=== PATIENT | male | born 1985 | race Caucasian/White ===

== ENCOUNTER → 2016-03-26 | Day surgery (SDC) | payer MEDICARE, MEDICAID ==
[~2016-03-26] VITALS: Ht 134.6 cm; Wt 22.7 kg
[~2016-03-26] MED LIST: CIPR500T89 GT; DULC10SU2 PR; GLYCOPYRROLATE INJ 0.2 MG/ML 2 ML VIAL As Ordered ONE; HYDR25T GT; IBUP100S2 GT; IBUPROFEN 600 MG TAB PO PRN; JEVILIQ10 GT; LIDOCAINE 2% INJ 100 MG/5 ML SDV (FOR ANES.) As Ordered ONE; LR 1,000 ML IV SCH; MEPERIDINE INJ 25 MG/ML VIAL (J2175) IV PRN; METO5EL GT; METOCLOPRAMIDE INJ 10MG/2ML VIAL (J2765) IV PRN; METR0.00 TOP; MIDAZOLAM INJ 2 MG/2 ML VIAL (J2250) As Ordered ONE; MILKSUS GT; MIRA3350 GT; NEOSTIGMINE 1MG/ML 5 ML SYRINGE (J2710) As Ordered ONE; NYST100024 TOP; ONDANSETRON 4MG/2ML VIAL (J2405) As Ordered ONE; ONDANSETRON 4MG/2ML VIAL (J2405) IV PRN; PERCOCET 5MG/325MG TAB PO PRN; PRIM250T5 GT; PROPOFOL 200 MG/20 ML VIAL As Ordered ONE; REGL5TAB2 PEG; ROCURONIUM BROMIDE 50 MG/5 ML VIAL As Ordered ONE; SENN8.8S6 GT; ZINC40OI TOP; ZINC60OI TOP; dexameTHASONE 4 MG/ML 1ML VIAL (J1100) As Ordered ONE; fentaNYL 100 MCG/2 ML INJECTION (J3010) IV PRN; fentaNYL 250 MCG/5 ML INJECTION (J3010) As Ordered ONE
[2016-03-26 14:30] VITALS: BP 121/74
--- NOTE | 2016-03-26 18:36 | RO ---
DATE OF PROCEDURE: 03/26/2016 PREOPERATIVE DIAGNOSIS: Dental caries. POSTOPERATIVE DIAGNOSIS: Dental caries. PROCEDURE: radiographs; fillings; prophy SURGEON: Dr. Sridhar Jean VICE PRESIDENT OF SALES: None ANESTHESIA: General DESCRIPTION OF PROCEDURE: The patient, Jimmy Mcfarland, was brought to the operating room with premedication and placed onto the operating table in the supine position. After all monitoring equipment was attached to the patient, vital signs were checked and general anesthetic medicaments were delivered via inhalation. Nasal intubation proceeded and tube extension was secured into position after breathing was monitored. The patient was then prepped and draped for dental surgical procedures. The intraoral cavity was inspected and suctioned free of gross secretions. One large moist throat pack was placed. Mouth prop placed. Decay removal followed by composite condensation was completed on the occlusal, lingual and buccal surface of tooth #2, the occlusal surface of teeth #4, 5, and 15, the buccal surface of teeth #30 and 31. Prophy with Cavitron of all dentition was completed. Fluoride varnish application was completed on entire dentition. Final removal of all gross fluids from intraoral and extraoral structures. Bite block removed. The patient then left by dental team in the care of presiding anesthesiologist. Note, there was continuous removal of all gross fluid throughout the duration of all performed dental procedures. GAGANDEEPD
== END | disposition home or self-care (01) ==
LOC: M SDC 09:18
PROVIDERS: ATTEND Dentist General Practice
DX: K02.9 Dental caries, unspecified (principal); G80.9 Cerebral palsy, unspecified; Z99.3 Dependence on wheelchair; Z88.0 Allergy status to penicillin; Z91.040 Latex allergy status; Z79.899 Other long term (current) drug therapy
CPT/HCPCS: 70300; D2391; D2393; D9223; J1100; J2250; J2405; J2710; J3010

== ENCOUNTER 2016-04-01 09:56 | Emergency (ER) | payer MEDICARE, MEDICAID ==
[~2016-04-01 09:56] MED LIST changes: -GLYCOPYRROLATE INJ 0.2 MG/ML 2 ML VIAL As Ordered ONE; -IBUPROFEN 600 MG TAB PO PRN; -LIDOCAINE 2% INJ 100 MG/5 ML SDV (FOR ANES.) As Ordered ONE; -LR 1,000 ML IV SCH; -MEPERIDINE INJ 25 MG/ML VIAL (J2175) IV PRN; -METOCLOPRAMIDE INJ 10MG/2ML VIAL (J2765) IV PRN; -MIDAZOLAM INJ 2 MG/2 ML VIAL (J2250) As Ordered ONE; -NEOSTIGMINE 1MG/ML 5 ML SYRINGE (J2710) As Ordered ONE; -ONDANSETRON 4MG/2ML VIAL (J2405) As Ordered ONE; -ONDANSETRON 4MG/2ML VIAL (J2405) IV PRN; -PERCOCET 5MG/325MG TAB PO PRN; -PROPOFOL 200 MG/20 ML VIAL As Ordered ONE; -ROCURONIUM BROMIDE 50 MG/5 ML VIAL As Ordered ONE; -dexameTHASONE 4 MG/ML 1ML VIAL (J1100) As Ordered ONE; -fentaNYL 100 MCG/2 ML INJECTION (J3010) IV PRN; -fentaNYL 250 MCG/5 ML INJECTION (J3010) As Ordered ONE
[2016-04-01] MEDS ORDERED: GASTROGRAFIN SOLUTION 30ML (Q9963) As Ordered ONE (10:37)
--- NOTE | 2016-04-01 11:20 | EDDOCDS ---
Physician Documentation [facility] Name: Jimmy Mcfarland Age: 30 yrs Sex: Male : 1985 Arrival Date: 04/01/2016 Time: 09:56 Bed I7 / 29 Private MD: Lakhwinder Liu M.D. Disposition: 04/01/16 10:59 Discharged to Home/Self Care. Impression: Encounter for attention to gastrostomy - replacement of 14 Fr PEG tube with 14 Fr beasley cath. - Condition is Stable. - Discharge Instructions: Gastrostomy Tube Home Guide, Adult, Gastrostomy Tube Replacement. - Medication Reconciliation, Local Pharmacy Hours form. - Follow up: Trenton Gallego MD; When: Call to arrange an appointment; Reason: Recheck today's complaints, Continuance of care. Follow up: Capo Hartmann; When: Call to arrange an appointment; Reason: Recheck today's complaints, Continuance of care. - Problem is new. - Symptoms have improved. Historical: - Allergies: Amoxicillin; hay fever; Latex; - Home Meds: 1. Dulcolax (bisacodyl) 10 mg Rectal supp 1 suppository prn 2. hydroxyzine HCl 25 mg Oral tab 2 tab nightly 3. Ibuprofen 100mg/5ml give 5ml TID PRN 4. Jevity 1.5 meeta 25cc/hr contiuously via pump 5. Miralax 10 ml give with 4 ounces of water at HS Oral 6. MOM 10ml via G-tube PRN daily as needed 7. primidone 250 mg Oral tab 0.5 tab nightly Tube 8. Reglan 5mg/5ml, give 5ml in am and HS 9. Senna 8/8mg/5ml give 10 ml twice daily 10. zinc oxide twice daily as needed - PMHx: Cerebral Palsy; microcephaly; Rosacea; Seizures; - PSHx: g tube; - Social history: Smoking status: Patient/guardian denies using Patient is speech impaired. - Family history: Not pertinent. - : The pt / caregiver states he / she is not on anticoagulants. Home medication list is obtained from [employer] import data. - Exposure Risk Screening:: None identified. Vital Signs: 04/01 09:58 Resp 16 S; Temp 96.4(T); Weight 19.05 kg / 42 lbs (R); dd6 Procedures: 11:04 G-tube placement: a 14 Greenlandic catheter was placed, by the ED physician, pt had a 14 mo1 guyanese button PEG tube dislodged due to ruptured balloon. due to lack of available correct sized PEG tubes pt had a 14 Fr beasley cath inserted by insurance underwriter with good placement as confirmed with KUB with gastroview injection. director medicare sales instructed to take pt to general surgeon for correct button PEG placement . MDM: 10:34 Diatrizoate Meglumine & Sodium Liquid 10 ml PO once; mix in 290cc of water ordered. mo1 10:36 Abdomen,Flat Plate (KUB) Ordered. EDMS 10:38 Financial registration complete. mm15 Administered Medications: 10:50 Drug: Diatrizoate Meglumine & Sodium 10 ml [diatrizoate meglumine and diat.sodium 66 kr3 %-10 % oral solution (10 mL)] {Note: given by MOhagenPA via Gtube.} Route: PO; Signatures: Dispatcher [employer] EDKassidy Krishna, RN RN dls Maire Balderas RN RN kr3 Saurabh Abarca PA PA mo1 Zbigniew Leroy mm15 MTDKarina
--- NOTE | 2016-04-01 11:20 | EDDOCDS ---
Nurse's Notes [facility] Name: Jimmy Mcfarland Age: 30 yrs Sex: Male : 1985 Arrival Date: 04/01/2016 Time: 09:56 Bed I7 / 29 Private MD: Lakhwinder Liu M.D. Diagnosis: Encounter for attention to gastrostomy-replacement of 14 Fr PEG tube with 14 Fr beasley cath Presentation: 04/01 10:01 Presenting complaint: Patient states: Pt presents with g-tube fell out this morning Pt dls is [facility] client. Adult Sepsis Screening: The patient does not have new or worsening altered mentation. Patient's respiratory rate is less than 22. Systolic blood pressure is greater than 100. Patient has a qSOFA score of 0- Negative Sepsis Screen. Suicide/Homicide risk assessment- the patient denies having any suicidal and/or homicidal ideations and does not present with any other emotional, behavioral or mental health complaints. Status: Patient is not a customer service correspondence clerk or dependent. Transition of care: patient was not received from another setting of care. 10:01 Acuity: LAINA Level 4 dls 10:01 Method Of Arrival: Wheelchair dls Triage Assessment: 10:04 General: Appears in no apparent distress, Behavior is cooperative. Pain: Unable to use dls pain scale. FLACC scale score is 0 out of 10. HIV screening NA for this visit Offered previously. Historical: - Allergies: Amoxicillin; hay fever; Latex; - Home Meds: 1. Dulcolax (bisacodyl) 10 mg Rectal supp 1 suppository prn 2. hydroxyzine HCl 25 mg Oral tab 2 tab nightly 3. Ibuprofen 100mg/5ml give 5ml TID PRN 4. Jevity 1.5 meeta 25cc/hr contiuously via pump 5. Miralax 10 ml give with 4 ounces of water at HS Oral 6. MOM 10ml via G-tube PRN daily as needed 7. primidone 250 mg Oral tab 0.5 tab nightly Tube 8. Reglan 5mg/5ml, give 5ml in am and HS 9. Senna 8/8mg/5ml give 10 ml twice daily 10. zinc oxide twice daily as needed - PMHx: Cerebral Palsy; microcephaly; Rosacea; Seizures; - PSHx: g tube; - Social history: Smoking status: Patient/guardian denies using Patient is speech impaired. - Family history: Not pertinent. - : The pt / caregiver states he / she is not on anticoagulants. Home medication list is obtained from [employer] import data. - Exposure Risk Screening:: None identified. Screenin:18 Screening information is obtained from the caregiver. Fall risk: At risk due to kr3 apparent cognitive impairment, immobility. Assistance ADL's: Requires assistance with meal preparation, this assistance is provided by residence staff, bathing, assistance is provided by residence staff, dressing, assistance is provided by residence staff, toileting, assistance is provided by residence staff, housework, assistance is provided by residence staff, medication administration, assistance is provided by residence staff. Abuse/DV Screen: The patient / caregiver reports he/she is: pt cannot be assessed for living situation at this time. Nutritional screening: On. Advance Directives: Currently, there is no health care proxy. home support is adequate. Assessment: 11:19 Reassessment: Patient appears in no apparent distress at this time. kr3 Vital Signs: 09:58 Resp 16 S; Temp 96.4(T); Weight 19.05 kg (R); dd6 Vitals: 09:58 Log In Time: April 01, 2016 at 09:56. dd6 ED Course: 09:58 Patient visited by Arnie Zeng PCA. dd6 09:58 Lakhwinder Liu is Private Physician. dd6 09:58 Patient moved to Waiting dd6 10:01 Patient moved to Pre RCE dd6 10:02 Triage Initiated dls 10:19 Saurabh Abarca PA is PHCP. mo1 10:19 Gurdeep Dennis MD is Attending Physician. mo1 10:19 Patient moved to I mo1 10:21 Pt greeted and oriented to ED. Patient advised of names of staff involved in care, jam1 location of call [place], wait times and NPO status. Patient has correct armband on for positive identification. Bed in low position. Call light in reach. Side rails up X 1. PT SITTING IN WHEELCHAIR. [facility] CLIENT. Door closed. 10:34 Patient visited by Saurabh Abarca PA. mo1 10:59 Trenton Gallego MD is Referral Physician. mo1 10:59 Capo Hartmann is Referral Physician. mo1 11:18 No IV's were initiated during this patient's visit. No procedures done that require kr3 assistance. 11:19 The patient / caregiver is instructed regarding the plan of care and ED course. kr3 Administered Medications: 10:50 Drug: Diatrizoate Meglumine & Sodium 10 ml [diatrizoate meglumine and diat.sodium 66 kr3 %-10 % oral solution (10 mL)] {Note: given by [facility] via Gtube.} Route: PO; Order Results: There are currently no results for this order. Outcome: 10:59 Discharge ordered by Provider. mo1 11:18 Discharge Assessment: patient administered narcotics - no. The following High Risk kr3 Discharge criteria are identified: None. Discharged to home via wheelchair. Condition: stable. Discharge instructions given to raw stock drier tender, Instructed on discharge instructions, follow up and referral plans. Demonstrated understanding of instructions, Pt was receptive of discharge instructions/ teaching. No special radiology studies were completed. Property sent home with patient. 11:19 Patient left the ED. kr3 Signatures: Kassidy Garcia, RN RN Elsa Meyers, EDI DEVELOPER EDI DEVELOPER jam1 Marie Balderas RN RN kr3 Arnie Zeng, EDI DEVELOPER EDI DEVELOPER dd6 Saurabh Abarca PA PA mo1 Corrections: (The following items were deleted from the chart) 10:01 09:58 Resp 16bpm; Spontaneous; Pulse Ox 0% RA; Temp 96.4F Tympanic; 19.05 kg Reported; dd6 dd6 MTDD
--- NOTE | 2016-04-01 13:45 | REP ---
KUB: Single view. HISTORY: B-tube placement. Contrast has been instilled via the G-tube by the referring clinical service. Comparison study December 30, 2014. FINDINGS: A gastrostomy tube is seen in good position in the body of the stomach. Contrast has been injected and is seen within the stomach. No extravasation. IMPRESSION: G-tube appears to be in good position. No extravasation of contrast seen. Signed by Pablo Brown MD 04/01/2016 03:17 P
--- NOTE | 2016-04-03 12:20 | EDDOCDS ---
Nurse's Notes [facility] Name: Jimmy Mcfarland Age: 30 yrs Sex: Male : 1985 Arrival Date: 04/01/2016 Time: 09:56 Bed I7 / 29 Private MD: Lakhwinder Liu M.D. Diagnosis: Encounter for attention to gastrostomy-replacement of 14 Fr PEG tube with 14 Fr beasley cath Presentation: 04/01 10:01 Presenting complaint: Patient states: Pt presents with g-tube fell out this morning Pt dls is [facility] client. Adult Sepsis Screening: The patient does not have new or worsening altered mentation. Patient's respiratory rate is less than 22. Systolic blood pressure is greater than 100. Patient has a qSOFA score of 0- Negative Sepsis Screen. Suicide/Homicide risk assessment- the patient denies having any suicidal and/or homicidal ideations and does not present with any other emotional, behavioral or mental health complaints. Status: Patient is not a pool servicer or dependent. Transition of care: patient was not received from another setting of care. 10:01 Acuity: LAINA Level 4 dls 10:01 Method Of Arrival: Wheelchair dls Triage Assessment: 10:04 General: Appears in no apparent distress, Behavior is cooperative. Pain: Unable to use dls pain scale. FLACC scale score is 0 out of 10. HIV screening NA for this visit Offered previously. Historical: - Allergies: Amoxicillin; hay fever; Latex; - Home Meds: 1. Dulcolax (bisacodyl) 10 mg Rectal supp 1 suppository prn 2. hydroxyzine HCl 25 mg Oral tab 2 tab nightly 3. Ibuprofen 100mg/5ml give 5ml TID PRN 4. Jevity 1.5 meeta 25cc/hr contiuously via pump 5. Miralax 10 ml give with 4 ounces of water at HS Oral 6. MOM 10ml via G-tube PRN daily as needed 7. primidone 250 mg Oral tab 0.5 tab nightly Tube 8. Reglan 5mg/5ml, give 5ml in am and HS 9. Senna 8/8mg/5ml give 10 ml twice daily 10. zinc oxide twice daily as needed - PMHx: Cerebral Palsy; microcephaly; Rosacea; Seizures; - PSHx: g tube; - Social history: Smoking status: Patient/guardian denies using Patient is speech impaired. - Family history: Not pertinent. - : The pt / caregiver states he / she is not on anticoagulants. Home medication list is obtained from [employer] import data. - Exposure Risk Screening:: None identified. Screenin:18 Screening information is obtained from the caregiver. Fall risk: At risk due to kr3 apparent cognitive impairment, immobility. Assistance ADL's: Requires assistance with meal preparation, this assistance is provided by residence staff, bathing, assistance is provided by residence staff, dressing, assistance is provided by residence staff, toileting, assistance is provided by residence staff, housework, assistance is provided by residence staff, medication administration, assistance is provided by residence staff. Abuse/DV Screen: The patient / caregiver reports he/she is: pt cannot be assessed for living situation at this time. Nutritional screening: On. Advance Directives: Currently, there is no health care proxy. home support is adequate. Assessment: 11:19 Reassessment: Patient appears in no apparent distress at this time. kr3 Vital Signs: 09:58 Resp 16 S; Temp 96.4(T); Weight 19.05 kg (R); dd6 Vitals: 09:58 Log In Time: April 01, 2016 at 09:56. dd6 ED Course: 09:58 Patient visited by Arnie Zeng PCA. dd6 09:58 Lakhwinder Liu is Private Physician. dd6 09:58 Patient moved to Waiting dd6 10:01 Patient moved to Pre RCE dd6 10:02 Triage Initiated dls 10:19 Saurabh Abarca PA is PHCP. mo1 10:19 Gurdeep Dennis MD is Attending Physician. mo1 10:19 Patient moved to I mo1 10:21 Pt greeted and oriented to ED. Patient advised of names of staff involved in care, jam1 location of call [place], wait times and NPO status. Patient has correct armband on for positive identification. Bed in low position. Call light in reach. Side rails up X 1. PT SITTING IN WHEELCHAIR. [facility] CLIENT. Door closed. 10:34 Patient visited by Saurabh Abarca PA. mo1 10:59 Trenton Gallego MD is Referral Physician. mo1 10:59 Capo Hartmann is Referral Physician. mo1 11:18 No IV's were initiated during this patient's visit. No procedures done that require kr3 assistance. 11:19 The patient / caregiver is instructed regarding the plan of care and ED course. kr3 11:26 [facility] Payment Agreement was scanned into [employer] and attached to record. mm15 14:15 Abdomen,Flat Plate (KUB) Returned. EDMS 14:58 T-Sheet-- Draft Copy was scanned into [employer] and attached to record. gb Administered Medications: 10:50 Drug: Diatrizoate Meglumine & Sodium 10 ml [diatrizoate meglumine and diat.sodium 66 kr3 %-10 % oral solution (10 mL)] {Note: given by MOhagenPA via Gtube.} Route: PO; Order Results: Radiology Order: Abdomen,Flat Plate (KUB) Test: Abdomen,Flat Plate (KUB) REASON FOR EXAMINATION: g tube placement; KUB: Single view.; ; HISTORY: B-tube placement. Contrast has been instilled via the G-tube by the; referring clinical service.; ; Comparison study December 30, 2014.; ; FINDINGS: A gastrostomy tube is seen in good position in the body of the; stomach. Contrast has been injected and is seen within the stomach. No; extravasation.; ; IMPRESSION: G-tube appears to be in good position. No extravasation of contrast; seen.; ; ; Signed by; Pablo Brown MD 04/01/2016 03:17 P; Outcome: 10:59 Discharge ordered by Provider. mo1 11:18 Discharge Assessment: patient administered narcotics - no. The following High Risk kr3 Discharge criteria are identified: None. Discharged to home via wheelchair. Condition: stable. Discharge instructions given to tool room gear machine operator, Instructed on discharge instructions, follow up and referral plans. Demonstrated understanding of instructions, Pt was receptive of discharge instructions/ teaching. No special radiology studies were completed. Property sent home with patient. 11:19 Patient left the ED. kr3 Signatures: Dispatcher [employer] EDMS Kassidy Garcia RN RN dls Murphy, Jane, EMERGENCY CARE ATTENDANT EMERGENCY CARE ATTENDANT jam1 Danna Murphy, Ernst Dukes gb Marie Balderas RN RN kr3 Arnie Zeng, EMERGENCY CARE ATTENDANT EMERGENCY CARE ATTENDANT dd6 Saurabh Abarca PA PA mo1 Zbigniew Leroy mm15 Corrections: (The following items were deleted from the chart) 10:01 09:58 Resp 16bpm; Spontaneous; Pulse Ox 0% RA; Temp 96.4F Tympanic; 19.05 kg Reported; dd6 dd6 Chart Complete MTDD
--- NOTE | 2016-04-03 12:20 | EDDOCDS ---
Physician Documentation [facility] Name: Jimmy Mcfarland Age: 30 yrs Sex: Male : 1985 Arrival Date: 04/01/2016 Time: 09:56 Bed I7 / 29 Private MD: Lakhwinder Liu M.D. Disposition: 04/01/16 10:59 Discharged to Home/Self Care. Impression: Encounter for attention to gastrostomy - replacement of 14 Fr PEG tube with 14 Fr beasley cath. - Condition is Stable. - Discharge Instructions: Gastrostomy Tube Home Guide, Adult, Gastrostomy Tube Replacement. - Medication Reconciliation, Local Pharmacy Hours form. - Follow up: Trenton Gallego MD; When: Call to arrange an appointment; Reason: Recheck today's complaints, Continuance of care. Follow up: Capo Hartmann; When: Call to arrange an appointment; Reason: Recheck today's complaints, Continuance of care. - Problem is new. - Symptoms have improved. Historical: - Allergies: Amoxicillin; hay fever; Latex; - Home Meds: 1. Dulcolax (bisacodyl) 10 mg Rectal supp 1 suppository prn 2. hydroxyzine HCl 25 mg Oral tab 2 tab nightly 3. Ibuprofen 100mg/5ml give 5ml TID PRN 4. Jevity 1.5 meeta 25cc/hr contiuously via pump 5. Miralax 10 ml give with 4 ounces of water at HS Oral 6. MOM 10ml via G-tube PRN daily as needed 7. primidone 250 mg Oral tab 0.5 tab nightly Tube 8. Reglan 5mg/5ml, give 5ml in am and HS 9. Senna 8/8mg/5ml give 10 ml twice daily 10. zinc oxide twice daily as needed - PMHx: Cerebral Palsy; microcephaly; Rosacea; Seizures; - PSHx: g tube; - Social history: Smoking status: Patient/guardian denies using Patient is speech impaired. - Family history: Not pertinent. - : The pt / caregiver states he / she is not on anticoagulants. Home medication list is obtained from [employer] import data. - Exposure Risk Screening:: None identified. Vital Signs: 04/01 09:58 Resp 16 S; Temp 96.4(T); Weight 19.05 kg / 42 lbs (R); dd6 Procedures: 11:04 G-tube placement: a 14 German catheter was placed, by the ED physician, pt had a 14 mo1 citizen of [place] button PEG tube dislodged due to ruptured balloon. due to lack of available correct sized PEG tubes pt had a 14 Fr beasley cath inserted by verse writer with good placement as confirmed with KUB with gastroview injection. rn patient care instructed to take pt to general surgeon for correct button PEG placement . MDM: 10:34 Diatrizoate Meglumine & Sodium Liquid 10 ml PO once; mix in 290cc of water ordered. mo1 10:36 Abdomen,Flat Plate (KUB) Ordered. EDMS 10:38 Financial registration complete. mm15 11: [facility] Payment Agreement was scanned into [employer] and attached to record. mm15 14:58 T-Sheet-- Draft Copy was scanned into [employer] and attached to record. gb Administered Medications: 10:50 Drug: Diatrizoate Meglumine & Sodium 10 ml [diatrizoate meglumine and diat.sodium 66 kr3 %-10 % oral solution (10 mL)] {Note: given by MOhagenPA via Gtube.} Route: PO; Signatures: Dispatcher [employer] EDMS Kassidy Garcia, MARIVEL RN Danna Jones Reg Reg gb Robie, Kathleen, RN RN kr3 Saurabh Abarca PA PA mo1 Zbigniew Leroy mm15 The chart was reviewed and I authenticate all verbal orders and agree with the evaluation and treatment provided.Attachments: 11: [facility] Payment Agreement mm15 14:58 T-Sheet-- Draft Copy gb Chart Complete MTDD
--- NOTE | 2016-04-03 12:20 | EDDOCDS ---
Physician Documentation [facility] Name: Jimmy Mcfarland Age: 30 yrs Sex: Male : 1985 Arrival Date: 04/01/2016 Time: 09:56 Bed I7 / 29 Private MD: Lakhwinder Liu M.D. Disposition: 04/01/16 10:59 Discharged to Home/Self Care. Impression: Encounter for attention to gastrostomy - replacement of 14 Fr PEG tube with 14 Fr beasley cath. - Condition is Stable. - Discharge Instructions: Gastrostomy Tube Home Guide, Adult, Gastrostomy Tube Replacement. - Medication Reconciliation, Local Pharmacy Hours form. - Follow up: Trenton Gallego MD; When: Call to arrange an appointment; Reason: Recheck today's complaints, Continuance of care. Follow up: Capo Hartmann; When: Call to arrange an appointment; Reason: Recheck today's complaints, Continuance of care. - Problem is new. - Symptoms have improved. Historical: - Allergies: Amoxicillin; hay fever; Latex; - Home Meds: 1. Dulcolax (bisacodyl) 10 mg Rectal supp 1 suppository prn 2. hydroxyzine HCl 25 mg Oral tab 2 tab nightly 3. Ibuprofen 100mg/5ml give 5ml TID PRN 4. Jevity 1.5 meeta 25cc/hr contiuously via pump 5. Miralax 10 ml give with 4 ounces of water at HS Oral 6. MOM 10ml via G-tube PRN daily as needed 7. primidone 250 mg Oral tab 0.5 tab nightly Tube 8. Reglan 5mg/5ml, give 5ml in am and HS 9. Senna 8/8mg/5ml give 10 ml twice daily 10. zinc oxide twice daily as needed - PMHx: Cerebral Palsy; microcephaly; Rosacea; Seizures; - PSHx: g tube; - Social history: Smoking status: Patient/guardian denies using Patient is speech impaired. - Family history: Not pertinent. - : The pt / caregiver states he / she is not on anticoagulants. Home medication list is obtained from [employer] import data. - Exposure Risk Screening:: None identified. Vital Signs: 04/01 09:58 Resp 16 S; Temp 96.4(T); Weight 19.05 kg / 42 lbs (R); dd6 Procedures: 11:04 G-tube placement: a 14 Malay catheter was placed, by the ED physician, pt had a 14 mo1 estonian button PEG tube dislodged due to ruptured balloon. due to lack of available correct sized PEG tubes pt had a 14 Fr beasley cath inserted by justowriter operator with good placement as confirmed with KUB with gastroview injection. healthcare analyst instructed to take pt to general surgeon for correct button PEG placement . MDM: 10:34 Diatrizoate Meglumine & Sodium Liquid 10 ml PO once; mix in 290cc of water ordered. mo1 10:36 Abdomen,Flat Plate (KUB) Ordered. EDMS 10:38 Financial registration complete. mm15 11: [facility] Payment Agreement was scanned into [employer] and attached to record. mm15 14:58 T-Sheet-- Draft Copy was scanned into [employer] and attached to record. gb Administered Medications: 10:50 Drug: Diatrizoate Meglumine & Sodium 10 ml [diatrizoate meglumine and diat.sodium 66 kr3 %-10 % oral solution (10 mL)] {Note: given by MOhagenPA via Gtube.} Route: PO; Signatures: Dispatcher [employer] EDMS Kassidy Garcia, MARIVEL RN Danna Jones Reg Reg gb Robie, Kathleen, RN RN kr3 Saurabh Abarca PA PA mo1 Zbigniew Leroy mm15 The chart was reviewed and I authenticate all verbal orders and agree with the evaluation and treatment provided.Attachments: 11: [facility] Payment Agreement mm15 14:58 T-Sheet-- Draft Copy gb Chart Complete MTDD
== END 2016-04-01 11:19 | disposition home or self-care (01) ==
LOC: M ED 09:56
DX: Z43.1 Encounter for attention to gastrostomy (principal); G80.9 Cerebral palsy, unspecified; Q02 Microcephaly; R56.9 Unspecified convulsions; L71.9 Rosacea, unspecified; J30.1 Allergic rhinitis due to pollen; Z79.899 Other long term (current) drug therapy; Z88.1 Allergy status to other antibiotic agents; Z91.040 Latex allergy status; Z97.8 Presence of other specified devices
CPT/HCPCS: 43760; 74000; 99283; Q9963

== ENCOUNTER → 2016-05-15 | Outpatient (REF) | payer MEDICARE, MEDICAID | LOC: M SFHCCLAY 15:10 | PROVIDERS: ATTEND Family Medicine | DX: J40 Bronchitis, not specified as acute or chronic (principal); Z93.1 Gastrostomy status | CPT/HCPCS: 87070; 87077; 87186; 87205; G0463 ==

== ENCOUNTER 2016-11-07 23:34 | Emergency (ER) | payer MEDICARE, MEDICAID ==
[~2016-11-07] VITALS: Ht 119.4 cm; Wt 23.6 kg
[~2016-11-07 23:34] MED LIST changes: +CIPR-249 GT; -CIPR500T89 GT; +HYDR-3363 GT; -HYDR25T GT; -NYST100024 TOP; +NYST1POW9 TOP; -PRIM250T5 GT; +PRIM250T8 GT
[2016-11-08 01:33] VITALS: BP 106/61
== END 2016-11-08 01:35 | disposition home or self-care (01) ==
LOC: M ED 23:34
DX: K94.23 Gastrostomy malfunction (principal); G80.9 Cerebral palsy, unspecified; F99 Mental disorder, not otherwise specified; Z79.899 Other long term (current) drug therapy; Z91.040 Latex allergy status; Z88.0 Allergy status to penicillin

== ENCOUNTER 2017-01-17 20:45 | Emergency (ER) | payer MEDICARE, MEDICAID ==
[~2017-01-17] VITALS: Ht 119.4 cm; Wt 21.8 kg
[2017-01-17 20:47] VITALS: BP 132/71
== END 2017-01-17 22:20 | disposition home or self-care (01) ==
LOC: M ED 20:45
DX: K94.23 Gastrostomy malfunction (principal); Z79.899 Other long term (current) drug therapy; Z91.040 Latex allergy status; Z88.0 Allergy status to penicillin

== ENCOUNTER → 2017-04-11 | Outpatient (REF) | payer MEDICARE, MEDICAID | LOC: M LAB REF 08:51 | DX: R19.7 Diarrhea, unspecified (principal) | CPT/HCPCS: 87493 ==

== ENCOUNTER → 2017-08-22 | Outpatient (CLI) | payer MEDICARE, MEDICAID ==
[2017-08-22 15:02] LABS: BASO % 0.5 % (0.0-1.0); EOS % 0.4 % (0.0-3.0); HEMOGLOBIN 14.1 g/dl (13.5-17.5); IMMATURE GRANULOCYTE % 0.1 % (0-3.0); LYMPH # 2.4 10^3/uL (1.5-4.5); LYMPH % 31.6 % (24.0-44.0); MEAN CORPUSCULAR HEMOGLOBIN 31.1 pg (27.0-33.0); MEAN CORPUSCULAR HGB CONC 32.8 g/dl (32.0-36.5); MEAN CORPUSCULAR VOLUME 94.7 fl (80.0-96.0); MONO # 1.1 10^3/uL (0.0-0.8); MONO % 14.3 % (0.0-5.0); NEUTROPHILS # 4.1 10^3/uL (1.8-7.7); NEUTROPHILS % 53.1 % (36.0-66.0); PLATELET COUNT, AUTOMATED 136 10^3/uL (150-450); RED BLOOD COUNT 4.54 10^6/uL (4.30-6.10); RED CELL DISTRIBUTION WIDTH 13.2 % (11.5-14.5); WHITE BLOOD COUNT 7.7 10^3/uL (4.0-10.0)
== END ==
LOC: M WUC 09:09
DX: Z01.818 Encounter for other preprocedural examination (principal); G40.909 Epilepsy, unspecified, not intractable, without status epilepticus
CPT/HCPCS: 85025

== ENCOUNTER 2017-08-24 00:52 | Emergency (ER) | payer MEDICARE, MEDICAID | END 2017-08-24 01:57 | disposition home or self-care (01) | LOC: M ED 00:52 | DX: Z43.1 Encounter for attention to gastrostomy (principal); G80.9 Cerebral palsy, unspecified; Z88.0 Allergy status to penicillin; Z91.040 Latex allergy status; Z79.899 Other long term (current) drug therapy | CPT/HCPCS: 99282 ==

== ENCOUNTER → 2017-08-25 | Outpatient (CLI) | payer MEDICARE, MEDICAID ==
[2017-08-25 11:24] LABS: ALBUMIN 3.3 GM/DL (3.2-5.2); ALKALINE PHOSPHATASE 134 U/L (45-117); ALT/SGPT 35 U/L (12-78); ANION GAP 8 MEQ/L (8-16); AST/SGOT 39 U/L (7-37); BILIRUBIN,TOTAL 0.2 MG/DL (0.2-1.0); BLOOD UREA NITROGEN 16 MG/DL (7-18); CALCIUM LEVEL 8.9 MG/DL (8.5-10.1); CARBON DIOXIDE LEVEL 29 MEQ/L (21-32); CHLORIDE LEVEL 102 MEQ/L (98-107); CREATININE FOR GFR 0.44 MG/DL (0.70-1.30); GLOMERULAR FILTRATION RATE > 60.0 (>60); GLUCOSE, FASTING 70 MG/DL (70-100); SODIUM LEVEL 139 MEQ/L (136-145); TOTAL PROTEIN 7.4 GM/DL (6.4-8.2)
[2017-08-25 11:30] LABS: POTASSIUM SERUM 5.5 MEQ/L (3.5-5.1)
[2017-08-27 10:12] LABS: PHENOBARBITAL (PRIMIDONE) 9 ug/mL (15-40)
== END ==
LOC: M LAB 09:14
DX: Z01.818 Encounter for other preprocedural examination (principal); G40.909 Epilepsy, unspecified, not intractable, without status epilepticus
CPT/HCPCS: 80188

== ENCOUNTER 2018-08-12 20:50 | Inpatient (IN) | payer MEDICARE, MEDICAID ==
[~2018-08-12] VITALS: Ht 119.4 cm; Wt 23.1 kg
[~2018-08-12 20:50] MED LIST changes: +FLEEENE12 PR; +IBUP0.77 GT; -IBUP100S2 GT; +JEVILIQ7 PO; +LACT10SO29 PO; +LACT10SO3 GT; +METR0.7533 TOP; +MILK120011 GT; -MILKSUS GT; +MOM30SS GT; +PEDI1SUP PR; +PRIM125TAB GT; +SENN1TAB8 GT; -SENN8.8S6 GT; +SENN8.8S7 GT; +[UNRECOGNIZED DRUG - CODE] TOP
[2018-08-12] MEDS ORDERED: NS 1,000 ML IV SCH (22:15)
[2018-08-12 23:15] LABS: BLOOD UREA NITROGEN 8 MG/DL (7-18); CALCIUM LEVEL 8.8 MG/DL (8.5-10.1); CARBON DIOXIDE LEVEL 32 MEQ/L (21-32); CHLORIDE LEVEL 108 MEQ/L (98-107); CREATININE FOR GFR 0.56 MG/DL (0.70-1.30); GLOMERULAR FILTRATION RATE > 60.0 (>60); GLUCOSE, FASTING 76 MG/DL (70-100); HEMATOCRIT 37.6 % (42.0-52.0); HEMOGLOBIN 12.3 g/dl (13.5-17.5); MEAN CORPUSCULAR HEMOGLOBIN 32.2 pg (27.0-33.0); MEAN CORPUSCULAR HGB CONC 32.7 g/dl (32.0-36.5); MEAN CORPUSCULAR VOLUME 98.4 fl (80.0-96.0); PLATELET COUNT, AUTOMATED 124 10^3/uL (150-450); POTASSIUM SERUM 3.9 MEQ/L (3.5-5.1); RED BLOOD COUNT 3.82 10^6/uL (4.30-6.10); SODIUM LEVEL 144 MEQ/L (136-145); WHITE BLOOD COUNT 9.5 10^3/uL (4.0-10.0)
[2018-08-13] MEDS ORDERED: [UNRECOGNIZED DRUG - CODE] MT ×2 (00:19)
[2018-08-13 01:10] VITALS: BP 120/66
[2018-08-13 06:00] VITALS: BP 132/63
--- NOTE | 2018-08-13 06:55 | HPE ---
DATE OF ADMISSION: 08/12/2018 PRIMARY CARE PROVIDER: Dr. Lakhwinder Liu ADMISSION PHYSICIAN: Dr. Trinh CHIEF COMPLAINT: High residual due to G tube feeding. HISTORY OF PRESENT ILLNESS: The patient is a 33-year-old white male with a history of severe cerebral palsy and dementia who came for [facility] for evaluation of the above complaints. The history is provided by [facility] staff since the patient is nonverbal and he cannot provide any information. Per medical record, the patient has dysphagia. He is on G tube feeding for about 5 years and he is on 1.5 Jevity at 25 mL per hour continuously and 50 mL of normal saline every 6 hours flush. He had been hospitalized here on August 09, 2018 due to high residual from G tube feeding. He was consulted by Dr. Gallego from the surgical service. He stayed in the hospital for three days, was improving and he was discharged from the hospital back to [facility] today. Per [facility] staff, he arrived at [facility] about 1:00 p.m. and tube feeding was started at that time, and 3 hours later the residual checked, it was about 145 mL, and then tube feeding was on hold, one hour later the residual recheck was down to 75 mL. However, later they rechecked his residual and it was up to 140 mL after medications. Then they decided to bring the patient back to the hospital here for further evaluation. Otherwise, no other complaints. REVIEW OF SYSTEMS: Not available due to dementia, nonverbal. PAST MEDICAL HISTORY: Macrocephaly. Cerebral palsy. Dysphagia on G tube feedings. Seizure disorder. PAST SURGICAL HISTORY: G tube placement about 5 years ago. FAMILY HISTORY: No family history of diabetes, coronary artery disease (CAD), or stroke. SOCIAL HISTORY: No alcohol use. No tobacco use. No illicit drug abuse. He is living at [facility]. He is a FULL CODE. MEDICATIONS: Reviewed. PHYSICAL EXAMINATION: VITAL SIGNS: Temperature is 98.2, heart rate 59, respiratory rate 14, blood pressure 140/79, oxygen saturation 94% on room air. GENERAL: He is nonverbal. He does not answer questions. He does not follow any commands. EYES: Bilateral pupils equal, round, and reactive to light. No jaundice. Extraocular muscles intact. EARS, NOSE AND THROAT: Normal. Mouth mucous dry. NECK: No jugular venous distention (JVD). No bruits. LUNGS: Clear. No wheezing, no crackles. HEART: S1, S2 regular, no murmur. ABDOMEN: Soft. Bowel sounds positive. Nontender. G tube in place. SKIN: No rash. NEUROLOGIC: Nonfocal. PSYCHOLOGICAL: quiet, no agitation, no acute psychosis. EXTREMITIES: Both arms and lower extremities are contracted. IMPRESSION: 1. Cerebral palsy. 2. History of seizures. 3. History of dysphagia on G tube feedings. PLAN: Patient will be admitted for observation. I will hold G tube feedings rafaela and Dr. Liu's group will come back to follow-up with him tomorrow and will decide on the management.
[2018-08-13] MEDS ORDERED: GLYCERIN CHILD SUPP PR PRN (08:15)
--- NOTE | 2018-08-13 08:25 | REP ---
KUB: Single view. History: Obstruction. Comparison KUB study: August 11, 2018. Findings: There is evidence of a feeding tube in the left mid abdomen. There are air-filled loops of large and small bowel scattered in the central abdomen. Gas pattern is similar to the previous day. No definite obstructive pattern. Electronically Signed by Pablo Brown MD 08/13/2018 08:17 A
[2018-08-13] MEDS: LR 1,000 ML IV SCH ×2 (09:00→20:34)
[2018-08-13] MEDS: SENNA 8.6 MG TAB (SENOKOT) GT SCH ×2 (09:00→20:34)
[2018-08-13] MEDS: METOCLOPRAMIDE INJ 10MG/2ML VIAL (J2765) IV SCH ×3 (09:00→20:34)
--- NOTE | 2018-08-13 11:41 | IPNPDOC ---
Subjective Date Seen The patient was seen on 08/13/18. Subjective Chief Complaint/HPI Pt nonverbal. Nursing without new concerns. General: Reports: ROS Unobtainable Objective Physical Examination General Exam: Positive: Alert, No Acute Distress ENT Exam: Positive: Mucous membr. moist/pink Chest Exam: Positive: Clear to auscultation, Normal air movement Heart Exam: Positive: Rate Normal, Normal S1, Normal S2 Abdomen Exam: Positive: Normal bowel sounds, Soft, Other (+ PEG); Negative: Tenderness Extremity Exam: Positive: Other (+ contractures) Psych Exam: Negative: Mental status NL Assessment /Plan Problems (1) Ileus Status: Acute Response to Treatment: Stable Discussed With: Patient Problem Specific Plan: Monitor Clinically, Repeat Labs Problem Text: Tube feeds held, LR started, + metro 5 IV QID/simeth 80 QID, to improve gstric emptying, rec resuming TF in 48 hours gradually, previously on continuous feed at 25cc/hr. If pt cont to fail to tolerate with residuals will need to consider GJ tube placement. 08/09/18 CT AP s: . Gastrostomy tube in place. 2. No free peritoneal air seen. 3. Mildly dilated bowel loops seen to suggest bowel obstruction. 4. Bilateral nephrolithiasis. (2) Protein-calorie malnutrition, severe Status: Chronic Problem Specific Plan: Monitor Clinically Problem Text: See above. (3) Gastrostomy tube dependent Status: Chronic (4) Chronic constipation Status: Chronic Problem Text: remains on HD senna 2 BID lactulose held to reduce bowel gas (5) Seizure disorder Status: Chronic Problem Text: Stable on HD primidone 125 QHS Plan/VTE VTE Prophylaxis Ordered?: No VS, I&O, 24H, [facility] Vital Signs/I&O Vital Signs Date Time Temp Pulse Resp B/P (MAP) Pulse Ox O2 Delivery O2 Flow Rate FiO2 08/13/18 06:00 97.1 52 18 132/63 (86) 95 08/13/18 00:35 Room Air I&O- Last 24 Hours up to 6 AM 08/13/18 06:00 Intake Total 220 ml Balance 220 ml Laboratory Data 24H LABS Laboratory Tests 2 08/12/18 22:40: Nucleated Red Blood Cells % (auto) 0.0, Anion Gap 4L, Glomerular Filtration Rate > 60.0, Blood Urea Nitrogen 8, Creatinine 0.56L, Sodium Level 144, Potassium Level 3.9, Chloride Level 108H, Carbon Dioxide Level 32, Calcium Level 8.8 CBC/BMP Laboratory Tests 08/12/18 22:40 Red Blood Count 3.82 L, Mean Corpuscular Volume 98.4 H, Mean Corpuscular Hemoglobin 32.2, Mean Corpuscular Hemoglobin Concent 32.7, Red Cell Distribution Width 14.2, Calcium Level 8.8 ALAINA ORELLANA PA-C Aug 13, 2018 11:41 Sergio Pritchett M.D. Aug 13, 2018 17:52
[2018-08-13 14:00] VITALS: BP 127/78
[2018-08-13] MEDS: PRIMIDONE 125MG PER 1/2 TABLET PEG SCH (20:34)
[2018-08-13] MEDS: hydrOXYzine 50 MG TAB PEG SCH (20:34)
[2018-08-13] MEDS: SIMETHICONE 80 MG CHEW TAB PEG SCH (20:34)
[2018-08-13 22:00] VITALS: BP 101/59
[2018-08-14] MEDS: METOCLOPRAMIDE INJ 10MG/2ML VIAL (J2765) IV SCH ×4 (03:15→20:27)
[2018-08-14 06:00] VITALS: BP 122/77
[2018-08-14 06:05] LABS: BASO % 0.4 % (0.0-1.0); EOS # 0.1 10^3/uL (0.0-0.50); HEMATOCRIT 36.2 % (42.0-52.0); LYMPH # 2.4 10^3/uL (1.5-4.5); LYMPH % 30.3 % (24.0-44.0); MEAN CORPUSCULAR HEMOGLOBIN 33.1 pg (27.0-33.0); MEAN CORPUSCULAR HGB CONC 33.1 g/dl (32.0-36.5); MEAN CORPUSCULAR VOLUME 99.7 fl (80.0-96.0); MONO # 0.9 10^3/uL (0.0-0.8); MONO % 11.8 % (0.0-5.0); NEUTROPHILS # 4.5 10^3/uL (1.8-7.7); NEUTROPHILS % 56.2 % (36.0-66.0); PLATELET COUNT, AUTOMATED 120 10^3/uL (150-450); RED BLOOD COUNT 3.63 10^6/uL (4.30-6.10)
[2018-08-14 06:36] LABS: BLOOD UREA NITROGEN 11 MG/DL (7-18); CALCIUM LEVEL 8.7 MG/DL (8.5-10.1); CARBON DIOXIDE LEVEL 23 MEQ/L (21-32); CHLORIDE LEVEL 103 MEQ/L (98-107); CREATININE FOR GFR 0.48 MG/DL (0.70-1.30); GLOMERULAR FILTRATION RATE > 60.0 (>60); GLUCOSE, FASTING 46 MG/DL (70-100); MAGNESIUM LEVEL 1.8 MG/DL (1.8-2.4); PHOSPHORUS LEVEL 2.6 MG/DL (2.5-4.9); POTASSIUM SERUM 4.2 MEQ/L (3.5-5.1); SODIUM LEVEL 136 MEQ/L (136-145)
[2018-08-14] MEDS ORDERED: DEXTROSE 50% 50 ML SYRINGE As Ordered ONE (06:44)
[2018-08-14] MEDS ORDERED: DEXTROSE 50% 50 ML SYRINGE IV STA (06:55)
[2018-08-14] MEDS: D5W/LR 1,000 ML IV SCH ×2 (09:17→23:25)
[2018-08-14] MEDS: SENNA 8.6 MG TAB (SENOKOT) GT SCH ×2 (09:17→20:26)
[2018-08-14] MEDS: SIMETHICONE 80 MG CHEW TAB PEG SCH ×3 (09:17→20:26)
--- NOTE | 2018-08-14 09:47 | IPNPDOC ---
Subjective Date Seen The patient was seen on 08/14/18. Subjective Chief Complaint/HPI Nursing administered D50 this morning for glu 46, pt remains NPO. General: Reports: ROS Unobtainable Objective Physical Examination General Exam: Positive: Alert (tracks with eyes), No Acute Distress ENT Exam: Positive: Mucous membr. moist/pink Chest Exam: Positive: Clear to auscultation, Normal air movement Heart Exam: Positive: Rate Normal, Normal S1, Normal S2 Abdomen Exam: Positive: Normal bowel sounds, Soft, Other (+ PEG); Negative: Tenderness Extremity Exam: Positive: Edema, Other (+ contractures) Psych Exam: Negative: Mental status NL Assessment /Plan Problems (1) Ileus Status: Acute Response to Treatment: Stable Discussed With: Patient Problem Specific Plan: Monitor Clinically, Repeat Labs Problem Text: 08/14 Cont to hold tube feedsd today, LR started yesterday, rodriguez ged to D5W/LR at 75 cc/hr due glu 46 this morning. Anticipate repeat abd films in AM, consider resuming tube feeds, but would start slow and titrate. If pt contto not tolerate with + residuals, will consider J tube placement. 08/13 Tube feeds held, LR started, + metro 5 IV QID/simeth 80 QID, to improve gstric emptying, rec resuming TF in 48 hours gradually, previously on continuous feed at 25cc/hr. If pt cont to fail to tolerate with residuals will need to consider GJ tube placement. 08/09/18 CT AP s: . Gastrostomy tube in place. 2. No free peritoneal air seen. 3. Mildly dilated bowel loops seen to suggest bowel obstruction. 4. Bilateral nephrolithiasis. (2) Protein-calorie malnutrition, severe Status: Chronic Problem Specific Plan: Monitor Clinically Problem Text: See above. (3) Gastrostomy tube dependent Status: Chronic (4) Chronic constipation Status: Chronic Problem Text: remains on HD senna 2 BID lactulose held to reduce bowel gas (5) Seizure disorder Status: Chronic Problem Text: Stable on HD primidone 125 QHS Plan/VTE VTE Prophylaxis Ordered?: No VS, I&O, 24H, Fishbone Vital Signs/I&O Vital Signs Date Time Temp Pulse Resp B/P (MAP) Pulse Ox O2 Delivery O2 Flow Rate FiO2 08/14/18 06:00 97.8 71 17 122/77 (92) 97 08/13/18 00:35 Room Air I&O- Last 24 Hours up to 6 AM 08/14/18 06:00 Intake Total 900 ml Balance 900 ml Laboratory Data 24H LABS Laboratory Tests 2 08/14/18 05:51: Immature Granulocyte % (Auto) 0.3, White Blood Count 8.0, Red Blood Count 3.63L, Hemoglobin 12.0L, Hematocrit 36.2L, Mean Corpuscular Volume 99.7H, Mean Corpuscular Hemoglobin 33.1H, Mean Corpuscular Hemoglobin Concent 33.1, Red Cell Distribution Width 13.8, Platelet Count 120L, Neutrophils (%) (Auto) 56.2, Ly mphocytes (%) (Auto) 30.3, Monocytes (%) (Auto) 11.8H, Eosinophils (%) (Auto) 1.0, Basophils (%) (Auto) 0.4, Neutrophils # (Auto) 4.5, Lymphocytes # (Auto) 2.4, Monocytes # (Auto) 0.9H, Eosinophils # (Auto) 0.1, Basophils # (Auto) 0.0, Nucleated Red Blood Cells % (auto) 0.0, Blood Urea Nitrogen 11, Creatinine 0.48L, Sodium Level 136#, Potassium Level 4.2, Chloride Level 103, Carbon Dioxide Level 23, Anion Gap 10, Glomerular Filtration Rate > 60.0, Calcium Level 8.7, Phosphorus Level 2.6, Magnesium Level 1.8, Albumin 3.0L 08/14/18 07:07: Bedside Glucose (Misc Panel) 310H 08/14/18 09:02: Bedside Glucose (Misc Panel) 171H CBC/BMP Laboratory Tests 08/14/18 05:51 Red Blood Count 3.63 L, Mean Corpuscular Volume 99.7 H, Mean Corpuscular Hemoglobin 33.1 H, Mean Corpuscular Hemoglobin Concent 33.1, Red Cell Distribution Width 13.8, Neutrophils (%) (Auto) 56.2, Lymphocytes (%) (Auto) 30.3, Monocytes (%) (Auto) 11.8 H, Eosinophils (%) (Auto) 1.0, Basophils (%) (Auto) 0.4, Neutrophils # (Auto) 4.5, Lymphocytes # (Auto) 2.4, Monocytes # (Auto) 0.9 H, Eosinophils # (Auto) 0.1, Basophils # (Auto) 0.0, Anion Gap 10 ALAINA ORELLANA PA-C Aug 14, 2018 09:47
--- NOTE | 2018-08-14 10:57 | REP ---
KUB: Single view. HISTORY: Ileus. COMPARISON STUDY: August 12, 2018. FINDINGS: There are multiple air-filled borderline caliber small and large bowel loops throughout the abdomen consistent with the history of ileus. There is a small quantity of air in the rectum. The patient is rotated to the left for the current exam. A feeding tube is noted in the left mid abdomen. Electronically Signed by Pablo Brown MD 08/14/2018 03:07 P
[2018-08-14 14:00] VITALS: BP 128/79
[2018-08-14] MEDS: hydrOXYzine 50 MG TAB PEG SCH (20:26)
[2018-08-14] MEDS: PRIMIDONE 125MG PER 1/2 TABLET PEG SCH (20:26)
[2018-08-14 22:00] VITALS: BP 125/78
[2018-08-15] MEDS: METOCLOPRAMIDE INJ 10MG/2ML VIAL (J2765) IV SCH ×4 (02:35→20:19)
[2018-08-15 06:00] VITALS: BP 105/66
[2018-08-15 06:35] LABS: BASO % 0.5 % (0.0-1.0); EOS # 0.1 10^3/uL (0.0-0.50); EOS % 1.4 % (0.0-3.0); HEMATOCRIT 33.5 % (42.0-52.0); HEMOGLOBIN 11.2 g/dl (13.5-17.5); LYMPH # 2.7 10^3/uL (1.5-4.5); LYMPH % 34.7 % (24.0-44.0); MEAN CORPUSCULAR HEMOGLOBIN 32.8 pg (27.0-33.0); MEAN CORPUSCULAR HGB CONC 33.4 g/dl (32.0-36.5); MEAN CORPUSCULAR VOLUME 98.2 fl (80.0-96.0); MONO # 0.9 10^3/uL (0.0-0.8); MONO % 12.1 % (0.0-5.0); NEUTROPHILS % 51.2 % (36.0-66.0); PLATELET COUNT, AUTOMATED 138 10^3/uL (150-450); RED BLOOD COUNT 3.41 10^6/uL (4.30-6.10); WHITE BLOOD COUNT 7.8 10^3/uL (4.0-10.0)
[2018-08-15 06:55] LABS: BLOOD UREA NITROGEN 3 MG/DL (7-18); CALCIUM LEVEL 8.4 MG/DL (8.5-10.1); CARBON DIOXIDE LEVEL 30 MEQ/L (21-32); CHLORIDE LEVEL 107 MEQ/L (98-107); CREATININE FOR GFR 0.53 MG/DL (0.70-1.30); GLOMERULAR FILTRATION RATE > 60.0 (>60); GLUCOSE, FASTING 104 MG/DL (70-100); POTASSIUM SERUM 3.4 MEQ/L (3.5-5.1); SODIUM LEVEL 141 MEQ/L (136-145)
[2018-08-15] MEDS: SENNA 8.6 MG TAB (SENOKOT) GT SCH ×2 (08:42→20:18)
[2018-08-15] MEDS: SIMETHICONE 80 MG CHEW TAB PEG SCH ×3 (08:42→20:18)
[2018-08-15] MEDS: MAGNESIUM OXIDE 400 MG TAB (MAG-OX) PO SCH (08:43)
[2018-08-15] MEDS: D5W/LR 1,000 ML IV SCH (11:10)
[2018-08-15 14:00] VITALS: BP 123/84
--- NOTE | 2018-08-15 18:21 | IPNPDOC ---
Subjective Date Seen The patient was seen on 08/15/18. Subjective Chief Complaint/HPI no verbal communication from the severely limited patient with CP General: Reports: ROS Unobtainable Objective Physical Examination General Exam: Positive: Alert (tracks with eyes), No Acute Distress ENT Exam: Positive: Mucous membr. moist/pink Chest Exam: Positive: Clear to auscultation, Normal air movement Heart Exam: Positive: Rate Normal, Normal S1, Normal S2 Abdomen Exam: Positive: Normal bowel sounds, Soft, Other (+ PEG); Negative: Tenderness Extremity Exam: Positive: Edema, Other (+ contractures) Psych Exam: Negative: Mental status NL Assessment /Plan Problems (1) Ileus Status: Acute Response to Treatment: Stable Discussed With: Patient Problem Specific Plan: Monitor Clinically, Repeat Labs Problem Text: 08/15:passing stool, abdomen soft and bowel sounds are active. th ere seems to be no ileus so will restart use of tube feeds at 5cc/hr with usual 50cc water flush. 08/14 Cont to hold tube feedsd today, LR started yesterday, changed to D5W/LR at 75 cc/hr due glu 46 this morning. Anticipate repeat abd films in AM, consider resuming tube feeds, but would start slow and titrate. If pt contto not tolerate with + residuals, will consider J tube placement. 08/13 Tube feeds held, LR started, + metro 5 IV QID/simeth 80 QID, to improve gstric emptying, rec resuming TF in 48 hours gradually, previously on continuous feed at 25cc/hr. If pt cont to fail to tolerate with residuals will need to consider GJ tube placement. 08/09/18 CT AP s: . Gastrostomy tube in place. 2. No free peritoneal air seen. 3. Mildly dilated bowel loops seen to suggest bowel obstruction. 4. Bilateral nephrolithiasis. (2) Protein-calorie malnutrition, severe Status: Chronic Problem Specific Plan: Monitor Clinically Problem Text: See above. (3) Gastrostomy tube dependent Status: Chronic (4) Chronic constipation Status: Chronic Problem Text: remains on HD senna 2 BID lactulose held to reduce bowel gas (5) Seizure disorder Status: Chronic Problem Text: Stable on HD primidone 125 QHS Plan/VTE VTE Prophylaxis Ordered?: No VS, I&O, 24H, Fishbone Vital Signs/I&O Vital Signs Date Time Temp Pulse Resp B/P (MAP) Pulse Ox O2 Delivery O2 Flow Rate FiO2 08/15/18 14:00 98.4 87 17 123/84 (97) 95 08/13/18 00:35 Room Air I&O- Last 24 Hours up to 6 AM 08/15/18 06:00 Intake Total 900 ml Balance 900 ml Laboratory Data 24H LABS Laboratory Tests 2 08/15/18 06:07: Immature Granulocyte % (Auto) 0.1, White Blood Count 7.8, Red Blood Count 3.41L, Hemoglobin 11.2L, Hematocrit 33.5L, Mean Corpuscular Volume 98.2H, Mean Corpuscular Hemoglobin 32.8, Mean Corpuscular Hemoglobin Concent 33.4, Red Cell Distribution Width 13.5, Platelet Count 138L, Neutrophils (%) (Auto) 51.2, Lymphocytes (%) (Auto) 34.7, Monocytes (%) (Auto) 12.1H, Eosinophils (%) (Auto) 1.4, Basophils (%) (Auto) 0.5, Neutrophils # (Auto) 4.0, Lymphocytes # (Auto) 2.7, Monocytes # (Auto) 0.9H, Eosinophils # (Auto) 0.1, Basophils # (Auto) 0.0, Nucleated Red Blood Cells % (auto) 0.0, Anion Gap 4L, Glomerular Filtration Rate > 60.0, Blood Urea Nitrogen 3#L, Creatinine 0.53L, Sodium Level 141, Potassium Level 3.4L, Chloride Level 107, Carbon Dioxide Level 30, Calcium Level 8.4L, Magnesium Level 2.0 CBC/BMP Laboratory Tests 08/15/18 06:07 Red Blood Count 3.41 L, Mean Corpuscular Volume 98.2 H, Mean Corpuscular Hemoglobin 32.8, Mean Corpuscular Hemoglobin Concent 33.4, Red Cell Distribution Width 13.5, Neutrophils (%) (Auto) 51.2, Lymphocytes (%) (Auto) 34.7, Monocytes (%) (Auto) 12.1 H, Eosinophils (%) (Auto) 1.4, Basophils (%) (Auto) 0.5, Neutrophils # (Auto) 4.0, Lymphocytes # (Auto) 2.7, Monocytes # (Auto) 0.9 H, Eosinophils # (Auto) 0.1, Basophils # (Auto) 0.0, Calcium Level 8.4 L Alton Velez MD Aug 15, 2018 18:21
[2018-08-15] MEDS ORDERED: POTASSIUM CHLORIDE 10% LIQ 20 MEQ/15 ML UDC PO ONE (19:00)
[2018-08-15] MEDS: hydrOXYzine 50 MG TAB PEG SCH (20:18)
[2018-08-15] MEDS: PRIMIDONE 125MG PER 1/2 TABLET PEG SCH (20:18)
[2018-08-15 22:00] VITALS: BP 124/84
[2018-08-16] MEDS: D5W/LR 1,000 ML IV SCH ×2 (00:23→13:21)
[2018-08-16] MEDS: METOCLOPRAMIDE INJ 10MG/2ML VIAL (J2765) IV SCH ×4 (03:01→21:58)
[2018-08-16 06:00] VITALS: BP 122/74
[2018-08-16 06:34] LABS: HEMATOCRIT 34.5 % (42.0-52.0); HEMOGLOBIN 11.5 g/dl (13.5-17.5); MEAN CORPUSCULAR HGB CONC 33.3 g/dl (32.0-36.5); MEAN CORPUSCULAR VOLUME 98.9 fl (80.0-96.0); PLATELET COUNT, AUTOMATED 149 10^3/uL (150-450); RED BLOOD COUNT 3.49 10^6/uL (4.30-6.10); WHITE BLOOD COUNT 7.6 10^3/uL (4.0-10.0)
[2018-08-16 06:54] LABS: BLOOD UREA NITROGEN 2 MG/DL (7-18); CALCIUM LEVEL 8.8 MG/DL (8.5-10.1); CARBON DIOXIDE LEVEL 29 MEQ/L (21-32); CHLORIDE LEVEL 108 MEQ/L (98-107); CREATININE FOR GFR 0.42 MG/DL (0.70-1.30); GLOMERULAR FILTRATION RATE > 60.0 (>60); GLUCOSE, FASTING 90 MG/DL (70-100); POTASSIUM SERUM 3.9 MEQ/L (3.5-5.1); SODIUM LEVEL 139 MEQ/L (136-145)
[2018-08-16] MEDS: MAGNESIUM OXIDE 400 MG TAB (MAG-OX) PO SCH (08:32)
[2018-08-16] MEDS: SENNA 8.6 MG TAB (SENOKOT) GT SCH ×2 (08:32→21:58)
[2018-08-16] MEDS: SIMETHICONE 80 MG CHEW TAB PEG SCH ×3 (08:33→21:58)
[2018-08-16 14:00] VITALS: BP 124/70
--- NOTE | 2018-08-16 14:34 | IPNPDOC ---
Subjective Date Seen The patient was seen on 08/16/18. Subjective Chief Complaint/HPI non-verbal wasn't able to tolerate tube feeding. was no progress from the beginning. no observed emesis, no grunting, or grimacing, or other indicators of pain. had BM on 08/14/18 General: Reports: ROS Unobtainable Objective Physical Examination General Exam: Positive: Alert (tracks with eyes), No Acute Distress ENT Exam: Positive: Mucous membr. moist/pink Chest Exam: Positive: Clear to auscultation, Normal air movement Heart Exam: Positive: Rate Normal, Normal S1, Normal S2 Abdomen Exam: Positive: Normal bowel sounds, Soft, Other (+ PEG, no involuntary guarding and no palpable mass, ); Negative: Tenderness Extremity Exam: Positive: Edema, Other (+ contractures) Psych Exam: Negative: Mental status NL Assessment /Plan Problems (1) Ileus Status: Acute Response to Treatment: Stable Discussed With: Patient Problem Specific Plan: Monitor Clinically, Repeat Labs Problem Text: 08/16: feeding was not tolerated with large residual immediately. will repeat imaging if any sign of improvment then restart. he was given potassium replacement which appears to have been effective based on today's lab 08/15:passing stool, abdomen soft and bowel sounds are active. there seems to be no ileus so will restart use of tube feeds at 5cc/hr with usual 50cc water flush. 08/14 Cont to hold tube feedsd today, LR started yesterday, changed to D5W/LR at 75 cc/hr due glu 46 this morning. Anticipate repeat abd films in AM, consider resuming tube feeds, but would start slow and titrate. If pt contto not tolerate with + residuals, will consider J tube placement. 08/13 Tube feeds held, LR started, + metro 5 IV QID/simeth 80 QID, to improve gstric emptying, rec resuming TF in 48 hours gradually, previously on continuous feed at 25cc/hr. If pt cont to fail to tolerate with residuals will need to consider GJ tube placement. 08/09/18 CT AP s: . Gastrostomy tube in place. 2. No free peritoneal air seen. 3. Mildly dilated bowel loops seen to suggest bowel obstruction. 4. Bilateral nephrolithiasis. (2) Protein-calorie malnutrition, severe Status: Chronic Problem Specific Plan: Monitor Clinically Problem Text: See above. (3) Gastrostomy tube dependent Status: Chronic (4) Chronic constipation Status: Chronic Problem Text: remains on HD senna 2 BID lactulose held to reduce bowel gas (5) Seizure disorder Status: Chronic Problem Specific Plan: Monitor Clinically Problem Text: Stable on HD primidone 125 QHS Plan/VTE VTE Prophylaxis Ordered?: No VS, I&O, 24H, Fishbone Vital Signs/I&O Vital Signs Date Time Temp Pulse Resp B/P (MAP) Pulse Ox O2 Delivery O2 Flow Rate FiO2 08/16/18 14:00 98.3 63 15 124/70 (88) 100 08/13/18 00:35 Room Air I&O- Last 24 Hours up to 6 AM 08/16/18 06:00 Intake Total 990 ml Balance 990 ml Laboratory Data 24H LABS Laboratory Tests 2 08/16/18 05:56: Nucleated Red Blood Cells % (auto) 0.0, Anion Gap 2L, Glomerular Filtration Rate > 60.0, Blood Urea Nitrogen 2L, Creatinine 0.42L, Sodium Level 139, Potassium Level 3.9, Chloride Level 108H, Carbon Dioxide Level 29, Calcium Level 8.8 CBC/BMP Laboratory Tests 08/16/18 05:56 Red Blood Count 3.49 L, Mean Corpuscular Volume 98.9 H, Mean Corpuscular Hemoglobin 33.0, Mean Corpuscular Hemoglobin Concent 33.3, Red Cell Distribution Width 13.7, Calcium Level 8.8 Alton Velez MD Aug 16, 2018 14:34
[2018-08-16] MEDS: PRIMIDONE 125MG PER 1/2 TABLET PEG SCH (21:57)
[2018-08-16] MEDS: hydrOXYzine 50 MG TAB PEG SCH (21:58)
[2018-08-16 22:00] VITALS: BP 117/66
[2018-08-17] MEDS: METOCLOPRAMIDE INJ 10MG/2ML VIAL (J2765) IV SCH ×4 (02:24→22:55)
[2018-08-17] MEDS: D5W/LR 1,000 ML IV SCH ×2 (02:25→15:10)
[2018-08-17 06:00] VITALS: BP 101/66
[2018-08-17 06:24] LABS: HEMATOCRIT 38.3 % (42.0-52.0); HEMOGLOBIN 12.4 g/dl (13.5-17.5); MEAN CORPUSCULAR HEMOGLOBIN 31.8 pg (27.0-33.0); MEAN CORPUSCULAR HGB CONC 32.4 g/dl (32.0-36.5); MEAN CORPUSCULAR VOLUME 98.2 fl (80.0-96.0); PLATELET COUNT, AUTOMATED 167 10^3/uL (150-450)
[2018-08-17 06:54] LABS: ALBUMIN 2.7 GM/DL (3.2-5.2); ALT/SGPT 33 U/L (12-78); BILIRUBIN,TOTAL 0.4 MG/DL (0.2-1.0); BLOOD UREA NITROGEN 2 MG/DL (7-18); CALCIUM LEVEL 8.9 MG/DL (8.5-10.1); CARBON DIOXIDE LEVEL 22 MEQ/L (21-32); CHLORIDE LEVEL 109 MEQ/L (98-107); CREATININE FOR GFR 0.44 MG/DL (0.70-1.30); GLOMERULAR FILTRATION RATE > 60.0 (>60); GLUCOSE, FASTING 79 MG/DL (70-100); POTASSIUM SERUM 3.8 MEQ/L (3.5-5.1); SODIUM LEVEL 138 MEQ/L (136-145); TOTAL PROTEIN 7.2 GM/DL (6.4-8.2)
--- NOTE | 2018-08-17 08:01 | REP ---
KUB ABDOMEN AND PELVIS: KUB film of the abdomen and pelvis is performed and compared to prior study of 08/14/2018. There is a decreased amount of air in the colon and small bowel There are still several air filled small bowel loops which are not significantly dilated but again the number of small bowel loops filled with air has decreased. There is mild air in the traverse colon. IMPRESSION: Improved ileus pattern. Electronically Signed by Dc Gomez MD 08/17/2018 08:42 A
[2018-08-17] MEDS: SENNA 8.6 MG TAB (SENOKOT) GT SCH ×2 (09:45→22:55)
[2018-08-17] MEDS: MAGNESIUM OXIDE 400 MG TAB (MAG-OX) PO SCH (09:46)
[2018-08-17] MEDS: SIMETHICONE 80 MG CHEW TAB PEG SCH ×3 (09:46→21:00)
--- NOTE | 2018-08-17 10:34 | IPNPDOC ---
Subjective Date Seen The patient was seen on 08/17/18. Subjective Chief Complaint/HPI intolerant to tube feedings, ileus Events since last encounter Abdominal film shows mild improvement in ileus, but remains with some air filled bowel loops. General: Reports: ROS Unobtainable Objective Physical Examination General Exam: Positive: Alert, No Acute Distress ENT Exam: Positive: Mucous membr. moist/pink Chest Exam: Positive: Clear to auscultation, Normal air movement Heart Exam: Positive: Rate Normal, Normal S1, Normal S2 Abdomen Exam: Positive: Normal bowel sounds, Soft, Other (+ PEG, no involuntary guarding and no palpable mass, ); Negative: Tenderness Extremity Exam: Positive: Edema, Other (+ contractures) Psych Exam: Negative: Mental status NL Assessment /Plan Problems (1) Ileus Status: Acute Response to Treatment: Stable Discussed With: Patient Problem Specific Plan: Monitor Clinically, Repeat Labs Problem Text: 08/17/18: + BMs and mild improvement in imaging. Consider 24-48 hrs of bowel rest vs further imaging. 08/16: feeding was not tolerated with large residual immediately. will repeat imaging if any sign of improvement then restart. he was given potassium replacement which appears to have been effective based on today's lab 08/15:passing stool, abdomen soft and bowel sounds are active. there seems to be no ileus so will restart use of tube feeds at 5cc/hr with usual 50cc water flush. 08/14 Cont to hold tube feedsd today, LR started yesterday, changed to D5W/LR at 75 cc/hr due glu 46 this morning. Anticipate repeat abd films in AM, consider resuming tube feeds, but would start slow and titrate. If pt contto not tolera te with + residuals, will consider J tube placement. 08/13 Tube feeds held, LR started, + metro 5 IV QID/simeth 80 QID, to improve gstric emptying, rec resuming TF in 48 hours gradually, previously on continuous feed at 25cc/hr. If pt cont to fail to tolerate with residuals will need to consider GJ tube placement. 08/09/18 CT AP s: . Gastrostomy tube in place. 2. No free peritoneal air seen. 3. Mildly dilated bowel loops seen to suggest bowel obstruction. 4. Bilateral nephrolithiasis. (2) Protein-calorie malnutrition, severe Status: Chronic Problem Specific Plan: Monitor Clinically Problem Text: See above. (3) Gastrostomy tube dependent Status: Chronic (4) Chronic constipation Status: Chronic Problem Text: remains on HD senna 2 BID lactulose held to reduce bowel gas (5) Seizure disorder Status: Chronic Problem Specific Plan: Monitor Clinically Problem Text: Stable on HD primidone 125 QHS (6) CP (cerebral palsy), spastic, quadriplegic Status: Chronic Plan/VTE VTE Prophylaxis Ordered?: No VS, I&O, 24H, Fishbone Vital Signs/I&O Vital Signs Date Time Temp Pulse Resp B/P (MAP) Pulse Ox O2 Delivery O2 Flow Rate FiO2 08/17/18 06:00 97.4 81 18 101/66 (78) 96 08/13/18 00:35 Room Air I&O- Last 24 Hours up to 6 AM 08/17/18 06:00 Intake Total 1800 ml Balance 1800 ml Laboratory Data 24H LABS Laboratory Tests 2 08/17/18 06:06: Nucleated Red Blood Cells % (auto) 0.0, Anion Gap 7L, Glomerular Filtration Rate > 60.0, Blood Urea Nitrogen 2L, Creatinine 0.44L, Sodium Level 138, Potassium Level 3.8, Chloride Level 109H, Carbon Dioxide Level 22, Calcium Level 8.9, Aspartate Amino Transf (AST/SGOT) 28, Alanine Aminotransferase (ALT/SGPT) 33, Alkaline Phosphatase 84, Total Bilirubin 0.4, Total Protein 7.2, Albumin 2.7L, Albumin/Globulin Ratio 0.60L CBC/BMP Laboratory Tests 08/17/18 06:06 Red Blood Count 3.90 L, Mean Corpuscular Volume 98.2 H, Mean Corpuscular Hemoglobin 31.8, Mean Corpuscular Hemoglobin Concent 32.4, Red Cell Distribution Width 13.7, Calcium Level 8.9, Aspartate Amino Transf (AST/SGOT) 28, Alanine Aminotransferase (ALT/SGPT) 33, Alkaline Phosphatase 84, Total Bilirubin 0.4, Total Protein 7.2, Albumin 2.7 L Guerline Carballo CRITICAL CARE RN Aug 17, 2018 10:34
[2018-08-17 14:00] VITALS: BP 139/98
[2018-08-17] MEDS: PRIMIDONE 125MG PER 1/2 TABLET PEG SCH ×2 (21:00→22:56)
[2018-08-17] MEDS: hydrOXYzine 50 MG TAB PEG SCH ×2 (21:00→22:56)
[2018-08-17 22:00] VITALS: BP 124/71
[2018-08-18] MEDS: METOCLOPRAMIDE INJ 10MG/2ML VIAL (J2765) IV SCH ×4 (03:26→22:42)
[2018-08-18] MEDS: D5W/LR 1,000 ML IV SCH ×2 (04:48→22:45)
[2018-08-18 06:00] VITALS: BP 120/64
[2018-08-18 06:52] LABS: BLOOD UREA NITROGEN 2 MG/DL (7-18); CALCIUM LEVEL 8.7 MG/DL (8.5-10.1); CARBON DIOXIDE LEVEL 31 MEQ/L (21-32); CHLORIDE LEVEL 105 MEQ/L (98-107); CREATININE FOR GFR 0.54 MG/DL (0.70-1.30); GLOMERULAR FILTRATION RATE > 60.0 (>60); GLUCOSE, FASTING 71 MG/DL (70-100); MAGNESIUM LEVEL 1.9 MG/DL (1.8-2.4); PHOSPHORUS LEVEL 3.4 MG/DL (2.5-4.9); POTASSIUM SERUM 3.3 MEQ/L (3.5-5.1); SODIUM LEVEL 141 MEQ/L (136-145)
--- NOTE | 2018-08-18 07:56 | IPNPDOC ---
Subjective Date Seen The patient was seen on 08/18/18. Subjective Chief Complaint/HPI poor feeding Events since last encounter Had 2 large watery BMs yesterday. High residual of 375 last evening. Medications were held. Residuals have come down to 100 most recently. General: Reports: ROS Unobtainable Objective Physical Examination General Exam: Positive: Alert, No Acute Distress ENT Exam: Positive: Mucous membr. moist/pink Chest Exam: Positive: Clear to auscultation, Normal air movement Heart Exam: Positive: Rate Normal, Normal S1, Normal S2 Abdomen Exam: Positive: Normal bowel sounds, Soft, Other (+ PEG, no involuntary guarding and no palpable mass, ); Negative: Tenderness Extremity Exam: Positive: Edema, Other (+ contractures) Psych Exam: Negative: Mental status NL Assessment /Plan Problems (1) Ileus Status: Acute Response to Treatment: Stable Discussed With: Patient Problem Specific Plan: Monitor Clinically, Repeat Labs Problem Text: 08/18/18: TF and meds currently on HOLD. Continues to have BMs. Consider 24-48 hrs of bowel rest vs further imaging. 08/17/18: + BMs and mild improvement in imaging. Consider 24-48 hrs of bowel rest vs further imaging. 08/16: feeding was not tolerated with large residual immediately. will repeat imaging if any sign of improvement then restart. he was given potassium replacement which appears to have been effective based on today's lab 08/15:passing stool, abdomen soft and bowel sounds are active. there seems to be no ileus so will restart use of tube feeds at 5cc/hr with usual 50cc water flush. 08/14 Cont to hold tube feedsd today, LR started yesterday, changed to D5W/LR at 75 cc/hr due glu 46 this morning. Anticipate repeat abd films in AM, consider resuming tube feeds, but would start slow and titrate. If pt contto not tolerate with + residuals, will consider J tube placement. 08/13 Tube feeds held, LR started, + metro 5 IV QID/simeth 80 QID, to improve gstric emptying, rec resuming TF in 48 hours gradually, previously on continuous feed at 25cc/hr. If pt cont to fail to tolerate with residuals will need to consider GJ tube placement. 08/09/18 CT AP s: . Gastrostomy tube in place. 2. No free peritoneal air seen. 3. Mildly dilated bowel loops seen to suggest bowel obstruction. 4. Bilateral nephrolithiasis. (2) Protein-calorie malnutrition, severe Status: Chronic Problem Specific Plan: Monitor Clinically Problem Text: See above. (3) Gastrostomy tube dependent Status: Chronic (4) Chronic constipation Status: Chronic Problem Text: remains on HD senna 2 BID lactulose held to reduce bowel gas (5) Seizure disorder Status: Chronic Problem Specific Plan: Monitor Clinically Problem Text: Stable on HD primidone 125 QHS (6) CP (cerebral palsy), spastic, quadriplegic Status: Chronic Plan/VTE VTE Prophylaxis Ordered?: No VS, I&O, 24H, Fishbone Vital Signs/I&O Vital Signs Date Time Temp Pulse Resp B/P (MAP) Pulse Ox O2 Delivery O2 Flow Rate FiO2 08/18/18 06:00 97.4 58 18 120/64 (82) 94 08/13/18 00:35 Room Air I&O- Last 24 Hours up to 6 AM 08/18/18 06:00 Intake Total 1805 ml Balance 1805 ml Laboratory Data 24H LABS Laboratory Tests 2 08/18/18 05:35: Blood Urea Nitrogen 2L, Creatinine 0.54L, Sodium Level 141, Potassium Level 3.3L, Chloride Level 105, Carbon Dioxide Level 31, Anion Gap 5L, Glomerular Filtration Rate > 60.0, Calcium Level 8.7, Phosphorus Level 3.4, Magnesium Level 1.9, Albumin 3.0L CBC/BMP Laboratory Tests 08/18/18 05:35 Anion Gap 5 L Guerline Carballo [facility] Aug 18, 2018 07:56
[2018-08-18] MEDS: SENNA 8.6 MG TAB (SENOKOT) GT SCH ×2 (10:22→22:43)
[2018-08-18] MEDS: KCL 10MEQ/100ML SWI (KRUN) 10 MEQ in APPROPRIATE DILUENT 1 EA IV SCH ×2 (10:23→12:32)
[2018-08-18] MEDS: MAGNESIUM OXIDE 400 MG TAB (MAG-OX) PO SCH (10:23)
[2018-08-18] MEDS: SIMETHICONE 80 MG CHEW TAB PEG SCH ×3 (10:23→22:42)
[2018-08-18] MEDS ORDERED: KCL 10MEQ IN STERILE WATER 100ML As Ordered ONE (12:29)
[2018-08-18 14:00] VITALS: BP 133/91
--- NOTE | 2018-08-18 17:09 | REP ---
At abdomen series: Four views. History: Ileus. Comparison study: August 16, 2018. Findings: Supine and cross-table lateral views of the abdomen and supine chest x-ray are presented. There is no evidence of free intraperitoneal air. There are air-filled loops of small and large bowel throughout the abdomen question mild ileus. There is evidence of a feeding tube in the left upper quadrant. A mild thoracic scoliotic curvature is seen. There is discoid atelectasis versus fibrosis in the left base behind the heart. This is essentially unchanged from September 19, 2015 favoring fibrosis. No acute infiltrate. Impression: Multiple air-filled loops of small and large bowel in the abdomen question mild ileus. Feeding tube left upper quadrant. No evidence of free air. Electronically Signed by Pablo Brown MD 08/19/2018 07:54 A
[2018-08-18 22:00] VITALS: BP 113/81
[2018-08-18] MEDS: PRIMIDONE 125MG PER 1/2 TABLET PEG SCH (22:42)
[2018-08-18] MEDS: hydrOXYzine 50 MG TAB PEG SCH (22:43)
[2018-08-19] MEDS: METOCLOPRAMIDE INJ 10MG/2ML VIAL (J2765) IV SCH ×4 (03:22→20:06)
[2018-08-19 06:00] VITALS: BP 111/78
--- NOTE | 2018-08-19 08:02 | REP ---
Supine abdomen single AP view: Comparison is 08/18/2018. There is scattered gas throughout minimally distended large and small bowel loops in a nonspecific pattern, similar to the comparison study. There is a cannula projected over the abdomen on the left, unchanged. Impression: Nonspecific bowel gas pattern. No interval change. Electronically Signed by Dc Feliciano MD 08/19/2018 07:53 A
[2018-08-19 08:38] LABS: BASO % 0.5 % (0.0-1.0); EOS # 0.1 10^3/uL (0.0-0.50); EOS % 1.4 % (0.0-3.0); HEMATOCRIT 39.7 % (42.0-52.0); HEMOGLOBIN 12.7 g/dl (13.5-17.5); LYMPH # 3.4 10^3/uL (1.5-4.5); LYMPH % 39.7 % (24.0-44.0); MEAN CORPUSCULAR HEMOGLOBIN 32.9 pg (27.0-33.0); MEAN CORPUSCULAR VOLUME 102.8 fl (80.0-96.0); MONO % 12.1 % (0.0-5.0); NEUTROPHILS # 3.9 10^3/uL (1.8-7.7); NEUTROPHILS % 46.1 % (36.0-66.0); PLATELET COUNT, AUTOMATED 163 10^3/uL (150-450); RED BLOOD COUNT 3.86 10^6/uL (4.30-6.10); WHITE BLOOD COUNT 8.5 10^3/uL (4.0-10.0)
[2018-08-19] MEDS: SENNA 8.6 MG TAB (SENOKOT) GT SCH ×2 (09:00→19:58)
[2018-08-19 09:07] LABS: ALT/SGPT 26 U/L (12-78); BILIRUBIN,TOTAL 0.5 MG/DL (0.2-1.0); BLOOD UREA NITROGEN 2 MG/DL (7-18); CALCIUM LEVEL 8.9 MG/DL (8.5-10.1); CARBON DIOXIDE LEVEL 24 MEQ/L (21-32); CHLORIDE LEVEL 109 MEQ/L (98-107); CREATININE FOR GFR 0.54 MG/DL (0.70-1.30); GLOMERULAR FILTRATION RATE > 60.0 (>60); GLUCOSE, FASTING 74 MG/DL (70-100); POTASSIUM SERUM 3.9 MEQ/L (3.5-5.1); SODIUM LEVEL 138 MEQ/L (136-145); TOTAL PROTEIN 7.4 GM/DL (6.4-8.2)
--- NOTE | 2018-08-19 10:38 | IPNPDOC ---
Subjective Date Seen The patient was seen on 08/19/18. Subjective Chief Complaint/HPI Residuals despite no TF: 100 or less overnight. No residual this am upon waking. General: Reports: ROS Unobtainable Objective Physical Examination General Exam: Positive: Alert, No Acute Distress ENT Exam: Positive: Mucous membr. moist/pink Chest Exam: Positive: Clear to auscultation, Normal air movement Heart Exam: Positive: Rate Normal, Normal S1, Normal S2 Abdomen Exam: Positive: Normal bowel sounds, Soft, Other (+ PEG, no involuntary guarding and no palpable mass, ); Negative: Tenderness Extremity Exam: Positive: Edema, Other (+ contractures) Psych Exam: Negative: Mental status NL Assessment /Plan Problems (1) Ileus Status: Acute Response to Treatment: Stable Discussed With: Patient Problem Specific Plan: Monitor Clinically, Repeat Labs Problem Text: 08/19/18: Case discussed with Dr. Fry and he will consult. HOLD TF 08/18/18: TF and meds currently on HOLD. Continues to have BMs. Consider 24-48 hrs of bowel rest vs further imaging. 08/17/18: + BMs and mild improvement in imaging. Consider 24-48 hrs of bowel rest vs further imaging. 08/16: feeding was not tolerated with large residual immediately. will repeat imaging if any sign of improvement then restart. he was given potassium replacement which appears to have been effective based on today's lab 08/15:passing stool, abdomen soft and bowel sounds are active. there seems to be no ileus so will restart use of tube feeds at 5cc/hr with usual 50cc water flush. 08/14 Cont to hold tube feedsd today, LR started yesterday, changed to D5W/LR at 75 cc/hr due glu 46 this morning. Anticipate repeat abd films in AM, consider resuming tube feeds, but would start slow and titrate. If pt contto not tolerate with + residuals, will consider J tube placement. 08/13 Tube feeds held, LR started, + metro 5 IV QID/simeth 80 QID, to improve gstric emptying, rec resuming TF in 48 hours gradually, previously on continuous feed at 25cc/hr. If pt cont to fail to tolerate with residuals will need to consider GJ tube placement. 08/09/18 CT AP s: . Gastrostomy tube in place. 2. No free peritoneal air seen. 3. Mildly dilated bowel loops seen to suggest bowel obstruction. 4. Bilateral nephrolithiasis. (2) Protein-calorie malnutrition, severe Status: Chronic Problem Specific Plan: Monitor Clinically Problem Text: See above. (3) Gastrostomy tube dependent Status: Chronic (4) Chronic constipation Status: Chronic Problem Text: remains on HD senna 2 BID lactulose held to reduce bowel gas (5) Seizure disorder Status: Chronic Problem Specific Plan: Monitor Clinically Problem Text: Stable on HD primidone 125 QHS (6) CP (cerebral palsy), spastic, quadriplegic Status: Chronic Plan/VTE VTE Prophylaxis Ordered?: No VS, I&O, 24H, Fishbone Vital Signs/I&O Vital Signs Date Time Temp Pulse Resp B/P (MAP) Pulse Ox O2 Delivery O2 Flow Rate FiO2 08/19/18 06:00 97.8 59 18 111/78 (89) 97 08/13/18 00:35 Room Air I&O- Last 24 Hours up to 6 AM 08/19/18 06:00 Intake Total 540 ml Balance 540 ml Laboratory Data 24H LABS Laboratory Tests 2 08/19/18 08:18: Immature Granulocyte % (Auto) 0.2, White Blood Count 8.5, Red Blood Count 3.86L, Hemoglobin 12.7L, Hematocrit 39.7L, Mean Corpuscular Volume 102.8H, Mean Corpuscular Hemoglobin 32.9, Mean Corpuscular Hemoglobin Concent 32.0, Red Cell Distribution Width 13.8, Platelet Count 163, Neutrophils (%) (Auto) 46.1, Lymphocytes (%) (Auto) 39.7, Monocytes (%) (Auto) 12.1H, Eosinophils (%) (Auto) 1.4, Basophils (%) (Auto) 0.5, Neutrophils # (Auto) 3.9, Lymphocytes # (Auto) 3.4, Monocytes # (Auto) 1.0H, Eosinophils # (Auto) 0.1, Basophils # (Auto) 0.0, Nucleated Red Blood Cells % (auto) 0.0, Anion Gap 5L, Glomerular Filtration Rate > 60.0, Blood Urea Nitrogen 2L, Creatinine 0.54L, Sodium Level 138, Potassium Level 3.9, Chloride Level 109H, Carbon Dioxide Level 24, Calcium Level 8.9, Aspartate Amino Transf (AST/SGOT) 36, Alanine Aminotransferase (ALT/SGPT) 26, Alkaline Phosphatase 89, Total Bilirubin 0.5, Total Protein 7.4, Albumin 3.0L, Albumin/Globulin Ratio 0.68L CBC/BMP Laboratory Tests 08/19/18 08:18 Red Blood Count 3.86 L, Mean Corpuscular Volume 102.8 H, Mean Corpuscular Hemoglobin 32.9, Mean Corpuscular Hemoglobin Concent 32.0, Red Cell Distribution Width 13.8, Neutrophils (%) (Auto) 46.1, Lymphocytes (%) (Auto) 39.7, Monocytes (%) (Auto) 12.1 H, Eosinophils (%) (Auto) 1.4, Basophils (%) (Auto) 0.5, Neutrophils # (Auto) 3.9, Lymphocytes # (Auto) 3.4, Monocytes # (Auto) 1.0 H, Eosinophils # (Auto) 0.1, Basophils # (Auto) 0.0, Calcium Level 8.9, Aspartate Amino Transf (AST/SGOT) 36, Alanine Aminotransferase (ALT/SGPT) 26, Alkaline Phosphatase 89, Total Bilirubin 0.5, Total Protein 7.4, Albumin 3.0 L Guerline Carballo [employer] Aug 19, 2018 10:38
[2018-08-19] MEDS: SIMETHICONE 80 MG CHEW TAB PEG SCH ×3 (10:46→20:07)
[2018-08-19] MEDS: MAGNESIUM OXIDE 400 MG TAB (MAG-OX) PO SCH (10:46)
[2018-08-19] MEDS: D5W/LR 1,000 ML IV SCH ×2 (10:47→21:50)
[2018-08-19 14:00] VITALS: BP 135/86
[2018-08-19] MEDS: hydrOXYzine 50 MG TAB PEG SCH (20:07)
[2018-08-19] MEDS: PRIMIDONE 125MG PER 1/2 TABLET PEG SCH (20:07)
[2018-08-19 22:00] VITALS: BP 130/80
[2018-08-20] MEDS: METOCLOPRAMIDE INJ 10MG/2ML VIAL (J2765) IV SCH ×4 (03:15→22:23)
[2018-08-20 06:00] VITALS: BP 132/80
[2018-08-20] MEDS: SIMETHICONE 80 MG CHEW TAB PEG SCH ×3 (09:03→21:00)
[2018-08-20] MEDS: MAGNESIUM OXIDE 400 MG TAB (MAG-OX) PO SCH (09:03)
[2018-08-20] MEDS: SENNA 8.6 MG TAB (SENOKOT) GT SCH ×2 (09:03→22:24)
[2018-08-20] MEDS: D5W/LR 1,000 ML IV SCH (10:15)
[2018-08-20] MEDS ORDERED: ISOVUE-370 76% 100ML VIAL (Q9967) As Ordered ONE (10:37)
--- NOTE | 2018-08-20 11:46 | IPNPDOC ---
Subjective Date Seen The patient was seen on 08/20/18. Subjective Chief Complaint/HPI no new issues per nursing Constitutional: Denies: Chills, Fever Pulmonary: Denies: Dyspnea, Cough Gastrointestinal: Denies: Nausea, Vomiting, Abdominal Pain, Diarrhea Objective Physical Examination General Exam: Positive: Alert, No Acute Distress ENT Exam: Positive: Mucous membr. moist/pink Chest Exam: Positive: Clear to auscultation, Normal air movement Heart Exam: Positive: Rate Normal, Normal S1, Normal S2 Abdomen Exam: Positive: Normal bowel sounds, Soft, Other (+ PEG, no involuntary guarding and no palpable mass, ); Negative: Tenderness Extremity Exam: Positive: Edema, Other (+ contractures) Psych Exam: Negative: Mental status NL Assessment /Plan Problems (1) Ileus Status: Acute Response to Treatment: Stable Discussed With: Patient Problem Specific Plan: Monitor Clinically, Repeat Labs Problem Text: 08/20 - Still awaiting Consult from Dr. Fry to consider change to J tube Tube feeds remain on hold Cont IVF 08/19/18: Case discussed with Dr. Fry and he will consult. HOLD TF 08/18/18: TF and meds currently on HOLD. Continues to have BMs. Consider 24-48 hrs of bowel rest vs further imaging. 08/17/18: + BMs and mild improvement in imaging. Consider 24-48 hrs of bowel rest vs further imaging. 08/16: feeding was not tolerated with large residual immediately. will repeat imaging if any sign of improvement then restart. he was given potassium replacement which appears to have been effective based on today's lab 08/15:passing stool, abdomen soft and bowel sounds are active. there seems to be no ileus so will restart use of tube feeds at 5cc/hr with usual 50cc water flush. 08/14 Cont to hold tube feedsd today, LR started yesterday, changed to D5W/LR at 75 cc/hr due glu 46 this morning. Anticipate repeat abd films in AM, consider resuming tube feeds, but would start slow and titrate. If pt contto not tolerate with + residuals, will consider J tube placement. 08/13 Tube feeds held, LR started, + metro 5 IV QID/simeth 80 QID, to improve gstric emptying, rec resuming TF in 48 hours gradually, previously on continuous feed at 25cc/hr. If pt cont to fail to tolerate with residuals will need to consider GJ tube placement. 08/09/18 CT AP s: . Gastrostomy tube in place. 2. No free peritoneal air seen. 3. Mildly dilated bowel loops seen to suggest bowel obstruction. 4. Bilateral nephrolithiasis. (2) Protein-calorie malnutrition, severe Status: Chronic Problem Specific Plan: Monitor Clinically Problem Text: See above. (3) Gastrostomy tube dependent Status: Chronic (4) Chronic constipation Status: Chronic Problem Text: remains on HD senna 2 BID lactulose held to reduce bowel gas (5) Seizure disorder Status: Chronic Problem Specific Plan: Monitor Clinically Problem Text: Stable on HD primidone 125 QHS (6) CP (cerebral palsy), spastic, quadriplegic Status: Chronic Plan/VTE VTE Prophylaxis Ordered?: No VS, I&O, 24H, Fishbone Vital Signs/I&O Vital Signs Date Time Temp Pulse Resp B/P (MAP) Pulse Ox O2 Delivery O2 Flow Rate FiO2 08/20/18 06:00 97.0 65 15 132/80 (97) 99 I&O- Last 24 Hours up to 6 AM 08/20/18 06:00 Intake Total 2250 ml Output Total 0 ml Balance 2250 ml ERIS SMITH PA-C Aug 20, 2018 11:45
--- NOTE | 2018-08-20 11:51 | REP ---
CT ABDOMEN AND PELVIS WITH IV CONTRAST: TECHNIQUE: Axial contrast enhanced images from the lung bases to the pubic symphysis using 100 mL Isovue 370 intravenous contrast material with multiplanar reformations. Visualized lung bases demonstrate mild left base atelectatic change. The liver, spleen, adrenals, and pancreas are unremarkable. A few small cysts are seen in the right kidney as well as multiple subcentimeter intrarenal calcifications. There appears to be a small cyst in the lower pole of the left kidney and there are also multiple small subcentimeter calcifications in the left kidney. There is no abdominal aortic aneurysm. I see no adenopathy. There is no free air or free fluid. There is no bowel wall thickening. There is mild diffuse dilatation of portions of small and large bowel is most consistent with an ileus. There is no definite pattern to suggest bowel obstruction. The degree of bowel dilatation has improved since the exam of 08/09/2018. Urinary bladder appears unremarkable. IMPRESSION: Mild diffuse dilatation of portions of large and small bowel having a pattern most consistent with ileus, which has improved since the exam of 08/09/2018. Gastrostomy tube noted in the stomach. Once again, small cysts and calcifications are seen in both kidneys. Electronically Signed by Dc Gomez MD 08/20/2018 05:14 P
[2018-08-20 14:00] VITALS: BP 127/83
[2018-08-20] MEDS: hydrOXYzine 50 MG TAB PEG SCH (21:00)
[2018-08-20 22:00] VITALS: BP 130/80
[2018-08-20] MEDS: PRIMIDONE 125MG PER 1/2 TABLET PEG SCH (22:23)
[2018-08-21] MEDS: METOCLOPRAMIDE INJ 10MG/2ML VIAL (J2765) IV SCH ×4 (03:01→20:47)
[2018-08-21] MEDS: D5W/LR 1,000 ML IV SCH ×2 (05:01→11:53)
[2018-08-21 06:00] VITALS: BP 120/68
[2018-08-21 06:27] LABS: HEMATOCRIT 33.7 % (42.0-52.0); HEMOGLOBIN 11.2 g/dl (13.5-17.5); MEAN CORPUSCULAR HEMOGLOBIN 32.7 pg (27.0-33.0); MEAN CORPUSCULAR HGB CONC 33.2 g/dl (32.0-36.5); MEAN CORPUSCULAR VOLUME 98.5 fl (80.0-96.0); PLATELET COUNT, AUTOMATED 174 10^3/uL (150-450); RED BLOOD COUNT 3.42 10^6/uL (4.30-6.10); WHITE BLOOD COUNT 7.8 10^3/uL (4.0-10.0)
[2018-08-21 06:47] LABS: ALBUMIN 2.9 GM/DL (3.2-5.2); ALT/SGPT 28 U/L (12-78); BILIRUBIN,TOTAL 0.3 MG/DL (0.2-1.0); BLOOD UREA NITROGEN 3 MG/DL (7-18); CALCIUM LEVEL 8.3 MG/DL (8.5-10.1); CARBON DIOXIDE LEVEL 28 MEQ/L (21-32); CHLORIDE LEVEL 107 MEQ/L (98-107); CREATININE FOR GFR 0.53 MG/DL (0.70-1.30); GLOMERULAR FILTRATION RATE > 60.0 (>60); GLUCOSE, FASTING 88 MG/DL (70-100); POTASSIUM SERUM 3.3 MEQ/L (3.5-5.1); SODIUM LEVEL 140 MEQ/L (136-145); TOTAL PROTEIN 6.9 GM/DL (6.4-8.2)
[2018-08-21] MEDS: SENNA 8.6 MG TAB (SENOKOT) GT SCH ×2 (09:15→20:47)
[2018-08-21] MEDS: MAGNESIUM OXIDE 400 MG TAB (MAG-OX) PO SCH (09:15)
[2018-08-21] MEDS: SIMETHICONE 80 MG CHEW TAB PEG SCH ×3 (09:15→20:47)
--- NOTE | 2018-08-21 11:52 | IPNPDOC ---
Subjective Date Seen The patient was seen on 08/21/18. Subjective Chief Complaint/HPI No change in status Constitutional: Denies: Chills, Fever Pulmonary: Denies: Dyspnea, Cough Cardiovascular: Denies: Chest Pain Gastrointestinal: Denies: Nausea, Vomiting, Diarrhea Objective Physical Examination General Exam: Positive: Alert, No Acute Distress ENT Exam: Positive: Mucous membr. moist/pink Chest Exam: Positive: Clear to auscultation, Normal air movement Heart Exam: Positive: Rate Normal, Normal S1, Normal S2 Abdomen Exam: Positive: Normal bowel sounds, Soft, Other (+ PEG, no involuntary guarding and no palpable mass, ); Negative: Tenderness Extremity Exam: Positive: Edema, Other (+ contractures) Psych Exam: Negative: Mental status NL Assessment /Plan Problems (1) Ileus Status: Acute Response to Treatment: Stable Discussed With: Patient Problem Specific Plan: Monitor Clinically, Repeat Labs Problem Text: 08/21 - Dr. Fry recommedned another trial of slow rate feedings but he di dnot even tolerate 5cc/hour. Dr. Gallego covering today. charge nurse has a call out to him to discuss possible central line placement with TPN until Tube feeding issue can be addressed further ? J-tube Cont IVF for now 08/20 - Still awaiting Consult from Dr. Fry to consider change to J tube Tube feeds remain on hold Cont IVF 08/19/18: Case discussed with Dr. Fry and he will consult. HOLD TF 08/18/18: TF and meds currently on HOLD. Continues to have BMs. Consider 24-48 hrs of bowel rest vs further imaging. 08/17/18: + BMs and mild improvement in imaging. Consider 24-48 hrs of bowel rest vs further imaging. 08/16: feeding was not tolerated with large residual immediately. will repeat imaging if any sign of improvement then restart. he was given potassium replacement which appears to have been effective based on today's lab 08/15:passing stool, abdomen soft and bowel sounds are active. there seems to be no ileus so will restart use of tube feeds at 5cc/hr with usual 50cc water flush. 08/14 Cont to hold tube feedsd today, LR started yesterday, changed to D5W/LR at 75 cc/hr due glu 46 this morning. Anticipate repeat abd films in AM, consider resuming tube feeds, but would start slow and titrate. If pt contto not tolerate with + residuals, will consider J tube placement. 08/13 Tube feeds held, LR started, + metro 5 IV QID/simeth 80 QID, to improve gstric emptying, rec resuming TF in 48 hours gradually, previously on continuous feed at 25cc/hr. If pt cont to fail to tolerate with residuals will need to consider GJ tube placement. 08/09/18 CT AP s: . Gastrostomy tube in place. 2. No free peritoneal air seen. 3. Mildly dilated bowel loops seen to suggest bowel obstruction. 4. Bilateral nephrolithiasis. (2) Protein-calorie malnutrition, severe Status: Chronic Problem Specific Plan: Monitor Clinically Problem Text: See above. (3) Gastrostomy tube dependent Status: Chronic (4) Chronic constipation Status: Chronic Problem Text: remains on HD senna 2 BID lactulose held to reduce bowel gas (5) Seizure disorder Status: Chronic Problem Specific Plan: Monitor Clinically Problem Text: Stable on HD primidone 125 QHS (6) CP (cerebral palsy), spastic, quadriplegic Status: Chronic Plan/VTE VTE Prophylaxis Ordered?: No VS, I&O, 24H, Fishbone Vital Signs/I&O Vital Signs Date Time Temp Pulse Resp B/P (MAP) Pulse Ox O2 Delivery O2 Flow Rate FiO2 08/21/18 06:00 97.1 60 15 120/68 (85) 94 I&O- Last 24 Hours up to 6 AM 08/21/18 06:00 Intake Total 1020 ml Balance 1020 ml Laboratory Data 24H LABS Laboratory Tests 2 08/21/18 06:12: Nucleated Red Blood Cells % (auto) 0.0, Anion Gap 5L, Glomerular Filtration Rate > 60.0, Blood Urea Nitrogen 3L, Creatinine 0.53L, Sodium Level 140, Potassium Level 3.3L, Chloride Level 107, Carbon Dioxide Level 28, Calcium Level 8.3L, Aspartate Amino Transf (AST/SGOT) 21, Alanine Aminotransferase (ALT/SGPT) 28, Al kaline Phosphatase 87, Total Bilirubin 0.3, Total Protein 6.9, Albumin 2.9L, Albumin/Globulin Ratio 0.73L CBC/BMP Laboratory Tests 08/21/18 06:12 Red Blood Count 3.42 L, Mean Corpuscular Volume 98.5 H, Mean Corpuscular Hemoglobin 32.7, Mean Corpuscular Hemoglobin Concent 33.2, Red Cell Distribution Width 13.3, Calcium Level 8.3 L, Aspartate Amino Transf (AST/SGOT) 21, Alanine Aminotransferase (ALT/SGPT) 28, Alkaline Phosphatase 87, Total Bilirubin 0.3, Total Protein 6.9, Albumin 2.9 L ERIS SMITH PA-C Aug 21, 2018 11:52
[2018-08-21 14:00] VITALS: BP 141/84
[2018-08-21] MEDS: hydrOXYzine 50 MG TAB PEG SCH (20:47)
[2018-08-21] MEDS: PRIMIDONE 125MG PER 1/2 TABLET PEG SCH (20:47)
[2018-08-21 22:00] VITALS: BP 144/90
[2018-08-22] MEDS: METOCLOPRAMIDE INJ 10MG/2ML VIAL (J2765) IV SCH ×4 (02:34→22:10)
[2018-08-22] MEDS: D5W/LR 1,000 ML IV SCH ×2 (05:42→17:06)
[2018-08-22 06:00] VITALS: BP 134/72
[2018-08-22 06:16] LABS: HEMATOCRIT 36.1 % (42.0-52.0); HEMOGLOBIN 11.9 g/dl (13.5-17.5); MEAN CORPUSCULAR HEMOGLOBIN 32.6 pg (27.0-33.0); MEAN CORPUSCULAR VOLUME 98.9 fl (80.0-96.0); PLATELET COUNT, AUTOMATED 187 10^3/uL (150-450); RED BLOOD COUNT 3.65 10^6/uL (4.30-6.10); WHITE BLOOD COUNT 6.6 10^3/uL (4.0-10.0)
[2018-08-22 06:40] LABS: ALBUMIN 3.1 GM/DL (3.2-5.2); ALT/SGPT 30 U/L (12-78); BILIRUBIN,TOTAL 0.3 MG/DL (0.2-1.0); BLOOD UREA NITROGEN 2 MG/DL (7-18); CALCIUM LEVEL 8.3 MG/DL (8.5-10.1); CARBON DIOXIDE LEVEL 28 MEQ/L (21-32); CHLORIDE LEVEL 108 MEQ/L (98-107); CREATININE FOR GFR 0.53 MG/DL (0.70-1.30); GLOMERULAR FILTRATION RATE > 60.0 (>60); GLUCOSE, FASTING 84 MG/DL (70-100); POTASSIUM SERUM 3.5 MEQ/L (3.5-5.1); SODIUM LEVEL 141 MEQ/L (136-145); TOTAL PROTEIN 6.7 GM/DL (6.4-8.2)
[2018-08-22] MEDS: MAGNESIUM OXIDE 400 MG TAB (MAG-OX) PO SCH (08:21)
[2018-08-22] MEDS: SIMETHICONE 80 MG CHEW TAB PEG SCH ×3 (08:21→21:00)
[2018-08-22] MEDS: SENNA 8.6 MG TAB (SENOKOT) GT SCH ×2 (08:22→22:10)
[2018-08-22 14:00] VITALS: BP 133/76
[2018-08-22] MEDS: hydrOXYzine 50 MG TAB PEG SCH (21:00)
[2018-08-22] MEDS: PRIMIDONE 125MG PER 1/2 TABLET PEG SCH (22:10)
--- NOTE | 2018-08-22 22:36 | IPNPDOC ---
Subjective Date Seen The patient was seen on 08/22/18. Subjective Chief Complaint/HPI Plan for PICC line yesterday failed. Patient is receiving hydration through peripheral IV. Nursing denies any changes, patient can not provide history, no family at bedside. General: Reports: ROS Unobtainable Objective Physical Examination General Exam: Positive: Alert, No Acute Distress ENT Exam: Positive: Mucous membr. moist/pink Chest Exam: Positive: Clear to auscultation, Normal air movement Heart Exam: Positive: Rate Normal, Normal S1, Normal S2 Abdomen Exam: Positive: Normal bowel sounds, Soft, Other (+ PEG, no involuntary guarding and no palpable mass, ); Negative: Tenderness Extremity Exam: Positive: Edema, Other (+ contractures) Psych Exam: Negative: Mental status NL Assessment /Plan Problems (1) Ileus Status: Acute Response to Treatment: Stable Discussed With: Patient Problem Specific Plan: Monitor Clinically, Repeat Labs Problem Text: 08/22 -- Spoke with Dr. Woods (general surgery) who recommended pursuing GJ or PICC through vascular surgery. Spoke with Dr. Cedeño, who stated that she did not do GJ tubes (though Dr. Wilhelm does.) She recommends consulting Dr. Wilhelm on Friday for either a GJ tube or placement of a PICC. 08/21 - Dr. Fry recommedned another trial of slow rate feedings but he di dnot even tolerate 5cc/hour. Dr. Gallego covering today. charge nurse has a call out to him to discuss possible central line placement with TPN until Tube feeding issue can be addressed further ? J-tube Cont IVF for now 08/20 - Still awaiting Consult from Dr. Fry to consider change to J tube Tube feeds remain on hold Cont IVF 08/19/18: Case discussed with Dr. Fry and he will consult. HOLD TF 08/18/18: TF and meds currently on HOLD. Continues to have BMs. Consider 24-48 hrs of bowel rest vs further imaging. 08/17/18: + BMs and mild improvement in imaging. Consider 24-48 hrs of bowel rest vs further imaging. 08/16: feeding was not tolerated with large residual immediately. will repeat imaging if any sign of improvement then restart. he was given potassium replacement which appears to have been effective based on today's lab 08/15:passing stool, abdomen soft and bowel sounds are active. there seems to be no ileus so will restart use of tube feeds at 5cc/hr with usual 50cc water flush. 08/14 Cont to hold tube feedsd today, LR started yesterday, changed to D5W/LR at 75 cc/hr due glu 46 this morning. Anticipate repeat abd films in AM, consider resuming tube feeds, but would start slow and titrate. If pt contto not tolera te with + residuals, will consider J tube placement. 08/13 Tube feeds held, LR started, + metro 5 IV QID/simeth 80 QID, to improve gstric emptying, rec resuming TF in 48 hours gradually, previously on continuous feed at 25cc/hr. If pt cont to fail to tolerate with residuals will need to consider GJ tube placement. 08/09/18 CT AP s: . Gastrostomy tube in place. 2. No free peritoneal air seen. 3. Mildly dilated bowel loops seen to suggest bowel obstruction. 4. Bilateral nephrolithiasis. (2) Protein-calorie malnutrition, severe Status: Chronic Problem Specific Plan: Monitor Clinically Problem Text: See above. (3) Gastrostomy tube dependent Status: Chronic (4) Chronic constipation Status: Chronic Problem Text: remains on HD senna 2 BID lactulose held to reduce bowel gas (5) Seizure disorder Status: Chronic Problem Specific Plan: Monitor Clinically Problem Text: Stable on HD primidone 125 QHS (6) CP (cerebral palsy), spastic, quadriplegic Status: Chronic Plan/VTE VTE Prophylaxis Ordered?: Yes VS, I&O, 24H, Fishbone Vital Signs/I&O Vital Signs Date Time Temp Pulse Resp B/P (MAP) Pulse Ox O2 Delivery O2 Flow Rate FiO2 08/22/18 14:00 97.8 52 17 133/76 (95) 93 I&O- Last 24 Hours up to 6 AM 08/22/18 06:00 Intake Total 375 ml Balance 375 ml Laboratory Data 24H LABS Laboratory Tests 2 08/22/18 05:49: Nucleated Red Blood Cells % (auto) 0.0, Anion Gap 5L, Glomerular Filtration Rate > 60.0, Blood Urea Nitrogen 2L, Creatinine 0.53L, Sodium Level 141, Potassium Level 3.5, Chloride Level 108H, Carbon Dioxide Level 28, Calcium Level 8.3L, Aspartate Amino Transf (AST/SGOT) 23, Alanine Aminotransferase (ALT/SGPT) 30, Alkaline Phosphatase 91, Total Bilirubin 0.3, Total Protein 6.7, Albumin 3.1L, Albumin/Globulin Ratio 0.86L CBC/BMP Laboratory Tests 08/22/18 05:49 Red Blood Count 3.65 L, Mean Corpuscular Volume 98.9 H, Mean Corpuscular Hemoglobin 32.6, Mean Corpuscular Hemoglobin Concent 33.0, Red Cell Distribution Width 13.3, Calcium Level 8.3 L, Aspartate Amino Transf (AST/SGOT) 23, Alanine Aminotransferase (ALT/SGPT) 30, Alkaline Phosphatase 91, Total Bilirubin 0.3, Total Protein 6.7, Albumin 3.1 L FEMI KAUR DO Aug 22, 2018 22:36
[2018-08-23] MEDS: METOCLOPRAMIDE INJ 10MG/2ML VIAL (J2765) IV SCH ×4 (02:44→20:29)
[2018-08-23] MEDS: D5W/LR 1,000 ML IV SCH ×2 (04:41→18:13)
[2018-08-23 06:00] VITALS: BP 117/68
[2018-08-23] MEDS: SENNA 8.6 MG TAB (SENOKOT) GT SCH ×2 (09:49→20:29)
[2018-08-23] MEDS: MAGNESIUM OXIDE 400 MG TAB (MAG-OX) PO SCH (09:49)
[2018-08-23] MEDS: SIMETHICONE 80 MG CHEW TAB PEG SCH ×3 (09:49→20:30)
[2018-08-23 14:00] VITALS: BP 118/72
[2018-08-23] MEDS: PRIMIDONE 125MG PER 1/2 TABLET PEG SCH (20:30)
[2018-08-23] MEDS: hydrOXYzine 50 MG TAB PEG SCH (20:30)
--- NOTE | 2018-08-23 21:27 | IPNPDOC ---
Subjective Date Seen The patient was seen on 08/23/18. Subjective Chief Complaint/HPI Appears comfortable, resting quietly, no family at bedside. General: Reports: ROS Unobtainable Objective Physical Examination General Exam: Positive: Alert, No Acute Distress ENT Exam: Positive: Mucous membr. moist/pink Chest Exam: Positive: Clear to auscultation, Normal air movement Heart Exam: Positive: Rate Normal, Normal S1, Normal S2 Abdomen Exam: Positive: Normal bowel sounds, Soft, Other (+ PEG, no involuntary guarding and no palpable mass, ); Negative: Tenderness Extremity Exam: Positive: Edema, Other (+ contractures) Psych Exam: Negative: Mental status NL Assessment /Plan Problems (1) Ileus Status: Acute Response to Treatment: Stable Discussed With: Patient Problem Specific Plan: Monitor Clinically, Repeat Labs Problem Text: 08/23 -- Will need to consult Dr. Wilhelm tomorrow re: GJ tube or placement of PICC line. 08/22 -- Spoke with Dr. Woods (general surgery) who recommended pursuing GJ or PICC through vascular surgery. Spoke with Dr. Cedeño, who stated that she did not do GJ tubes (though Dr. Wilhelm does.) She recommends consulting Dr. Wilhelm on Friday for either a GJ tube or placement of a PICC. 08/21 - Dr. Fry recommedned another trial of slow rate feedings but he di dnot even tolerate 5cc/hour. Dr. Gallego covering today. charge nurse has a call out to him to discuss possible central line placement with TPN until Tube feeding issue can be addressed further ? J-tube Cont IVF for now 08/20 - Still awaiting Consult from Dr. Fry to consider change to J tube Tube feeds remain on hold Cont IVF 08/19/18: Case discussed with Dr. Fry and he will consult. HOLD TF 08/18/18: TF and meds currently on HOLD. Continues to have BMs. Consider 24-48 hrs of bowel rest vs further imaging. 08/17/18: + BMs and mild improvement in imaging. Consider 24-48 hrs of bowel rest vs further imaging. 08/16: feeding was not tolerated with large residual immediately. will repeat imaging if any sign of improvement then restart. he was given potassium replacement which appears to have been effective based on today's lab 08/15:passing stool, abdomen soft and bowel sounds are active. there seems to be no ileus so will restart use of tube feeds at 5cc/hr with usual 50cc water flush. 08/14 Cont to hold tube feedsd today, LR started yesterday, changed to D5W/LR at 75 cc/hr due glu 46 this morning. Anticipate repeat abd films in AM, consider resuming tube feeds, but would start slow and titrate. If pt contto not tolerate with + residuals, will consider J tube placement. 08/13 Tube feeds held, LR started, + metro 5 IV QID/simeth 80 QID, to improve gstric emptying, rec resuming TF in 48 hours gradually, previously on continuous feed at 25cc/hr. If pt cont to fail to tolerate with residuals will need to consider GJ tube placement. 08/09/18 CT AP s: . Gastrostomy tube in place. 2. No free peritoneal air seen. 3. Mildly dilated bowel loops seen to suggest bowel obstruction. 4. Bilateral nephrolithiasis. (2) Protein-calorie malnutrition, severe Status: Chronic Problem Specific Plan: Monitor Clinically Problem Text: See above. (3) Gastrostomy tube dependent Status: Chronic (4) Chronic constipation Status: Chronic Problem Text: remains on HD senna 2 BID lactulose held to reduce bowel gas (5) Seizure disorder Status: Chronic Problem Specific Plan: Monitor Clinically Problem Text: Stable on HD primidone 125 QHS (6) CP (cerebral palsy), spastic, quadriplegic Status: Chronic Plan/VTE VTE Prophylaxis Ordered?: Yes VS, I&O, 24H, Fishbone Vital Signs/I&O Vital Signs Date Time Temp Pulse Resp B/P (MAP) Pulse Ox O2 Delivery O2 Flow Rate FiO2 08/23/18 14:00 98.1 53 16 118/72 (87) 99 I&O- Last 24 Hours up to 6 AM 08/23/18 06:00 Intake Total 1425 ml Balance 1425 ml FEMI KAUR DO Aug 23, 2018 21:27
[2018-08-23 22:00] VITALS: BP 129/76
[2018-08-24] MEDS: METOCLOPRAMIDE INJ 10MG/2ML VIAL (J2765) IV SCH ×4 (03:13→20:23)
[2018-08-24 06:00] VITALS: BP 124/69
[2018-08-24 06:42] LABS: HEMATOCRIT 37.1 % (42.0-52.0); HEMOGLOBIN 12.5 g/dl (13.5-17.5); MEAN CORPUSCULAR HEMOGLOBIN 33.1 pg (27.0-33.0); MEAN CORPUSCULAR HGB CONC 33.7 g/dl (32.0-36.5); MEAN CORPUSCULAR VOLUME 98.1 fl (80.0-96.0); PLATELET COUNT, AUTOMATED 182 10^3/uL (150-450); RED BLOOD COUNT 3.78 10^6/uL (4.30-6.10)
[2018-08-24 06:55] LABS: ALBUMIN 2.9 GM/DL (3.2-5.2); ALT/SGPT 25 U/L (12-78); BILIRUBIN,TOTAL 0.3 MG/DL (0.2-1.0); BLOOD UREA NITROGEN 2 MG/DL (7-18); CALCIUM LEVEL 8.7 MG/DL (8.5-10.1); CARBON DIOXIDE LEVEL 27 MEQ/L (21-32); CHLORIDE LEVEL 107 MEQ/L (98-107); CREATININE FOR GFR 0.49 MG/DL (0.70-1.30); GLOMERULAR FILTRATION RATE > 60.0 (>60); GLUCOSE, FASTING 82 MG/DL (70-100); POTASSIUM SERUM 3.1 MEQ/L (3.5-5.1); SODIUM LEVEL 139 MEQ/L (136-145); TOTAL PROTEIN 6.8 GM/DL (6.4-8.2)
[2018-08-24] MEDS: SENNA 8.6 MG TAB (SENOKOT) GT SCH ×2 (09:00→20:23)
--- NOTE | 2018-08-24 09:17 | IPNPDOC ---
Subjective Date Seen The patient was seen on 08/24/18. Subjective Chief Complaint/HPI intolerant tube feeding Events since last encounter unchanged. Continues with IVF General: Reports: ROS Unobtainable Objective Physical Examination General Exam: Positive: Alert, No Acute Distress ENT Exam: Positive: Mucous membr. moist/pink Chest Exam: Positive: Clear to auscultation, Normal air movement Heart Exam: Positive: Rate Normal, Normal S1, Normal S2 Abdomen Exam: Positive: Normal bowel sounds, Soft, Other (+ PEG, no involuntary guarding and no palpable mass, ); Negative: Tenderness Extremity Exam: Positive: Edema, Other (+ contractures) Psych Exam: Negative: Mental status NL Assessment /Plan Problems (1) Ileus Status: Acute Response to Treatment: Stable Discussed With: Patient Problem Specific Plan: Monitor Clinically, Repeat Labs Problem Text: 08/24/18: call placed for consult with Dr. Wilhelm. Return call pending. 08/23 -- Will need to consult Dr. Wilhelm tomorrow re: GJ tube or placement of PICC line. 08/22 -- Spoke with Dr. Woods (general surgery) who recommended pursuing GJ or PICC through vascular surgery. Spoke with Dr. Cedeño, who stated that she did not do GJ tubes (though Dr. Wilhelm does.) She recommends consulting Dr. Wilhelm on Friday for either a GJ tube or placement of a PICC. 08/21 - Dr. Fry recommedned another trial of slow rate feedings but he di dnot even tolerate 5cc/hour. Dr. Gallego covering today. charge nurse has a call out to him to discuss possible central line placement with TPN until Tube feeding issue can be addressed further ? J-tube Cont IVF for now 08/20 - Still awaiting Consult from Dr. Fry to consider change to J tube Tube feeds remain on hold Cont IVF 08/19/18: Case discussed with Dr. Fry and he will consult. HOLD TF 08/18/18: TF and meds currently on HOLD. Continues to have BMs. Consider 24-48 hrs of bowel rest vs further imaging. 08/17/18: + BMs and mild improvement in imaging. Consider 24-48 hrs of bowel rest vs further imaging. 08/16: feeding was not tolerated with large residual immediately. will repeat imaging if any sign of improvement then restart. he was given potassium replacement which appears to have been effective based on today's lab 08/15:passing stool, abdomen soft and bowel sounds are active. there seems to be no ileus so will restart use of tube feeds at 5cc/hr with usual 50cc water flush. 08/14 Cont to hold tube feedsd today, LR started yesterday, changed to D5W/LR at 75 cc/hr due glu 46 this morning. Anticipate repeat abd films in AM, consider resuming tube feeds, but would start slow and titrate. If pt contto not tolerate with + residuals, will consider J tube placement. 08/13 Tube feeds held, LR started, + metro 5 IV QID/simeth 80 QID, to improve gstric emptying, rec resuming TF in 48 hours gradually, previously on continuous feed at 25cc/hr. If pt cont to fail to tolerate with residuals will need to consider GJ tube placement. 08/09/18 CT AP s: . Gastrostomy tube in place. 2. No free peritoneal air seen. 3. Mildly dilated bowel loops seen to suggest bowel obstruction. 4. Bilateral nephrolithiasis. (2) Protein-calorie malnutrition, severe Status: Chronic Problem Specific Plan: Monitor Clinically Problem Text: See above. (3) Gastrostomy tube dependent Status: Chronic (4) Chronic constipation Status: Chronic Problem Text: remains on HD senna 2 BID lactulose held to reduce bowel gas (5) Seizure disorder Status: Chronic Problem Specific Plan: Monitor Clinically Problem Text: Stable on HD primidone 125 QHS (6) CP (cerebral palsy), spastic, quadriplegic Status: Chronic (7) Hypokalemia Status: Acute Problem Text: IV replacement today Plan/VTE VTE Prophylaxis Ordered?: Yes VS, I&O, [facility]H, [facility] Vital Signs/I&O Vital Signs Date Time Temp Pulse Resp B/P (MAP) Pulse Ox O2 Delivery O2 Flow Rate FiO2 08/24/18 06:00 97.0 50 17 124/69 (87) 97 I&O- Last 24 Hours up to 6 AM 08/24/18 06:00 Intake Total 450 ml Balance 450 ml Laboratory Data 24H LABS Laboratory Tests 2 08/24/18 06:09: Nucleated Red Blood Cells % (auto) 0.0, Anion Gap 5L, Glomerular Filtration Rate > 60.0, Blood Urea Nitrogen 2L, Creatinine 0.49L, Sodium Level 139, Potassium Level 3.1L, Chloride Level 107, Carbon Dioxide Level 27, Calcium Level 8.7, Aspa rtate Amino Transf (AST/SGOT) 21, Alanine Aminotransferase (ALT/SGPT) 25, Alkaline Phosphatase 94, Total Bilirubin 0.3, Total Protein 6.8, Albumin 2.9L, Albumin/Globulin Ratio 0.74L CBC/BMP Laboratory Tests 08/24/18 06:09 Red Blood Count 3.78 L, Mean Corpuscular Volume 98.1 H, Mean Corpuscular Hemoglobin 33.1 H, Mean Corpuscular Hemoglobin Concent 33.7, Red Cell Distribution Width 13.1, Calcium Level 8.7, Aspartate Amino Transf (AST/SGOT) 21, Alanine Aminotransferase (ALT/SGPT) 25, Alkaline Phosphatase 94, Total Bilirubin 0.3, Total Protein 6.8, Albumin 2.9 L Guerline CarballoP Aug 24, 2018 09:17
[2018-08-24] MEDS: SIMETHICONE 80 MG CHEW TAB PEG SCH ×3 (09:30→20:23)
[2018-08-24] MEDS: MAGNESIUM OXIDE 400 MG TAB (MAG-OX) PO SCH (09:30)
[2018-08-24] MEDS: D5W/LR 1,000 ML IV SCH ×2 (09:31→20:23)
[2018-08-24] MEDS: KCL 10MEQ/100ML SWI (KRUN) 10 MEQ in APPROPRIATE DILUENT 1 EA IV SCH ×2 (09:31→11:09)
[2018-08-24 14:00] VITALS: BP 135/81
[2018-08-24] MEDS: hydrOXYzine 50 MG TAB PEG SCH (20:23)
[2018-08-24] MEDS: PRIMIDONE 125MG PER 1/2 TABLET PEG SCH (20:23)
[2018-08-24 22:00] VITALS: BP 142/82
[2018-08-25] MEDS: METOCLOPRAMIDE INJ 10MG/2ML VIAL (J2765) IV SCH ×4 (02:31→21:12)
[2018-08-25 06:00] VITALS: BP 129/77
[2018-08-25 06:26] LABS: HEMATOCRIT 36.4 % (42.0-52.0); HEMOGLOBIN 12.2 g/dl (13.5-17.5); MEAN CORPUSCULAR HEMOGLOBIN 32.5 pg (27.0-33.0); MEAN CORPUSCULAR HGB CONC 33.5 g/dl (32.0-36.5); MEAN CORPUSCULAR VOLUME 97.1 fl (80.0-96.0); PLATELET COUNT, AUTOMATED 181 10^3/uL (150-450); RED BLOOD COUNT 3.75 10^6/uL (4.30-6.10); WHITE BLOOD COUNT 10.6 10^3/uL (4.0-10.0)
[2018-08-25 07:00] LABS: ALT/SGPT 22 U/L (12-78); BILIRUBIN,TOTAL 0.4 MG/DL (0.2-1.0); BLOOD UREA NITROGEN 2 MG/DL (7-18); CALCIUM LEVEL 8.7 MG/DL (8.5-10.1); CARBON DIOXIDE LEVEL 29 MEQ/L (21-32); CHLORIDE LEVEL 107 MEQ/L (98-107); CREATININE FOR GFR 0.43 MG/DL (0.70-1.30); GLOMERULAR FILTRATION RATE > 60.0 (>60); GLUCOSE, FASTING 91 MG/DL (70-100); POTASSIUM SERUM 3.2 MEQ/L (3.5-5.1); SODIUM LEVEL 140 MEQ/L (136-145); TOTAL PROTEIN 6.8 GM/DL (6.4-8.2)
[2018-08-25] MEDS: POTASSIUM CHLORIDE 10% LIQ 20 MEQ/15 ML UDC FT SCH ×2 (09:00→21:12)
[2018-08-25] MEDS ORDERED: BUPIVACAINE HCL 0.5% 10 ML VIAL As Ordered ONE (11:14)
[2018-08-25] MEDS ORDERED: LIDOCAINE 2% MDV 20 ML VIAL As Ordered ONE (11:14)
[2018-08-25] MEDS ORDERED: ISOVUE-300 61% 50ML VIAL (Q9967) As Ordered ONE (11:14)
[2018-08-25] MEDS: SENNA 8.6 MG TAB (SENOKOT) GT SCH ×3 (13:14→21:11)
[2018-08-25] MEDS: SIMETHICONE 80 MG CHEW TAB PEG SCH ×3 (13:15→21:12)
[2018-08-25] MEDS: D5W/LR 1,000 ML IV SCH (13:15)
[2018-08-25] MEDS: MAGNESIUM OXIDE 400 MG TAB (MAG-OX) PO SCH (13:15)
[2018-08-25 14:00] VITALS: BP_SYST 146; BP_SYST 150; BP_DIAS 80; BP_DIAS 95
--- NOTE | 2018-08-25 14:07 | IPNPDOC ---
Subjective Date Seen The patient was seen on 08/25/18. Subjective Chief Complaint/HPI eyes open, non-verbal General: Reports: ROS Unobtainable Objective Physical Examination General Exam: Positive: Alert, No Acute Distress ENT Exam: Positive: Mucous membr. moist/pink Chest Exam: Positive: Clear to auscultation, Normal air movement Heart Exam: Positive: Rate Normal, Normal S1, Normal S2 Abdomen Exam: Positive: Normal bowel sounds, Soft, Other (new feeding tube in place. orders from Dr. Wilhelm indicate that it may be used.); Negative: Tenderness Extremity Exam: Positive: Edema, Other (+ contractures) Psych Exam: Negative: Mental status NL Assessment /Plan Problems (1) Ileus Status: Acute Response to Treatment: Stable Discussed With: Patient Problem Specific Plan: Monitor Clinically, Repeat Labs Problem Text: 08/24/18: call placed for consult with Dr. Wilhelm. Return call pending. 08/23 -- Will need to consult Dr. Wilhelm tomorrow re: GJ tube or placement of PICC line. 08/22 -- Spoke with Dr. Woods (general surgery) who recommended pursuing GJ or PICC through vascular surgery. Spoke with Dr. Cedeño, who stated that she did not do GJ tubes (though Dr. Wilhelm does.) She recommends consulting Dr. Wilhelm on Friday for either a GJ tube or placement of a PICC. 08/21 - Dr. Fry recommedned another trial of slow rate feedings but he di dnot even tolerate 5cc/hour. Dr. Gallego covering today. charge nurse has a call out to him to discuss possible central line placement with TPN until Tube feeding issue can be addressed further ? J-tube Cont IVF for now 08/20 - Still awaiting Consult from Dr. Fry to consider change to J tube Tube feeds remain on hold Cont IVF 08/19/18: Case discussed with Dr. Fry and he will consult. HOLD TF 08/18/18: TF and meds currently on HOLD. Continues to have BMs. Consider 24-48 hrs of bowel rest vs further imaging. 08/17/18: + BMs and mild improvement in imaging. Consider 24-48 hrs of bowel rest vs further imaging. 08/16: feeding was not tolerated with large residual immediately. will repeat imaging if any sign of improvement then restart. he was given potassium replacement which appears to have been effective based on today's lab 08/15:passing stool, abdomen soft and bowel sounds are active. there seems to be no ileus so will restart use of tube feeds at 5cc/hr with usual 50cc water flush. 08/14 Cont to hold tube feedsd today, LR started yesterday, changed to D5W/LR at 75 cc/hr due glu 46 this morning. Anticipate repeat abd films in AM, consider resuming tube feeds, but would start slow and titrate. If pt contto not tolerate with + residuals, will consider J tube placement. 08/13 Tube feeds held, LR started, + metro 5 IV QID/simeth 80 QID, to improve gstric emptying, rec resuming TF in 48 hours gradually, previously on continuous feed at 25cc/hr. If pt cont to fail to tolerate with residuals will need to consider GJ tube placement. 08/09/18 CT AP s: . Gastrostomy tube in place. 2. No free peritoneal air seen. 3. Mildly dilated bowel loops seen to suggest bowel obstruction. 4. Bilateral nephrolithiasis. (2) Protein-calorie malnutrition, severe Status: Chronic Problem Specific Plan: Monitor Clinically Problem Text: See above. (3) Gastrostomy tube dependent Status: Chronic Problem Text: Dr. Wilhelm was able to place GJ tube and indicates that it may be used. Will start slowly and advance and request new consult from heel burnisher re calorie and fluid recommendations. will start with 5 ml Jevity 1.5 and 30 cc q6 hour water flushes for now. (4) Chronic constipation Status: Chronic Problem Text: remains on HD senna 2 BID lactulose held to reduce bowel gas (5) Seizure disorder Status: Chronic Problem Specific Plan: Monitor Clinically Problem Text: Stable on HD primidone 125 QHS (6) CP (cerebral palsy), spastic, quadriplegic Status: Chronic Response to Treatment: Stable (7) Hypokalemia Status: Acute Problem Text: 08/25: potassium improved but still low. will give liquid KCl via GJ tube IV replacement today Plan/VTE VTE Prophylaxis Ordered?: Yes VS, I&O, 24H, Fishbone Vital Signs/I&O Vital Signs Date Time Temp Pulse Resp B/P (MAP) Pulse Ox O2 Delivery O2 Flow Rate FiO2 08/25/18 06:00 96.9 61 17 129/77 (46) 97 I&O- Last 24 Hours up to 6 AM 08/25/18 06:00 Intake Total 900 ml Balance 900 ml Laboratory Data 24H LABS Laboratory Tests 2 08/25/18 05:49: Nucleated Red Blood Cells % (auto) 0.0, Anion Gap 4L, Glomerular Filtration Rate > 60.0, Blood Urea Nitrogen 2L, Creatinine 0.43L, Sodium Level 140, Potassium Level 3.2L, Chloride Level 107, Carbon Dioxide Level 29, Calcium Level 8.7, Aspartate Amino Transf (AST/SGOT) 18, Alanine Aminotransferase (ALT/SGPT) 22, Alkaline Phosphatase 98, Total Bilirubin 0.4, Total Protein 6.8, Albumin 3.0L, Albumin/Globulin Ratio 0.79L CBC/BMP Laboratory Tests 08/25/18 05:49 Red Blood Count 3.75 L, Mean Corpuscular Volume 97.1 H, Mean Corpuscular Hemoglobin 32.5, Mean Corpuscular Hemoglobin Concent 33.5, Red Cell Distribution Width 12.9, Calcium Level 8.7, Aspartate Amino Transf (AST/SGOT) 18, Alanine Aminotransferase (ALT/SGPT) 22, Alkaline Phosphatase 98, Total Bilirubin 0.4, Total Protein 6.8, Albumin 3.0 L Alton Velez MD Aug 25, 2018 14:07
[2018-08-25] MEDS: PRIMIDONE 125MG PER 1/2 TABLET PEG SCH (21:11)
[2018-08-25] MEDS: hydrOXYzine 50 MG TAB PEG SCH (21:12)
[2018-08-25 22:00] VITALS: BP 133/84
[2018-08-26] MEDS: D5W/LR 1,000 ML IV SCH ×2 (00:39→12:02)
[2018-08-26] MEDS: METOCLOPRAMIDE INJ 10MG/2ML VIAL (J2765) IV SCH ×4 (02:26→22:28)
[2018-08-26 06:00] VITALS: BP 135/84
[2018-08-26 06:29] LABS: HEMATOCRIT 40.5 % (42.0-52.0); HEMOGLOBIN 13.2 g/dl (13.5-17.5); MEAN CORPUSCULAR HEMOGLOBIN 31.7 pg (27.0-33.0); MEAN CORPUSCULAR HGB CONC 32.6 g/dl (32.0-36.5); MEAN CORPUSCULAR VOLUME 97.4 fl (80.0-96.0); PLATELET COUNT, AUTOMATED 180 10^3/uL (150-450); RED BLOOD COUNT 4.16 10^6/uL (4.30-6.10); WHITE BLOOD COUNT 9.9 10^3/uL (4.0-10.0)
[2018-08-26 06:48] LABS: ALT/SGPT 22 U/L (12-78); BILIRUBIN,TOTAL 0.5 MG/DL (0.2-1.0); BLOOD UREA NITROGEN 3 MG/DL (7-18); CALCIUM LEVEL 8.7 MG/DL (8.5-10.1); CARBON DIOXIDE LEVEL 26 MEQ/L (21-32); CHLORIDE LEVEL 106 MEQ/L (98-107); GLOMERULAR FILTRATION RATE > 60.0 (>60); GLUCOSE, FASTING 71 MG/DL (70-100); POTASSIUM SERUM 3.9 MEQ/L (3.5-5.1); SODIUM LEVEL 137 MEQ/L (136-145); TOTAL PROTEIN 7.3 GM/DL (6.4-8.2)
[2018-08-26] MEDS ORDERED: MVI -ADULT INJECTION 10 ML VIAL IV SCH (09:00)
--- NOTE | 2018-08-26 09:41 | REP ---
Clinical: Follow up ileus. Comparison: 08/19/2018. Technique: Single supine view of the abdomen and pelvis. Findings: A percutaneous gastrojejunostomy tube overlies the abdomen. The bowel gas pattern is relatively nonspecific and without significant distension to suggest obstruction or ileus. No obvious free air to suggest perforation. No organomegaly. Right upper lobe calcifications likely represent nonobstructing nephroliths. 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 Impression: Nonspecific bowel gas pattern. Electronically Signed by Leonides Mckinney MD 08/26/2018 09:33 A
--- NOTE | 2018-08-26 10:03 | IPNPDOC ---
Subjective Date Seen The patient was seen on 08/26/18. Subjective Chief Complaint/HPI GT intolerance Events since last encounter G/J tube placed by Dr. Wilhelm. patient resumed TF at 5cc per hour. Had residual of 70 cc of brown, foul smelling liquid overnight. TF is currently on hold. KUB obtained and shows no signs of ileus. General: Reports: ROS Unobtainable Objective Physical Examination General Exam: Positive: Alert, No Acute Distress ENT Exam: Positive: Mucous membr. moist/pink Chest Exam: Positive: Clear to auscultation, Normal air movement Heart Exam: Positive: Rate Normal, Normal S1, Normal S2 Abdomen Exam: Positive: Normal bowel sounds, Soft, Other (new feeding tube in place. orders from Dr. Wilhelm indicate that it may be used.); Negative: Tenderness Extremity Exam: Positive: Edema, Other (+ contractures) Psych Exam: Negative: Mental status NL Assessment /Plan Problems (1) Ileus Status: Acute Response to Treatment: Stable Discussed With: Patient Problem Specific Plan: Monitor Clinically, Repeat Labs Problem Text: 08/26/18: XR not showing any signs of ileus. Intolerant to TF. IVF currently running. Will need to review halfway nutrition plan for patient. 08/24/18: call placed for consult with Dr. Wilhelm. Return call pending. 08/23 -- Will need to consult Dr. Wilhelm tomorrow re: GJ tube or placement of PICC line. 08/22 -- Spoke with Dr. Woods (general surgery) who recommended pursuing GJ or PICC through vascular surgery. Spoke with Dr. Cedeño, who stated that she did not do GJ tubes (though Dr. Wilhelm does.) She recommends consulting Dr. Wilhelm on Friday for either a GJ tube or placement of a PICC. 08/21 - Dr. Fry recommedned another trial of slow rate feedings but he di dnot even tolerate 5cc/hour. Dr. Gallego covering today. charge nurse has a call out to him to discuss possible central line placement with TPN until Tube feeding issue can be addressed further ? J-tube Cont IVF for now 08/20 - Still awaiting Consult from Dr. Fry to consider change to J tube Tube feeds remain on hold Cont IVF 08/19/18: Case discussed with Dr. Barayuga and he will consult. HOLD TF 08/18/18: TF and meds currently on HOLD. Continues to have BMs. Consider 24-48 hrs of bowel rest vs further imaging. 08/17/18: + BMs and mild improvement in imaging. Consider 24-48 hrs of bowel rest vs further imaging. 08/16: feeding was not tolerated with large residual immediately. will repeat imaging if any sign of improvement then restart. he was given potassium replacement which appears to have been effective based on today's lab 08/15:passing stool, abdomen soft and bowel sounds are active. there seems to be no ileus so will restart use of tube feeds at 5cc/hr with usual 50cc water flush. 08/14 Cont to hold tube feedsd today, LR started yesterday, changed to D5W/LR at 75 cc/hr due glu 46 this morning. Anticipate repeat abd films in AM, consider resuming tube feeds, but would start slow and titrate. If pt contto not tolerate with + residuals, will consider J tube placement. 08/13 Tube feeds held, LR started, + metro 5 IV QID/simeth 80 QID, to improve gstric emptying, rec resuming TF in 48 hours gradually, previously on continuous feed at 25cc/hr. If pt cont to fail to tolerate with residuals will need to consider GJ tube placement. 08/09/18 CT AP s: . Gastrostomy tube in place. 2. No free peritoneal air seen. 3. Mildly dilated bowel loops seen to suggest bowel obstruction. 4. Bilateral nephrolithiasis. (2) Protein-calorie malnutrition, severe Status: Chronic Problem Specific Plan: Monitor Clinically Problem Text: See above. (3) Gastrostomy tube dependent Status: Chronic Problem Text: Dr. Wilhelm was able to place GJ tube and indicates that it may be used. Will start slowly and advance and request new consult from sponge hooker re calorie and fluid recommendations. will start with 5 ml Jevity 1.5 and 30 cc q6 hour water flushes for now. (4) Chronic constipation Status: Chronic Problem Text: remains on HD senna 2 BID lactulose held to reduce bowel gas (5) Seizure disorder Status: Chronic Problem Specific Plan: Monitor Clinically Problem Text: Stable on HD primidone 125 QHS (6) CP (cerebral palsy), spastic, quadriplegic Status: Chronic Response to Treatment: Stable (7) Hypokalemia Status: Acute Problem Text: 08/25: potassium improved but still low. will give liquid KCl via GJ tube IV replacement today Plan/VTE VTE Prophylaxis Ordered?: Yes VS, I&O, 24H, Fishbone Vital Signs/I&O Vital Signs Date Time Temp Pulse Resp B/P (MAP) Pulse Ox O2 Delivery O2 Flow Rate FiO2 08/26/18 06:00 97.0 56 15 135/84 (101) 100 I&O- Last 24 Hours up to 6 AM 08/26/18 06:00 Intake Total 1350 ml Balance 1350 ml Laboratory Data 24H LABS Laboratory Tests 2 08/26/18 05:52: Nucleated Red Blood Cells % (auto) 0.0, Anion Gap 5L, Glomerular Filtration Rate > 60.0, Blood Urea Nitrogen 3L, Creatinine 0.50L, Sodium Level 137, Potassium Level 3.9#, Chloride Level 106, Carbon Dioxide Level 26, Calcium Level 8.7, Aspartate Amino Transf (AST/SGOT) 27, Alanine Aminotransferase (ALT/SGPT) 22, Alkaline Phosphatase 104, Total Bilirubin 0.5, Total Protein 7.3, Albumin 3.0L, Albumin/Globulin Ratio 0.70L CBC/BMP Laboratory Tests 08/26/18 05:52 Red Blood Count 4.16 L, Mean Corpuscular Volume 97.4 H, Mean Corpuscular Hemoglobin 31.7, Mean Corpuscular Hemoglobin Concent 32.6, Red Cell Distribution Width 12.8, Calcium Level 8.7, Aspartate Amino Transf (AST/SGOT) 27, Alanine Aminotransferase (ALT/SGPT) 22, Alkaline Phosphatase 104, Total Bilirubin 0.5, Total Protein 7.3, Albumin 3.0 L Guerline Carballo [facility] Aug 26, 2018 10:03
[2018-08-26] MEDS: SENNA 8.6 MG TAB (SENOKOT) GT SCH ×2 (12:00→22:28)
[2018-08-26] MEDS: SIMETHICONE 80 MG CHEW TAB PEG SCH ×3 (12:01→22:28)
[2018-08-26] MEDS: POTASSIUM CHLORIDE 10% LIQ 20 MEQ/15 ML UDC FT SCH ×2 (12:01→22:28)
[2018-08-26] MEDS: MAGNESIUM OXIDE 400 MG TAB (MAG-OX) PO SCH (12:01)
[2018-08-26] MEDS ORDERED: ISOVUE-370 76% 100ML VIAL (Q9967) As Ordered ONE (13:12)
[2018-08-26 14:00] VITALS: BP 132/88
--- NOTE | 2018-08-26 14:04 | REP ---
Clinical: Ileus. Technique: Axial contrast enhanced images from the lung bases to the pubic symphysis using 100 ml Isovue 370 intravenous contrast material with coronal and sagittal re-formations. Comparison: 08/20/2018. Findings: Lung bases are essentially clear with minimal linear scarring at the left base again noted. Visualized heart and pericardium normal. Diffuse fatty infiltration to the liver again suggested. Spleen, pancreas, gallbladder, bilateral adrenal glands and kidneys are relatively normal. Bilateral nonobstructing intrarenal calculi are again identified measuring up to approximately 4 mm bilaterally without perinephric stranding or hydroureteronephrosis. Evaluation of the enteric system demonstrates a percutaneous gastrojejunostomy tube extending into the proximal jejunum. Relatively normal caliber fluid-filled loops of small and large bowel are appreciated. Residual oral contrast material is identified with in the rectosigmoid. There is no evidence for bowel obstruction or free air to suggest perforation. Evaluation of the pelvis demonstrates normal bladder and age appropriate prostate/seminal vesicles. Small amount of ascites cannot be excluded. No free air. No obvious adenopathy. Abdominal aorta and vasculature normal. 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 Impression: 1. Gastrojejunostomy tube in satisfactory position with fluid-filled loops of small large bowel, and no evidence for obstruction or perforation. 2. Further nonacute findings as described above. Electronically Signed by Leonides Mckinney MD 08/26/2018 01:55 P
[2018-08-26 22:00] VITALS: BP 129/66
[2018-08-26] MEDS: hydrOXYzine 50 MG TAB PEG SCH (22:28)
[2018-08-26] MEDS: PRIMIDONE 125MG PER 1/2 TABLET PEG SCH (22:28)
[2018-08-27] MEDS: METOCLOPRAMIDE INJ 10MG/2ML VIAL (J2765) IV SCH ×4 (03:36→20:53)
[2018-08-27 05:56] LABS: HEMATOCRIT 37.9 % (42.0-52.0); HEMOGLOBIN 12.7 g/dl (13.5-17.5); MEAN CORPUSCULAR HEMOGLOBIN 32.6 pg (27.0-33.0); MEAN CORPUSCULAR HGB CONC 33.5 g/dl (32.0-36.5); MEAN CORPUSCULAR VOLUME 97.4 fl (80.0-96.0); PLATELET COUNT, AUTOMATED 162 10^3/uL (150-450); RED BLOOD COUNT 3.89 10^6/uL (4.30-6.10); WHITE BLOOD COUNT 11.1 10^3/uL (4.0-10.0)
[2018-08-27 06:00] VITALS: BP 149/86
[2018-08-27 06:21] LABS: ALBUMIN 2.9 GM/DL (3.2-5.2); ALT/SGPT 19 U/L (12-78); BILIRUBIN,TOTAL 0.5 MG/DL (0.2-1.0); BLOOD UREA NITROGEN 2 MG/DL (7-18); CALCIUM LEVEL 8.4 MG/DL (8.5-10.1); CARBON DIOXIDE LEVEL 29 MEQ/L (21-32); CHLORIDE LEVEL 107 MEQ/L (98-107); CREATININE FOR GFR 0.43 MG/DL (0.70-1.30); GLOMERULAR FILTRATION RATE > 60.0 (>60); GLUCOSE, FASTING 84 MG/DL (70-100); POTASSIUM SERUM 3.9 MEQ/L (3.5-5.1); SODIUM LEVEL 139 MEQ/L (136-145); TOTAL PROTEIN 6.7 GM/DL (6.4-8.2)
[2018-08-27] MEDS: D5W/LR 1,000 ML IV SCH ×2 (09:00→23:27)
[2018-08-27] MEDS: MULTIVITAMIN ADULT IV SCH (09:40)
[2018-08-27] MEDS: SENNA 8.6 MG TAB (SENOKOT) GT SCH ×2 (09:40→20:53)
[2018-08-27] MEDS: MAGNESIUM OXIDE 400 MG TAB (MAG-OX) PO SCH (09:40)
[2018-08-27] MEDS: LR IV SCH (09:40)
[2018-08-27] MEDS: D5 IV SCH (09:40)
[2018-08-27] MEDS: SIMETHICONE 80 MG CHEW TAB PEG SCH ×3 (09:40→20:53)
[2018-08-27] MEDS: POTASSIUM CHLORIDE 10% LIQ 20 MEQ/15 ML UDC FT SCH ×2 (09:41→20:52)
--- NOTE | 2018-08-27 11:11 | IPNPDOC ---
Subjective Date Seen The patient was seen on 08/27/18. Subjective Chief Complaint/HPI Nursing report no new concerns this morning. Pt tolerated JG tube feedings. Constitutional: Reports: Chills Objective Physical Examination General Exam: Positive: Alert, No Acute Distress ENT Exam: Positive: Mucous membr. moist/pink Chest Exam: Positive: Clear to auscultation, Normal air movement Heart Exam: Positive: Rate Normal, Normal S1, Normal S2 Abdomen Exam: Positive: Normal bowel sounds, Soft, Other (JG tube in place); Negative: Tenderness Extremity Exam: Positive: Edema, Other (+ contractures) Psych Exam: Negative: Mental status NL Assessment /Plan Problems (1) Ileus Status: Acute Response to Treatment: Stable Discussed With: Patient Problem Specific Plan: Monitor Clinically, Repeat Labs Problem Text: 08/27 Pt tolerated TF at 5 cc/hr, Lisandra recommends continuing feeds at this time. Will need up dated recommendations for cardiothoracic anesthesia technician to establish goal for weight maintenance. 08/26/18: XR not showing any signs of ileus. Intolerant to TF. IVF currently running. Will need to review [facility] nutrition plan for patient. 08/24/18: call placed for consult with Dr. Wilhelm. Return call pending. 08/23 -- Will need to consult Dr. Wilhelm tomorrow re: GJ tube or placement of PICC line. 08/22 -- Spoke with Dr. Woods (general surgery) who recommended pursuing GJ or PICC through vascular surgery. Spoke with Dr. Cedeño, who stated that she did not do GJ tubes (though Dr. Wilhelm does.) She recommends consulting Dr. Wilhelm on Friday for either a GJ tube or placement of a PICC. 08/21 - Dr. Fry recommedned another trial of slow rate feedings but he di dn ot even tolerate 5cc/hour. Dr. Gallego covering today. charge nurse has a call out to him to discuss possible central line placement with TPN until Tube feeding issue can be addressed further ? J-tube Cont IVF for now 08/20 - Still awaiting Consult from Dr. Fry to consider change to J tube Tube feeds remain on hold Cont IVF 08/19/18: Case discussed with Dr. Fry and he will consult. HOLD TF 08/18/18: TF and meds currently on HOLD. Continues to have BMs. Consider 24-48 hrs of bowel rest vs further imaging. 08/17/18: + BMs and mild improvement in imaging. Consider 24-48 hrs of bowel rest vs further imaging. 08/16: feeding was not tolerated with large residual immediately. will repeat imaging if any sign of improvement then restart. he was given potassium replacement which appears to have been effective based on today's lab 08/15:passing stool, abdomen soft and bowel sounds are active. there seems to be no ileus so will restart use of tube feeds at 5cc/hr with usual 50cc water flush. 08/14 Cont to hold tube feedsd today, LR started yesterday, changed to D5W/LR at 75 cc/hr due glu 46 this morning. Anticipate repeat abd films in AM, consider resuming tube feeds, but would start slow and titrate. If pt contto not tolerate with + residuals, will consider J tube placement. 08/13 Tube feeds held, LR started, + metro 5 IV QID/simeth 80 QID, to improve gstric emptying, rec resuming TF in 48 hours gradually, previously on continuous feed at 25cc/hr. If pt cont to fail to tolerate with residuals will need to consider GJ tube placement. 08/09/18 CT AP s: . Gastrostomy tube in place. 2. No free peritoneal air seen. 3. Mildly dilated bowel loops seen to suggest bowel obstruction. 4. Bilateral nephrolithiasis. (2) Protein-calorie malnutrition, severe Status: Chronic Problem Specific Plan: Monitor Clinically Problem Text: See above. (3) Gastrostomy tube dependent Status: Chronic Problem Text: Dr. Wilhelm was able to place GJ tube and indicates that it may be used. Will start slowly and advance and request new consult from cardiothoracic anesthesia technician re calorie and fluid recommendations. will start with 5 ml Jevity 1.5 and 30 cc q6 hour water flushes for now. (4) Chronic constipation Status: Chronic Problem Text: remains on HD senna 2 BID lactulose held to reduce bowel gas (5) Seizure disorder Status: Chronic Problem Specific Plan: Monitor Clinically Problem Text: Stable on HD primidone 125 QHS (6) CP (cerebral palsy), spastic, quadriplegic Status: Chronic Response to Treatment: Stable (7) Hypokalemia Status: Acute Problem Text: 08/27 K+ 3.9 08/25: potassium improved but still low. will give liquid KCl via GJ tube IV replacement today Plan/VTE VTE Prophylaxis Ordered?: Yes VS, I&O, 24H, Fishbone Vital Signs/I&O Vital Signs Date Time Temp Pulse Resp B/P (MAP) Pulse Ox O2 Delivery O2 Flow Rate FiO2 08/27/18 06:00 97.6 57 16 149/86 (107) 100 I&O- Last 24 Hours up to 6 AM 08/27/18 06:00 Intake Total 375 ml Balance 375 ml Laboratory Data 24H LABS Laboratory Tests 2 08/27/18 05:35: Nucleated Red Blood Cells % (auto) 0.0, Anion Gap 3L, Glomerular Filtration Rate > 60.0, Blood Urea Nitrogen 2L, Creatinine 0.43L, Sodium Level 139, Potassium Level 3.9, Chloride Level 107, Carbon Dioxide Level 29, Calcium Level 8.4L, Aspartate Amino Transf (AST/SGOT) 20, Alanine Aminotransferase (ALT/SGPT) 19, Alkaline Phosphatase 106, Total Bilirubin 0.5, Total Protein 6.7, Albumin 2.9L, Albumin/Globulin Ratio 0.76L CBC/BMP Laboratory Tests 08/27/18 05:35 Red Blood Count 3.89 L, Mean Corpuscular Volume 97.4 H, Mean Corpuscular Hemoglobin 32.6, Mean Corpuscular Hemoglobin Concent 33.5, Red Cell Distribution Width 12.9, Calcium Level 8.4 L, Aspartate Amino Transf (AST/SGOT) 20, Alanine Aminotransferase (ALT/SGPT) 19, Alkaline Phosphatase 106, Total Bilirubin 0.5, Total Protein 6.7, Albumin 2.9 L ALAINA ORELLANA PA-C Aug 27, 2018 11:10
[2018-08-27 14:00] VITALS: BP 122/71
[2018-08-27 19:15] VITALS: BP 119/78
--- NOTE | 2018-08-27 19:50 | REP ---
Clinical: Chronic cough . Comparison: 08/18/2018 . Findings: The mediastinum and cardiac silhouette are stable and within normal limits for portable technique. The lung ann demonstrate chronic interstitial changes without acute consolidation, effusion, or pneumothorax. Skeletal structures are intact. Impression: No acute cardiopulmonary process appreciated. Electronically Signed by Leonides Mckinney MD 08/27/2018 07:42 P
[2018-08-27 20:00] VITALS: BP 118/69
[2018-08-27 20:07] LABS: BASO % 0.3 % (0.0-1.0); EOS # 0.1 10^3/uL (0.0-0.50); EOS % 0.5 % (0.0-3.0); HEMATOCRIT 39.1 % (42.0-52.0); HEMOGLOBIN 12.9 g/dl (13.5-17.5); LYMPH # 2.4 10^3/uL (1.5-4.5); LYMPH % 19.3 % (24.0-44.0); MEAN CORPUSCULAR HEMOGLOBIN 32.4 pg (27.0-33.0); MEAN CORPUSCULAR VOLUME 98.2 fl (80.0-96.0); MONO # 0.9 10^3/uL (0.0-0.8); NEUTROPHILS # 8.8 10^3/uL (1.8-7.7); NEUTROPHILS % 72.5 % (36.0-66.0); PLATELET COUNT, AUTOMATED 168 10^3/uL (150-450); RED BLOOD COUNT 3.98 10^6/uL (4.30-6.10); WHITE BLOOD COUNT 12.2 10^3/uL (4.0-10.0)
[2018-08-27 20:13] LABS: APPEARANCE, URINE HAZY (CLEAR); BACTERIA, URINE AUTO NEGATIVE (NEGATIVE); BILIRUBIN, URINE AUTO NEGATIVE (NEGATIVE); BLOOD, URINE BLOOD 2+ (NEGATIVE); COLOR, URINE YELLOW (YELLOW); GLUCOSE, URINE (UA) AUTO NEGATIVE (NEGATIVE); KETONE, URINE AUTO NEGATIVE (NEGATIVE); LEUKOCYTE ESTERASE, URINE AUTO TRACE (NEGATIVE); NITRITE, URINE AUTO NEGATIVE (NEGATIVE); PROTEIN, URINE AUTO NEGATIVE (NEGATIVE); RBC, URINE AUTO 96 /HPF (0-3); SPECIFIC GRAVITY URINE AUTO 1.009 (1.002-1.035); SQUAMOUS EPITHELIAL CELL UR AU 0 /HPF (0-6); UROBILINOGEN, URINE AUTO 0.2 mg/dL (0.0-2.0); WBC, URINE AUTO 4 /HPF (0-3)
[2018-08-27 20:27] LABS: BLOOD UREA NITROGEN 2 MG/DL (7-18); CALCIUM LEVEL 8.2 MG/DL (8.5-10.1); CARBON DIOXIDE LEVEL 28 MEQ/L (21-32); CHLORIDE LEVEL 105 MEQ/L (98-107); CREATININE FOR GFR 0.49 MG/DL (0.70-1.30); GLOMERULAR FILTRATION RATE > 60.0 (>60); GLUCOSE, FASTING 84 MG/DL (70-100); POTASSIUM SERUM 4.1 MEQ/L (3.5-5.1); SODIUM LEVEL 138 MEQ/L (136-145)
[2018-08-27] MEDS: cefTRIAXone SOD 1 GM in D5W MINI-BAG PLUS 50 ML IV SCH (20:52)
[2018-08-27] MEDS: hydrOXYzine 50 MG TAB PEG SCH (20:53)
[2018-08-27] MEDS: PRIMIDONE 125MG PER 1/2 TABLET PEG SCH (20:53)
[2018-08-28] MEDS: METOCLOPRAMIDE INJ 10MG/2ML VIAL (J2765) IV SCH ×3 (02:53→15:31)
[2018-08-28 06:00] VITALS: BP 117/62
[2018-08-28 07:03] LABS: HEMATOCRIT 35.1 % (42.0-52.0); HEMOGLOBIN 11.7 g/dl (13.5-17.5); MEAN CORPUSCULAR HEMOGLOBIN 32.8 pg (27.0-33.0); MEAN CORPUSCULAR HGB CONC 33.3 g/dl (32.0-36.5); MEAN CORPUSCULAR VOLUME 98.3 fl (80.0-96.0); PLATELET COUNT, AUTOMATED 155 10^3/uL (150-450); RED BLOOD COUNT 3.57 10^6/uL (4.30-6.10); WHITE BLOOD COUNT 9.6 10^3/uL (4.0-10.0)
[2018-08-28 07:34] LABS: ALBUMIN 2.6 GM/DL (3.2-5.2); ALT/SGPT 16 U/L (12-78); BILIRUBIN,TOTAL 0.4 MG/DL (0.2-1.0); BLOOD UREA NITROGEN 3 MG/DL (7-18); CALCIUM LEVEL 7.9 MG/DL (8.5-10.1); CARBON DIOXIDE LEVEL 28 MEQ/L (21-32); CHLORIDE LEVEL 107 MEQ/L (98-107); CREATININE FOR GFR 0.34 MG/DL (0.70-1.30); GLOMERULAR FILTRATION RATE > 60.0 (>60); GLUCOSE, FASTING 72 MG/DL (70-100); POTASSIUM SERUM 3.9 MEQ/L (3.5-5.1); SODIUM LEVEL 140 MEQ/L (136-145); TOTAL PROTEIN 5.9 GM/DL (6.4-8.2)
[2018-08-28] MEDS: D5W/LR 1,000 ML IV SCH (08:36)
[2018-08-28] MEDS: D5 IV SCH (08:37)
[2018-08-28] MEDS: MULTIVITAMIN ADULT IV SCH (08:37)
[2018-08-28] MEDS: SIMETHICONE 80 MG CHEW TAB PEG SCH ×3 (08:37→21:51)
[2018-08-28] MEDS: POTASSIUM CHLORIDE 10% LIQ 20 MEQ/15 ML UDC FT SCH ×2 (08:37→21:51)
[2018-08-28] MEDS: MAGNESIUM OXIDE 400 MG TAB (MAG-OX) PO SCH (08:37)
[2018-08-28] MEDS: LR IV SCH (08:37)
[2018-08-28] MEDS: SENNA 8.6 MG TAB (SENOKOT) GT SCH ×2 (08:37→21:51)
--- NOTE | 2018-08-28 09:06 | IPNPDOC ---
Subjective Date Seen The patient was seen on 08/28/18. Subjective Chief Complaint/HPI Nursing at bedside, without new concerns. Last evening increased work of breathing, bluish extremities but normal vitals. Some noisy resirations noted so CXR obtained, urinalysis done, blood cultures collected and Rocephin started. General: Reports: ROS Unobtainable Objective Physical Examination General Exam: Positive: No Acute Distress; Negative: Alert (asleep) ENT Exam: Positive: Mucous membr. moist/pink Chest Exam: Positive: Clear to auscultation, Diminished Heart Exam: Positive: Rate Normal, Normal S1, Normal S2 Abdomen Exam: Positive: Normal bowel sounds, Soft, Other (JG tube in place); Negative: Tenderness Extremity Exam: Positive: Other (+ contractures); Negative: Edema Psych Exam: Negative: Mental status NL Assessment /Plan Problems (1) Ileus Status: Acute Response to Treatment: Stable Discussed With: Patient Problem Specific Plan: Monitor Clinically, Repeat Labs Problem Text: 08/28 Pt tolerating TF at 10 cc/hr, will give order to titrate with goal of 30 cc/hr. Free water has been adjusted as well. 08/27 Pt tolerated TF at 5 cc/hr, Lisandra recommends continuing feeds at this time. Will need up dated recommendations for pet ambassador to establish goal for weight maintenance. 08/26/18: XR not showing any signs of ileus. Intolerant to TF. IVF currently running. Will need to review shelter nutrition plan for patient. 08/24/18: call placed for consult with Dr. Wilhelm. Return call pending. 08/23 -- Will need to consult Dr. Wilhelm tomorrow re: GJ tube or placement of PICC line. 08/22 -- Spoke with Dr. Woods (general surgery) who recommended pursuing GJ or PICC through vascular surgery. Spoke with Dr. Cedeño, who stated that she did not do GJ tubes (though Dr. Wilhelm does.) She recommends consulting Dr. Wilhelm on Friday for either a GJ tube or placement of a PICC. 08/21 - Dr. Fry recommedned another trial of slow rate feedings but he di dnot even tolerate 5cc/hour. Dr. Gallego covering today. charge nurse has a call out to him to discuss possible central line placement with TPN until Tube feeding issue can be addressed further ? J-tube Cont IVF for now 08/20 - Still awaiting Consult from Dr. Fry to consider change to J tube Tube feeds remain on hold Cont IVF 08/19/18: Case discussed with Dr. Fry and he will consult. HOLD TF 08/18/18: TF and meds currently on HOLD. Continues to have BMs. Consider 24-48 hrs of bowel rest vs further imaging. 08/17/18: + BMs and mild improvement in imaging. Consider 24-48 hrs of bowel rest vs further imaging. 08/16: feeding was not tolerated with large residual immediately. will repeat imaging if any sign of improvement then restart. he was given potassium replacement which appears to have been effective based on today's lab 08/15:passing stool, abdomen soft and bowel sounds are active. there seems to be no ileus so will restart use of tube feeds at 5cc/hr with usual 50cc water flush. 08/14 Cont to hold tube feedsd today, LR started yesterday, changed to D5W/LR at 75 cc/hr due glu 46 this morning. Anticipate repeat abd films in AM, consider resuming tube feeds, but would start slow and titrate. If pt contto not tolerate with + residuals, will consider J tube placement. 08/13 Tube feeds held, LR started, + metro 5 IV QID/simeth 80 QID, to improve gstric emptying, rec resuming TF in 48 hours gradually, previously on continuous feed at 25cc/hr. If pt cont to fail to tolerate with residuals will need to consider GJ tube placement. 08/09/18 CT AP s: . Gastrostomy tube in place. 2. No free peritoneal air seen. 3. Mildly dilated bowel loops seen to suggest bowel obstruction. 4. Bilateral nephrolithiasis. (2) Protein-calorie malnutrition, severe Status: Chronic Problem Specific Plan: Monitor Clinically Problem Text: See above. (3) Gastrostomy tube dependent Status: Chronic Problem Text: Dr. Wilhelm was able to place GJ tube and indicates that it may be used. Will start slowly and advance and request new consult from pet ambassador re calorie and fluid recommendations. will start with 5 ml Jevity 1.5 and 30 cc q6 hour water flushes for now. (4) Chronic constipation Status: Chronic Problem Text: remains on HD senna 2 BID lactulose held to reduce bowel gas (5) Seizure disorder Status: Chronic Problem Specific Plan: Monitor Clinically Problem Text: Stable on HD primidone 125 QHS (6) CP (cerebral palsy), spastic, quadriplegic Status: Chronic Response to Treatment: Stable (7) Hypokalemia Status: Resolved Problem Text: 08/27 K+ 3.9 08/25: potassium improved but still low. will give liquid KCl via GJ tube IV replacement today Plan/VTE VTE Prophylaxis Ordered?: Yes VS, I&O, 24H, Fishbone Vital Signs/I&O Vital Signs Date Time Temp Pulse Resp B/P (MAP) Pulse Ox O2 Delivery O2 Flow Rate FiO2 08/28/18 06:00 97.6 54 16 117/62 (80) 96 I&O- Last 24 Hours up to 6 AM 08/28/18 06:00 Intake Total 1590 ml Balance 1590 ml Laboratory Data 24H LABS Laboratory Tests 2 08/27/18 19:34: Urine Appearance HAZY, Urine Color YELLOW, Urine pH 9.0, Urine Specific [place] 1.009, Urine Protein NEGATIVE, Urine Glucose (UA) NEGATIVE, Urine Ketones NEGATIVE, Urine Urobilinogen 0.2, Urine Bilirubin NEGATIVE, Urine Leukocyte Esterase TRACEH, Urine Blood 2+H, Urine Nitrite NEGATIVE, Urine WBC (Auto) 4H, Urine RBC (Auto) 96H, Urine Hyaline Casts (Auto) 0, Urine Bacteria (Auto) NEGATIVE, Urine Squamous Epithelial Cells 0, Urine Sperm (Auto) 08/27/18 19:51: Immature Granulocyte % (Auto) 0.4, White Blood Count 12.2H, Red Blood Count 3.98L, Hemoglobin 12.9L, Hematocrit 39.1L, Mean Corpuscular Volume 98.2H, Mean Corpuscular Hemoglobin 32.4, Mean Corpuscular Hemoglobin Concent 33.0, Red Cell Distribution Width 12.9, Platelet Count 168, Neutrophils (%) (Auto) 72.5H, Lymphocytes (%) (Auto) 19.3L, Monocytes (%) (Auto) 7.0H, Eosinophils (%) (Auto) 0.5, Basophils (%) (Auto) 0.3, Neutrophils # (Auto) 8.8H, Lymphocytes # (Auto) 2.4, Monocytes # (Auto) 0.9H, Eosinophils # (Auto) 0.1, Basophils # (Auto) 0.0, Nucleated Red Blood Cells % (auto) 0.0, Anion Gap 5L, Glomerular Filtration Rate > 60.0, Blood Urea Nitrogen 2L, Creatinine 0.49L, Sodium Level 138, Potassium Level 4.1, Chloride Level 105, Carbon Dioxide Level 28, Calcium Level 8.2L 08/27/18 20:24: Lactic Acid Level 2.1*H 08/28/18 00:41: Lactic Acid Followup at 4 Hours 1.0 08/28/18 06:20: Nucleated Red Blood Cells % (auto) 0.0, Anion Gap 5L, Glomerular Filtration Rate > 60.0, Blood Urea Nitrogen 3L, Creatinine 0.34L, Sodium Level 140, Potassium Level 3.9, Chloride Level 107, Carbon Dioxide Level 28, Calcium Level 7.9L, Aspartate Amino Transf (AST/SGOT) 16, Alanine Aminotransferase (ALT/SGPT) 16, Alkaline Phosphatase 94, Total Bilirubin 0.4, Total Protein 5.9L, Albumin 2.6L, Albumin/Globulin Ratio 0.79L CBC/BMP Laboratory Tests 08/27/18 19:51 Red Blood Count 3.98 L, Mean Corpuscular Volume 98.2 H, Mean Corpuscular Hemoglobin 32.4, Mean Corpuscular Hemoglobin Concent 33.0, Red Cell Distribution Width 12.9, Neutrophils (%) (Auto) 72.5 H, Lymphocytes (%) (Auto) 19.3 L, Monocytes (%) (Auto) 7.0 H, Eosinophils (%) (Auto) 0.5, Basophils (%) (Auto) 0.3, Neutrophils # (Auto) 8.8 H, Lymphocytes # (Auto) 2.4, Monocytes # (Auto) 0.9 H, Eosinophils # (Auto) 0.1, Basophils # (Auto) 0.0, Calcium Level 8.2 L 08/28/18 06:20 Red Blood Count 3.57 L, Mean Corpuscular Volume 98.3 H, Mean Corpuscular Hemoglobin 32.8, Mean Corpuscular Hemoglobin Concent 33.3, Red Cell Distribution Width 12.9, Calcium Level 7.9 L, Aspartate Amino Transf (AST/SGOT) 16, Alanine Aminotransferase (ALT/SGPT) 16, Alkaline Phosphatase 94, Total Bilirubin 0.4, Total Protein 5.9 L, Albumin 2.6 L Microbiology Microbiology 08/27/18 Blood Culture, Received Pending 08/27/18 Blood Culture, Received Pending 08/27/18 Urine Culture, Received Pending 08/28/18 Eye/Ear/Nose/Throat Culture, Received Pending Attending Note Attending Note If BC remain negative and clinically stable then D/C rocephin after 72 hours. Tube feeding will have been advanced close to target by then. ALAINA ORELLANA PA-C Aug 28, 2018 09:06 Alton Velez MD Aug 28, 2018 11:58
[2018-08-28 14:00] VITALS: BP 127/71
[2018-08-28] MEDS: METOCLOPRAMIDE 5 MG TAB GT SCH ×2 (17:46→21:51)
[2018-08-28] MEDS: PRIMIDONE 125MG PER 1/2 TABLET PEG SCH (21:51)
[2018-08-28] MEDS: hydrOXYzine 50 MG TAB PEG SCH (21:52)
[2018-08-28 22:00] VITALS: BP 119/73
[2018-08-28] MEDS: cefTRIAXone SOD 1 GM in D5W MINI-BAG PLUS 50 ML IV SCH (23:29)
[2018-08-29 06:00] VITALS: BP 113/74
[2018-08-29 06:13] LABS: HEMATOCRIT 35.9 % (42.0-52.0); MEAN CORPUSCULAR HEMOGLOBIN 32.8 pg (27.0-33.0); MEAN CORPUSCULAR HGB CONC 33.4 g/dl (32.0-36.5); MEAN CORPUSCULAR VOLUME 98.1 fl (80.0-96.0); PLATELET COUNT, AUTOMATED 150 10^3/uL (150-450); RED BLOOD COUNT 3.66 10^6/uL (4.30-6.10); WHITE BLOOD COUNT 9.6 10^3/uL (4.0-10.0)
[2018-08-29 06:47] LABS: ALBUMIN 2.8 GM/DL (3.2-5.2); ALT/SGPT 19 U/L (12-78); BILIRUBIN,TOTAL 0.2 MG/DL (0.2-1.0); BLOOD UREA NITROGEN 9 MG/DL (7-18); CALCIUM LEVEL 8.3 MG/DL (8.5-10.1); CARBON DIOXIDE LEVEL 28 MEQ/L (21-32); CHLORIDE LEVEL 103 MEQ/L (98-107); CREATININE FOR GFR 0.42 MG/DL (0.70-1.30); GLOMERULAR FILTRATION RATE > 60.0 (>60); GLUCOSE, FASTING 87 MG/DL (70-100); POTASSIUM SERUM 4.1 MEQ/L (3.5-5.1); SODIUM LEVEL 136 MEQ/L (136-145); TOTAL PROTEIN 6.9 GM/DL (6.4-8.2)
[2018-08-29] MEDS: POTASSIUM CHLORIDE 10% LIQ 20 MEQ/15 ML UDC FT SCH ×2 (10:58→20:20)
[2018-08-29] MEDS: SENNA 8.6 MG TAB (SENOKOT) GT SCH ×2 (10:59→20:20)
[2018-08-29] MEDS: METOCLOPRAMIDE 5 MG TAB GT SCH ×4 (10:59→20:20)
[2018-08-29] MEDS: SIMETHICONE 80 MG CHEW TAB PEG SCH ×3 (11:00→20:20)
[2018-08-29] MEDS: MAGNESIUM OXIDE 400 MG TAB (MAG-OX) PO SCH (11:00)
[2018-08-29 13:36] VITALS: BP 134/65
--- NOTE | 2018-08-29 17:13 | IPNPDOC ---
Subjective Date Seen The patient was seen on 08/29/18. Objective Physical Examination General Exam: Positive: No Acute Distress; Negative: Alert (asleep) ENT Exam: Positive: Mucous membr. moist/pink Chest Exam: Positive: Clear to auscultation, Diminished Heart Exam: Positive: Rate Normal, Normal S1, Normal S2 Abdomen Exam: Positive: Normal bowel sounds, Soft, Other (JG tube in place); Negative: Tenderness Extremity Exam: Positive: Other (+ contractures); Negative: Edema Psych Exam: Negative: Mental status NL Assessment /Plan Problems (1) Ileus Status: Acute Response to Treatment: Stable Discussed With: Patient Problem Specific Plan: Monitor Clinically, Repeat Labs Problem Text: 08/28 Pt tolerating TF at 10 cc/hr, will give order to titrate with goal of 30 cc/hr. Free water has been adjusted as well. 08/27 Pt tolerated TF at 5 cc/hr, Lisandra recommends continuing feeds at this time. Will need up dated recommendations for journeyman molder to establish goal for weight maintenance. 08/26/18: XR not showing any signs of ileus. Intolerant to TF. IVF currently running. Will need to review [facility] nutrition plan for patient. 08/24/18: call placed for consult with Dr. Wilhelm. Return call pending. 08/23 -- Will need to consult Dr. Wilhelm tomorrow re: GJ tube or placement of PICC line. 08/22 -- Spoke with Dr. Woosd (general surgery) who recommended pursuing GJ or PICC through vascular surgery. Spoke with Dr. Cedeño, who stated that she did not do GJ tubes (though Dr. Wilhelm does.) She recommends consulting Dr. Wilhelm on Friday for either a GJ tube or placement of a PICC. 08/21 - Dr. Fry recommedned another trial of slow rate feedings but he di dnot even tolerate 5cc/hour. Dr. Gallego covering today. charge nurse has a call out to him to discuss possible central line placement with TPN until Tube feeding issue can be addressed further ? J-tube Cont IVF for now 08/20 - Still awaiting Consult from Dr. Fry to consider change to J tube Tube feeds remain on hold Cont IVF 08/19/18: Case discussed with Dr. Fry and he will consult. HOLD TF 08/18/18: TF and meds currently on HOLD. Continues to have BMs. Consider 24-48 hrs of bowel rest vs further imaging. 08/17/18: + BMs and mild improvement in imaging. Consider 24-48 hrs of bowel rest vs further imaging. 08/16: feeding was not tolerated with large residual immediately. will repeat imaging if any sign of improvement then restart. he was given potassium replacement which appears to have been effective based on today's lab 08/15:passing stool, abdomen soft and bowel sounds are active. there seems to be no ileus so will restart use of tube feeds at 5cc/hr with usual 50cc water flush. 08/14 Cont to hold tube feedsd today, LR started yesterday, changed to D5W/LR at 75 cc/hr due glu 46 this morning. Anticipate repeat abd films in AM, consider resuming tube feeds, but would start slow and titrate. If pt contto not bert erate with + residuals, will consider J tube placement. 08/13 Tube feeds held, LR started, + metro 5 IV QID/simeth 80 QID, to improve gstric emptying, rec resuming TF in 48 hours gradually, previously on continuous feed at 25cc/hr. If pt cont to fail to tolerate with residuals will need to consider GJ tube placement. 08/09/18 CT AP s: . Gastrostomy tube in place. 2. No free peritoneal air seen. 3. Mildly dilated bowel loops seen to suggest bowel obstruction. 4. Bilateral nephrolithiasis. (2) Protein-calorie malnutrition, severe Status: Chronic Problem Specific Plan: Monitor Clinically Problem Text: See above. (3) Gastrostomy tube dependent Status: Chronic Problem Text: Dr. Wilhelm was able to place GJ tube and indicates that it may be used. Will start slowly and advance and request new consult from journeyman molder re calorie and fluid recommendations. will start with 5 ml Jevity 1.5 and 30 cc q6 hour water flushes for now. (4) Chronic constipation Status: Chronic Problem Text: remains on HD senna 2 BID lactulose held to reduce bowel gas (5) Seizure disorder Status: Chronic Problem Specific Plan: Monitor Clinically Problem Text: Stable on HD primidone 125 QHS (6) CP (cerebral palsy), spastic, quadriplegic Status: Chronic Response to Treatment: Stable (7) Hypokalemia Status: Resolved Problem Text: 6/27 K+ 3.9 08/25: potassium improved but still low. will give liquid KCl via GJ tube IV replacement today Plan/VTE VTE Prophylaxis Ordered?: Yes VS, I&O, 24H, Fishbone Vital Signs/I&O Vital Signs Date Time Temp Pulse Resp B/P (MAP) Pulse Ox O2 Delivery O2 Flow Rate FiO2 08/29/18 13:36 97.7 63 14 134/65 (88) 97 I&O- Last 24 Hours up to 6 AM 08/29/18 06:00 Intake Total 1250 ml Balance 1250 ml Laboratory Data 24H LABS Laboratory Tests 2 08/29/18 05:55: Nucleated Red Blood Cells % (auto) 0.0, Anion Gap 5L, Glomerular Filtration Rate > 60.0, Blood Urea Nitrogen 9#, Creatinine 0.42L, Sodium Level 136, Potassium Level 4.1, Chloride Level 103, Carbon Dioxide Level 28, Calcium Level 8.3L, Aspartate Amino Transf (AST/SGOT) 22, Alanine Aminotransferase (ALT/SGPT) 19, Alkaline Phosphatase 113, Total Bilirubin 0.2, Total Protein 6.9, Albumin 2.8L, Albumin/Globulin Ratio 0.68L CBC/BMP Laboratory Tests 08/29/18 05:55 Red Blood Count 3.66 L, Mean Corpuscular Volume 98.1 H, Mean Corpuscular Hemoglobin 32.8, Mean Corpuscular Hemoglobin Concent 33.4, Red Cell Distribution Width 12.7, Calcium Level 8.3 L, Aspartate Amino Transf (AST/SGOT) 22, Alanine Aminotransferase (ALT/SGPT) 19, Alkaline Phosphatase 113, Total Bilirubin 0.2, Total Protein 6.9, Albumin 2.8 L Microbiology Microbiology 08/27/18 Blood Culture - Preliminary, Resulted No growth after 24 hours . All specim... 08/27/18 Blood Culture - Preliminary, Resulted No growth after 24 hours . All specim... 08/27/18 Urine Culture - Final, Complete Klebsiella Pneumoniae 08/28/18 Eye/Ear/Nose/Throat Culture, Received Pending Bartolome Guerrero MD Aug 29, 2018 17:13
[2018-08-29] MEDS: PRIMIDONE 125MG PER 1/2 TABLET PEG SCH (20:20)
[2018-08-29] MEDS: cefTRIAXone SOD 1 GM in D5W MINI-BAG PLUS 50 ML IV SCH (20:20)
[2018-08-29] MEDS: hydrOXYzine 50 MG TAB PEG SCH (20:20)
[2018-08-29 22:00] VITALS: BP 146/81
[2018-08-30 05:57] LABS: HEMATOCRIT 34.9 % (42.0-52.0); HEMOGLOBIN 11.7 g/dl (13.5-17.5); MEAN CORPUSCULAR HEMOGLOBIN 32.7 pg (27.0-33.0); MEAN CORPUSCULAR HGB CONC 33.5 g/dl (32.0-36.5); MEAN CORPUSCULAR VOLUME 97.5 fl (80.0-96.0); PLATELET COUNT, AUTOMATED 145 10^3/uL (150-450); RED BLOOD COUNT 3.58 10^6/uL (4.30-6.10); WHITE BLOOD COUNT 8.1 10^3/uL (4.0-10.0)
[2018-08-30 06:00] VITALS: BP 149/83
[2018-08-30 06:20] LABS: ALBUMIN 2.8 GM/DL (3.2-5.2); BLOOD UREA NITROGEN 14 MG/DL (7-18); CALCIUM LEVEL 8.4 MG/DL (8.5-10.1); CARBON DIOXIDE LEVEL 34 MEQ/L (21-32); CHLORIDE LEVEL 100 MEQ/L (98-107); CREATININE FOR GFR 0.41 MG/DL (0.70-1.30); GLOMERULAR FILTRATION RATE > 60.0 (>60); GLUCOSE, FASTING 89 MG/DL (70-100); PHOSPHORUS LEVEL 3.8 MG/DL (2.5-4.9); POTASSIUM SERUM 4.2 MEQ/L (3.5-5.1); SODIUM LEVEL 137 MEQ/L (136-145)
[2018-08-30] MEDS: MAGNESIUM OXIDE 400 MG TAB (MAG-OX) PO SCH (09:22)
[2018-08-30] MEDS: SIMETHICONE 80 MG CHEW TAB PEG SCH ×3 (09:22→20:01)
[2018-08-30] MEDS: METOCLOPRAMIDE 5 MG TAB GT SCH ×4 (09:22→20:01)
[2018-08-30] MEDS: POTASSIUM CHLORIDE 10% LIQ 20 MEQ/15 ML UDC FT SCH ×2 (09:22→20:03)
[2018-08-30] MEDS: SENNA 8.6 MG TAB (SENOKOT) GT SCH ×2 (09:22→20:01)
--- NOTE | 2018-08-30 09:39 | IPNPDOC ---
Text Note Date of Service The patient was seen on 08/30/18. NOTE I was asked by his nurse to look at what she bernard from the gastrostomy port w lih looks to be hemolyzed blood. I checked back on his Hgb/Hct and seems to be stable. This may probably explain why he was not tolerating the gastrostomy feeding (Ulcer?gastritis). I placed him on lasoprazole for this. if hgb/hct trends down, may need EGD to verify. I am not sure how aggressive we should be in trying to see the reason for this. VS,Fishbone, I+O VS, Fishbone, I+O Laboratory Tests 08/30/18 05:41 Red Blood Count 3.58 L, Mean Corpuscular Volume 97.5 H, Mean Corpuscular Hemoglobin 32.7, Mean Corpuscular Hemoglobin Concent 33.5, Red Cell Distribution Width 12.8, Anion Gap 3 L Vital Signs Date Time Temp Pulse Resp B/P (MAP) Pulse Ox O2 Delivery O2 Flow Rate FiO2 08/30/18 06:00 97.0 62 15 149/83 (105) 96 I&O- Last 24 Hours up to 6 AM 08/30/18 06:00 Intake Total 1060 ml Balance 1060 ml MIGUELINA GUZMAN MD Aug 30, 2018 09:39
[2018-08-30] MEDS: LANSOPRAZOLE SUSPENSION 30 MG/10 ML ORAL SYRINGE (FIRST-LANSOPRAZOLE) GT SCH (12:00)
[2018-08-30 14:00] VITALS: BP 116/64
[2018-08-30] MEDS: PRIMIDONE 125MG PER 1/2 TABLET PEG SCH (20:00)
[2018-08-30] MEDS: cefTRIAXone SOD 1 GM in D5W MINI-BAG PLUS 50 ML IV SCH (20:00)
[2018-08-30] MEDS: hydrOXYzine 50 MG TAB PEG SCH (20:01)
[2018-08-30 22:00] VITALS: BP 127/75
--- NOTE | 2018-08-30 23:58 | IPNPDOC ---
Subjective Date Seen The patient was seen on 08/30/18. Objective Physical Examination General Exam: Positive: No Acute Distress; Negative: Alert (asleep) ENT Exam: Positive: Mucous membr. moist/pink Chest Exam: Positive: Clear to auscultation, Diminished Heart Exam: Positive: Rate Normal, Normal S1, Normal S2 Abdomen Exam: Positive: Normal bowel sounds, Soft, Other (JG tube in place); Negative: Tenderness Extremity Exam: Positive: Other (+ contractures); Negative: Edema Psych Exam: Negative: Mental status NL Assessment /Plan Problems (1) Ileus Status: Acute Response to Treatment: Stable Discussed With: Patient Problem Specific Plan: Monitor Clinically, Repeat Labs Problem Text: 08/30: He is up to 25cc/hr with minimal to no residuals. Tomorrow he should meet his goal. 08/28 Pt tolerating TF at 10 cc/hr, will give order to titrate with goal of 30 cc/hr. Free water has been adjusted as well. 08/27 Pt tolerated TF at 5 cc/hr, Lisandra recommends continuing feeds at this time. 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 08/26/18: XR not showing any signs of ileus. Intolerant to TF. IVF currently running. Will need to review alf nutrition plan for patient. 08/24/18: call placed for consult with Dr. Wilhelm. Return call pending. 08/23 -- Will need to consult Dr. Wilhelm tomorrow re: GJ tube or placement of PICC line. 08/22 -- Spoke with Dr. Woods (general surgery) who recommended pursuing GJ or PICC through vascular surgery. Spoke with Dr. Cedeño, who stated that she did not do GJ tubes (though Dr. Wilhelm does.) She recommends consulting Dr. Wilhelm on Friday for either a GJ tube or placement of a PICC. 08/21 - Dr. Fry recommedned another trial of slow rate feedings but he di dnot even tolerate 5cc/hour. Dr. Gallego covering today. charge nurse has a call out to him to discuss possible central line placement with TPN until Tube feeding issue can be addressed further ? J-tube Cont IVF for now 08/20 - Still awaiting Consult from Dr. Fry to consider change to J tube Tube feeds remain on hold Cont IVF 08/19/18: Case discussed with Dr. Fry and he will consult. HOLD TF 08/18/18: TF and meds currently on HOLD. Continues to have BMs. Consider 24-48 hrs of bowel rest vs further imaging. 08/17/18: + BMs and mild improvement in imaging. Consider 24-48 hrs of bowel rest vs further imaging. 08/16: feeding was not tolerated with large residual immediately. will repeat imaging if any sign of improvement then restart. he was given potassium replacement which appears to have been effective based on today's lab 08/15:passing stool, abdomen soft and bowel sounds are active. there seems to be no ileus so will restart use of tube feeds at 5cc/hr with usual 50cc water flush. 08/14 Cont to hold tube feedsd today, LR started yesterday, changed to D5W/LR at 75 cc/hr due glu 46 this morning. Anticipate repeat abd films in AM, consider resuming tube feeds, but would start slow and titrate. If pt contto not tolerate with + residuals, will consider J tube placement. 08/13 Tube feeds held, LR started, + metro 5 IV QID/simeth 80 QID, to improve gstric emptying, rec resuming TF in 48 hours gradually, previously on continuous feed at 25cc/hr. If pt cont to fail to tolerate with residuals will need to consider GJ tube placement. 08/09/18 CT AP s: . Gastrostomy tube in place. 2. No free peritoneal air seen. 3. Mildly dilated bowel loops seen to suggest bowel obstruction. 4. Bilateral nephrolithiasis. (2) Gastritis Problem Text: This morning he did have one episode of melanotic return from the G-tube when they checked residuals. Surgery recommended adding lansoprazole and this has not reoccurred. His Hb has not dropped significantly. We will continue to monitor. (3) Protein-calorie malnutrition, severe Status: Chronic Problem Specific Plan: Monitor Clinically Problem Text: He has had a full nutrition consult. Full feeds should be 30cc/hr. There are free water recommendations too. (4) Gastrostomy tube dependent Status: Chronic Problem Text: Dr. Wilhelm was able to place GJ tube. (5) Chronic constipation Status: Chronic Problem Text: remains on HD senna 2 BID lactulose held to reduce bowel gas (6) Seizure disorder Status: Chronic Problem Specific Plan: Monitor Clinically Problem Text: Stable on HD primidone 125 QHS (7) CP (cerebral palsy), spastic, quadriplegic Status: Chronic Response to Treatment: Stable (8) Hypokalemia Status: Resolved Problem Text: 08/27 K+ 3.9 08/25: potassium improved but still low. will give liquid KCl via GJ tube IV replacement today Plan/VTE VTE Prophylaxis Ordered?: Yes VS, I&O, 24H, Fishbone Vital Signs/I&O Vital Signs Date Time Temp Pulse Resp B/P (MAP) Pulse Ox O2 Delivery O2 Flow Rate FiO2 08/30/18 22:00 98.9 66 16 127/75 (92) 98 I&O- Last 24 Hours up to 6 AM 08/30/18 06:00 Intake Total 1060 ml Balance 1060 ml Laboratory Data 24H LABS Laboratory Tests 2 08/30/18 05:41: Nucleated Red Blood Cells % (auto) 0.0, Blood Urea Nitrogen 14#, Creatinine 0.41 L, Sodium Level 137, Potassium Level 4.2, Chloride Level 100, Carbon Dioxide Level 34H, Anion Gap 3L, Glomerular Filtration Rate > 60.0, Calcium Level 8.4L, Phosphorus Level 3.8, Albumin 2.8L CBC/BMP Laboratory Tests 08/30/18 05:41 Red Blood Count 3.58 L, Mean Corpuscular Volume 97.5 H, Mean Corpuscular Hemoglobin 32.7, Mean Corpuscular Hemoglobin Concent 33.5, Red Cell Distribution Width 12.8, Anion Gap 3 L Microbiology Microbiology 08/27/18 Blood Culture - Preliminary, Resulted No Growth after 72 hours. All specime... 08/27/18 Blood Culture - Preliminary, Resulted No Growth after 72 hours. All specime... 08/27/18 Urine Culture - Final, Complete Klebsiella Pneumoniae 08/28/18 Eye/Ear/Nose/Throat Culture - Final, Complete Bartolome Guerrero MD Aug 30, 2018 23:58
[2018-08-31 06:00] VITALS: BP 129/75
[2018-08-31 06:19] LABS: HEMOGLOBIN 10.7 g/dl (13.5-17.5); MEAN CORPUSCULAR HEMOGLOBIN 31.8 pg (27.0-33.0); MEAN CORPUSCULAR HGB CONC 33.4 g/dl (32.0-36.5); PLATELET COUNT, AUTOMATED 140 10^3/uL (150-450); RED BLOOD COUNT 3.37 10^6/uL (4.30-6.10); WHITE BLOOD COUNT 10.1 10^3/uL (4.0-10.0)
[2018-08-31 06:43] LABS: ALBUMIN 2.9 GM/DL (3.2-5.2); ALT/SGPT 25 U/L (12-78); BILIRUBIN,TOTAL 0.2 MG/DL (0.2-1.0); BLOOD UREA NITROGEN 21 MG/DL (7-18); CARBON DIOXIDE LEVEL 31 MEQ/L (21-32); CHLORIDE LEVEL 104 MEQ/L (98-107); GLOMERULAR FILTRATION RATE > 60.0 (>60); GLUCOSE, FASTING 83 MG/DL (70-100); POTASSIUM SERUM 4.4 MEQ/L (3.5-5.1); SODIUM LEVEL 139 MEQ/L (136-145); TOTAL PROTEIN 6.9 GM/DL (6.4-8.2)
--- NOTE | 2018-08-31 08:49 | IPNPDOC ---
Subjective Date Seen The patient was seen on 08/31/18. Subjective Chief Complaint/HPI GT aspiration Events since last encounter Tolerating TF at 25 cc per hour. Simmons to increase to 30 cc per hour this am. Patient had an episode of coffee ground residual from G port of G/J. was observed by Dr. Fry. Started on Lansoprazole via GT. no further coffee ground residual noted per nursing staff. General: Reports: ROS Unobtainable Objective Physical Examination General Exam: Positive: No Acute Distress; Negative: Alert (asleep) ENT Exam: Positive: Mucous membr. moist/pink Chest Exam: Positive: Clear to auscultation, Diminished Heart Exam: Positive: Rate Normal, Normal S1, Normal S2 Abdomen Exam: Positive: Normal bowel sounds, Soft, Other (JG tube in place); Negative: Tenderness Extremity Exam: Positive: Other (+ contractures); Negative: Edema Psych Exam: Negative: Mental status NL Assessment /Plan Assessment Patient seen, agree with note. Appears comfortable, tolerating feeds. If continues to tolerate tube feeds at this rate, will DC tomorrow. -- CDT Problems (1) Ileus Status: Acute Response to Treatment: Stable Discussed With: Patient Problem Specific Plan: Monitor Clinically, Repeat Labs Problem Text: 08/31/17: continue to increase TF to 30 cc per hour today. 08/30: He is up to 25cc/hr with minimal to no residuals. Tomorrow he should meet his goal. 08/28 Pt tolerating TF at 10 cc/hr, will give order to titrate with goal of 30 cc/hr. Free water has been adjusted as well. 08/27 Pt tolerated TF at 5 cc/hr, Lisandra recommends continuing feeds at this time. Will need up dated recommendations for tube depatcher to establish goal for weight maintenance. 08/26/18: XR not showing any signs of ileus. Intolerant to TF. IVF currently running. Will need to review retirement nutrition plan for patient. 08/24/18: call placed for consult with Dr. Wilhelm. Return call pending. 08/23 -- Will need to consult Dr. Wilhelm tomorrow re: GJ tube or placement of PICC line. 08/22 -- Spoke with Dr. Woods (general surgery) who recommended pursuing GJ or PICC through vascular surgery. Spoke with Dr. Cedeño, who stated that she did not do GJ tubes (though Dr. Wilhelm does.) She recommends consulting Dr. Wilhelm on Friday for either a GJ tube or placement of a PICC. 08/21 - Dr. Fry recommedned another trial of slow rate feedings but he di dnot even tolerate 5cc/hour. Dr. Gallego covering today. charge nurse has a call out to him to discuss possible central line placement with TPN until Tube feeding issue can be addressed further ? J-tube Cont IVF for now 08/20 - Still awaiting Consult from Dr. Fry to consider change to J tube Tube feeds remain on hold Cont IVF 08/19/18: Case discussed with Dr. Fry and he will consult. HOLD TF 08/18/18: TF and meds currently on HOLD. Continues to have BMs. Consider 24-48 hrs of bowel rest vs further imaging. 08/17/18: + BMs and mild improvement in imaging. Consider 24-48 hrs of bowel rest vs further imaging. 08/16: feeding was not tolerated with large residual immediately. will repeat imaging if any sign of improvement then restart. he was given potassium replacement which appears to have been effective based on today's lab 08/15:passing stool, abdomen soft and bowel sounds are active. there seems to be no ileus so will restart use of tube feeds at 5cc/hr with usual 50cc water flush. 08/14 Cont to hold tube feedsd today, LR started yesterday, changed to D5W/LR at 75 cc/hr due glu 46 this morning. Anticipate repeat abd films in AM, consider resuming tube feeds, but would start slow and titrate. If pt contto not tolerate with + residuals, will consider J tube placement. 08/13 Tube feeds held, LR started, + metro 5 IV QID/simeth 80 QID, to improve gstric emptying, rec resuming TF in 48 hours gradually, previously on continuous feed at 25cc/hr. If pt cont to fail to tolerate with residuals will need to consider GJ tube placement. 08/09/18 CT AP s: . Gastrostomy tube in place. 2. No free peritoneal air seen. 3. Mildly dilated bowel loops seen to suggest bowel obstruction. 4. Bilateral nephrolithiasis. (2) Gastritis Problem Text: This morning he did have one episode of melanotic return from the G-tube when they checked residuals. Surgery recommended adding lansoprazole and this has not reoccurred. His Hb has not dropped significantly. We will continue to monitor. (3) Protein-calorie malnutrition, severe Status: Chronic Problem Specific Plan: Monitor Clinically Problem Text: He has had a full nutrition consult. Full feeds should be 30cc/hr. There are free water recommendations too. (4) Gastrostomy tube dependent Status: Chronic Problem Text: Dr. Wilhelm was able to place GJ tube. (5) Chronic constipation Status: Chronic Problem Text: remains on HD senna 2 BID lactulose held to reduce bowel gas (6) Seizure disorder Status: Chronic Problem Specific Plan: Monitor Clinically Problem Text: Stable on HD primidone 125 QHS (7) CP (cerebral palsy), spastic, quadriplegic Status: Chronic Response to Treatment: Stable (8) Hypokalemia Status: Resolved Problem Text: 08/27 K+ 3.9 08/25: potassium improved but still low. will give liquid KCl via GJ tube IV replacement today Plan/VTE VTE Prophylaxis Ordered?: Yes VS, I&O, 24H, [facility] Vital Signs/I&O Vital Signs Date Time Temp Pulse Resp B/P (MAP) Pulse Ox O2 Delivery O2 Flow Rate FiO2 08/31/18 06:00 98.9 78 16 129/75 (93) 94 I&O- Last 24 Hours up to 6 AM 08/31/18 06:00 Intake Total 1365 ml Output Total 0 ml Balance 1365 ml Laboratory Data 24H LABS Laboratory Tests 2 08/31/18 05:54: Nucleated Red Blood Cells % (auto) 0.0, Anion Gap 4L, Glomerular Filtration Rate > 60.0, Blood Urea Nitrogen 21H, Creatinine 0.50L, Sodium Level 139, Potassium Level 4.4, Chloride Level 104, Carbon Dioxide Level 31, Calcium Level 9.0, Aspartate Amino Transf (AST/SGOT) 23, Alanine Aminotransferase (ALT/SGPT) 25, Alkaline Phosphatase 101, Total Bilirubin 0.2, Total Protein 6.9, Albumin 2.9L, Albumin/Globulin Ratio 0.73L CBC/BMP Laboratory Tests 08/31/18 05:54 Red Blood Count 3.37 L, Mean Corpuscular Volume 95.0, Mean Corpuscular Hemoglobin 31.8, Mean Corpuscular Hemoglobin Concent 33.4, Red Cell Distribution Width 13.0, Calcium Level 9.0, Aspartate Amino Transf (AST/SGOT) 23, Alanine Aminotransferase (ALT/SGPT) 25, Alkaline Phosphatase 101, Total Bilirubin 0.2, Total Protein 6.9, Albumin 2.9 L Microbiology Microbiology 08/27/18 Blood Culture - Preliminary, Resulted No Growth after 72 hours. All specime... 08/27/18 Blood Culture - Preliminary, Resulted No Growth after 72 hours. All specime... 08/27/18 Urine Culture - Final, Complete Klebsiella Pneumoniae 08/28/18 Eye/Ear/Nose/Throat Culture - Final, Complete Guerline Carballo [employer] Aug 31, 2018 08:49 FEMI KAUR DO Sep 01, 2018 23:07
[2018-08-31] MEDS: POTASSIUM CHLORIDE 10% LIQ 20 MEQ/15 ML UDC FT SCH ×2 (09:33→19:56)
[2018-08-31] MEDS: MAGNESIUM OXIDE 400 MG TAB (MAG-OX) PO SCH (09:33)
[2018-08-31] MEDS: METOCLOPRAMIDE 5 MG TAB GT SCH ×4 (09:33→19:57)
[2018-08-31] MEDS: SENNA 8.6 MG TAB (SENOKOT) GT SCH ×2 (09:33→19:57)
[2018-08-31] MEDS: SIMETHICONE 80 MG CHEW TAB PEG SCH ×3 (09:33→19:57)
[2018-08-31] MEDS: LANSOPRAZOLE SUSPENSION 30 MG/10 ML ORAL SYRINGE (FIRST-LANSOPRAZOLE) GT SCH (09:33)
[2018-08-31 14:00] VITALS: BP 109/62
[2018-08-31] MEDS: cefTRIAXone SOD 1 GM in D5W MINI-BAG PLUS 50 ML IV SCH (19:56)
[2018-08-31] MEDS: hydrOXYzine 50 MG TAB PEG SCH (19:56)
[2018-08-31] MEDS: PRIMIDONE 125MG PER 1/2 TABLET PEG SCH (19:57)
[2018-08-31 22:00] VITALS: BP 124/65
[2018-09-01 06:00] VITALS: BP 126/63
[2018-09-01] MEDS: SENNA 8.6 MG TAB (SENOKOT) GT SCH (09:53)
[2018-09-01] MEDS: MAGNESIUM OXIDE 400 MG TAB (MAG-OX) PO SCH (09:53)
[2018-09-01] MEDS: SIMETHICONE 80 MG CHEW TAB PEG SCH (09:53)
[2018-09-01] MEDS: METOCLOPRAMIDE 5 MG TAB GT SCH ×2 (09:53→12:14)
[2018-09-01] MEDS: POTASSIUM CHLORIDE 10% LIQ 20 MEQ/15 ML UDC FT SCH (09:54)
[2018-09-01] MEDS: LANSOPRAZOLE SUSPENSION 30 MG/10 ML ORAL SYRINGE (FIRST-LANSOPRAZOLE) GT SCH (09:54)
[2018-09-01] MEDS ORDERED: Lansoprazole Suspension GT (10:49)
[2018-09-01] MEDS ORDERED: METO5TAB2 GT (10:49)
[2018-09-01] MEDS ORDERED: SIME80TA PEG (10:49)
--- NOTE | 2018-09-01 11:31 | DSES ---
DATE OF ADMISSION: 08/12/2018 DATE OF DISCHARGE: 09/11/2018 BRIEF HISTORY AND PHYSICAL: The patient is a [facility] ([facility]) client with a history of dysphagia who has had a G-tube for about 5 years on Jevity 1.5 at 25 mL/h continuously and 50 mL of normal saline every 6 hours flush, hospitalized in August for increased residuals and had some adjustments in his metoclopramide and medications. Seemed to be tolerating his feedings and was discharged home but returned 3 hours later because his residual was 145. Then they held it for an hour and his residual was down to 75. However, later they rechecked it and it was up to 148 again after medications. The patient was brought back. Feedings were held. Further adjustments of medications were made. However, ultimately, it was decided that he would benefit from GJ tube placement which was performed by Dr. Wilhelm on the . Tube feedings were initiated and gradually have been increased. He is up to 30 mL/hour and has been on this rate now for over 24 hours and tolerating this well without residuals and is felt to be stable for discharge back to [facility] with that. The patient had a urinary tract infection (UTI) with Klebsiella. He was on ceftriaxone. He completed 7 days of this and he requires no further antibiotics at this time. Gastritis: Recommendations were to start him on lansoprazole which he is on via G-tube and this is the liquid form. of the prescription has been sent to the pharmacy as well. MEDICATIONS: - lansoprazole 38 mg via G-tube daily, - metoclopramide 5 mg via G-tube four times a day - simethicone 80 mg three times a day - glycerin swabs twice a day as needed - Hydroxyzine 50 mg via G-tube at bedtime - metronidazole topically twice a day - primidone 125 mg daily to at bedtime - senna two tablets via G-tube twice a day DISCHARGE DIAGNOSES: 1. Ileus. 2. G-tube dependent. 3. Chronic constipation. 4. Protein calorie malnutrition, severe. 5. Gastritis. 6. Seizure disorder. 7. Cerebral palsy (CP). 8. Hypokalemia. 9. Urinary tract infection (UTI). [facility]
--- NOTE | 2018-09-09 08:03 | REPIR ---
DATE OF PROCEDURE: 08/25/2018 ATTENDING SURGEON: Dr. Elliott Wilhelm BODY HANGER: Matthew Pelaez and Ayse Aquino PREOPERATIVE DIAGNOSIS: Gastrostomy tube with high residual aspirates. POSTOPERATIVE DIAGNOSIS: Gastrostomy tube with high residual aspirates. PROCEDURE: G tube conversion to a J tube. INDICATION: The patient is a 33-year-old male with a G tube but has had high residual capacity noted on aspiration of the G tube after feeds and requires a GJ tube for nutrition. ANESTHESIA: Local with 10 mL of 2% lidocaine mixed with 0.5% Marcaine. COMPLICATIONS: None. DRAINS: None. SPECIMENS: None. PROCEDURE: The patient was taken to the angiography suite, placed supine on the angiography table and then prepped and draped in a standard surgical fashion. The G tube was removed over a Bentson wire and a GJ tube was then placed over the Bentson wire with the tip of the J portion of the tube place distal into the jejunum distal to the ligament of Treitz. Contrast was injected through the J-tube showing filling of the jejunum distal to the ligament of Treitz. The tube was secured to the abdominal wall using 2-0 Prolene suture. Dressings were applied. The patient tolerated the procedure well. All instrument, sponge, needle counts were correct at the end of case. There were no complications. Dr. Wilhelm was present for and directed the entire case. The patient is stable to use the GJ tube.
== END 2018-09-01 14:34 | disposition home or self-care (01) | DRG 388 ==
LOC: M ED 20:50 → M ED INP 23:46 → M MSPAV 08-13 00:48 → OBSVTOIN 08-14 10:46
PROVIDERS: ADMIT Hospitalist; ATTEND Family Medicine
PROC: 0DHA3UZ Insertion of Feeding Device into Jejunum, Percutaneous Approach (ICD-10-PCS; principal; 2018-08-25)
DX: K56.7 Ileus, unspecified (principal); E43 Unspecified severe protein-calorie malnutrition; G80.0 Spastic quadriplegic cerebral palsy; Z68.1 Body mass index [BMI] 19.9 or less, adult; N39.0 Urinary tract infection, site not specified; Z93.1 Gastrostomy status; G80.9 Cerebral palsy, unspecified; G40.909 Epilepsy, unspecified, not intractable, without status epilepticus; Z79.899 Other long term (current) drug therapy; E87.6 Hypokalemia; B96.1 Klebsiella pneumoniae [K. pneumoniae] as the cause of diseases classified elsewhere; K29.70 Gastritis, unspecified, without bleeding

== ENCOUNTER 2018-09-23 11:41 | Emergency (ER) | payer MEDICARE, MEDICAID ==
[~2018-09-23] VITALS: Ht 119.4 cm; Wt 20.4 kg
[~2018-09-23 11:41] MED LIST changes: +Lansoprazole Suspension GT; +METO5TAB2 GT; +SIME80TA PEG; +[UNRECOGNIZED DRUG - CODE] MT
[2018-09-23] MEDS ORDERED: PHEN20EL4 GT (12:56)
[2018-09-23] MEDS ORDERED: EQ A GT (12:56)
[2018-09-23] MEDS ORDERED: RANI1SYP PO (12:56)
[2018-09-23] MEDS ORDERED: MILKSUS3 GT (12:56)
[2018-09-23] MEDS ORDERED: LACT10SO3 GT (12:56)
[2018-09-23 15:51] VITALS: BP 123/76
== END 2018-09-23 15:46 | disposition home or self-care (01) ==
LOC: M ED 11:41
DX: K94.23 Gastrostomy malfunction (principal); G80.9 Cerebral palsy, unspecified; K59.01 Slow transit constipation; Z79.899 Other long term (current) drug therapy; Z88.0 Allergy status to penicillin; Z91.040 Latex allergy status

== ENCOUNTER → 2018-09-24 | Outpatient (CLI) | payer MEDICARE, MEDICAID ==
[~2018-09-24] MED LIST changes: +BUPIVACAINE HCL 0.5% 10 ML VIAL As Ordered ONE; +EQ A GT; +ISOVUE-300 61% 50ML VIAL (Q9967) As Ordered ONE; +LIDOCAINE 2% MDV 20 ML VIAL As Ordered ONE; +MILKSUS3 GT; +PHEN20EL4 GT; +RANI1SYP PO
[2018-09-24 16:39] VITALS: BP 132/82
--- NOTE | 2018-10-15 10:34 | REPIR ---
DATE OF PROCEDURE: 09/24/2018 ATTENDING SURGEON: Dr. Femi Wilhelm PREOPERATIVE DIAGNOSES: Cerebral palsy, nonfunctioning GJ tube. POSTPROCEDURE DIAGNOSES: Cerebral palsy, nonfunctioning GJ tube. PROCEDURE: GJ tube exchange. INDICATION: The patient is a 33-year-old male with cerebral palsy who requires GJ tube for nutrition and medication. The patient has difficulty with the J portion of the tumor in that it is clogged and nonfunctional. The patient will undergo an exchange of the GJ tube. ANESTHESIA: None. ESTIMATED BLOOD LOSS: Minimal. COMPLICATIONS: None. SPECIMENS: None. PROCEDURE: The Bentson wire was advanced through the existing GJ tube, which was removed and a new 16-Croat[place] PEEWEE-JOSHI GJ was inserted over the Bentson wire with the tip noted to be in the distal jejunum. The balloon was inflated. Both ports were aspirated and noted to aspirate easily and then flushed. The dressings were then applied. The patient tolerated the procedure well. All instrument, sponge and needle counts were correct at the end the case. There were no complications. Dr. Wilhelm was present for and directed the entire case. The patient was transferred to the holding area and subsequently discharged in stable condition.
== END ==
LOC: M IRPRO 13:43
PROVIDERS: ATTEND Surgery Vascular Surgery
DX: K94.23 Gastrostomy malfunction (principal); G80.9 Cerebral palsy, unspecified; G40.909 Epilepsy, unspecified, not intractable, without status epilepticus; R13.10 Dysphagia, unspecified
CPT/HCPCS: 49452; C1729; C1769; C1887

== ENCOUNTER → 2018-10-01 | Outpatient (CLI) | payer MEDICARE, MEDICAID ==
[~2018-10-01] MED LIST changes: -BUPIVACAINE HCL 0.5% 10 ML VIAL As Ordered ONE; -ISOVUE-300 61% 50ML VIAL (Q9967) As Ordered ONE; -LIDOCAINE 2% MDV 20 ML VIAL As Ordered ONE
[2018-10-01 14:55] VITALS: BP 125/72
--- NOTE | 2018-10-16 07:19 | REPIR ---
DATE OF PROCEDURE: 10/01/2018 ATTENDING SURGEON: Dr. Elliott Wilhelm EMBOSSOGRAPH OPERATOR: None. PREOPERATIVE DIAGNOSES: Cerebral palsy. Dysfunctional G-J tube. POSTOPERATIVE DIAGNOSES: Cerebral palsy. Dysfunctional G-J tube. PROCEDURE: G-J tube evaluation with flushing of the G-J tube. INDICATION: Patient is a 33-year-old male with G-J tube where te J portion of the tube is not functioning. The patient will undergo evaluation with possible exchange. ANESTHESIA: None. ESTIMATED BLOOD LOSS: Minimal. FLUORO TIME: 0.1 minutes. CONTRAST: None. PROCEDURE: Patient was taken to the angiography suite, placed supine on the angiography room table, and then prepped and draped in a standard surgical fashion. Fluoroscopy showed the G-J tube to be in good position and good alignment. The J tube portion of the catheter was flushed and flushed easily and the cap was replaced. Dressings were then applied. The patient tolerated the procedure well. All instrument, sponge and needle counts were correct at the end the case. There were no complications. Dr. Wilhelm was present for and directed the entire case. The patient was transferred to the holding area and subsequently discharged in stable condition.
== END ==
LOC: M IRPRO 14:24
PROVIDERS: ATTEND Surgery Vascular Surgery
DX: T85.698A Other mechanical complication of other specified internal prosthetic devices, implants and grafts, initial encounter (principal); G80.9 Cerebral palsy, unspecified; X58.XXXA Exposure to other specified factors, initial encounter; Y93.9 Activity, unspecified; Y92.9 Unspecified place or not applicable; Y99.9 Unspecified external cause status

== ENCOUNTER 2018-10-07 10:52 | Emergency (ER) | payer MEDICARE, MEDICAID ==
[~2018-10-07] VITALS: Ht 119.4 cm; Wt 20.4 kg
--- NOTE | 2018-10-07 13:14 | REP ---
KUB ABDOMEN AND PELVIS: KUB film of abdomen and pelvis performed. There appears to be a jejunostomy tube. Bowel gas pattern is nonspecific, but I do not see compelling evidence for small bowel obstruction. IMPRESSION: No evidence of small bowel obstruction with nonspecific bowel gas pattern. Electronically Signed by Dc Gomez MD 10/08/2018 12:38 A
[2018-10-07] MEDS ORDERED: LIDOCAINE 2% MDV 20 ML VIAL As Ordered ONE (15:13)
[2018-10-07] MEDS ORDERED: ISOVUE-300 61% 50ML VIAL (Q9967) As Ordered ONE (15:14)
[2018-10-07 17:31] VITALS: BP 116/58
--- NOTE | 2018-10-16 08:17 | REPIR ---
DATE OF PROCEDURE: 10/07/2018 ATTENDING SURGEON: Dr. Femi Wilhelm BIOMEDICAL EQUIPMENT TECH: Shanika Khoury and Ayse Aquino. PREOPERATIVE DIAGNOSIS: Cerebral palsy, dysfunctional gastrojejunostomy (G-J) tube. POSTOPERATIVE DIAGNOSIS: Cerebral palsy, dysfunctional gastrojejunostomy tube. PROCEDURE: G-J tube exchange with removal of a 16-Omani G-J tube upsized to an 18-Omani the G-J tube. INDICATION: The patient is a 33-year-old male with cerebral palsy who requires a G-J tube for feeding and now has a clogged J tube portion of the G-J tube. The patient will undergo evaluation with possible replacement. ANESTHESIA: None. ESTIMATED BLOOD LOSS: Minimal. IV FLUIDS: None COMPLICATIONS: None. DRAINS: None. SPECIMENS: None. FLUOROSCOPY TIME: 2.4 minutes. CONTRAST: 5 mL. PROCEDURE: The patient was taken to the angiography suite, placed supine on the angiography room table and attempts were made to pass a wire through the J portion of the tube and to flush it without success. The wire was then advanced through the G portion and into the jejunum, after which, the catheter was removed and a new 18-Omani G-J tube was placed with the tip in the jejunum. 5 mL of contrast was advanced through the J tube portion showing intraluminal positioning within the jejunum. The balloon was inflated in the stomach and then dressings were applied. The old G tube had a 6 inch long area of what appeared to be medication mixed with tube feeds, which was firm and unable to be removed with the wire. All instrument, sponge, and needle counts were correct at the end the case. There were no complications. Dr. Wilhelm was present for directed the entire case. The patient was transferred to the holding area and subsequently discharged in stable condition.
== END 2018-10-07 17:33 | disposition home or self-care (01) ==
LOC: M ED 10:52
DX: K59.00 Constipation, unspecified (principal); K94.20 Gastrostomy complication, unspecified; G80.9 Cerebral palsy, unspecified; Q02 Microcephaly; Z79.899 Other long term (current) drug therapy; Z88.0 Allergy status to penicillin; Z91.040 Latex allergy status
CPT/HCPCS: 49452; 74018; 99283; C1729; C1769; Q9967

== ENCOUNTER 2018-12-12 19:58 | Emergency (ER) | payer MEDICARE, MEDICAID ==
[2018-12-12 19:59] VITALS: BP 125/70
[2018-12-12] MEDS ORDERED: GASTROGRAFIN SOLUTION 30ML (Q9963) As Ordered ONE (20:53)
[2018-12-12] MEDS ORDERED: GASTROGRAFIN SOLUTION 30ML (Q9963) PO SCH (21:00)
[2018-12-12] MEDS ORDERED: GASTROGRAFIN SOLUTION 30ML (Q9963) PO ONE (21:00)
--- NOTE | 2018-12-13 09:39 | REP ---
REASON: Assess PEG tube. Small amount of bowel preparatory contrast was administered through an existing PEG tube in my absentia. The KUB shows contrast outlined rugal folds without evidence of contrast extravasation into the peritoneum. There is no definite evidence of intestinal obstruction. There is a large amount of stool in the rectosigmoid vault. There is no change in the osseous structures compared to 10/07/2018. IMPRESSION: Properly placed PEG tube as described above. Electronically Signed by Dave Acosta DO 12/13/2018 09:43 A
== END 2018-12-12 22:01 | disposition home or self-care (01) ==
LOC: M ED 19:58
DX: T85.528A Displacement of other gastrointestinal prosthetic devices, implants and grafts, initial encounter (principal); Y92.9 Unspecified place or not applicable; Y93.9 Activity, unspecified; G80.9 Cerebral palsy, unspecified; G82.50 Quadriplegia, unspecified; Z79.899 Other long term (current) drug therapy; Z88.0 Allergy status to penicillin; Z91.040 Latex allergy status

== ENCOUNTER → 2018-12-15 | Outpatient (CLI) | payer MEDICARE, MEDICAID ==
[~2018-12-15] MED LIST changes: +ISOVUE-300 61% 50ML VIAL (Q9967) As Ordered ONE; +LIDOCAINE 1% MDV 20ML VIAL As Ordered ONE
[2018-12-15 13:37] VITALS: BP 127/86
--- NOTE | 2018-12-16 08:27 | REP ---
IR gastrojejunostomy catheter replacement. Gastrojejunostomy catheter replacement with fluoroscopy guidance. Clinical information: Malnourished. Gastrojejunostomy dependent. Gastrojejunostomy catheter fell out. Physician: Dr. Villarreal. Procedure: The patient's family member was advised of the benefits, risks and alternatives of the procedure and informed consent was obtained. The time-out was performed with verification of the patient's name, MRN, site of procedure and type of procedure to be performed. The patient was positioned in the supine position on the angiographic table. The site was prepped and draped in the usual sterile fashion. Moderate sedation was not required. The physician spent 45 minutes continuous face to face time with the patient. A black top machine operator radiograph reveals no catheter in situ. The gastrojejunostomy site was probed with a stiff guidewire, under fluoroscopy guidance. A Kumpe catheter was advanced over the wire under fluoroscopy guidance into the stomach. Injection of contrast confirmed access into the stomach. Under fluoroscopy guidance, the Glidewire in conjunction with the 5-Citizen Of [place] Kumpe catheter was negotiated through the antrum of the stomach into the duodenum and then into the jejunum. The wire was removed. Injection of contrast confirmed access into the jejunum. The wire was re-advanced through the catheter and the catheter was removed over the wire. An 18 Citizen Of [place] Beth Yaw gastrojejunostomy catheter was then advanced under fluoroscopy guidance, over the wire into the jejunum. The balloon was insufflated in the stomach and retracted back to the anterior stomach wall. The catheter bumper was positioned to sandwich the anterior abdominal wall. The wire was removed. Injection of contrast through the jejunal port confirms location within the jejunum. The retention disc was secured to the catheter with Prolene. A sterile dressing was applied. The patient tolerated the procedure well and was returned to PRU in stable condition. EBL: Less than 5 ml. Complications: None. Conclusion: Successful replacement of gastrojejunostomy catheter. The catheter may be used in 12 hours. Thank you this referral. Electronically Signed by Seema Villarreal MD 12/15/2018 05:08 P
== END ==
LOC: M IRPRO 11:17
PROVIDERS: ATTEND Radiology Diagnostic Radiology
DX: Z43.1 Encounter for attention to gastrostomy (principal)
CPT/HCPCS: 49450; C1729; C1769; C1887; Q9967

== ENCOUNTER → 2019-05-05 | Outpatient (CLI) | payer MEDICARE, MEDICAID ==
[2019-05-05 13:12] VITALS: BP 174/88
--- NOTE | 2019-05-10 09:39 | REP ---
IR Gastro Jejunostomy catheter exchange. Gastro Jejunostomy catheter exchange under fluoroscopy guidance. Clinical information: Gastro Jejunostomy dependent. Catheter not working. Physician: Dr. Villarreal. Procedure: The patient's family was advised of the benefits, risks and alternatives of the procedure and informed consent was obtained. The time-out was performed with verification of the patient's name, MRN, site of procedure and type of procedure to be performed. The patient was positioned in the supine position on the angiographic table. The site was prepped and draped in the usual sterile fashion. Moderate sedation was not performed. The physician spent 45 minutes of continuous face to face time with the patient. A supervisor extrusion radiograph reveals a gastro jejunostomy catheter in expected location. The jejunal port of the catheter was injected with contrast demonstrating filling of the stomach but no contrast in the jejunum. A guidewire was advanced through the catheter into the mid jejunum under fluoroscopy guidance. The old gastro jejunostomy catheter was removed over the wire without difficulty. A new PEEWEE gastro jejunostomy catheter was advanced over the wire under fluoroscopy guidance, into the jejunum. The retention balloon was inflated and the catheter retracted against the anterior stomach wall. Appropriate positioning of the catheter was confirmed with injection of contrast through the gastric and jejunal port which demonstrate the respective segments. The retention disc was approximated to the skin of the abdominal wall and secured. A sterile dressing was applied. The patient tolerated the procedure well and was returned to the PRU in stable condition. EBL: Less than 5 ml. Complications: None. Conclusion: 1. Gastro Jejunostomy catheter check demonstrates clogged jejunal port. 2. Successful exchange of PEEWEE gastro jejunostomy catheter. The catheter is ready for immediate use. Thank you this referral. Electronically Signed by Seema Villarreal MD 05/10/2019 09:38 A
== END ==
LOC: M IRPRO 11:35
PROVIDERS: ATTEND Radiology Diagnostic Radiology
DX: Z43.1 Encounter for attention to gastrostomy (principal)
CPT/HCPCS: 43762; C1729; C1769; C1887; Q9967

== ENCOUNTER → 2019-08-05 | Outpatient (CLI) | payer MEDICARE, MEDICAID ==
[~2019-08-05] MED LIST changes: -ISOVUE-300 61% 50ML VIAL (Q9967) As Ordered ONE; -LACT10SO29 PO; +LACT20EL PO; -LIDOCAINE 1% MDV 20ML VIAL As Ordered ONE; +SENN-80 GT; -SENN1TAB8 GT; +ZINC20OI21 TOP; -ZINC60OI TOP
[2019-08-05 14:11] LABS: ALBUMIN 3.8 GM/DL (3.2-5.2); PREALBUMIN 31.7 MG/DL (20.0-40.0)
== END ==
LOC: M WUC 09:13
PROVIDERS: ATTEND Family Medicine
DX: Z78.9 Other specified health status (principal)

== ENCOUNTER 2019-11-09 15:55 | Emergency (ER) | payer MEDICARE, MEDICAID ==
[~2019-11-09] VITALS: Ht 119.4 cm; Wt 31.3 kg
[~2019-11-09 15:55] MED LIST changes: -EQ A GT; +[UNRECOGNIZED DRUG - CODE] GT
[2019-11-09] MEDS ORDERED: FAMO40SU2 (16:09)
[2019-11-09 17:40] VITALS: BP 158/89
[2019-12-06] MEDS ORDERED: MIRA3350 GT (10:27)
== END 2019-11-09 17:42 | disposition home or self-care (01) ==
LOC: M ED 15:55
DX: K11.7 Disturbances of salivary secretion (principal); G80.0 Spastic quadriplegic cerebral palsy; Z93.1 Gastrostomy status; Z88.0 Allergy status to penicillin; Z91.040 Latex allergy status; Z79.899 Other long term (current) drug therapy

== ENCOUNTER → 2019-12-06 | Outpatient (CLI) | payer MEDICARE, MEDICAID ==
[~2019-12-06] MED LIST changes: +FAMO40SU2; +ISOVUE-300 61% 50ML VIAL As Ordered ONE; +LIDOCAINE 1% MDV 20ML VIAL As Ordered ONE
[2019-12-06 11:21] VITALS: BP 147/79
--- NOTE | 2019-12-06 11:28 | POST-OPPD ---
Postoperative Procedure Note Date Of Procedure: Dec 06, 2019 Time Of Procedure: 11:25 IR Gastrojejunostomy Catheter Exchange Gastrojejunostomy catheter exchange with fluoroscopic guidance Clinical Information: GJ tube dependent. Tube not working. Physician Dr. Villarreal. Procedure: The patient's healthcare proxy was advised of the benefits, risks, and alternatives of the procedure and informed consent was obtained. A time out was performed with verification of the patient's name, MRN, site of procedure, and type of procedure to be performed. The patient was positioned in the supine position on the angiographic table. The site was prepped and draped in the usual sterile fashion. Moderate sedation was not required. The physician spent 30 minutes of continuous [id number]-[id number] time with the patient. A general road supervisor radiograph reveals a GJ catheter. The gastric and jejunal ports of the catheter were injected with contrast demonstrating the jejunostomy is blocked. A stiff [place] wire was advanced through the catheter into the mid jejunum under fluoroscopic guidance. The re tention balloon was deflated and the catheter was removed over the wire without difficulty. A new 18 [place] PEEWEE gastrojejunostomy catheter was advanced over the wire into the proximal jejunum. The retention balloon was inflated and then retracted against the anterior stomach wall. Appropriate positioning of the catheter was confirmed with injection of contrast through the gastric and jejunal ports. The retention disc was approximated to the skin of the abdominal wall and secured with 2-0 Prolene. A sterile dressing was applied. The patient tolerated the procedure well and was returned to the PRU in stable condition. EBL:Less than 5 mL. Complications:None Conclusion: Successful exchange of a new 18 [place] double lumen PEEWEE gastrojejunostomy catheter. The catheter is ready for immediate use. Thank you for this referral LEONA VILLARREAL MD Dec 06, 2019 11:28
== END ==
LOC: M IRPRO 09:18
PROVIDERS: ATTEND Radiology Diagnostic Radiology
DX: K94.23 Gastrostomy malfunction (principal)
CPT/HCPCS: 43762; C1729; C1769; Q9967

== ENCOUNTER → 2020-01-11 | Outpatient (CLI) | payer MEDICARE, MEDICAID ==
[~2020-01-11] MED LIST changes: -ISOVUE-300 61% 50ML VIAL As Ordered ONE; -LIDOCAINE 1% MDV 20ML VIAL As Ordered ONE
--- NOTE | 2020-01-11 18:38 | REP ---
INDICATION: ACUTE BRONCHITIS. COMPARISON: Comparison chest x-ray August 27, 2018. TECHNIQUE: Single AP radiograph. FINDINGS: The patient is rotated quite a bit to the left for the current exposure. There is mild linear fibrosis versus platelike atelectasis in the left base behind the heart. No definite infiltrate. Lung ann are otherwise clear. There is diffuse osteopenia. Cardiomediastinal silhouette is unchanged. Mild gaseous distention is seen in large and small bowel loops in the upper abdomen as previously noted. Feeding tube is partially visible in the upper abdomen. IMPRESSION: Linear platelike atelectasis or fibrosis left base. Patient rotated to the left. No infiltrate seen. <Electronically signed by Kendrick Brown > 01/11/20 [id number]
== END ==
LOC: M WUC 17:19
PROVIDERS: ATTEND Nurse Practitioner Family
DX: J20.9 Acute bronchitis, unspecified (principal); M85.80 Other specified disorders of bone density and structure, unspecified site; Z93.1 Gastrostomy status

== ENCOUNTER → 2020-01-12 | Outpatient (REF) | payer MEDICARE, MEDICAID | LOC: M SFHCCLAY 15:52 | PROVIDERS: ATTEND Nurse Practitioner Family | DX: R05 Cough (principal) ==

== ENCOUNTER → 2020-02-16 | Outpatient (CLI) | payer MEDICARE, MEDICAID ==
[2020-02-16 14:06] LABS: BASO % 0.3 % (0.0-1.0); EOS % 0.3 % (0.0-3.0); HEMATOCRIT 45.7 % (42.0-52.0); HEMOGLOBIN 14.7 g/dl (13.5-17.5); LYMPH # 2.7 10^3/uL (1.5-5.0); LYMPH % 29.7 % (24.0-44.0); MEAN CORPUSCULAR HGB CONC 32.2 g/dl (32.0-36.5); MEAN CORPUSCULAR VOLUME 96.4 fl (80.0-96.0); MONO # 0.8 10^3/uL (0.0-0.8); MONO % 8.5 % (0.0-5.0); NEUTROPHILS # 5.6 10^3/uL (1.5-8.5); NEUTROPHILS % 60.9 % (36.0-66.0); PLATELET COUNT, AUTOMATED 166 10^3/uL (150-450); RED BLOOD COUNT 4.74 10^6/uL (4.30-6.10); WHITE BLOOD COUNT 9.2 10^3/uL (4.0-10.0)
[2020-02-16 14:13] LABS: ALBUMIN 3.7 GM/DL (3.2-5.2); ALT/SGPT 51 U/L (12-78); BILIRUBIN,TOTAL 0.3 MG/DL (0.2-1.0); BLOOD UREA NITROGEN 9 MG/DL (7-18); CALCIUM LEVEL 9.6 MG/DL (8.5-10.1); CARBON DIOXIDE LEVEL 33 MEQ/L (21-32); CHLORIDE LEVEL 101 MEQ/L (98-107); CREATININE FOR GFR 0.58 MG/DL (0.70-1.30); GLOMERULAR FILTRATION RATE > 60.0 (>60); GLUCOSE, FASTING 91 MG/DL (70-100); POTASSIUM SERUM 4.1 MEQ/L (3.5-5.1); PREALBUMIN 32.4 MG/DL (20.0-40.0); SODIUM LEVEL 138 MEQ/L (136-145); TOTAL PROTEIN 7.7 GM/DL (6.4-8.2)
== END ==
LOC: M WUC 10:10
PROVIDERS: ATTEND Nurse Practitioner Family
DX: G80.0 Spastic quadriplegic cerebral palsy (principal); R13.10 Dysphagia, unspecified; G40.909 Epilepsy, unspecified, not intractable, without status epilepticus; L71.9 Rosacea, unspecified; Z93.1 Gastrostomy status; Z78.9 Other specified health status

== ENCOUNTER → 2020-05-22 | Outpatient (CLI) | payer MEDICARE, MEDICAID ==
[~2020-05-22] MED LIST changes: +SIME80CH5 PEG; -SIME80TA PEG
--- NOTE | 2020-05-22 13:06 | DEXAMM ---
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 COMPARISON: None. TECHNIQUE: Bone density was measured using dual-energy x-ray absorptiometry (DEXA). FINDINGS: AP SPINE L1-L4 BMD 0.764 g/cm2 Young Adult T-Score -3.5 Age Matched Z-Score -3.8. LT FEMUR, TOTAL BMD 0.770 g/cm2 Young Adult T-Score -1.9 Age Matched Z-Score -2.2. LT NECK BMD 0.550 g/cm2 Young Adult T-Score -3.5 Age Matched Z-Score -3.9. RT FEMUR, TOTAL BMD 0.832 g/cm2 Young Adult T-Score -1.4 Age Matched Z-Score -1.8. RT NECK BMD 0.5 85 g/cm2 Young Adult T-Score -3.3 Age Matched Z-Score -3.6. IMPRESSION: There is osteoporosis of the spine. There is osteoporosis of the left hip. There is osteoporosis of the right hip. FOLLOW-UP: Recommendation for the next bone density exam: 2 years. <Electronically signed by Dc Gomez > 05/22/20 [id number]
== END ==
LOC: M WHC 11:10
PROVIDERS: ATTEND Nurse Practitioner Family
DX: G80.0 Spastic quadriplegic cerebral palsy (principal); M85.89 Other specified disorders of bone density and structure, multiple sites

== ENCOUNTER → 2020-07-03 | Outpatient (CLI) | payer MEDICARE, MEDICAID ==
[~2020-07-03] MED LIST changes: +LIDOCAINE 1% MDV 20ML VIAL As Ordered ONE
[2020-07-03 15:20] VITALS: BP 167/104
--- NOTE | 2020-07-04 11:19 | IRPON ---
IR Postoperative Note Date Of Procedure: July 03, 2020 Time Of Procedure: 16:00 IR Postoperative Note IR Gastrostomy Catheter replacement with fluoroscopic guidance. IR Attempted gastrojejunostomy catheter placement. Clinical Information:Malnourished. GJ tube dependent due to prior high residual s with a gastrostomy catheter. GJ tube fell out. Physician: Dr. Villarreal. Procedure: The patient's next of kin was advised of the benefits, risks, and alternatives of the procedure and informed consent was obtained. A time out was performed with verification of the patient's name, MRN, site of procedure, and type of procedure to be performed. The patient was positioned in the supine position on the angiographic table. The site was prepped and draped in the usual sterile fashion. The physician spent 45 minutes of continuous quof-mq-juhv time with the patient. A wrapper rewinder radiograph reveals no feeding tube. The abdominal tract was probed with a 5 [place] catheter and Glidewire under fluoroscopic guidance. The catheter was advanced over the wire into the stomach, under fluoroscopy guidance. Injection of contrast confirmed location within the stomach. There is no reflux under fluoroscopy from the stomach into the esophagus. However, there is delayed emptying of the stomach. The catheter in conjunction with the wire was then used under fluoroscopy guidance to try to angle out of the stomach and recatheterize the the duodenum and jejunum for placement of GJ tube. This was not possible. The catheter was removed over the wire. An 18 [place] gastrostomy catheter was then advanced over the wire, under fluoroscopy guidance into the stomach. The balloon was insufflated and retracted to the anterior stomach wall. The bumper was secured to the anterior abdominal wall. Repeat injection of contrast confirms location of the catheter within the stomach. A sterile dressing was applied to the site. The patient tolerated the procedure well and was returned to the PRU in stable condition. EBL: < 5 mL. Complications: None. Conclusion: 1. Patient's GJ catheter was completely out. 2. Successful recatheterization of the stomach and placement of 18 [place] gastrostomy catheter. 3. Gastrogram demonstrates delayed emptying of contrast from the stomach but no reflux from the stomach into the esophagus. 4. GJ catheter placement was not possible therefore a gastrostomy catheter was placed. This gastrotomy catheter may be used with small volume frequent feeds as a trial. If patient does not tolerate gastric feeds, he will be brought back for GJ tube placement under anesthesia. Thank you for this referral. Cc Marsha Carballo NP [facility] LEONA VILLARREAL MD July 04, 2020 11:19
== END ==
LOC: M IRPRO 14:41
PROVIDERS: ATTEND Radiology Diagnostic Radiology
DX: K94.29 Other complications of gastrostomy (principal)
CPT/HCPCS: 49450; C1729; C1769; C1887

== ENCOUNTER → 2020-07-07 | Outpatient (CLI) | payer MEDICAID, MEDICARE ==
[~2020-07-07] MED LIST changes: +CLINDAMYCIN 600 MG/50 ML PREMIX BAG As Ordered ONE; +ISOVUE-300 61% 50ML VIAL As Ordered ONE; +LIDOCAINE 2% 100MG/5ML SDV (FOR ANES.) As Ordered ONE; +ONDANSETRON 4MG/2ML VIAL As Ordered ONE; +dexameTHASONE 4 MG/ML 1ML VIAL (J1100 PER 1MG) As Ordered ONE; +fentaNYL 100 MCG/2 ML INJECTION (J3010) As Ordered ONE; +propofoL 200 MG/20 ML VIAL As Ordered ONE
[2020-07-07 13:03] VITALS: BP 164/99
--- NOTE | 2020-07-07 13:04 | IRPON ---
IR Postoperative Note Date Of Procedure: July 07, 2020 Time Of Procedure: 12:57 IR Postoperative Note IR Gastrostomy to Gastrojejunostomy conversion. Clinical Information:Malnourished. Delayed gastric emptying. GJ tube dependent. Physician: Dr. Villarreal. Procedure: The patient's next of kin was advised of the benefits, risks, and alternatives of the procedure and informed consent was obtained. A time out was performed with verification of the patient's name, MRN, site of procedure, and type of procedure to be performed. The patient was positioned in the supine position on the angiographic table. The site was prepped and draped in the usual sterile fashion. Anesthesia was performed by the anesthesia team. The physician spent 45 minutes of continuous [id number]-[id number] time with the patient. A it architecture consultant radiograph reveals a gastrostomy catheter overlying the stomach. Contrast was injected through the catheter confirming the catheter to be appropriately positioned within the stomach. A Glidewire was advanced through the catheter, the balloon deflated and the catheter was removed over the wire. A 5 [place] vascular sheath was then inserted under fluoroscopy guidance, over the wire towards the pylorus. In conjunction with a [place] catheter, the Glidewire was manipulated under fluoroscopy guidance, through the pylorus and into the small bowel. Injection of contrast confirmed successful catheterization of the duodenum. The wire and catheter were then manipulated, under fluoroscopy guidance, into the jejunum. The wire was then removed and contrast injected, confirming the catheter to be positioned within the jejunum. An [place] wire was advanced through the catheter and the catheter and sheath were removed over the wire. An 18 [place] gastrojejunostomy catheter was then advanced under fluoroscopy guidance, over the wire and positioned in the jejunum. The wire was then removed. The retention balloon was inflated and pulled back against the anterior abdominal wall. The retention disk was slid down over the catheter and placed at the skin. Contrast was injected through the gastric lumen and jejunal lumen confirming position within the stomach and jejunum respectively. Both lumens were then flushed with saline. The patient tolerated the procedure well and was returned to the PRU in stable condition. EBL: < 5 mL. Complications:None. Conclusion: Successful G to GJ conversion and placement of 18 [place] gastrojejunostomy catheter. The catheter is ready for immediate use. Thank you for this referral. Cc Marsha Carballo NP [facility] LEONA VILLARREAL MD July 07, 2020 13:04
== END ==
LOC: M IRPRO 08:50
PROVIDERS: ATTEND Radiology Diagnostic Radiology
DX: E46 Unspecified protein-calorie malnutrition (principal)

== ENCOUNTER → 2020-08-09 | Outpatient (CLI) | payer MEDICAID, MEDICARE ==
[~2020-08-09] MED LIST changes: -CLINDAMYCIN 600 MG/50 ML PREMIX BAG As Ordered ONE; -LIDOCAINE 2% 100MG/5ML SDV (FOR ANES.) As Ordered ONE; -ONDANSETRON 4MG/2ML VIAL As Ordered ONE; -dexameTHASONE 4 MG/ML 1ML VIAL (J1100 PER 1MG) As Ordered ONE; -fentaNYL 100 MCG/2 ML INJECTION (J3010) As Ordered ONE; -propofoL 200 MG/20 ML VIAL As Ordered ONE
[2020-08-09 11:21] VITALS: BP 154/93
--- NOTE | 2020-08-10 13:59 | IRPON ---
IR Postoperative Note Date Of Procedure: Aug 09, 2020 Time Of Procedure: 16:00 IR Postoperative Note IR GJ tube evaluation under fluoroscopy guidance. Clinical indication: Concern from [facility] that there is excessive leakage from the J port of the GJ tube. Technique: General Purchasing Agent radiograph demonstrates GJ catheter in appropriate location. The GJ catheter was prepped and draped in a sterile manner. Injection of contrast through the gastric port of the GJ, performed under fluoroscopy guidance, confirms the gastric port is patent and located in the stomach. Injection of contrast through the J port of the GJ catheter, confirms the catheter is patent and the tip is located in the jejunum. No further intervention was needed. EBL: None. Complications: None Impression: GJ catheter working and in appropriate position. Okay to use. Cc LEONA MARKS MD Aug 10, 2020 13:59
== END ==
LOC: M IRPRO 11:08
PROVIDERS: ATTEND Radiology Diagnostic Radiology
DX: Z43.1 Encounter for attention to gastrostomy (principal)
CPT/HCPCS: 49465; Q9967

== ENCOUNTER → 2021-04-11 | Outpatient (CLI) | payer MEDICARE, MEDICAID ==
[~2021-04-11] MED LIST changes: -ISOVUE-300 61% 50ML VIAL As Ordered ONE; -LIDOCAINE 1% MDV 20ML VIAL As Ordered ONE
[2021-04-11 11:02] LABS: BASO % 0.4 % (0.0-1.0); EOS % 0.4 % (0.0-3.0); HEMATOCRIT 46.9 % (42.0-52.0); HEMOGLOBIN 15.6 g/dl (13.5-17.5); LYMPH # 2.7 10^3/uL (1.5-5.0); LYMPH % 34.8 % (24.0-44.0); MEAN CORPUSCULAR HEMOGLOBIN 31.5 pg (27.0-33.0); MEAN CORPUSCULAR HGB CONC 33.3 g/dl (32.0-36.5); MEAN CORPUSCULAR VOLUME 94.6 fl (80.0-96.0); MONO # 0.9 10^3/uL (0.0-0.8); MONO % 11.3 % (2.0-8.0); NEUTROPHILS # 4.2 10^3/uL (1.5-8.5); PLATELET COUNT, AUTOMATED 152 10^3/uL (150-450); RED BLOOD COUNT 4.96 10^6/uL (4.30-6.10); WHITE BLOOD COUNT 7.9 10^3/uL (4.0-10.0)
[2021-04-11 11:32] LABS: ALBUMIN 4.1 GM/DL (3.2-5.2); ALT/SGPT 38 U/L (12-78); BILIRUBIN,TOTAL 0.3 MG/DL (0.2-1.0); BLOOD UREA NITROGEN 6 MG/DL (7-18); CALCIUM LEVEL 9.4 MG/DL (8.5-10.1); CARBON DIOXIDE LEVEL 31 MEQ/L (21-32); CHLORIDE LEVEL 102 MEQ/L (98-107); CREATININE FOR GFR 0.51 MG/DL (0.70-1.30); GLOMERULAR FILTRATION RATE > 60.0 (>60); GLUCOSE, FASTING 72 MG/DL (70-100); PHENOBARBITAL LEVEL 21.3 UG/ML (15.0-40.0); POTASSIUM SERUM 3.9 MEQ/L (3.5-5.1); SODIUM LEVEL 140 MEQ/L (136-145); TOTAL PROTEIN 7.9 GM/DL (6.4-8.2)
== END ==
LOC: M LAB 10:16
PROVIDERS: ATTEND Nurse Practitioner Family
DX: G40.909 Epilepsy, unspecified, not intractable, without status epilepticus (principal); Z93.1 Gastrostomy status; M81.8 Other osteoporosis without current pathological fracture; G80.0 Spastic quadriplegic cerebral palsy

== ENCOUNTER → 2021-04-24 | Outpatient (CLI) | payer MEDICARE, MEDICAID ==
[~2021-04-24] MED LIST changes: +ISOVUE-300 61% 50ML VIAL As Ordered ONE; +LIDOCAINE 1% MDV 20ML VIAL As Ordered ONE
[2021-04-24 08:20] VITALS: BP 147/99
== END ==
LOC: M IRPRO 06:43
PROVIDERS: ATTEND Radiology Diagnostic Radiology
DX: Z43.1 Encounter for attention to gastrostomy (principal)
CPT/HCPCS: 43762; C1729; C1769; C1887; Q9967

== ENCOUNTER → 2021-04-30 | Outpatient (CLI) | payer MEDICARE, MEDICAID ==
[~2021-04-30] MED LIST changes: -ISOVUE-300 61% 50ML VIAL As Ordered ONE; -LIDOCAINE 1% MDV 20ML VIAL As Ordered ONE
== END ==
LOC: M LABSMTC 11:12
DX: Z01.818 Encounter for other preprocedural examination (principal); Z11.52 Encounter for screening for COVID-19

== ENCOUNTER → 2021-11-04 | Outpatient (CLI) | payer MEDICARE, MEDICAID | LOC: M LABSMTC 10:16 | PROVIDERS: ATTEND Anesthesiology | DX: Z20.828 Contact with and (suspected) exposure to other viral communicable diseases (principal); Z11.59 Encounter for screening for other viral diseases ==

== ENCOUNTER → 2021-11-08 | Outpatient (CLI) | payer MEDICARE, MEDICAID ==
[~2021-11-08] MED LIST changes: +ISOVUE-300 61% 50ML VIAL As Ordered ONE; +LIDOCAINE 1% MDV 20ML VIAL As Ordered ONE
[2021-11-08 12:50] VITALS: BP 183/93
== END ==
LOC: M IRPRO 11:04
PROVIDERS: ATTEND Radiology Diagnostic Radiology
DX: K94.23 Gastrostomy malfunction (principal); G80.9 Cerebral palsy, unspecified
CPT/HCPCS: 43762; C1729; C1769; Q9967

== ENCOUNTER 2022-01-07 07:54 | Emergency (ER) | payer MEDICARE, MEDICAID ==
[~2022-01-07 07:54] MED LIST changes: -ISOVUE-300 61% 50ML VIAL As Ordered ONE; -LIDOCAINE 1% MDV 20ML VIAL As Ordered ONE; +METR0.7526 TOP; -METR0.7533 TOP
[2022-01-07] MEDS ORDERED: GASTROGRAFIN SOLUTION 30ML GT ONE (09:05)
[2022-01-07 10:21] VITALS: BP 170/98
[2022-01-09] MEDS ORDERED: JEVILIQ12 PO (12:57)
[2022-01-09] MEDS ORDERED: NORM0.9I21 GT (12:57)
== END 2022-01-07 10:23 | disposition home or self-care (01) ==
LOC: M ED 07:54
DX: K94.23 Gastrostomy malfunction (principal); G40.89 Other seizures; G80.9 Cerebral palsy, unspecified; Z88.0 Allergy status to penicillin; Z91.040 Latex allergy status; Z79.899 Other long term (current) drug therapy
CPT/HCPCS: 74018; 99283; Q9963

== ENCOUNTER → 2022-01-08 | Outpatient (CLI) | payer MEDICARE, MEDICAID ==
[~2022-01-08] MED LIST changes: +JEVILIQ12 PO; +NORM0.9I21 GT
== END ==
LOC: M LABSMTC 09:32
PROVIDERS: ATTEND Anesthesiology
DX: Z01.812 Encounter for preprocedural laboratory examination (principal); Z11.52 Encounter for screening for COVID-19

== ENCOUNTER → 2022-01-10 | Outpatient (CLI) | payer MEDICARE, MEDICAID ==
[~2022-01-10] MED LIST changes: +CLINDAMYCIN 600 MG in IV 1 EA IV ONE; +CLINDAMYCIN 600MG/50ML PREMIX BAG As Ordered ONE; +ISOVUE-300 61% 50ML VIAL As Ordered ONE; +LIDOCAINE 1% MDV 20ML VIAL As Ordered ONE; +LIDOCAINE 2% 100MG/5ML SDV (FOR ANES.) As Ordered ONE; +LR 1,000 ML IV SCH; +MIDAZOLAM INJ 2MG/2ML VIAL (J2250 PER 1MG) As Ordered ONE; +NS 1,000 ML IV SCH; +ONDANSETRON 4MG 2ML VIAL IV PRN; +fentaNYL 100 MCG/2 ML INJECTION As Ordered ONE; +propofoL 200 MG/20 ML VIAL As Ordered ONE
[2022-01-10 17:00] VITALS: BP 162/98
== END ==
LOC: M IRPRO 13:24
PROVIDERS: ATTEND Radiology Diagnostic Radiology
DX: G80.9 Cerebral palsy, unspecified (principal); G40.909 Epilepsy, unspecified, not intractable, without status epilepticus; L71.9 Rosacea, unspecified; M81.0 Age-related osteoporosis without current pathological fracture; E46 Unspecified protein-calorie malnutrition; Z79.899 Other long term (current) drug therapy; Z88.0 Allergy status to penicillin; Z91.040 Latex allergy status
CPT/HCPCS: 49440; C1729; C1769; C1887; J2250; J3010; Q9967

== ENCOUNTER → 2022-02-12 | Outpatient (POV) | payer MEDICARE, MEDICAID ==
[~2022-02-12] VITALS: Ht 104.1 cm; Wt 30.4 kg
[~2022-02-12] MED LIST changes: -CLINDAMYCIN 600 MG in IV 1 EA IV ONE; -CLINDAMYCIN 600MG/50ML PREMIX BAG As Ordered ONE; -ISOVUE-300 61% 50ML VIAL As Ordered ONE; -LIDOCAINE 1% MDV 20ML VIAL As Ordered ONE; -LIDOCAINE 2% 100MG/5ML SDV (FOR ANES.) As Ordered ONE; -LR 1,000 ML IV SCH; -MIDAZOLAM INJ 2MG/2ML VIAL (J2250 PER 1MG) As Ordered ONE; -NS 1,000 ML IV SCH; -ONDANSETRON 4MG 2ML VIAL IV PRN; -fentaNYL 100 MCG/2 ML INJECTION As Ordered ONE; -propofoL 200 MG/20 ML VIAL As Ordered ONE
[2022-02-12 09:35] VITALS: BP 140/90
== END ==
LOC: M IRPOV 09:20
PROVIDERS: ATTEND Radiology Diagnostic Radiology
DX: Z43.1 Encounter for attention to gastrostomy (principal)

== ENCOUNTER 2022-02-19 19:51 | Emergency (ER) | payer MEDICARE, MEDICAID ==
[~2022-02-19] VITALS: Ht 119.4 cm; Wt 22.7 kg
[2022-02-20 06:52] VITALS: BP 175/110
== END 2022-02-20 07:22 | disposition home or self-care (01) ==
LOC: M ED 19:51
DX: T85.898A Other specified complication of other internal prosthetic devices, implants and grafts, initial encounter (principal); G80.9 Cerebral palsy, unspecified; G82.50 Quadriplegia, unspecified; Z79.899 Other long term (current) drug therapy; Z88.0 Allergy status to penicillin; Z91.040 Latex allergy status

== ENCOUNTER → 2022-02-21 | Outpatient (CLI) | payer MEDICARE, MEDICAID ==
[~2022-02-21] MED LIST changes: +ISOVUE-300 61% 50ML VIAL As Ordered ONE; +LIDOCAINE 1% MDV 20ML VIAL As Ordered ONE; +LIDOCAINE 2% 100MG/5ML SDV (FOR ANES.) As Ordered ONE; +MIDAZOLAM INJ 2MG/2ML VIAL (J2250 PER 1MG) As Ordered ONE; +ONDANSETRON 4MG 2ML VIAL IV PRN; +fentaNYL 100 MCG/2 ML INJECTION As Ordered ONE; +propofoL 200 MG/20 ML VIAL As Ordered ONE
[2022-02-21 13:30] VITALS: BP 170/99
== END ==
LOC: M IRPRO 08:45
PROVIDERS: ATTEND Radiology Diagnostic Radiology
DX: G80.9 Cerebral palsy, unspecified (principal)

== ENCOUNTER 2022-03-19 17:16 | Emergency (ER) | payer MEDICARE, MEDICAID ==
[~2022-03-19 17:16] MED LIST changes: +JEVILIQ12 JT; -JEVILIQ12 PO
[2022-03-19] MEDS ORDERED: GASTROGRAFIN SOLUTION 30ML PO ONE (22:40)
[2022-03-19 23:03] VITALS: BP 123/70
== END 2022-03-19 23:35 | disposition home or self-care (01) ==
LOC: M ED 17:16
DX: K94.23 Gastrostomy malfunction (principal); G40.89 Other seizures; G80.9 Cerebral palsy, unspecified; Z88.0 Allergy status to penicillin; Z91.040 Latex allergy status; Z79.811 Long term (current) use of aromatase inhibitors; Z79.630 Long term (current) use of alkylating agent; Z79.899 Other long term (current) drug therapy
CPT/HCPCS: 74018; 99283; G0463; Q9963

== ENCOUNTER → 2022-03-19 | Outpatient (POV) | payer MEDICARE, MEDICAID ==
[~2022-03-19] MED LIST changes: -ISOVUE-300 61% 50ML VIAL As Ordered ONE; -LIDOCAINE 1% MDV 20ML VIAL As Ordered ONE; -LIDOCAINE 2% 100MG/5ML SDV (FOR ANES.) As Ordered ONE; -MIDAZOLAM INJ 2MG/2ML VIAL (J2250 PER 1MG) As Ordered ONE; -ONDANSETRON 4MG 2ML VIAL IV PRN; -fentaNYL 100 MCG/2 ML INJECTION As Ordered ONE; -propofoL 200 MG/20 ML VIAL As Ordered ONE
[2022-03-19 13:35] VITALS: BP 144/96
== END ==
LOC: M IRPOV 13:17
PROVIDERS: ATTEND Radiology Diagnostic Radiology
DX: K94.23 Gastrostomy malfunction (principal); G80.9 Cerebral palsy, unspecified; Z88.0 Allergy status to penicillin; Z91.040 Latex allergy status

== ENCOUNTER → 2022-03-21 | Outpatient (CLI) | payer MEDICARE, MEDICAID ==
[~2022-03-21] MED LIST changes: +ISOVUE-300 61% 100ML VIAL As Ordered ONE; -JEVILIQ12 JT; +JEVILIQ12 PO; +LIDOCAINE 1% MDV 20ML VIAL As Ordered ONE
[2022-03-21 12:25] VITALS: BP 164/89
== END ==
LOC: M IRPRO 10:48
PROVIDERS: ATTEND Radiology Diagnostic Radiology
DX: K94.23 Gastrostomy malfunction (principal); G80.9 Cerebral palsy, unspecified; E46 Unspecified protein-calorie malnutrition
CPT/HCPCS: 43762; 87635; C1729; C1769; C1887; C1894; Q9967

== ENCOUNTER → 2022-04-16 | Outpatient (POV) | payer MEDICARE, MEDICAID ==
[~2022-04-16] MED LIST changes: -ISOVUE-300 61% 100ML VIAL As Ordered ONE; -LIDOCAINE 1% MDV 20ML VIAL As Ordered ONE
[2022-04-16 10:05] VITALS: BP 128/64
== END ==
LOC: M IRPOV 09:56
PROVIDERS: ATTEND Radiology Diagnostic Radiology
DX: K94.29 Other complications of gastrostomy (principal); G80.9 Cerebral palsy, unspecified; Z88.0 Allergy status to penicillin; Z91.040 Latex allergy status
CPT/HCPCS: 74018; G0463

== ENCOUNTER → 2022-04-18 | Outpatient (CLI) | payer MEDICARE, MEDICAID ==
[~2022-04-18] MED LIST changes: +ISOVUE-300 61% 100ML VIAL As Ordered ONE; +LIDOCAINE 1% MDV 20ML VIAL As Ordered ONE
[2022-04-18 07:35] VITALS: BP 130/91
== END ==
LOC: M IRPRO 07:26
PROVIDERS: ATTEND Radiology Diagnostic Radiology
DX: K94.29 Other complications of gastrostomy (principal); G80.9 Cerebral palsy, unspecified; Z43.1 Encounter for attention to gastrostomy
CPT/HCPCS: 49452; 87635; C1729; C1769; Q9967

== ENCOUNTER → 2022-04-23 | Outpatient (CLI) | payer MEDICARE, MEDICAID ==
[~2022-04-23] MED LIST changes: -ISOVUE-300 61% 100ML VIAL As Ordered ONE; -LIDOCAINE 1% MDV 20ML VIAL As Ordered ONE
[2022-04-23 11:18] LABS: BASO # 0.1 10^3/uL (0.0-0.2); BASO % 0.7 % (0.0-1.0); EOS # 0.1 10^3/uL (0.0-0.5); EOS % 1.2 % (0.0-3.0); HEMOGLOBIN 14.9 g/dl (13.5-17.5); LYMPH % 44.3 % (24.0-44.0); MEAN CORPUSCULAR HEMOGLOBIN 31.5 pg (27.0-33.0); MEAN CORPUSCULAR HGB CONC 33.1 g/dl (32.0-36.5); MEAN CORPUSCULAR VOLUME 95.1 fl (80.0-96.0); MONO # 0.8 10^3/uL (0.0-0.8); MONO % 12.1 % (2.0-8.0); NEUTROPHILS # 2.9 10^3/uL (1.5-8.5); NEUTROPHILS % 41.6 % (36.0-66.0); PLATELET COUNT, AUTOMATED 152 10^3/uL (150-450); RED BLOOD COUNT 4.73 10^6/uL (4.30-6.10); WHITE BLOOD COUNT 6.9 10^3/uL (4.0-10.0)
[2022-04-23 11:43] LABS: PHENOBARBITAL LEVEL 20.9 UG/ML (15.0-40.0)
[2022-04-23 11:45] LABS: ALBUMIN 3.7 G/DL (3.2-5.2); ALKALINE PHOSPHATASE 107 U/L (46-116); ALT/SGPT 75 U/L (7.0-40); AST/SGOT 55 U/L (<34); BILIRUBIN,TOTAL 0.3 MG/DL (0.3-1.2); BLOOD UREA NITROGEN 8 MG/DL (9-23); CALCIUM LEVEL 8.9 MG/DL (8.5-10.1); CARBON DIOXIDE LEVEL 32 MMOL/L (20-31); CHLORIDE LEVEL 101 MMOL/L (98-107); CHOLESTEROL LEVEL 155 MG/DL (<200); CHOLESTEROL RISK RATIO 3.81 (<5); CREATININE FOR GFR 0.41 MG/DL (0.70-1.30); FREE T4 1.15 NG/DL (0.89-1.76); GLOMERULAR FILTRATION RATE > 60.0 (>60); GLUCOSE, FASTING 66 MG/DL (60-100); HDL CHOLESTEROL 40.6 MG/DL (>40); LDL CHOLESTEROL 91.8 MG/DL (<100); NON-HDL-C 114 MG/DL; SODIUM LEVEL 138 MMOL/L (136-145); THYROID STIMULATING HORMONE 3.596 uIU/ML (0.55-4.78); TOTAL PROTEIN 7.1 G/DL (5.7-8.2); TRIGLYCERIDES LEVEL 113 MG/DL (<150)
== END ==
LOC: M PLALAB 08:41
PROVIDERS: ATTEND Nurse Practitioner Family
DX: Z00.00 Encounter for general adult medical examination without abnormal findings (principal); Z93.1 Gastrostomy status; Z79.899 Other long term (current) drug therapy; G40.909 Epilepsy, unspecified, not intractable, without status epilepticus; G80.0 Spastic quadriplegic cerebral palsy; M81.8 Other osteoporosis without current pathological fracture

== ENCOUNTER 2022-05-05 17:07 | Observation (INO) | payer MEDICARE, MEDICAID ==
[~2022-05-05] VITALS: Ht 122.1 cm; Wt 38.9 kg
[~2022-05-05 17:07] MED LIST changes: +JEVILIQ12 JT; -JEVILIQ12 PO; +SENN-186 GT; -SENN-80 GT
[2022-05-05] MEDS ORDERED: FAMO20TA GT (17:31)
[2022-05-05] MEDS ORDERED: CREON-12 CAPSULE NG ONE (18:00)
[2022-05-05] MEDS ORDERED: CREON-12 CAPSULE NG SCH (18:00)
[2022-05-05 19:37] LABS: BASO % 0.3 % (0.0-1.0); EOS # 0.1 10^3/uL (0.0-0.5); EOS % 0.7 % (0.0-3.0); HEMOGLOBIN 15.7 g/dl (13.5-17.5); LYMPH # 2.7 10^3/uL (1.5-5.0); LYMPH % 24.8 % (24.0-44.0); MEAN CORPUSCULAR HEMOGLOBIN 31.2 pg (27.0-33.0); MEAN CORPUSCULAR HGB CONC 33.4 g/dl (32.0-36.5); MEAN CORPUSCULAR VOLUME 93.4 fl (80.0-96.0); MONO # 0.8 10^3/uL (0.0-0.8); MONO % 7.2 % (2.0-8.0); NEUTROPHILS # 7.2 10^3/uL (1.5-8.5); NEUTROPHILS % 66.8 % (36.0-66.0); PLATELET COUNT, AUTOMATED 173 10^3/uL (150-450); RED BLOOD COUNT 5.03 10^6/uL (4.30-6.10); WHITE BLOOD COUNT 10.7 10^3/uL (4.0-10.0)
[2022-05-05 19:53] LABS: INR 0.92; PROTHROMBIN TIME 12.6 SECONDS (12.5-14.5)
[2022-05-05 19:54] LABS: PARTIAL THROMBOPLASTIN TIME 29.5 SECONDS (24.8-34.2)
[2022-05-05 20:12] LABS: RSV AMPLIFICATION NEGATIVE (NEGATIVE)
[2022-05-05] MEDS ORDERED: METOCLOPRAMIDE GT (20:18)
[2022-05-05] MEDS ORDERED: SIME40DR23 GT (20:23)
[2022-05-05] MEDS ORDERED: [UNRECOGNIZED DRUG - CODE] GT (20:23)
[2022-05-05] MEDS ORDERED: HOME MED LIST COMPLETE! XX SCH (20:25)
[2022-05-05] MEDS ORDERED: CREON-24 CAPSULE JT ONE (21:00)
[2022-05-05 22:28] LABS: BLOOD UREA NITROGEN 10 MG/DL (9-23); CALCIUM LEVEL 9.1 MG/DL (8.5-10.1); CARBON DIOXIDE LEVEL 26 MMOL/L (20-31); CHLORIDE LEVEL 102 MMOL/L (98-107); CREATININE FOR GFR 0.41 MG/DL (0.70-1.30); GLOMERULAR FILTRATION RATE > 60.0 (>60); GLUCOSE, FASTING 97 MG/DL (60-100); POTASSIUM SERUM 4.2 MMOL/L (3.5-5.1); SODIUM LEVEL 141 MMOL/L (136-145)
[2022-05-05] MEDS ORDERED: D5W/0.9% SODIUM CHLORIDE 1,000 ML IV SCH (22:50)
[2022-05-05] MEDS ORDERED: diphenhydrAMINE 50MG/ML VIAL IV PRN ×2 (23:45→23:56)
[2022-05-06] VITALS (7 sets, daily range): BP systolic 104–162; BP diastolic 60–110
[2022-05-06 05:49] LABS: HEMOGLOBIN 14.2 g/dl (13.5-17.5); MEAN CORPUSCULAR HEMOGLOBIN 31.6 pg (27.0-33.0); MEAN CORPUSCULAR VOLUME 95.6 fl (80.0-96.0); PLATELET COUNT, AUTOMATED 188 10^3/uL (150-450); WHITE BLOOD COUNT 7.9 10^3/uL (4.0-10.0)
[2022-05-06 06:20] LABS: BLOOD UREA NITROGEN 11 MG/DL (9-23); CALCIUM LEVEL 8.8 MG/DL (8.5-10.1); CARBON DIOXIDE LEVEL 30 MMOL/L (20-31); CHLORIDE LEVEL 103 MMOL/L (98-107); CREATININE FOR GFR 0.42 MG/DL (0.70-1.30); GLOMERULAR FILTRATION RATE > 60.0 (>60); GLUCOSE, FASTING 104 MG/DL (60-100); POTASSIUM SERUM 3.8 MMOL/L (3.5-5.1); SODIUM LEVEL 141 MMOL/L (136-145)
[2022-05-06] MEDS ORDERED: NITROGLYCERIN 2% OINT 1 GM *U/D* PKT TOP SCH (09:00)
[2022-05-06] MEDS ORDERED: ISOVUE-300 61% 100ML VIAL As Ordered ONE (13:00)
[2022-05-06] MEDS ORDERED: LIDOCAINE 1% MDV 20ML VIAL As Ordered ONE (13:00)
[2022-05-06] MEDS ORDERED: GLUCOSE 4GM CHEW TABLET PO PRN (16:45)
[2022-05-06] MEDS ORDERED: DEXTROSE 50% 50ML SYRINGE IV PRN (16:45)
[2022-05-06] MEDS ORDERED: GLUCAGON INJ 1MG VIAL SC PRN (16:45)
[2022-05-06] MEDS: METOCLOPRAMIDE 5 MG TAB GT SCH ×2 (17:43→21:42)
[2022-05-06] MEDS ORDERED: diphenhydrAMINE 12.5MG/5ML ELIXIR UDC GT SCH (21:00)
[2022-05-06] MEDS ORDERED: MOM 30ML SUSPENSION UDC GT SCH (21:00)
[2022-05-06] MEDS ORDERED: PHENobarbitaL 30 MG TAB GT SCH (21:00)
[2022-05-06] MEDS ORDERED: FAMOTIDINE 20 MG TAB GT SCH (21:00)
[2022-05-06] MEDS ORDERED: PHENobarbitaL 30 MG TAB PEG SCH (21:00)
[2022-05-06] MEDS ORDERED: PHENobarbital ELIX 20 MG/5 ML UD GT SCH (21:00)
[2022-05-06] MEDS: LACTULOSE 20GM/30ML SYRUP UDC GT SCH (21:41)
[2022-05-06] MEDS: ISOSORBIDE DIN (ISORDIL) 10MG TAB GT SCH (21:42)
[2022-05-06] MEDS: SIMETHICONE 40MG/0.6ML DROPS 30ML GT SCH (21:43)
[2022-05-07 05:52] VITALS: BP 112/72
[2022-05-07] MEDS: ISOSORBIDE DIN (ISORDIL) 10MG TAB GT SCH (05:52)
[2022-05-07 06:00] VITALS: BP 112/72
[2022-05-07] MEDS ORDERED: PHEN20EL GT (07:54)
[2022-05-07] MEDS: LACTULOSE 20GM/30ML SYRUP UDC GT SCH (08:48)
[2022-05-07] MEDS: METOCLOPRAMIDE 5 MG TAB GT SCH (08:49)
[2022-05-07] MEDS: SIMETHICONE 40MG/0.6ML DROPS 30ML GT SCH (08:49)
[2022-05-07] MEDS ORDERED: MIRALAX *UNIT DOSE* 17GM PACKET GT SCH (09:00)
[2022-05-07 10:32] VITALS: BP 120/76
[2022-05-07] MEDS ORDERED: PHENobarbital ELIX 20 MG/5 ML UD GT SCH (21:00)
== END 2022-05-07 12:25 | disposition home or self-care (01) ==
LOC: M ED 17:07 → M ED INP 22:47 → INTOOBSV 22:47 → M MS5PR 05-06 00:20
PROVIDERS: ADMIT Internal Medicine; ATTEND General Practice
DX: K94.23 Gastrostomy malfunction (principal); G80.0 Spastic quadriplegic cerebral palsy; R45.1 Restlessness and agitation; K59.00 Constipation, unspecified; K21.9 Gastro-esophageal reflux disease without esophagitis; Z79.899 Other long term (current) drug therapy; Z88.0 Allergy status to penicillin; Z91.040 Latex allergy status
CPT/HCPCS: 36415; 49452; 71046; 80048; 85025; 85027; 85610; 85730; 87631; 99284; C1729; C1769; C1894; G0378; Q9967

== ENCOUNTER → 2022-05-27 | Outpatient (CLI) | payer MEDICARE, MEDICAID ==
[~2022-05-27] MED LIST changes: +FAMO20TA GT; +METOCLOPRAMIDE GT; +PHEN20EL GT; -SENN-186 GT; +SENN-80 GT; +SIME40DR23 GT; +[UNRECOGNIZED DRUG - CODE] GT
== END ==
LOC: M WHC 04-23 08:20
PROVIDERS: ATTEND Nurse Practitioner Family
DX: Z13.820 Encounter for screening for osteoporosis (principal); M81.8 Other osteoporosis without current pathological fracture

== ENCOUNTER → 2022-07-23 | Outpatient (POV) | payer MEDICARE, MEDICAID ==
[~2022-07-23] MED LIST changes: +SENN-186 GT; -SENN-80 GT
[2022-07-23 07:55] VITALS: BP 133/82
== END ==
LOC: M IRPOV 07:49
PROVIDERS: ATTEND Radiology Diagnostic Radiology
DX: Z43.1 Encounter for attention to gastrostomy (principal); G80.9 Cerebral palsy, unspecified; Z88.0 Allergy status to penicillin; Z91.040 Latex allergy status

== ENCOUNTER → 2022-07-24 | Outpatient (CLI) | payer MEDICARE, MEDICAID ==
[~2022-07-24] MED LIST changes: +ISOVUE-300 61% 100ML VIAL As Ordered ONE; +LIDOCAINE 1% MDV 20ML VIAL As Ordered ONE
[2022-07-24 13:15] VITALS: BP 158/98
== END ==
LOC: M IRPRO 11:18
PROVIDERS: ATTEND Radiology Diagnostic Radiology
DX: K94.23 Gastrostomy malfunction (principal); G80.9 Cerebral palsy, unspecified
CPT/HCPCS: 49452; C1729; C1769; Q9967

== ENCOUNTER 2022-09-07 15:25 | Emergency (ER) | payer MEDICARE, MEDICAID ==
[~2022-09-07 15:25] MED LIST changes: -ISOVUE-300 61% 100ML VIAL As Ordered ONE; -LIDOCAINE 1% MDV 20ML VIAL As Ordered ONE; +[UNRECOGNIZED DRUG - CODE] MT; -[UNRECOGNIZED DRUG - CODE] MT
[2022-09-07 17:33] VITALS: BP 149/92
[2022-09-07] MEDS ORDERED: D5W/0.45% SODIUM CHLORIDE 1,000 ML IV ONE (18:15)
[2022-09-07 18:31] LABS: BASO % 0.4 % (0.0-1.0); EOS % 0.3 % (0.0-3.0); LYMPH # 3.7 10^3/uL (1.5-5.0); LYMPH % 37.8 % (24.0-44.0); MEAN CORPUSCULAR HEMOGLOBIN 31.4 pg (27.0-33.0); MEAN CORPUSCULAR HGB CONC 33.3 g/dl (32.0-36.5); MEAN CORPUSCULAR VOLUME 94.3 fl (80.0-96.0); MONO # 0.5 10^3/uL (0.0-0.8); MONO % 5.6 % (2.0-8.0); NEUTROPHILS # 5.4 10^3/uL (1.5-8.5); NEUTROPHILS % 55.6 % (36.0-66.0); PLATELET COUNT, AUTOMATED 184 10^3/uL (150-450); RED BLOOD COUNT 5.09 10^6/uL (4.30-6.10); WHITE BLOOD COUNT 9.7 10^3/uL (4.0-10.0)
[2022-09-07 19:07] LABS: BLOOD UREA NITROGEN 9 MG/DL (9-23); CALCIUM LEVEL 8.8 MG/DL (8.5-10.1); CARBON DIOXIDE LEVEL 29 MMOL/L (20-31); CHLORIDE LEVEL 100 MMOL/L (98-107); CREATININE FOR GFR 0.39 MG/DL (0.70-1.30); GLOMERULAR FILTRATION RATE > 60.0 (>60); GLUCOSE, FASTING 80 MG/DL (60-100); SODIUM LEVEL 136 MMOL/L (136-145)
[2022-09-07 21:06] VITALS: TEMP 98.1; O2SAT 97
== END 2022-09-07 21:11 | disposition short-term general hospital (02) ==
LOC: M ED 15:25
DX: K94.23 Gastrostomy malfunction (principal); G80.9 Cerebral palsy, unspecified; F79 Unspecified intellectual disabilities; Z88.0 Allergy status to penicillin; Z91.040 Latex allergy status; Z79.899 Other long term (current) drug therapy

== ENCOUNTER → 2022-09-10 | Outpatient (CLI) | payer MEDICARE, MEDICAID ==
[2022-09-10 17:42] LABS: PHENOBARBITAL LEVEL 15.2 UG/ML (15.0-40.0)
[2022-09-10 17:46] LABS: ALBUMIN 3.8 G/DL (3.2-5.2); ALKALINE PHOSPHATASE 114 U/L (46-116); ALT/SGPT 18 U/L (7.0-40); AST/SGOT 16 U/L (<34); BILIRUBIN,TOTAL 0.3 MG/DL (0.3-1.2); BLOOD UREA NITROGEN 9 MG/DL (9-23); CALCIUM LEVEL 8.5 MG/DL (8.5-10.1); CARBON DIOXIDE LEVEL 31 MMOL/L (20-31); CHLORIDE LEVEL 102 MMOL/L (98-107); CREATININE FOR GFR 0.41 MG/DL (0.70-1.30); GLOMERULAR FILTRATION RATE > 60.0 (>60); GLUCOSE, FASTING 90 MG/DL (60-100); POTASSIUM SERUM 3.9 MMOL/L (3.5-5.1); SODIUM LEVEL 139 MMOL/L (136-145); TOTAL PROTEIN 7.1 G/DL (5.7-8.2)
== END ==
LOC: M WUC 13:32
PROVIDERS: ATTEND Nurse Practitioner Family
DX: G40.909 Epilepsy, unspecified, not intractable, without status epilepticus (principal); Z93.1 Gastrostomy status; G80.0 Spastic quadriplegic cerebral palsy; M81.8 Other osteoporosis without current pathological fracture

== ENCOUNTER → 2022-11-18 | Outpatient (CLI) | payer MEDICARE, MEDICAID ==
[~2022-11-18] MED LIST changes: -FAMO40SU2; +FAMO40SU9
== END ==
LOC: M WUC 13:02
PROVIDERS: ATTEND Physician Assistant
DX: R05.1 Acute cough (principal); R11.10 Vomiting, unspecified

== ENCOUNTER 2023-02-22 13:07 | Inpatient (IN) | payer MEDICARE, MEDICAID ==
[~2023-02-22] VITALS: Ht 119.4 cm; Wt 30.2 kg
[2023-02-22] MEDS ORDERED: ACETAMINOPHEN 325MG/10.15ML UDC PO ONE (13:45)
[2023-02-22] MEDS: ACETAMINOPHEN 325MG/10.15ML UDC GT ONE ×2 (14:05→14:34)
[2023-02-22 15:02] LABS: VENOUS BASE EXCESS 5.5 (-2.0-2.0); VENOUS HCO3 32.1 MMOL/L (23.0-27.0); VENOUS O2 SATURATION 82.9 % (60.0-80.0); VENOUS PARTIAL PRESSURE CO2 53.2 mmHg (38.0-50.0); VENOUS PARTIAL PRESSURE O2 48.3 mmHg (30.0-50.0); VENOUS PH 7.399 UNITS (7.330-7.430); VENOUS STANDARD HCO3 28.9 MMOL/L; VENOUS TOTAL CO2 33.8 MMOL/L (24.0-28.0)
[2023-02-22] MEDS ORDERED: ACETAMINOPHEN 650MG SUPP PR ONE (15:05)
[2023-02-22 15:13] LABS: BASO # 0.1 10^3/uL (0.0-0.2); BASO % 0.3 % (0.0-1.0); HEMATOCRIT 50.7 % (42.0-52.0); HEMOGLOBIN 17.1 g/dl (13.5-17.5); LYMPH # 2.2 10^3/uL (1.5-5.0); LYMPH % 11.1 % (24.0-44.0); MEAN CORPUSCULAR HGB CONC 33.7 g/dl (32.0-36.5); MEAN CORPUSCULAR VOLUME 94.8 fl (80.0-96.0); MONO # 1.4 10^3/uL (0.0-0.8); MONO % 7.2 % (2.0-8.0); NEUTROPHILS # 16.1 10^3/uL (1.5-8.5); PLATELET COUNT, AUTOMATED 196 10^3/uL (150-450); RED BLOOD COUNT 5.35 10^6/uL (4.30-6.10); WHITE BLOOD COUNT 19.8 10^3/uL (4.0-10.0)
[2023-02-22] MEDS ORDERED: LIDOCAINE 2% 5ML JELLY UROJET TOP ONE (15:25)
[2023-02-22] MEDS ORDERED: hydrALAZINE 20MG/ML 1ML VIAL IV STA ×2 (15:41→17:12)
[2023-02-22 15:52] LABS: ALBUMIN 4.8 G/DL (3.2-5.2); ALKALINE PHOSPHATASE 125 U/L (46-116); ALT/SGPT 60 U/L (7.0-40); AST/SGOT 52 U/L (<34); BILIRUBIN,DIRECT < 0.1 MG/DL (<0.4); BILIRUBIN,TOTAL 0.3 MG/DL (0.3-1.2); BLOOD UREA NITROGEN 15 MG/DL (9-23); CALCIUM LEVEL 10.9 MG/DL (8.5-10.1); CARBON DIOXIDE LEVEL 28 MMOL/L (20-31); CHLORIDE LEVEL 101 MMOL/L (98-107); CREATININE FOR GFR 0.51 MG/DL (0.70-1.30); GLOMERULAR FILTRATION RATE > 60.0 (>60); GLUCOSE, FASTING 72 MG/DL (60-100); POTASSIUM SERUM 4.4 MMOL/L (3.5-5.1); SODIUM LEVEL 142 MMOL/L (136-145); TOTAL PROTEIN 8.4 G/DL (5.7-8.2)
[2023-02-22 15:54] LABS: THYROID STIMULATING HORMONE 1.541 uIU/ML (0.55-4.78)
[2023-02-22 15:58] LABS: PROCALCITONIN 0.12 ng/ml
[2023-02-22] MEDS ORDERED: NS 1,000 ML IV SCH (16:05)
[2023-02-22] MEDS ORDERED: NS IV ONE (16:05)
[2023-02-22 16:23] LABS: THYROXINE (T4) 8.6 UG/DL (4.5-10.9)
[2023-02-22] MEDS ORDERED: LevoFLOXacin IV 250 MG in IV 1 EA IV ONE (16:35)
[2023-02-22] MEDS ORDERED: ONDANSETRON 4MG 2ML VIAL IV ONE (17:15)
[2023-02-22] MEDS ORDERED: ACETAMINOPHEN TAB 650MG DOSE (2X325MG) JT PRN (18:10)
[2023-02-22] MEDS ORDERED: ACETAMINOPHEN 325MG/10.15ML UDC JT PRN (18:55)
[2023-02-22] MEDS ORDERED: PHEN20EL4 PO (20:03)
[2023-02-22] MEDS ORDERED: METO5EL GT (20:03)
[2023-02-22] MEDS ORDERED: BIOTLIQ9 PO (20:06)
[2023-02-22] MEDS ORDERED: IBUP-1824 PO (20:06)
[2023-02-22] MEDS ORDERED: METRCRM TOP (20:06)
[2023-02-22] MEDS ORDERED: CVS2.1SU PR (20:06)
[2023-02-22] MEDS ORDERED: HOME MED LIST COMPLETE! XX SCH (20:10)
[2023-02-22] MEDS: NS 1,000 ML IV SCH (20:25)
[2023-02-22 21:10] VITALS: TEMP 97.7; O2SAT 95
[2023-02-22 22:55] VITALS: O2SAT 87
[2023-02-22 23:03] VITALS: O2SAT 95
[2023-02-23] VITALS (22 sets, daily range): BP systolic 136–182; BP diastolic 74–118; TEMP 98–99.1; O2SAT 88–98
[2023-02-23] MEDS: SIMETHICONE 40MG/0.6ML DROPS 30ML JT SCH (02:00)
[2023-02-23] MEDS: hydrALAZINE 20MG/ML 1ML VIAL IV PRN (02:01)
[2023-02-23] MEDS: HEPARIN SOD (PORCINE) 5000UNITS/ML 1ML VIAL/SYRINGE SC SCH (02:07)
[2023-02-23] MEDS: NS 500 ML IV ONE ×2 (03:10→03:43)
[2023-02-23] MEDS: NS 1,000 ML IV SCH (03:43)
[2023-02-23] MEDS ORDERED: SIMETHICONE 40MG/0.6ML DROPS 30ML GT SCH (09:00)
[2023-02-23] MEDS ORDERED: cloNIDine HCL 0.1 MG/24 HR PATCH TOP SCH (09:00)
[2023-02-23] MEDS: PANTOPRAZOLE SODIUM 40 MG in D5W 50 ML IV SCH ×4 (09:49→23:48)
[2023-02-23 10:23] LABS: BASO % 0.1 % (0.0-1.0); HEMATOCRIT 46.1 % (42.0-52.0); LYMPH # 1.2 10^3/uL (1.5-5.0); LYMPH % 6.1 % (24.0-44.0); MEAN CORPUSCULAR HEMOGLOBIN 31.9 pg (27.0-33.0); MEAN CORPUSCULAR HGB CONC 32.8 g/dl (32.0-36.5); MEAN CORPUSCULAR VOLUME 97.5 fl (80.0-96.0); MONO # 1.5 10^3/uL (0.0-0.8); MONO % 7.9 % (2.0-8.0); NEUTROPHILS # 16.5 10^3/uL (1.5-8.5); NEUTROPHILS % 85.5 % (36.0-66.0); PLATELET COUNT, AUTOMATED 191 10^3/uL (150-450); RED BLOOD COUNT 4.73 10^6/uL (4.30-6.10); WHITE BLOOD COUNT 19.3 10^3/uL (4.0-10.0)
[2023-02-23 10:41] LABS: HEMOGLOBIN 15.1 g/dl (13.5-17.5)
[2023-02-23 10:50] LABS: ALKALINE PHOSPHATASE 103 U/L (46-116); ALT/SGPT 46 U/L (7.0-40); AST/SGOT 35 U/L (<34); BILIRUBIN,TOTAL 0.4 MG/DL (0.3-1.2); BLOOD UREA NITROGEN 11 MG/DL (9-23); CARBON DIOXIDE LEVEL 26 MMOL/L (20-31); CHLORIDE LEVEL 109 MMOL/L (98-107); CREATININE FOR GFR 0.39 MG/DL (0.70-1.30); GLOMERULAR FILTRATION RATE > 60.0 (>60); GLUCOSE, FASTING 137 MG/DL (60-100); MAGNESIUM LEVEL 2.1 MG/DL (1.8-2.4); POTASSIUM SERUM 3.1 MMOL/L (3.5-5.1); SODIUM LEVEL 147 MMOL/L (136-145); TOTAL PROTEIN 7.3 G/DL (5.7-8.2)
[2023-02-23] MEDS: SUCRALFATE SUSP 1GM/10ML UD GT SCH ×2 (12:20→18:05)
[2023-02-23 15:36] LABS: HEMATOCRIT 41.3 % (42.0-52.0); HEMOGLOBIN 13.9 g/dl (13.5-17.5)
[2023-02-23] MEDS: KCL 10MEQ/100ML SWI (KRUN) 10 MEQ in IV 1 EA IV SCH ×5 (17:46→22:50)
[2023-02-23] MEDS: LevoFLOXacin IV 250 MG in IV 1 EA IV SCH (17:49)
[2023-02-23 19:14] LABS: HEMATOCRIT 39.5 % (42.0-52.0); HEMOGLOBIN 13.2 g/dl (13.5-17.5)
[2023-02-23] MEDS ORDERED: MOM 30ML SUSPENSION UDC GT SCH (21:00)
[2023-02-23] MEDS ORDERED: FAMOTIDINE 20 MG TAB GT SCH (21:00)
[2023-02-23] MEDS ORDERED: diphenhydrAMINE 12.5MG/5ML ELIXIR UDC GT SCH (21:00)
[2023-02-23] MEDS ORDERED: PHENobarbital ELIX 20 MG/5 ML UD PO SCH (21:00)
[2023-02-23] MEDS: FAMOTIDINE 20 MG TAB JT SCH (22:55)
[2023-02-23] MEDS: diphenhydrAMINE 12.5MG/5ML ELIXIR UDC JT SCH (22:56)
[2023-02-23] MEDS: PHENobarbital ELIX 20 MG/5 ML UD JT SCH (22:56)
[2023-02-23] MEDS: MOM 30ML SUSPENSION UDC JT SCH (22:59)
[2023-02-23 23:38] LABS: HEMATOCRIT 40.3 % (42.0-52.0); HEMOGLOBIN 13.4 g/dl (13.5-17.5)
[2023-02-24] VITALS (30 sets, daily range): BP systolic 148–164; BP diastolic 72–96; TEMP 97.5–98.6; O2SAT 88–97
[2023-02-24] MEDS: SIMETHICONE 40MG/0.6ML DROPS 30ML JT SCH ×4 (02:36→21:46)
[2023-02-24] MEDS: SUCRALFATE SUSP 1GM/10ML UD GT SCH ×3 (03:31→18:39)
[2023-02-24] MEDS: PANTOPRAZOLE SODIUM 40 MG in D5W 50 ML IV SCH ×4 (04:34→18:39)
[2023-02-24 06:16] LABS: BASO % 0.1 % (0.0-1.0); HEMATOCRIT 39.8 % (42.0-52.0); HEMOGLOBIN 13.2 g/dl (13.5-17.5); LYMPH # 2.8 10^3/uL (1.5-5.0); LYMPH % 19.4 % (24.0-44.0); MEAN CORPUSCULAR HEMOGLOBIN 32.4 pg (27.0-33.0); MEAN CORPUSCULAR HGB CONC 33.2 g/dl (32.0-36.5); MEAN CORPUSCULAR VOLUME 97.5 fl (80.0-96.0); MONO # 1.3 10^3/uL (0.0-0.8); MONO % 9.4 % (2.0-8.0); NEUTROPHILS # 10.1 10^3/uL (1.5-8.5); NEUTROPHILS % 70.7 % (36.0-66.0); PLATELET COUNT, AUTOMATED 132 10^3/uL (150-450); RED BLOOD COUNT 4.08 10^6/uL (4.30-6.10); WHITE BLOOD COUNT 14.2 10^3/uL (4.0-10.0)
[2023-02-24 06:45] LABS: BLOOD UREA NITROGEN 8 MG/DL (9-23); CALCIUM LEVEL 8.1 MG/DL (8.5-10.1); CARBON DIOXIDE LEVEL 26 MMOL/L (20-31); CHLORIDE LEVEL 111 MMOL/L (98-107); CREATININE FOR GFR 0.37 MG/DL (0.70-1.30); GLOMERULAR FILTRATION RATE > 60.0 (>60); GLUCOSE, FASTING 82 MG/DL (60-100); MAGNESIUM LEVEL 2.4 MG/DL (1.8-2.4); POTASSIUM SERUM 3.3 MMOL/L (3.5-5.1); SODIUM LEVEL 146 MMOL/L (136-145)
[2023-02-24] MEDS ORDERED: KCL 40MEQ IN D5/NS 1000ML 1,000 ML IV SCH (06:55)
[2023-02-24] MEDS: KCL 10MEQ/100ML SWI (KRUN) 10 MEQ in IV 1 EA IV SCH ×4 (09:49→13:43)
[2023-02-24] MEDS: NS 1,000 ML IV SCH ×2 (12:24→18:42)
[2023-02-24] MEDS: LevoFLOXacin IV 250 MG in IV 1 EA IV SCH (17:07)
[2023-02-24] MEDS: diphenhydrAMINE 12.5MG/5ML ELIXIR UDC JT SCH (21:44)
[2023-02-24] MEDS: MOM 30ML SUSPENSION UDC JT SCH (21:45)
[2023-02-24] MEDS: FAMOTIDINE 20 MG TAB JT SCH (21:46)
[2023-02-24] MEDS: PHENobarbital ELIX 20 MG/5 ML UD JT SCH (21:46)
[2023-02-25] VITALS (29 sets, daily range): BP systolic 118–190; BP diastolic 74–110; PULSE 111; TEMP 97.5–99.6; O2SAT 88–96
[2023-02-25] MEDS: PANTOPRAZOLE SODIUM 40 MG in D5W 50 ML IV SCH ×2 (00:01→04:41)
[2023-02-25] MEDS: SUCRALFATE SUSP 1GM/10ML UD GT SCH ×3 (02:13→18:33)
[2023-02-25] MEDS: hydrALAZINE 20MG/ML 1ML VIAL IV PRN (04:40)
[2023-02-25 05:27] LABS: BASO % 0.2 % (0.0-1.0); EOS % 0.1 % (0.0-3.0); HEMATOCRIT 42.8 % (42.0-52.0); HEMOGLOBIN 14.5 g/dl (13.5-17.5); LYMPH # 3.8 10^3/uL (1.5-5.0); LYMPH % 37.9 % (24.0-44.0); MEAN CORPUSCULAR HEMOGLOBIN 32.4 pg (27.0-33.0); MEAN CORPUSCULAR HGB CONC 33.9 g/dl (32.0-36.5); MEAN CORPUSCULAR VOLUME 95.5 fl (80.0-96.0); MONO # 0.8 10^3/uL (0.0-0.8); MONO % 7.8 % (2.0-8.0); NEUTROPHILS # 5.4 10^3/uL (1.5-8.5); NEUTROPHILS % 53.7 % (36.0-66.0); PLATELET COUNT, AUTOMATED 128 10^3/uL (150-450); RED BLOOD COUNT 4.48 10^6/uL (4.30-6.10)
[2023-02-25 05:53] LABS: BLOOD UREA NITROGEN 5 MG/DL (9-23); CALCIUM LEVEL 8.3 MG/DL (8.5-10.1); CARBON DIOXIDE LEVEL 25 MMOL/L (20-31); CHLORIDE LEVEL 105 MMOL/L (98-107); CREATININE FOR GFR 0.34 MG/DL (0.70-1.30); GLOMERULAR FILTRATION RATE > 60.0 (>60); GLUCOSE, FASTING 89 MG/DL (60-100); MAGNESIUM LEVEL 2.3 MG/DL (1.8-2.4); SODIUM LEVEL 139 MMOL/L (136-145)
[2023-02-25] MEDS ORDERED: cloNIDine HCL 0.1 MG/24 HR PATCH TOP SCH (06:45)
[2023-02-25] MEDS: NS 1,000 ML IV SCH (06:51)
[2023-02-25] MEDS ORDERED: POTASSIUM CHLORIDE 10% LIQ 20MEQ/15ML UDC PO ONE (08:45)
[2023-02-25] MEDS: KCL 10MEQ/100ML SWI (KRUN) 10 MEQ in IV 1 EA IV SCH ×4 (08:52→13:13)
[2023-02-25] MEDS: SIMETHICONE 40MG/0.6ML DROPS 30ML JT SCH ×4 (08:53→21:21)
[2023-02-25] MEDS: amLODIPine 5 MG TAB JT SCH (08:53)
[2023-02-25] MEDS ORDERED: METOPROLOL TART 12.5 MG PER 1/2 TAB JT SCH (09:00)
[2023-02-25] MEDS: HEPARIN SOD (PORCINE) 5000UNITS/ML 1ML VIAL/SYRINGE SC SCH ×2 (09:41→21:20)
[2023-02-25] MEDS: LevoFLOXacin IV 250 MG in IV 1 EA IV SCH (15:24)
[2023-02-25] MEDS: **hydrALAZINE** 10 MG TAB JT SCH ×2 (15:29→16:40)
[2023-02-25] MEDS ORDERED: NS 1,000 ML IV SCH (16:10)
[2023-02-25 17:36] LABS: BLOOD UREA NITROGEN 6 MG/DL (9-23); CALCIUM LEVEL 8.9 MG/DL (8.5-10.1); CARBON DIOXIDE LEVEL 22 MMOL/L (20-31); CHLORIDE LEVEL 105 MMOL/L (98-107); CREATININE FOR GFR 0.31 MG/DL (0.70-1.30); GLOMERULAR FILTRATION RATE > 60.0 (>60); GLUCOSE, FASTING 102 MG/DL (60-100); POTASSIUM SERUM 3.8 MMOL/L (3.5-5.1); SODIUM LEVEL 136 MMOL/L (136-145)
[2023-02-25] MEDS: MOM 30ML SUSPENSION UDC JT SCH (21:19)
[2023-02-25] MEDS: PHENobarbital ELIX 20 MG/5 ML UD JT SCH (21:19)
[2023-02-25] MEDS: diphenhydrAMINE 12.5MG/5ML ELIXIR UDC JT SCH (21:20)
[2023-02-25] MEDS: FAMOTIDINE 20 MG TAB JT SCH (21:20)
[2023-02-26] VITALS (27 sets, daily range): BP systolic 135–174; BP diastolic 58–107; TEMP 97.5–100.6; O2SAT 88–96
[2023-02-26] MEDS ORDERED: NS 500 ML IV ONE ×2 (01:45→03:00)
[2023-02-26] MEDS ORDERED: RACEPINEPHrine 2.25% UD INHAL INH ONE (04:00)
[2023-02-26] MEDS: SUCRALFATE SUSP 1GM/10ML UD GT SCH ×3 (04:19→18:18)
[2023-02-26 06:51] LABS: BLOOD UREA NITROGEN 10 MG/DL (9-23); CARBON DIOXIDE LEVEL 24 MMOL/L (20-31); CHLORIDE LEVEL 109 MMOL/L (98-107); CREATININE FOR GFR 0.37 MG/DL (0.70-1.30); GLOMERULAR FILTRATION RATE > 60.0 (>60); GLUCOSE, FASTING 104 MG/DL (60-100); MAGNESIUM LEVEL 2.6 MG/DL (1.8-2.4); SODIUM LEVEL 142 MMOL/L (136-145)
[2023-02-26] MEDS ORDERED: cloNIDine HCL 0.2 MG/24 HR PATCH TOP SCH (09:00)
[2023-02-26] MEDS: PANTOPRAZOLE 40MG VIAL IV SCH ×2 (09:37→20:36)
[2023-02-26] MEDS: HEPARIN SOD (PORCINE) 5000UNITS/ML 1ML VIAL/SYRINGE SC SCH ×2 (09:38→20:36)
[2023-02-26] MEDS: amLODIPine 5 MG TAB JT SCH (09:38)
[2023-02-26] MEDS: SIMETHICONE 40MG/0.6ML DROPS 30ML JT SCH ×3 (09:38→20:55)
[2023-02-26] MEDS: LevoFLOXacin IV 250 MG in IV 1 EA IV SCH (15:29)
[2023-02-26] MEDS: ALBUTEROL SULFATE 2.5MG/0.5ML INH NEB SOLN NEB PRN (19:35)
[2023-02-26] MEDS: PHENobarbital ELIX 20 MG/5 ML UD JT SCH (20:36)
[2023-02-26] MEDS: diphenhydrAMINE 12.5MG/5ML ELIXIR UDC JT SCH (20:36)
[2023-02-26] MEDS: FAMOTIDINE 20 MG TAB JT SCH (20:36)
[2023-02-27] VITALS (25 sets, daily range): BP systolic 126–152; BP diastolic 68–89; TEMP 97.6–98.9; O2SAT 92–97
[2023-02-27] MEDS: SUCRALFATE SUSP 1GM/10ML UD GT SCH ×3 (04:18→18:18)
[2023-02-27 06:43] LABS: BASO % 0.4 % (0.0-1.0); EOS # 0.3 10^3/uL (0.0-0.5); EOS % 3.8 % (0.0-3.0); HEMATOCRIT 42.6 % (42.0-52.0); HEMOGLOBIN 14.4 g/dl (13.5-17.5); LYMPH # 3.5 10^3/uL (1.5-5.0); LYMPH % 48.5 % (24.0-44.0); MEAN CORPUSCULAR HEMOGLOBIN 32.3 pg (27.0-33.0); MEAN CORPUSCULAR HGB CONC 33.8 g/dl (32.0-36.5); MEAN CORPUSCULAR VOLUME 95.5 fl (80.0-96.0); MONO # 0.6 10^3/uL (0.0-0.8); MONO % 8.6 % (2.0-8.0); NEUTROPHILS # 2.8 10^3/uL (1.5-8.5); NEUTROPHILS % 38.6 % (36.0-66.0); PLATELET COUNT, AUTOMATED 141 10^3/uL (150-450); RED BLOOD COUNT 4.46 10^6/uL (4.30-6.10); WHITE BLOOD COUNT 7.1 10^3/uL (4.0-10.0)
[2023-02-27 07:08] LABS: BLOOD UREA NITROGEN 12 MG/DL (9-23); CALCIUM LEVEL 7.8 MG/DL (8.5-10.1); CARBON DIOXIDE LEVEL 26 MMOL/L (20-31); CHLORIDE LEVEL 108 MMOL/L (98-107); CREATININE FOR GFR 0.34 MG/DL (0.70-1.30); GLOMERULAR FILTRATION RATE > 60.0 (>60); GLUCOSE, FASTING 95 MG/DL (60-100); MAGNESIUM LEVEL 2.8 MG/DL (1.8-2.4); POTASSIUM SERUM 3.3 MMOL/L (3.5-5.1); SODIUM LEVEL 141 MMOL/L (136-145)
[2023-02-27] MEDS: PANTOPRAZOLE 40MG VIAL IV SCH ×2 (10:21→21:59)
[2023-02-27] MEDS: amLODIPine 5 MG TAB JT SCH (10:21)
[2023-02-27] MEDS: SIMETHICONE 40MG/0.6ML DROPS 30ML JT SCH ×3 (10:22→22:00)
[2023-02-27] MEDS: HEPARIN SOD (PORCINE) 5000UNITS/ML 1ML VIAL/SYRINGE SC SCH ×2 (10:22→21:59)
[2023-02-27] MEDS: LevoFLOXacin IV 250 MG in IV 1 EA IV SCH (16:21)
[2023-02-27] MEDS ORDERED: POTASSIUM CHL PWD 20MEQ PACKET PO ONE (16:40)
[2023-02-27] MEDS: ALBUTEROL SULFATE 2.5MG/0.5ML INH NEB SOLN NEB PRN (20:42)
[2023-02-27] MEDS: PHENobarbital ELIX 20 MG/5 ML UD JT SCH (21:58)
[2023-02-27] MEDS: FAMOTIDINE 20 MG TAB JT SCH (21:58)
[2023-02-27] MEDS: diphenhydrAMINE 12.5MG/5ML ELIXIR UDC JT SCH (21:59)
[2023-02-28] VITALS (8 sets, daily range): BP systolic 105; BP diastolic 68; TEMP 97.3; O2SAT 92–95
[2023-02-28] MEDS: SUCRALFATE SUSP 1GM/10ML UD GT SCH ×2 (03:20→10:48)
[2023-02-28 05:55] LABS: BASO % 0.4 % (0.0-1.0); EOS # 0.3 10^3/uL (0.0-0.5); HEMOGLOBIN 13.2 g/dl (13.5-17.5); LYMPH # 3.9 10^3/uL (1.5-5.0); LYMPH % 51.4 % (24.0-44.0); MEAN CORPUSCULAR HEMOGLOBIN 31.7 pg (27.0-33.0); MEAN CORPUSCULAR VOLUME 96.2 fl (80.0-96.0); MONO # 0.7 10^3/uL (0.0-0.8); MONO % 8.7 % (2.0-8.0); NEUTROPHILS # 2.7 10^3/uL (1.5-8.5); NEUTROPHILS % 35.4 % (36.0-66.0); PLATELET COUNT, AUTOMATED 146 10^3/uL (150-450); RED BLOOD COUNT 4.16 10^6/uL (4.30-6.10); WHITE BLOOD COUNT 7.6 10^3/uL (4.0-10.0)
[2023-02-28 06:33] LABS: BLOOD UREA NITROGEN 16 MG/DL (9-23); CALCIUM LEVEL 7.9 MG/DL (8.5-10.1); CARBON DIOXIDE LEVEL 26 MMOL/L (20-31); CHLORIDE LEVEL 109 MMOL/L (98-107); CREATININE FOR GFR 0.33 MG/DL (0.70-1.30); GLOMERULAR FILTRATION RATE > 60.0 (>60); GLUCOSE, FASTING 83 MG/DL (60-100); MAGNESIUM LEVEL 2.6 MG/DL (1.8-2.4); SODIUM LEVEL 141 MMOL/L (136-145)
[2023-02-28] MEDS: amLODIPine 5 MG TAB JT SCH (09:09)
[2023-02-28] MEDS: HEPARIN SOD (PORCINE) 5000UNITS/ML 1ML VIAL/SYRINGE SC SCH (09:10)
[2023-02-28] MEDS: SIMETHICONE 40MG/0.6ML DROPS 30ML JT SCH (09:10)
[2023-02-28] MEDS: PANTOPRAZOLE 40MG VIAL IV SCH (09:10)
[2023-02-28] MEDS ORDERED: LEVO1TAB38 JT (09:33)
[2023-02-28] MEDS ORDERED: AMLO1TAB24 JT (09:33)
[2023-02-28] MEDS ORDERED: ACET325S6 JT (09:33)
[2023-02-28] MEDS ORDERED: LevoFLOXacin 250 MG TABLET JT SCH (18:00)
== END 2023-02-28 13:29 | disposition home or self-care (01) | DRG 871 ==
LOC: EDBD 13:07 → M ED 13:07 → M ED INP 18:09 → M PCU 20:54 → M MSPAV 02-27 22:51
PROVIDERS: ADMIT Student in an Organized Health Care Education/Training Program; ATTEND Internal Medicine
DX: A41.9 Sepsis, unspecified organism (principal); G80.0 Spastic quadriplegic cerebral palsy; N39.0 Urinary tract infection, site not specified; E87.20 Acidosis, unspecified; K92.0 Hematemesis; R65.20 Severe sepsis without septic shock; R13.10 Dysphagia, unspecified; I10 Essential (primary) hypertension; K21.9 Gastro-esophageal reflux disease without esophagitis; I16.0 Hypertensive urgency; B96.1 Klebsiella pneumoniae [K. pneumoniae] as the cause of diseases classified elsewhere; Z88.0 Allergy status to penicillin; Z91.040 Latex allergy status; Z79.899 Other long term (current) drug therapy; F79 Unspecified intellectual disabilities; K59.00 Constipation, unspecified; Z93.1 Gastrostomy status

== ENCOUNTER 2023-04-01 08:50 | Day surgery (SDC) | payer MEDICARE, MEDICAID ==
[~2023-04-01] VITALS: Ht 119.4 cm; Wt 32.7 kg
[~2023-04-01 08:50] MED LIST changes: +ACET325S6 JT; +AMLO1TAB24 GT; +AMLO1TAB24 JT; +BIOTLIQ9 PO; +CVS2.1SU PR; +IBUP-1824 PO; +LEVO1TAB38 JT; +METRCRM TOP; +NS 1,000 ML IV ONE; +PHEN20EL4 PO; +propofoL 200 MG/20 ML VIAL As Ordered ONE
[2023-04-01 10:43] VITALS: TEMP 97.3
[2023-04-01 11:10] VITALS: BP 121/67; O2SAT 97
== END 2023-04-01 11:20 | disposition home or self-care (01) ==
LOC: M OPP 08:50
PROVIDERS: ATTEND Internal Medicine Gastroenterology
DX: K64.8 Other hemorrhoids (principal); Q43.8 Other specified congenital malformations of intestine; R19.4 Change in bowel habit; Z79.818 Long term (current) use of other agents affecting estrogen receptors and estrogen levels; Z79.891 Long term (current) use of opiate analgesic; Z79.899 Other long term (current) drug therapy; Z91.040 Latex allergy status

== ENCOUNTER 2023-04-24 07:24 | Emergency (ER) | payer MEDICARE, MEDICAID ==
[~2023-04-24] VITALS: Ht 119.4 cm; Wt 31.4 kg
[~2023-04-24 07:24] MED LIST changes: -CVS2.1SU PR; +GLYC1SUP38 PR; -NS 1,000 ML IV ONE; -propofoL 200 MG/20 ML VIAL As Ordered ONE
[2023-04-24 08:27] LABS: VENOUS BASE EXCESS 2.8 (-2.0-2.0); VENOUS O2 SATURATION 77.8 % (60.0-80.0); VENOUS PARTIAL PRESSURE CO2 49.5 mmHg (38.0-50.0); VENOUS PARTIAL PRESSURE O2 40.8 mmHg (30.0-50.0); VENOUS PH 7.385 UNITS (7.330-7.430); VENOUS STANDARD HCO3 26.4 MMOL/L; VENOUS TOTAL CO2 30.5 MMOL/L (24.0-28.0)
[2023-04-24 08:31] LABS: BASO % 0.3 % (0.0-1.0); EOS % 0.1 % (0.0-3.0); HEMATOCRIT 46.3 % (42.0-52.0); HEMOGLOBIN 15.8 g/dl (13.5-17.5); LYMPH # 1.9 10^3/uL (1.5-5.0); LYMPH % 17.8 % (24.0-44.0); MEAN CORPUSCULAR HEMOGLOBIN 31.9 pg (27.0-33.0); MEAN CORPUSCULAR HGB CONC 34.1 g/dl (32.0-36.5); MEAN CORPUSCULAR VOLUME 93.5 fl (80.0-96.0); MONO # 0.8 10^3/uL (0.0-0.8); MONO % 7.1 % (2.0-8.0); NEUTROPHILS % 74.4 % (36.0-66.0); PLATELET COUNT, AUTOMATED 150 10^3/uL (150-450); RED BLOOD COUNT 4.95 10^6/uL (4.30-6.10); WHITE BLOOD COUNT 10.8 10^3/uL (4.0-10.0)
[2023-04-24 09:08] LABS: ALBUMIN 4.1 G/DL (3.2-5.2); ALKALINE PHOSPHATASE 101 U/L (46-116); ALT/SGPT 47 U/L (7.0-40); AST/SGOT 32 U/L (<34); BILIRUBIN,DIRECT 0.1 MG/DL (<0.4); BILIRUBIN,TOTAL 0.4 MG/DL (0.3-1.2); BLOOD UREA NITROGEN 7 MG/DL (9-23); CALCIUM LEVEL 9.4 MG/DL (8.5-10.1); CARBON DIOXIDE LEVEL 31 MMOL/L (20-31); CHLORIDE LEVEL 103 MMOL/L (98-107); GLOMERULAR FILTRATION RATE > 60.0 (>60); GLUCOSE, FASTING 74 MG/DL (60-100); POTASSIUM SERUM 3.9 MMOL/L (3.5-5.1); SODIUM LEVEL 139 MMOL/L (136-145); TOTAL PROTEIN 7.6 G/DL (5.7-8.2)
[2023-04-24 09:09] LABS: THYROID STIMULATING HORMONE 2.311 uIU/ML (0.55-4.78)
[2023-04-24] MEDS ORDERED: ISOVUE-370 76% 100ML VIAL As Ordered ONE (10:46)
[2023-04-24] MEDS: NS 1,000 ML IV ONE (11:37)
[2023-04-24] MEDS: cefTRIAXone SOD 2 GM in D5W MINI-BAG PLUS 50 ML IV ONE (12:16)
[2023-04-24] MEDS ORDERED: CIPR-249 GT (14:21)
[2023-04-24 14:54] VITALS: BP 153/88; TEMP 99.2; O2SAT 96
== END 2023-04-24 15:06 | disposition home or self-care (01) ==
LOC: M ED 07:24 → EDBD 07:24 → EDSEX 07:24 → M ED 15:06
DX: N39.0 Urinary tract infection, site not specified (principal); N41.0 Acute prostatitis; R00.0 Tachycardia, unspecified; I45.19 Other right bundle-branch block; F79 Unspecified intellectual disabilities; G40.909 Epilepsy, unspecified, not intractable, without status epilepticus; G80.9 Cerebral palsy, unspecified; Z91.040 Latex allergy status; Z88.0 Allergy status to penicillin; Z91.048 Other nonmedicinal substance allergy status; Z79.899 Other long term (current) drug therapy; Z79.2 Long term (current) use of antibiotics
CPT/HCPCS: 71045; 71260; 74177; 80048; 80076; 81001; 82803; 83605; 84443; 85025; 87040; 87088; 87186; 87486; 87581; 87633; 87798; 93005; 93041; 94760; 96361; 96365; 99285; J0696; Q9967

== ENCOUNTER 2023-05-04 13:58 | Inpatient (IN) | payer MEDICARE, MEDICAID ==
[~2023-05-04] VITALS: Ht 104.1 cm; Wt 31.1 kg
[~2023-05-04 13:58] MED LIST changes: -PHEN20EL4 PO
[2023-05-04 15:01] LABS: BASO % 0.2 % (0.0-1.0); EOS % 0.1 % (0.0-3.0); HEMATOCRIT 45.8 % (42.0-52.0); HEMOGLOBIN 15.3 g/dl (13.5-17.5); LYMPH # 2.3 10^3/uL (1.5-5.0); LYMPH % 21.5 % (24.0-44.0); MEAN CORPUSCULAR HEMOGLOBIN 32.1 pg (27.0-33.0); MEAN CORPUSCULAR HGB CONC 33.4 g/dl (32.0-36.5); MEAN CORPUSCULAR VOLUME 96.2 fl (80.0-96.0); MONO # 0.7 10^3/uL (0.0-0.8); NEUTROPHILS # 7.5 10^3/uL (1.5-8.5); PLATELET COUNT, AUTOMATED 192 10^3/uL (150-450); RED BLOOD COUNT 4.76 10^6/uL (4.30-6.10); WHITE BLOOD COUNT 10.5 10^3/uL (4.0-10.0)
[2023-05-04 15:03] LABS: BLOOD UREA NITROGEN 11 MG/DL (9-23); CALCIUM LEVEL 11.4 MG/DL (8.5-10.1); CARBON DIOXIDE LEVEL 31 MMOL/L (20-31); CHLORIDE LEVEL 103 MMOL/L (98-107); CREATININE FOR GFR 0.64 MG/DL (0.70-1.30); GLOMERULAR FILTRATION RATE > 60.0 (>60); GLUCOSE, FASTING 87 MG/DL (60-100); POTASSIUM SERUM 4.2 MMOL/L (3.5-5.1); SODIUM LEVEL 142 MMOL/L (136-145)
[2023-05-04] MEDS: ACETAMINOPHEN 160MG/5ML SUSP UDC DYE-FREE GT ONE (15:20)
[2023-05-04] MEDS: ACETAMINOPHEN 650MG SUPP PR ONE (16:43)
[2023-05-04] MEDS: hydrALAZINE 20MG/ML 1ML VIAL IV ONE (17:48)
[2023-05-04] MEDS: cefTRIAXone SOD 2 GM in D5W MINI-BAG PLUS 50 ML IV ONE (17:49)
[2023-05-04] MEDS ORDERED: TGTSUS2 GT (20:07)
[2023-05-04] MEDS: NS 500 ML IV ONE (20:14)
[2023-05-04] MEDS ORDERED: GUAI100S51 GT (20:17)
[2023-05-04] MEDS ORDERED: IBUP-1824 GT (20:18)
[2023-05-04] MEDS ORDERED: HOME MED LIST COMPLETE! XX SCH (20:25)
[2023-05-04 20:45] LABS: ALBUMIN 4.3 G/DL (3.2-5.2); ALKALINE PHOSPHATASE 104 U/L (46-116); ALT/SGPT 50 U/L (7.0-40); AST/SGOT 24 U/L (<34); BILIRUBIN,DIRECT 0.2 MG/DL (<0.4); BILIRUBIN,TOTAL 0.5 MG/DL (0.3-1.2); TOTAL PROTEIN 7.9 G/DL (5.7-8.2)
[2023-05-04] MEDS: FAMOTIDINE 20 MG TAB GT SCH (22:36)
[2023-05-04] MEDS: hydrALAZINE 20MG/ML 1ML VIAL IV PRN (23:43)
[2023-05-05] MEDS: METOCLOPRAMIDE INJ 10MG/2ML VIAL IV SCH (00:04)
[2023-05-05] MEDS: PHENobarbital ELIX 20 MG/5 ML UD GT SCH (01:57)
[2023-05-05] MEDS: NS 500 ML IV SCH (02:42)
[2023-05-05] MEDS: NS 500 ML IV ONE (03:00)
[2023-05-05 06:31] LABS: BLOOD UREA NITROGEN 11 MG/DL (9-23); CARBON DIOXIDE LEVEL 29 MMOL/L (20-31); CHLORIDE LEVEL 108 MMOL/L (98-107); CREATININE FOR GFR 0.46 MG/DL (0.70-1.30); GLOMERULAR FILTRATION RATE > 60.0 (>60); GLUCOSE, FASTING 98 MG/DL (60-100); POTASSIUM SERUM 3.5 MMOL/L (3.5-5.1); SODIUM LEVEL 144 MMOL/L (136-145)
[2023-05-05] MEDS ORDERED: IBUPROFEN 100MG 5ML SUSP UDC DYE FREE GT PRN (07:30)
[2023-05-05] MEDS ORDERED: GLUCOSE 4GM CHEW TABLET GT PRN (07:30)
[2023-05-05] MEDS ORDERED: guaiFENesin SYRUP 200MG 10ML UDC GT PRN (07:30)
[2023-05-05] MEDS ORDERED: GLYCERIN ADULT SUPP PR PRN (07:30)
[2023-05-05] MEDS ORDERED: SALIVA SUBSTITUTE(MOUTHKOTE) BTL MT PRN (07:30)
[2023-05-05] MEDS ORDERED: DEXTROSE 50% 50ML SYRINGE IV PRN (07:30)
[2023-05-05] MEDS ORDERED: GLUCAGON INJ 1MG VIAL SC PRN (07:30)
[2023-05-05] MEDS: LEVALBUTEROL 1.25MG 0.5ML CONCENTRATE NEB INH SCH (08:00)
[2023-05-05 08:42] LABS: BASO % 0.1 % (0.0-1.0); LYMPH # 1.9 10^3/uL (1.5-5.0); LYMPH % 11.4 % (24.0-44.0); MEAN CORPUSCULAR HEMOGLOBIN 31.3 pg (27.0-33.0); MEAN CORPUSCULAR HGB CONC 32.1 g/dl (32.0-36.5); MEAN CORPUSCULAR VOLUME 97.4 fl (80.0-96.0); MONO # 0.8 10^3/uL (0.0-0.8); NEUTROPHILS # 13.5 10^3/uL (1.5-8.5); NEUTROPHILS % 83.2 % (36.0-66.0); PLATELET COUNT, AUTOMATED 168 10^3/uL (150-450); WHITE BLOOD COUNT 16.3 10^3/uL (4.0-10.0)
[2023-05-05 08:48] LABS: HEMOGLOBIN 12.2 g/dl (13.5-17.5)
[2023-05-05] MEDS: MIRALAX *UNIT DOSE* 17GM PACKET GT SCH (09:00)
[2023-05-05] MEDS: ENOXAPARIN 30MG/0.3ML SYRINGE (J1650 PER 10MG) SC SCH (09:08)
[2023-05-05 09:11] LABS: PROCALCITONIN <0.04 ng/ml
[2023-05-05] MEDS: LR 1,000 ML IV ONE (11:12)
[2023-05-05 12:36] VITALS: BP 157/94; TEMP 98.9; O2SAT 96
[2023-05-05] MEDS: LACTULOSE 20GM/30ML SYRUP UDC GT SCH (12:41)
[2023-05-05] MEDS: METOCLOPRAMIDE 5 MG TAB GT SCH (14:04)
[2023-05-05] MEDS: LR 1,000 ML IV SCH (14:45)
[2023-05-05 16:00] VITALS: BP 165/96; TEMP 98.6; O2SAT 96
[2023-05-05 16:10] VITALS: TEMP 98.3; O2SAT 95
[2023-05-05 17:00] VITALS: BP 158/88
[2023-05-05] MEDS: LACTOBACILLUS ACIDOPHILUS CAP (BACID) PEG SCH (17:11)
[2023-05-05] MEDS: cefTRIAXone SOD 2 GM in D5W MINI-BAG PLUS 50 ML IV SCH (17:12)
[2023-05-05] MEDS: SIMETHICONE 40MG/0.6ML DROPS 30ML GT SCH (17:39)
[2023-05-05 19:43] VITALS: BP 148/72; TEMP 99.5; O2SAT 94
[2023-05-05] MEDS: diphenhydrAMINE 12.5MG/5ML ELIXIR UDC GT SCH (21:50)
[2023-05-05] MEDS: MOM 30ML SUSPENSION UDC GT SCH (21:50)
[2023-05-05 23:28] VITALS: BP 139/70; TEMP 99; O2SAT 96
[2023-05-06] VITALS (9 sets, daily range): BP systolic 126–169; BP diastolic 70–99; TEMP 97.4–100.4; O2SAT 92–98
[2023-05-06 06:09] LABS: BASO % 0.3 % (0.0-1.0); EOS % 0.2 % (0.0-3.0); HEMATOCRIT 34.2 % (42.0-52.0); HEMOGLOBIN 11.1 g/dl (13.5-17.5); LYMPH # 3.1 10^3/uL (1.5-5.0); LYMPH % 51.1 % (24.0-44.0); MEAN CORPUSCULAR HEMOGLOBIN 31.7 pg (27.0-33.0); MEAN CORPUSCULAR HGB CONC 32.5 g/dl (32.0-36.5); MEAN CORPUSCULAR VOLUME 97.7 fl (80.0-96.0); MONO # 0.5 10^3/uL (0.0-0.8); MONO % 8.6 % (2.0-8.0); NEUTROPHILS # 2.4 10^3/uL (1.5-8.5); NEUTROPHILS % 39.6 % (36.0-66.0); PLATELET COUNT, AUTOMATED 149 10^3/uL (150-450)
[2023-05-06 06:27] LABS: BLOOD UREA NITROGEN 7 MG/DL (9-23); CARBON DIOXIDE LEVEL 30 MMOL/L (20-31); CHLORIDE LEVEL 106 MMOL/L (98-107); CREATININE FOR GFR 0.36 MG/DL (0.70-1.30); GLOMERULAR FILTRATION RATE > 60.0 (>60); GLUCOSE, FASTING 80 MG/DL (60-100); POTASSIUM SERUM 3.7 MMOL/L (3.5-5.1); SODIUM LEVEL 142 MMOL/L (136-145)
[2023-05-06] MEDS: cefTRIAXone SOD 1 GM in D5W MINI-BAG PLUS 50 ML IV SCH (17:30)
[2023-05-06] MEDS: ACETAMINOPHEN 325MG/10.15ML UDC GT PRN (23:26)
[2023-05-07 02:16] VITALS: TEMP 98
[2023-05-07 04:11] VITALS: BP 147/67; TEMP 99.1; O2SAT 94
[2023-05-07 05:33] LABS: BASO % 0.3 % (0.0-1.0); EOS % 0.2 % (0.0-3.0); HEMATOCRIT 38.5 % (42.0-52.0); HEMOGLOBIN 12.9 g/dl (13.5-17.5); LYMPH # 3.8 10^3/uL (1.5-5.0); LYMPH % 32.6 % (24.0-44.0); MEAN CORPUSCULAR HEMOGLOBIN 31.9 pg (27.0-33.0); MEAN CORPUSCULAR HGB CONC 33.5 g/dl (32.0-36.5); MEAN CORPUSCULAR VOLUME 95.1 fl (80.0-96.0); MONO # 1.1 10^3/uL (0.0-0.8); MONO % 9.2 % (2.0-8.0); NEUTROPHILS # 6.7 10^3/uL (1.5-8.5); NEUTROPHILS % 57.4 % (36.0-66.0); PLATELET COUNT, AUTOMATED 156 10^3/uL (150-450); RED BLOOD COUNT 4.05 10^6/uL (4.30-6.10); WHITE BLOOD COUNT 11.7 10^3/uL (4.0-10.0)
[2023-05-07 06:04] LABS: BLOOD UREA NITROGEN 6 MG/DL (9-23); CALCIUM LEVEL 8.8 MG/DL (8.5-10.1); CARBON DIOXIDE LEVEL 30 MMOL/L (20-31); CHLORIDE LEVEL 104 MMOL/L (98-107); CREATININE FOR GFR 0.43 MG/DL (0.70-1.30); GLOMERULAR FILTRATION RATE > 60.0 (>60); GLUCOSE, FASTING 79 MG/DL (60-100); POTASSIUM SERUM 2.7 MMOL/L (3.5-5.1); SODIUM LEVEL 143 MMOL/L (136-145)
[2023-05-07] MEDS: KCL 10MEQ/100ML SWI (KRUN) 10 MEQ in IV 1 EA IV SCH ×2 (06:59→08:00)
[2023-05-07 07:42] LABS: MAGNESIUM LEVEL 1.6 MG/DL (1.8-2.4)
[2023-05-07 07:55] LABS: PROCALCITONIN <0.04 ng/ml
[2023-05-07 08:00] VITALS: BP 146/62; TEMP 98.6; O2SAT 94
[2023-05-07] MEDS: POTASSIUM CHLORIDE 10% LIQ 20MEQ/15ML UDC GT ONE (08:21)
[2023-05-07] MEDS: KCL 10MEQ/100ML SWI (KRUN) IV SCH (08:34)
[2023-05-07] MEDS: MAG SULF 1GM/100ML (MAG RUN) 1 GM in IV 1 EA IV SCH (12:19)
[2023-05-07 15:01] LABS: BLOOD UREA NITROGEN 5 MG/DL (9-23); CALCIUM LEVEL 8.3 MG/DL (8.5-10.1); CARBON DIOXIDE LEVEL 29 MMOL/L (20-31); CHLORIDE LEVEL 104 MMOL/L (98-107); CREATININE FOR GFR 0.37 MG/DL (0.70-1.30); GLOMERULAR FILTRATION RATE > 60.0 (>60); GLUCOSE, FASTING 122 MG/DL (60-100); POTASSIUM SERUM 3.5 MMOL/L (3.5-5.1); SODIUM LEVEL 138 MMOL/L (136-145)
[2023-05-07 16:00] VITALS: BP 112/62; TEMP 98; O2SAT 96
[2023-05-07 19:49] VITALS: BP 129/73; TEMP 98.2; O2SAT 94
[2023-05-08] VITALS (19 sets, daily range): BP systolic 108–226; BP diastolic 65–120; TEMP 97.7–99.8; O2SAT 90–96
[2023-05-08 07:06] LABS: BASO % 0.3 % (0.0-1.0); EOS % 0.5 % (0.0-3.0); HEMATOCRIT 35.9 % (42.0-52.0); HEMOGLOBIN 12.4 g/dl (13.5-17.5); LYMPH # 2.9 10^3/uL (1.5-5.0); MEAN CORPUSCULAR HEMOGLOBIN 32.2 pg (27.0-33.0); MEAN CORPUSCULAR HGB CONC 34.5 g/dl (32.0-36.5); MEAN CORPUSCULAR VOLUME 93.2 fl (80.0-96.0); MONO # 0.6 10^3/uL (0.0-0.8); MONO % 7.9 % (2.0-8.0); NEUTROPHILS # 3.7 10^3/uL (1.5-8.5); PLATELET COUNT, AUTOMATED 151 10^3/uL (150-450); RED BLOOD COUNT 3.85 10^6/uL (4.30-6.10); WHITE BLOOD COUNT 7.3 10^3/uL (4.0-10.0)
[2023-05-08 07:43] LABS: BLOOD UREA NITROGEN < 5 MG/DL (9-23); CALCIUM LEVEL 8.5 MG/DL (8.5-10.1); CARBON DIOXIDE LEVEL 30 MMOL/L (20-31); CHLORIDE LEVEL 104 MMOL/L (98-107); GLOMERULAR FILTRATION RATE > 60.0 (>60); GLUCOSE, FASTING 91 MG/DL (60-100); POTASSIUM SERUM 2.9 MMOL/L (3.5-5.1); SODIUM LEVEL 140 MMOL/L (136-145)
[2023-05-08] MEDS: POTASSIUM CHLORIDE 10% LIQ 20MEQ/15ML UDC PEG ONE (08:40)
[2023-05-08] MEDS: KCL 10MEQ/100ML SWI (KRUN) 10 MEQ in IV 1 EA IV SCH (08:40)
[2023-05-08] MEDS: **hydrALAZINE** 50 MG TAB PEG ONE (11:15)
[2023-05-08] MEDS ORDERED: MORPHINE 2 MG/ML 1ML VIAL As Ordered ONE (12:13)
[2023-05-08] MEDS: MORPHINE 2 MG/ML 1ML VIAL IV ONE (12:22)
[2023-05-08] MEDS: METOPROLOL 5 MG/5 ML VIAL IV STA ×2 (12:58→15:52)
[2023-05-08] MEDS ORDERED: ISOVUE-370 76% 100ML VIAL As Ordered ONE (13:27)
[2023-05-08 14:10] LABS: BASO % 0.2 % (0.0-1.0); EOS % 0.1 % (0.0-3.0); HEMATOCRIT 41.1 % (42.0-52.0); HEMOGLOBIN 14.1 g/dl (13.5-17.5); LYMPH # 2.2 10^3/uL (1.5-5.0); LYMPH % 26.5 % (24.0-44.0); MEAN CORPUSCULAR HGB CONC 34.3 g/dl (32.0-36.5); MEAN CORPUSCULAR VOLUME 93.2 fl (80.0-96.0); MONO # 0.7 10^3/uL (0.0-0.8); MONO % 7.9 % (2.0-8.0); NEUTROPHILS # 5.4 10^3/uL (1.5-8.5); NEUTROPHILS % 65.1 % (36.0-66.0); PLATELET COUNT, AUTOMATED 178 10^3/uL (150-450); RED BLOOD COUNT 4.41 10^6/uL (4.30-6.10); WHITE BLOOD COUNT 8.4 10^3/uL (4.0-10.0)
[2023-05-08] MEDS: PANTOPRAZOLE 40MG VIAL IV SCH (14:26)
[2023-05-08 14:27] LABS: BLOOD UREA NITROGEN < 5 MG/DL (9-23); CALCIUM LEVEL 8.7 MG/DL (8.5-10.1); CARBON DIOXIDE LEVEL 25 MMOL/L (20-31); CHLORIDE LEVEL 107 MMOL/L (98-107); CREATININE FOR GFR 0.39 MG/DL (0.70-1.30); GLOMERULAR FILTRATION RATE > 60.0 (>60); GLUCOSE, FASTING 99 MG/DL (60-100); POTASSIUM SERUM 4.3 MMOL/L (3.5-5.1); SODIUM LEVEL 139 MMOL/L (136-145)
[2023-05-08] MEDS: NS 1,000 ML IV SCH (14:28)
[2023-05-08] MEDS: METOPROLOL TART 25 MG TABLET PEG SCH (15:27)
[2023-05-08 15:44] LABS: MAGNESIUM LEVEL 1.7 MG/DL (1.8-2.4)
[2023-05-08] MEDS: LORazepam 2 MG/ML 1ML VIAL IV STA (17:29)
[2023-05-08] MEDS ORDERED: SODIUM CHLORIDE 0.9% INJ 10 ML SYR IV PRN (17:50)
[2023-05-08] MEDS: SODIUM CHLORIDE 0.9% INJ 10 ML SYR IV SCH (18:00)
[2023-05-08] MEDS: MAG SULF 1GM/100ML (MAG RUN) 1 GM in IV 1 EA IV SCH (19:39)
[2023-05-08] MEDS: PHENobarbital 65MG/ML 1ML VIAL IV SCH (20:55)
[2023-05-09] VITALS (10 sets, daily range): BP systolic 114–152; BP diastolic 58–90; TEMP 97.7–98.6; O2SAT 95–100
[2023-05-09 05:46] LABS: BASO % 0.2 % (0.0-1.0); EOS % 0.2 % (0.0-3.0); HEMATOCRIT 36.4 % (42.0-52.0); HEMOGLOBIN 12.2 g/dl (13.5-17.5); LYMPH # 2.6 10^3/uL (1.5-5.0); LYMPH % 20.6 % (24.0-44.0); MEAN CORPUSCULAR HEMOGLOBIN 31.9 pg (27.0-33.0); MEAN CORPUSCULAR HGB CONC 33.5 g/dl (32.0-36.5); MEAN CORPUSCULAR VOLUME 95.3 fl (80.0-96.0); MONO # 0.9 10^3/uL (0.0-0.8); MONO % 7.2 % (2.0-8.0); NEUTROPHILS # 9.2 10^3/uL (1.5-8.5); NEUTROPHILS % 71.6 % (36.0-66.0); PLATELET COUNT, AUTOMATED 161 10^3/uL (150-450); RED BLOOD COUNT 3.82 10^6/uL (4.30-6.10); WHITE BLOOD COUNT 12.8 10^3/uL (4.0-10.0)
[2023-05-09 06:23] LABS: BLOOD UREA NITROGEN 5 MG/DL (9-23); CALCIUM LEVEL 7.6 MG/DL (8.5-10.1); CARBON DIOXIDE LEVEL 25 MMOL/L (20-31); CHLORIDE LEVEL 107 MMOL/L (98-107); CREATININE FOR GFR 0.34 MG/DL (0.70-1.30); GLOMERULAR FILTRATION RATE > 60.0 (>60); GLUCOSE, FASTING 84 MG/DL (60-100); POTASSIUM SERUM 3.3 MMOL/L (3.5-5.1); SODIUM LEVEL 138 MMOL/L (136-145)
[2023-05-09] MEDS: POTASSIUM CHLORIDE 10% LIQ 20MEQ/15ML UDC PEG ONE (09:29)
[2023-05-09] MEDS: amLODIPine 5 MG TAB GT SCH (10:02)
[2023-05-09] MEDS: METOCLOPRAMIDE INJ 10MG/2ML VIAL IV SCH (10:02)
[2023-05-09] MEDS: BISACODYL 10MG SUPP PR ONE (10:03)
[2023-05-10 05:37] LABS: HEMATOCRIT 34.6 % (42.0-52.0); HEMOGLOBIN 11.7 g/dl (13.5-17.5); MEAN CORPUSCULAR HEMOGLOBIN 31.9 pg (27.0-33.0); MEAN CORPUSCULAR HGB CONC 33.8 g/dl (32.0-36.5); MEAN CORPUSCULAR VOLUME 94.3 fl (80.0-96.0); PLATELET COUNT, AUTOMATED 161 10^3/uL (150-450); RED BLOOD COUNT 3.67 10^6/uL (4.30-6.10); WHITE BLOOD COUNT 7.6 10^3/uL (4.0-10.0)
[2023-05-10 06:00] VITALS: BP 129/73; TEMP 98.3; O2SAT 96
[2023-05-10 06:05] LABS: ATYPICAL LYMPH 3 % (0-5); BASOPHILS 1 % (0-1); EOSINOPHILS 2 % (0-3); LYMPHOCYTES 38 % (16-44); MONOCYTES 8 % (0-5); NEUTROPHILS 48 % (28-66); PLATELET ESTIMATE NORMAL (NORMAL)
[2023-05-10 06:12] LABS: BLOOD UREA NITROGEN < 5 MG/DL (9-23); CALCIUM LEVEL 8.1 MG/DL (8.5-10.1); CARBON DIOXIDE LEVEL 28 MMOL/L (20-31); CHLORIDE LEVEL 106 MMOL/L (98-107); CREATININE FOR GFR 0.34 MG/DL (0.70-1.30); GLOMERULAR FILTRATION RATE > 60.0 (>60); GLUCOSE, FASTING 101 MG/DL (60-100); POTASSIUM SERUM 3.2 MMOL/L (3.5-5.1); SODIUM LEVEL 139 MMOL/L (136-145)
[2023-05-10 08:00] VITALS: BP 163/98; TEMP 99.1; O2SAT 97
[2023-05-10 09:14] VITALS: BP 154/88; O2SAT 96
[2023-05-10 09:15] VITALS: BP 154/88
[2023-05-10] MEDS: POTASSIUM CHLORIDE 10% LIQ 20MEQ/15ML UDC GT ONE (09:15)
[2023-05-10] MEDS ORDERED: AMLO1TAB24 GT (09:58)
[2023-05-10 12:00] VITALS: BP 131/82; TEMP 98.5; O2SAT 93
== END 2023-05-10 14:14 | disposition home or self-care (01) | DRG 871 ==
LOC: M ED 13:58 → M ED INP 20:37 → ENRESERV 22:31 → M PCU 05-05 12:23 → M MS5PR 05-08 01:15 → M ICU 05-08 12:25
PROVIDERS: ADMIT Internal Medicine; ATTEND Internal Medicine
DX: A41.9 Sepsis, unspecified organism (principal); J69.0 Pneumonitis due to inhalation of food and vomit; G80.0 Spastic quadriplegic cerebral palsy; J98.11 Atelectasis; R65.20 Severe sepsis without septic shock; I10 Essential (primary) hypertension; F79 Unspecified intellectual disabilities; G40.909 Epilepsy, unspecified, not intractable, without status epilepticus; N41.1 Chronic prostatitis; E87.6 Hypokalemia; E83.42 Hypomagnesemia; R19.7 Diarrhea, unspecified; K59.00 Constipation, unspecified; K21.9 Gastro-esophageal reflux disease without esophagitis; G47.00 Insomnia, unspecified; Z88.0 Allergy status to penicillin; Z91.040 Latex allergy status; Z79.899 Other long term (current) drug therapy

== ENCOUNTER → 2023-06-11 | Outpatient (REF) | payer MEDICARE, MEDICAID ==
[~2023-06-11] MED LIST changes: +GUAI100S51 GT; +IBUP-1824 GT; +PHEN20EL19 GT; -PHEN20EL4 GT; +TGTSUS2 GT
[2023-06-11 18:01] LABS: HEMATOCRIT 43.1 % (42.0-52.0); HEMOGLOBIN 14.8 g/dl (13.5-17.5); MEAN CORPUSCULAR HEMOGLOBIN 32.4 pg (27.0-33.0); MEAN CORPUSCULAR HGB CONC 34.3 g/dl (32.0-36.5); MEAN CORPUSCULAR VOLUME 94.3 fl (80.0-96.0); PLATELET COUNT, AUTOMATED 172 10^3/uL (150-450); RED BLOOD COUNT 4.57 10^6/uL (4.30-6.10); WHITE BLOOD COUNT 6.1 10^3/uL (4.0-10.0)
[2023-06-11 18:09] LABS: BLOOD UREA NITROGEN 8 MG/DL (9-23); CALCIUM LEVEL 10.7 MG/DL (8.5-10.1); CARBON DIOXIDE LEVEL 36 MMOL/L (20-31); CHLORIDE LEVEL 98 MMOL/L (98-107); CREATININE FOR GFR 0.41 MG/DL (0.70-1.30); GLOMERULAR FILTRATION RATE > 60.0 (>60); GLUCOSE, FASTING 83 MG/DL (60-100); POTASSIUM SERUM 3.6 MMOL/L (3.5-5.1); SODIUM LEVEL 142 MMOL/L (136-145)
== END ==
LOC: M LABSMT 13:37
PROVIDERS: ATTEND Nurse Practitioner Family
DX: Z01.818 Encounter for other preprocedural examination (principal)

== ENCOUNTER → 2023-06-12 | Outpatient (REF) | payer MEDICARE ==
[2023-06-12 12:49] LABS: AMORPHOUS SEDIMENT SMALL (NEGATIVE); APPEARANCE, URINE CLOUDY (CLEAR); BACTERIA, URINE AUTO NEGATIVE (NEGATIVE); BILIRUBIN, URINE AUTO NEGATIVE (NEGATIVE); BLOOD, URINE BLOOD NEGATIVE (NEGATIVE); COLOR, URINE YELLOW (YELLOW); GLUCOSE, URINE (UA) AUTO NEGATIVE (NEGATIVE); KETONE, URINE AUTO NEGATIVE (NEGATIVE); LEUKOCYTE ESTERASE, URINE AUTO NEGATIVE (NEGATIVE); NITRITE, URINE AUTO NEGATIVE (NEGATIVE); PROTEIN, URINE AUTO NEGATIVE (NEGATIVE); RBC, URINE AUTO 0 /HPF (0-3); SPECIFIC GRAVITY URINE AUTO 1.006 (1.002-1.035); SQUAMOUS EPITHELIAL CELL UR AU 0 /HPF (0-6); UROBILINOGEN, URINE AUTO 0.2 mg/dL (0.0-2.0); WBC, URINE AUTO 2 /HPF (0-3)
== END ==
LOC: M SMT 11:42
PROVIDERS: ATTEND Nurse Practitioner Family
DX: Z01.818 Encounter for other preprocedural examination (principal)

== ENCOUNTER 2023-06-19 07:50 | Day surgery (SDC) | payer MEDICARE, MEDICAID ==
[~2023-06-19] VITALS: Ht 94 cm; Wt 29.4 kg
[2023-06-19] MEDS ORDERED: LR 1,000 ML IV SCH (08:20)
[2023-06-19] MEDS ORDERED: LIDOCAINE 2% 100MG/5ML SDV (FOR ANES.) As Ordered ONE (09:00)
[2023-06-19] MEDS ORDERED: fentaNYL 100 MCG/2 ML INJECTION As Ordered ONE (09:00)
[2023-06-19] MEDS ORDERED: propofoL 200 MG/20 ML VIAL As Ordered ONE (09:00)
[2023-06-19] MEDS ORDERED: MIDAZOLAM INJ 2MG/2ML VIAL As Ordered ONE (09:00)
[2023-06-19] MEDS ORDERED: LIDOCAINE 1% SDV 5ML VIAL SC PRN (09:05)
[2023-06-19] MEDS: ceFAZolin SOD 2 GM in IV 1 EA IV ONE (09:42)
[2023-06-19] MEDS ORDERED: ACETAMINOPHEN 1000MG 100ML IV BAG As Ordered ONE (10:11)
[2023-06-19 11:40] VITALS: BP 150/96; TEMP 97.9; O2SAT 99
== END 2023-06-19 11:55 | disposition home or self-care (01) ==
LOC: M SDC 07:50
PROVIDERS: ATTEND Urology
DX: N20.0 Calculus of kidney (principal); I10 Essential (primary) hypertension; G80.0 Spastic quadriplegic cerebral palsy; R56.9 Unspecified convulsions; R32 Unspecified urinary incontinence; Z79.899 Other long term (current) drug therapy; Z93.1 Gastrostomy status; Z88.0 Allergy status to penicillin; Z91.040 Latex allergy status; K21.9 Gastro-esophageal reflux disease without esophagitis
CPT/HCPCS: 50590; 74018; J0131; J0690; J2250; J3010

== ENCOUNTER → 2023-07-02 | Outpatient (CLI) | payer MEDICARE, MEDICAID | LOC: M RAD 08:16 | PROVIDERS: ATTEND Nurse Practitioner Family | DX: N20.0 Calculus of kidney (principal) ==

== ENCOUNTER → 2023-07-29 | Outpatient (CLI) | payer MEDICARE, MEDICAID ==
[~2023-07-29] MED LIST changes: -METO5EL GT; +METO5SOL19 GT
== END ==
LOC: M RAD 11:22
PROVIDERS: ATTEND Nurse Practitioner Family
DX: R91.1 Solitary pulmonary nodule (principal)

== ENCOUNTER 2023-09-05 13:51 | Inpatient (IN) | payer MEDICARE, MEDICAID ==
[2023-09-05] MEDS: amLODIPine 5 MG TAB GT SCH (09:00)
[2023-09-05 15:09] LABS: BASO % 0.2 % (0.0-1.0); EOS % 0.1 % (0.0-3.0); HEMATOCRIT 43.6 % (42.0-52.0); HEMOGLOBIN 14.7 g/dl (13.5-17.5); LYMPH # 2.2 10^3/uL (1.5-5.0); LYMPH % 17.1 % (24.0-44.0); MEAN CORPUSCULAR HEMOGLOBIN 31.4 pg (27.0-33.0); MEAN CORPUSCULAR HGB CONC 33.7 g/dl (32.0-36.5); MEAN CORPUSCULAR VOLUME 93.2 fl (80.0-96.0); MONO # 0.9 10^3/uL (0.0-0.8); MONO % 6.7 % (2.0-8.0); NEUTROPHILS # 9.7 10^3/uL (1.5-8.5); NEUTROPHILS % 75.7 % (36.0-66.0); PLATELET COUNT, AUTOMATED 171 10^3/uL (150-450); RED BLOOD COUNT 4.68 10^6/uL (4.30-6.10); WHITE BLOOD COUNT 12.8 10^3/uL (4.0-10.0)
[2023-09-05] MEDS: cefTRIAXone SOD 2 GM in D5W MINI-BAG PLUS 50 ML IV ONE (16:37)
[2023-09-05] MEDS: NS 500 ML IV ONE (16:37)
[2023-09-05 17:00] LABS: ALBUMIN 3.8 G/DL (3.2-5.2); ALKALINE PHOSPHATASE 117 U/L (46-116); ALT/SGPT 47 U/L (7.0-40); AST/SGOT 47 U/L (<34); BILIRUBIN,DIRECT < 0.1 MG/DL (<0.4); BILIRUBIN,TOTAL 0.3 MG/DL (0.3-1.2); BLOOD UREA NITROGEN 9 MG/DL (9-23); CARBON DIOXIDE LEVEL 31 MMOL/L (20-31); CHLORIDE LEVEL 101 MMOL/L (98-107); CK-MB VALUE MASS < 1.0 NG/ML (<3.6); CPK CREATINE PHOSPHOKINASE 210 U/L (46-171); GLOMERULAR FILTRATION RATE > 60.0 (>60); GLUCOSE, FASTING 78 MG/DL (60-100); MB/CK RELATIVE INDEX 0.47 (< OR =4); POTASSIUM SERUM 4.3 MMOL/L (3.5-5.1); SODIUM LEVEL 138 MMOL/L (136-145); TOTAL PROTEIN 7.1 G/DL (5.7-8.2)
[2023-09-05] MEDS ORDERED: MAALOX 30 ML SUSP *UDC GT PRN (18:20)
[2023-09-05] MEDS ORDERED: HOME MED LIST COMPLETE! XX SCH (19:45)
[2023-09-05 20:30] VITALS: BP 168/100; TEMP 98.4; O2SAT 100
[2023-09-05] MEDS ORDERED: GLYCERIN ADULT SUPP PR PRN (22:45)
[2023-09-06 03:30] VITALS: BP 119/82; TEMP 98.8; O2SAT 92
[2023-09-06 07:22] VITALS: BP 133/81
[2023-09-06 08:30] LABS: BASO % 0.5 % (0.0-1.0); EOS % 0.4 % (0.0-3.0); HEMATOCRIT 41.5 % (42.0-52.0); HEMOGLOBIN 13.2 g/dl (13.5-17.5); LYMPH # 1.9 10^3/uL (1.5-5.0); LYMPH % 34.2 % (24.0-44.0); MEAN CORPUSCULAR HEMOGLOBIN 31.8 pg (27.0-33.0); MEAN CORPUSCULAR HGB CONC 31.8 g/dl (32.0-36.5); MONO # 0.6 10^3/uL (0.0-0.8); MONO % 10.6 % (2.0-8.0); NEUTROPHILS # 3.1 10^3/uL (1.5-8.5); NEUTROPHILS % 54.1 % (36.0-66.0); PLATELET COUNT, AUTOMATED 162 10^3/uL (150-450); RED BLOOD COUNT 4.15 10^6/uL (4.30-6.10); WHITE BLOOD COUNT 5.6 10^3/uL (4.0-10.0)
[2023-09-06] MEDS: HEPARIN SOD (PORCINE) 5000UNITS/ML 1ML VIAL/SYRINGE SC SCH (08:38)
[2023-09-06] MEDS: MOM 30ML SUSPENSION UDC GT PRN (08:38)
[2023-09-06] MEDS: cefTRIAXone SOD 2 GM in D5W MINI-BAG PLUS 50 ML IV SCH (08:38)
[2023-09-06] MEDS: SIMETHICONE 40MG/0.6ML DROPS 30ML GT SCH (08:38)
[2023-09-06 08:45] LABS: BLOOD UREA NITROGEN 10 MG/DL (9-23); CALCIUM LEVEL 9.7 MG/DL (8.5-10.1); CARBON DIOXIDE LEVEL 30 MMOL/L (20-31); CHLORIDE LEVEL 104 MMOL/L (98-107); CREATININE FOR GFR 0.46 MG/DL (0.70-1.30); GLOMERULAR FILTRATION RATE > 60.0 (>60); GLUCOSE, FASTING 106 MG/DL (60-100); MAGNESIUM LEVEL 2.2 MG/DL (1.8-2.4); POTASSIUM SERUM 3.5 MMOL/L (3.5-5.1); SODIUM LEVEL 139 MMOL/L (136-145)
[2023-09-06] MEDS ORDERED: ENOXAPARIN 40MG/0.4ML SYRINGE (J1650 PER 10MG) SC SCH (09:00)
[2023-09-06 12:00] VITALS: BP 121/81; TEMP 97.9; O2SAT 95
[2023-09-06] MEDS: VANCOMYCIN HCL 750 MG, VIAL MATE ADAPTER 1 EACH in D5W 250 ML IV ONE (15:22)
[2023-09-06 19:55] VITALS: BP 131/69; TEMP 98.6; O2SAT 95
[2023-09-06] MEDS: FAMOTIDINE 20 MG TAB GT SCH (21:16)
[2023-09-06] MEDS: PHENobarbital ELIX 20 MG/5 ML UD GT SCH (21:16)
[2023-09-06] MEDS: diphenhydrAMINE 12.5MG/5ML ELIXIR UDC GT SCH (21:17)
[2023-09-07 04:09] VITALS: BP 132/73; TEMP 98.1; O2SAT 94
[2023-09-07] MEDS: VANCOMYCIN HCL 500 MG in D5W MINI-BAG PLUS 100 ML IV SCH (06:13)
[2023-09-07 06:28] LABS: VANCOMYCIN LEVEL TROUGH 7.4 UG/ML (10.0-20.0)
[2023-09-07] MEDS: MIRALAX *UNIT DOSE* 17GM PACKET GT SCH (08:58)
[2023-09-07 10:23] LABS: BASO % 0.6 % (0.0-1.0); EOS % 0.5 % (0.0-3.0); HEMATOCRIT 42.9 % (42.0-52.0); HEMOGLOBIN 13.9 g/dl (13.5-17.5); LYMPH # 2.2 10^3/uL (1.5-5.0); LYMPH % 35.2 % (24.0-44.0); MEAN CORPUSCULAR HEMOGLOBIN 32.4 pg (27.0-33.0); MEAN CORPUSCULAR HGB CONC 32.4 g/dl (32.0-36.5); MONO # 0.7 10^3/uL (0.0-0.8); MONO % 11.5 % (2.0-8.0); NEUTROPHILS # 3.2 10^3/uL (1.5-8.5); PLATELET COUNT, AUTOMATED 154 10^3/uL (150-450); RED BLOOD COUNT 4.29 10^6/uL (4.30-6.10); WHITE BLOOD COUNT 6.2 10^3/uL (4.0-10.0)
[2023-09-07 10:26] LABS: BLOOD UREA NITROGEN 7 MG/DL (9-23); CALCIUM LEVEL 10.3 MG/DL (8.5-10.1); CARBON DIOXIDE LEVEL 30 MMOL/L (20-31); CHLORIDE LEVEL 104 MMOL/L (98-107); CREATININE FOR GFR 0.49 MG/DL (0.70-1.30); GLOMERULAR FILTRATION RATE > 60.0 (>60); GLUCOSE, FASTING 89 MG/DL (60-100); MAGNESIUM LEVEL 2.1 MG/DL (1.8-2.4); POTASSIUM SERUM 4.1 MMOL/L (3.5-5.1); SODIUM LEVEL 141 MMOL/L (136-145)
[2023-09-07 12:00] VITALS: BP 161/84; TEMP 98.1; O2SAT 96
[2023-09-07 21:00] VITALS: BP 148/90; TEMP 97; O2SAT 97
[2023-09-08 04:40] VITALS: BP 116/86; TEMP 97.9; O2SAT 98
[2023-09-08 07:05] LABS: BLOOD UREA NITROGEN 8 MG/DL (9-23); CALCIUM LEVEL 9.9 MG/DL (8.5-10.1); CARBON DIOXIDE LEVEL 32 MMOL/L (20-31); CHLORIDE LEVEL 101 MMOL/L (98-107); CREATININE FOR GFR 0.53 MG/DL (0.70-1.30); GLOMERULAR FILTRATION RATE > 60.0 (>60); GLUCOSE, FASTING 92 MG/DL (60-100); POTASSIUM SERUM 3.4 MMOL/L (3.5-5.1); SODIUM LEVEL 138 MMOL/L (136-145)
[2023-09-08] MEDS: POTASSIUM CHLORIDE 10% LIQ 20MEQ/15ML UDC GT SCH (09:54)
[2023-09-08 12:00] VITALS: BP 113/69; TEMP 97.9; O2SAT 94
[2023-09-08] MEDS: ACETAMINOPHEN 325MG/10.15ML UDC GT PRN (17:28)
[2023-09-08 20:00] VITALS: BP 123/83; TEMP 98.2; O2SAT 94
[2023-09-09 04:00] VITALS: BP 124/84; TEMP 97.6; O2SAT 94
[2023-09-09 05:59] LABS: BASO % 0.4 % (0.0-1.0); EOS # 0.1 10^3/uL (0.0-0.5); HEMATOCRIT 37.4 % (42.0-52.0); HEMOGLOBIN 12.6 g/dl (13.5-17.5); LYMPH # 3.1 10^3/uL (1.5-5.0); LYMPH % 33.4 % (24.0-44.0); MEAN CORPUSCULAR HEMOGLOBIN 31.9 pg (27.0-33.0); MEAN CORPUSCULAR HGB CONC 33.7 g/dl (32.0-36.5); MEAN CORPUSCULAR VOLUME 94.7 fl (80.0-96.0); MONO # 0.7 10^3/uL (0.0-0.8); NEUTROPHILS # 5.2 10^3/uL (1.5-8.5); PLATELET COUNT, AUTOMATED 155 10^3/uL (150-450); RED BLOOD COUNT 3.95 10^6/uL (4.30-6.10); WHITE BLOOD COUNT 9.2 10^3/uL (4.0-10.0)
[2023-09-09 06:45] LABS: BLOOD UREA NITROGEN 8 MG/DL (9-23); CALCIUM LEVEL 9.9 MG/DL (8.5-10.1); CARBON DIOXIDE LEVEL 29 MMOL/L (20-31); CHLORIDE LEVEL 105 MMOL/L (98-107); CREATININE FOR GFR 0.49 MG/DL (0.70-1.30); GLOMERULAR FILTRATION RATE > 60.0 (>60); GLUCOSE, FASTING 79 MG/DL (60-100); MAGNESIUM LEVEL 1.8 MG/DL (1.8-2.4); POTASSIUM SERUM 4.8 MMOL/L (3.5-5.1); SODIUM LEVEL 137 MMOL/L (136-145)
[2023-09-09] MEDS ORDERED: KCL 10MEQ/100ML SWI (KRUN) 10 MEQ in IV 1 EA IV SCH (07:30)
[2023-09-09] MEDS: NS 1,000 ML IV SCH (11:08)
[2023-09-09 12:00] VITALS: BP 115/75; TEMP 97.7; O2SAT 94
[2023-09-09 20:00] VITALS: BP 121/75; TEMP 98.2; O2SAT 94
[2023-09-10 04:00] VITALS: BP 146/84; TEMP 97.9; O2SAT 95
[2023-09-10 06:08] LABS: BASO % 0.3 % (0.0-1.0); EOS # 0.1 10^3/uL (0.0-0.5); EOS % 1.9 % (0.0-3.0); HEMATOCRIT 39.1 % (42.0-52.0); HEMOGLOBIN 12.8 g/dl (13.5-17.5); LYMPH # 3.3 10^3/uL (1.5-5.0); LYMPH % 57.1 % (24.0-44.0); MEAN CORPUSCULAR HEMOGLOBIN 31.6 pg (27.0-33.0); MEAN CORPUSCULAR HGB CONC 32.7 g/dl (32.0-36.5); MEAN CORPUSCULAR VOLUME 96.5 fl (80.0-96.0); MONO # 0.4 10^3/uL (0.0-0.8); MONO % 7.6 % (2.0-8.0); NEUTROPHILS # 1.9 10^3/uL (1.5-8.5); NEUTROPHILS % 32.9 % (36.0-66.0); PLATELET COUNT, AUTOMATED 148 10^3/uL (150-450); RED BLOOD COUNT 4.05 10^6/uL (4.30-6.10); WHITE BLOOD COUNT 5.8 10^3/uL (4.0-10.0)
[2023-09-10 06:36] LABS: BLOOD UREA NITROGEN 8 MG/DL (9-23); CALCIUM LEVEL 9.6 MG/DL (8.5-10.1); CARBON DIOXIDE LEVEL 26 MMOL/L (20-31); CHLORIDE LEVEL 105 MMOL/L (98-107); CREATININE FOR GFR 0.47 MG/DL (0.70-1.30); GLOMERULAR FILTRATION RATE > 60.0 (>60); GLUCOSE, FASTING 77 MG/DL (60-100); MAGNESIUM LEVEL 1.9 MG/DL (1.8-2.4); POTASSIUM SERUM 4.1 MMOL/L (3.5-5.1); SODIUM LEVEL 139 MMOL/L (136-145)
[2023-09-10 08:31] VITALS: BP 128/79
[2023-09-10] MEDS ORDERED: CEFD250S26 FT (10:41)
[2023-09-10 12:00] VITALS: BP 116/72; TEMP 98.4; O2SAT 94
[2023-09-11] MEDS ORDERED: PROL60SO SC (19:38)
[2023-09-11] MEDS ORDERED: PHEN20EL GT (19:38)
[2023-09-11] MEDS ORDERED: JEVILIQ12 GT (19:46)
== END 2023-09-10 12:59 | disposition home or self-care (01) | DRG 871 ==
LOC: M ED 13:51 → M ED INP 18:16 → M MSPAV 20:27
PROVIDERS: ADMIT Student in an Organized Health Care Education/Training Program; ATTEND Student in an Organized Health Care Education/Training Program
DX: A41.9 Sepsis, unspecified organism (principal); G80.0 Spastic quadriplegic cerebral palsy; N39.0 Urinary tract infection, site not specified; F72 Severe intellectual disabilities; E87.20 Acidosis, unspecified; B96.1 Klebsiella pneumoniae [K. pneumoniae] as the cause of diseases classified elsewhere; E87.6 Hypokalemia; R13.10 Dysphagia, unspecified; I10 Essential (primary) hypertension; K21.9 Gastro-esophageal reflux disease without esophagitis; Z93.1 Gastrostomy status; G40.909 Epilepsy, unspecified, not intractable, without status epilepticus; Z88.0 Allergy status to penicillin; Z91.040 Latex allergy status; Z79.899 Other long term (current) drug therapy; K59.00 Constipation, unspecified

== ENCOUNTER 2023-09-11 11:53 | Inpatient (IN) | payer MEDICARE, MEDICAID ==
[~2023-09-11] VITALS: Ht 104.1 cm; Wt 30.3 kg
[~2023-09-11 11:53] MED LIST changes: +CEFD250S26 FT
[2023-09-11 13:30] LABS: ABG BASE EXCESS 0.2 (-2.0-2.0); ABG HCO3 23.7 MMOL/L (22.0-26.0); ABG O2 SATURATION 96.5 % (95.0-99.0); ABG PARTIAL PRESSURE CO2 34.9 mmHg (35.0-45.0); ABG PARTIAL PRESSURE O2 85.3 mmHg (75.0-100.0); ABG STANDARD HCO3 24.7 MMOL/L. (22.0-26.0); ABG TOTAL CO2 24.7 MMOL/L (22.0-29.0); ABG pH (ARTERIAL) 7.449 UNITS (7.350-7.450)
[2023-09-11] MEDS: NS 890 ML in IV 1 EA IV ONE (14:02)
[2023-09-11 14:56] LABS: BASO % 0.1 % (0.0-1.0); HEMATOCRIT 37.7 % (42.0-52.0); HEMOGLOBIN 12.8 g/dl (13.5-17.5); LYMPH # 1.5 10^3/uL (1.5-5.0); MEAN CORPUSCULAR HEMOGLOBIN 31.8 pg (27.0-33.0); MEAN CORPUSCULAR VOLUME 93.5 fl (80.0-96.0); MONO # 0.9 10^3/uL (0.0-0.8); MONO % 7.4 % (2.0-8.0); NEUTROPHILS # 9.9 10^3/uL (1.5-8.5); NEUTROPHILS % 80.2 % (36.0-66.0); PLATELET COUNT, AUTOMATED 155 10^3/uL (150-450); RED BLOOD COUNT 4.03 10^6/uL (4.30-6.10); WHITE BLOOD COUNT 12.4 10^3/uL (4.0-10.0)
[2023-09-11] MEDS: cefTRIAXone SOD 2 GM in D5W MINI-BAG PLUS 50 ML IV ONE (15:24)
[2023-09-11 15:33] LABS: BLOOD UREA NITROGEN 13 MG/DL (9-23); CALCIUM LEVEL 8.1 MG/DL (8.5-10.1); CARBON DIOXIDE LEVEL 25 MMOL/L (20-31); CHLORIDE LEVEL 108 MMOL/L (98-107); CREATININE FOR GFR 0.45 MG/DL (0.70-1.30); GLOMERULAR FILTRATION RATE > 60.0 (>60); GLUCOSE, FASTING 97 MG/DL (60-100); POTASSIUM SERUM 3.1 MMOL/L (3.5-5.1); SODIUM LEVEL 141 MMOL/L (136-145)
[2023-09-11] MEDS ORDERED: ISOVUE-370 76% 100ML VIAL As Ordered ONE (17:11)
[2023-09-11] MEDS: ACETAMINOPHEN 160MG/5ML SUSP UDC DYE-FREE PEG ONE (17:54)
[2023-09-11] MEDS ORDERED: PROL60SO SC (19:38)
[2023-09-11] MEDS ORDERED: PHEN20EL GT (19:38)
[2023-09-11] MEDS ORDERED: JEVILIQ12 GT (19:46)
[2023-09-11] MEDS: PHENobarbital ELIX 20 MG/5 ML UD GT SCH (22:00)
[2023-09-11] MEDS ORDERED: ACETAMINOPHEN TAB 650MG DOSE (2X325MG) PO PRN (22:00)
[2023-09-11] MEDS: IBUPROFEN 100MG 5ML SUSP UDC DYE FREE PO ONE (22:00)
[2023-09-11] MEDS: KCL 20MEQ IN 0.45NS 1000ML 1,000 ML IV ONE (22:01)
[2023-09-11 23:58] VITALS: BP 138/80; TEMP 97.9; O2SAT 97
[2023-09-12] MEDS ORDERED: NS 1,000 ML IV ONE ×2 (02:15→06:25)
[2023-09-12 04:00] VITALS: BP 151/91; TEMP 97.9; O2SAT 96
[2023-09-12 06:47] LABS: ALBUMIN 3.3 G/DL (3.2-5.2); ALKALINE PHOSPHATASE 92 U/L (46-116); ALT/SGPT 36 U/L (7.0-40); AST/SGOT 32 U/L (<34); BILIRUBIN,TOTAL 0.3 MG/DL (0.3-1.2); BLOOD UREA NITROGEN 8 MG/DL (9-23); CALCIUM LEVEL 8.8 MG/DL (8.5-10.1); CARBON DIOXIDE LEVEL 29 MMOL/L (20-31); CHLORIDE LEVEL 107 MMOL/L (98-107); CREATININE FOR GFR 0.39 MG/DL (0.70-1.30); GLOMERULAR FILTRATION RATE > 60.0 (>60); GLUCOSE, FASTING 79 MG/DL (60-100); POTASSIUM SERUM 3.6 MMOL/L (3.5-5.1); SODIUM LEVEL 141 MMOL/L (136-145); TOTAL PROTEIN 6.2 G/DL (5.7-8.2)
[2023-09-12] MEDS ORDERED: CEFD250S26 JT (06:57)
[2023-09-12] MEDS ORDERED: TRIPOIN9 TOP (06:57)
[2023-09-12] MEDS ORDERED: HOME MED LIST COMPLETE! XX SCH (07:00)
[2023-09-12] MEDS ORDERED: guaiFENesin SYRUP 200MG 10ML UDC GT PRN (07:55)
[2023-09-12] MEDS ORDERED: IBUPROFEN 100MG 5ML SUSP UDC DYE FREE GT PRN (07:55)
[2023-09-12] MEDS: METOCLOPRAMIDE 5 MG TAB GT SCH (09:11)
[2023-09-12] MEDS: amLODIPine 5 MG TAB GT SCH (09:11)
[2023-09-12] MEDS: SIMETHICONE 40MG/0.6ML DROPS 30ML GT SCH (09:21)
[2023-09-12 12:00] VITALS: BP 128/72; TEMP 97.9; O2SAT 95
[2023-09-12] MEDS: cefTRIAXone SOD 2 GM in D5W MINI-BAG PLUS 50 ML IV SCH (15:40)
[2023-09-12 20:08] VITALS: BP 132/68; TEMP 98.1; O2SAT 95
[2023-09-12] MEDS: diphenhydrAMINE 12.5MG/5ML ELIXIR UDC GT SCH (23:19)
[2023-09-12] MEDS: PHENobarbital ELIX 20 MG/5 ML UD GT SCH (23:19)
[2023-09-12] MEDS: FAMOTIDINE 20 MG TAB GT SCH (23:20)
[2023-09-12] MEDS: MOM 30ML SUSPENSION UDC GT SCH (23:20)
[2023-09-13 04:00] VITALS: BP 138/76; TEMP 97.7; O2SAT 93
[2023-09-13 07:58] LABS: HEMATOCRIT 34.5 % (42.0-52.0); HEMOGLOBIN 11.9 g/dl (13.5-17.5); MEAN CORPUSCULAR HEMOGLOBIN 32.4 pg (27.0-33.0); MEAN CORPUSCULAR HGB CONC 34.5 g/dl (32.0-36.5); PLATELET COUNT, AUTOMATED 163 10^3/uL (150-450); RED BLOOD COUNT 3.67 10^6/uL (4.30-6.10); WHITE BLOOD COUNT 9.4 10^3/uL (4.0-10.0)
[2023-09-13 08:23] LABS: BLOOD UREA NITROGEN 8 MG/DL (9-23); CALCIUM LEVEL 8.6 MG/DL (8.5-10.1); CARBON DIOXIDE LEVEL 30 MMOL/L (20-31); CHLORIDE LEVEL 103 MMOL/L (98-107); GLOMERULAR FILTRATION RATE > 60.0 (>60); GLUCOSE, FASTING 95 MG/DL (60-100); SODIUM LEVEL 138 MMOL/L (136-145)
[2023-09-13] MEDS ORDERED: POTASSIUM CHLORIDE 10MEQ SR TABLET PO ONE (09:15)
[2023-09-13] MEDS: MIRALAX *UNIT DOSE* 17GM PACKET GT SCH (09:15)
[2023-09-13] MEDS: KCL 20MEQ in NS 1000ML 1,000 ML IV SCH (09:44)
[2023-09-13 11:10] LABS: MAGNESIUM LEVEL 1.7 MG/DL (1.8-2.4)
[2023-09-13 12:21] VITALS: BP 101/69; TEMP 97.9; O2SAT 94
[2023-09-13] MEDS ORDERED: SALIVA SUBSTITUTE(MOUTHKOTE) BTL MT PRN (15:25)
[2023-09-13 20:00] VITALS: BP 152/64; TEMP 97.7; O2SAT 94
[2023-09-13 23:53] VITALS: BP 158/120; TEMP 101.4; O2SAT 91
[2023-09-13 23:57] VITALS: BP 158/120; TEMP 101.4; O2SAT 91
[2023-09-14] VITALS (8 sets, daily range): BP systolic 133–166; BP diastolic 75–99; TEMP 98–102.4; O2SAT 94–100
[2023-09-14] MEDS: ACETAMINOPHEN *IV* 1,000 MG in IV 1 EA IV ONE (00:22)
[2023-09-14] MEDS ORDERED: PIPERACILLIN/TAZOBACTAM SOD 3.375 GM in D5W MINI-BAG PLUS 50 ML IV SCH (00:35)
[2023-09-14] MEDS: METOPROLOL 5 MG/5 ML VIAL IV STA (00:35)
[2023-09-14] MEDS: SODIUM CHLORIDE 0.9% 1000ML IV ONE (00:42)
[2023-09-14] MEDS: CEFEPIME HCL 2 GM in D5W MINI-BAG PLUS 50 ML IV SCH (01:14)
[2023-09-14 01:17] LABS: BASO % 0.4 % (0.0-1.0); EOS % 0.3 % (0.0-3.0); HEMATOCRIT 40.6 % (42.0-52.0); HEMOGLOBIN 13.6 g/dl (13.5-17.5); LYMPH # 3.9 10^3/uL (1.5-5.0); LYMPH % 36.1 % (24.0-44.0); MEAN CORPUSCULAR HGB CONC 33.5 g/dl (32.0-36.5); MEAN CORPUSCULAR VOLUME 95.5 fl (80.0-96.0); MONO # 0.7 10^3/uL (0.0-0.8); MONO % 6.3 % (2.0-8.0); NEUTROPHILS # 6.1 10^3/uL (1.5-8.5); NEUTROPHILS % 56.6 % (36.0-66.0); PLATELET COUNT, AUTOMATED 216 10^3/uL (150-450); RED BLOOD COUNT 4.25 10^6/uL (4.30-6.10); WHITE BLOOD COUNT 10.7 10^3/uL (4.0-10.0)
[2023-09-14 01:46] LABS: ALBUMIN 3.7 G/DL (3.2-5.2); ALKALINE PHOSPHATASE 116 U/L (46-116); ALT/SGPT 46 U/L (7.0-40); AST/SGOT 36 U/L (<34); BILIRUBIN,TOTAL 0.2 MG/DL (0.3-1.2); BLOOD UREA NITROGEN 7 MG/DL (9-23); CALCIUM LEVEL 9.8 MG/DL (8.5-10.1); CARBON DIOXIDE LEVEL 18 MMOL/L (20-31); CHLORIDE LEVEL 104 MMOL/L (98-107); CREATININE FOR GFR 0.51 MG/DL (0.70-1.30); GLOMERULAR FILTRATION RATE > 60.0 (>60); GLUCOSE, FASTING 78 MG/DL (60-100); MAGNESIUM LEVEL 1.7 MG/DL (1.8-2.4); POTASSIUM SERUM 4.5 MMOL/L (3.5-5.1); SODIUM LEVEL 140 MMOL/L (136-145); TOTAL PROTEIN 7.2 G/DL (5.7-8.2)
[2023-09-14] MEDS: MAG SULF 1GM/100ML (MAG RUN) 1 GM in IV 1 EA IV ONE (02:41)
[2023-09-14 05:34] LABS: HEMATOCRIT 35.9 % (42.0-52.0); HEMOGLOBIN 12.1 g/dl (13.5-17.5); MEAN CORPUSCULAR HEMOGLOBIN 31.8 pg (27.0-33.0); MEAN CORPUSCULAR HGB CONC 33.7 g/dl (32.0-36.5); MEAN CORPUSCULAR VOLUME 94.2 fl (80.0-96.0); PLATELET COUNT, AUTOMATED 175 10^3/uL (150-450); RED BLOOD COUNT 3.81 10^6/uL (4.30-6.10); WHITE BLOOD COUNT 11.1 10^3/uL (4.0-10.0)
[2023-09-14 06:14] LABS: BLOOD UREA NITROGEN 7 MG/DL (9-23); CALCIUM LEVEL 8.4 MG/DL (8.5-10.1); CARBON DIOXIDE LEVEL 28 MMOL/L (20-31); CHLORIDE LEVEL 109 MMOL/L (98-107); CREATININE FOR GFR 0.37 MG/DL (0.70-1.30); GLOMERULAR FILTRATION RATE > 60.0 (>60); GLUCOSE, FASTING 95 MG/DL (60-100); POTASSIUM SERUM 3.7 MMOL/L (3.5-5.1); SODIUM LEVEL 142 MMOL/L (136-145)
[2023-09-14] MEDS: diphenhydrAMINE 50MG/ML VIAL IV ONE (20:42)
[2023-09-14] MEDS: PHENobarbital 65MG/ML 1ML VIAL IV ONE (20:42)
[2023-09-14] MEDS: levETIRAcetam INJection 1,000 MG in D5W 100 ML IV ONE (23:16)
[2023-09-15] VITALS (11 sets, daily range): BP systolic 131–175; BP diastolic 69–99; TEMP 97.8–99.6; O2SAT 95–100
[2023-09-16] VITALS: BP 155/97; TEMP 98.1; O2SAT 97
[2023-09-16 04:00] VITALS: BP 160/88; TEMP 97.8; O2SAT 96
[2023-09-16 08:00] VITALS: BP 167/98; TEMP 97.2; O2SAT 97
[2023-09-16 12:00] VITALS: BP 127/70; TEMP 97; O2SAT 100
[2023-09-16 16:00] VITALS: BP 153/85; TEMP 97.8; O2SAT 100
[2023-09-16 20:00] VITALS: BP 147/81; TEMP 98; O2SAT 100
[2023-09-17] VITALS: BP_SYST 147; BP_SYST 160; BP_DIAS 74; BP_DIAS 81; TEMP 98; O2SAT 100; O2SAT 96
[2023-09-17 04:00] VITALS: BP 174/94; TEMP 97.8; O2SAT 100
[2023-09-17 05:19] LABS: HEMATOCRIT 37.4 % (42.0-52.0); HEMOGLOBIN 12.7 g/dl (13.5-17.5); MEAN CORPUSCULAR HEMOGLOBIN 31.8 pg (27.0-33.0); MEAN CORPUSCULAR VOLUME 93.5 fl (80.0-96.0); PLATELET COUNT, AUTOMATED 227 10^3/uL (150-450); WHITE BLOOD COUNT 6.3 10^3/uL (4.0-10.0)
[2023-09-17 05:42] LABS: BLOOD UREA NITROGEN < 5 MG/DL (9-23); CALCIUM LEVEL 8.9 MG/DL (8.5-10.1); CARBON DIOXIDE LEVEL 25 MMOL/L (20-31); CHLORIDE LEVEL 105 MMOL/L (98-107); CREATININE FOR GFR 0.37 MG/DL (0.70-1.30); GLOMERULAR FILTRATION RATE > 60.0 (>60); GLUCOSE, FASTING 63 MG/DL (60-100); POTASSIUM SERUM 3.9 MMOL/L (3.5-5.1); SODIUM LEVEL 139 MMOL/L (136-145)
[2023-09-17 07:27] VITALS: BP 172/84; TEMP 97.4; O2SAT 100
[2023-09-17] MEDS ORDERED: GLUCAGON INJ 1MG VIAL SC PRN (07:55)
[2023-09-17] MEDS ORDERED: GLUCOSE 4 GM CHEW PO PRN (07:55)
[2023-09-17] MEDS: DEXTROSE 50% 50ML SYRINGE IV PRN (08:01)
[2023-09-17 09:52] VITALS: BP 154/76; O2SAT 100
[2023-09-17 11:37] VITALS: BP 151/85; TEMP 97.5; O2SAT 100
[2023-09-17] MEDS: KCL 20MEQ IN D5W 1000ML 1,000 ML IV SCH (13:46)
[2023-09-17 20:00] VITALS: BP 155/94; TEMP 98; O2SAT 98
[2023-09-18 07:38] VITALS: BP 167/67; TEMP 98; O2SAT 100
[2023-09-18] MEDS ORDERED: ISOVUE-300 61% 100ML VIAL As Ordered ONE (10:40)
[2023-09-18] MEDS ORDERED: LIDOCAINE 1% MDV 20ML VIAL As Ordered ONE (10:40)
[2023-09-18] MEDS ORDERED: LIDOCAINE 2% JELLY 6ML SYRINGE As Ordered ONE (10:42)
[2023-09-18 12:53] VITALS: BP 135/84; TEMP 97.9; O2SAT 98
[2023-09-18 15:24] VITALS: BP 141/94; TEMP 97.7; O2SAT 96
[2023-09-18 21:22] VITALS: BP 152/95; TEMP 97.7; O2SAT 94
[2023-09-19] MEDS ORDERED: amLODIPine 5 MG TAB As Ordered ONE (09:25)
[2023-09-19 12:00] VITALS: BP 136/95; TEMP 97.5; O2SAT 96
[2023-09-19 16:24] LABS: ALBUMIN 3.4 G/DL (3.2-5.2); ALKALINE PHOSPHATASE 115 U/L (46-116); ALT/SGPT 58 U/L (7.0-40); AST/SGOT 46 U/L (<34); BASO % 0.6 % (0.0-1.0); BILIRUBIN,TOTAL 0.4 MG/DL (0.3-1.2); BLOOD UREA NITROGEN < 5 MG/DL (9-23); CARBON DIOXIDE LEVEL 26 MMOL/L (20-31); CHLORIDE LEVEL 103 MMOL/L (98-107); EOS # 0.2 10^3/uL (0.0-0.5); EOS % 2.2 % (0.0-3.0); GLOMERULAR FILTRATION RATE > 60.0 (>60); GLUCOSE, FASTING 116 MG/DL (60-100); HEMATOCRIT 38.9 % (42.0-52.0); HEMOGLOBIN 13.3 g/dl (13.5-17.5); LYMPH # 2.1 10^3/uL (1.5-5.0); LYMPH % 31.4 % (24.0-44.0); MAGNESIUM LEVEL 1.9 MG/DL (1.8-2.4); MEAN CORPUSCULAR HEMOGLOBIN 31.8 pg (27.0-33.0); MEAN CORPUSCULAR HGB CONC 34.2 g/dl (32.0-36.5); MEAN CORPUSCULAR VOLUME 93.1 fl (80.0-96.0); MONO # 0.9 10^3/uL (0.0-0.8); MONO % 12.8 % (2.0-8.0); NEUTROPHILS # 3.6 10^3/uL (1.5-8.5); NEUTROPHILS % 52.9 % (36.0-66.0); PHOSPHORUS LEVEL 3.2 MG/DL (2.5-4.9); PLATELET COUNT, AUTOMATED 249 10^3/uL (150-450); POTASSIUM SERUM 4.8 MMOL/L (3.5-5.1); RED BLOOD COUNT 4.18 10^6/uL (4.30-6.10); SODIUM LEVEL 134 MMOL/L (136-145); TOTAL PROTEIN 6.5 G/DL (5.7-8.2); WHITE BLOOD COUNT 6.8 10^3/uL (4.0-10.0)
[2023-09-19 19:44] VITALS: BP 123/89; TEMP 98.1; O2SAT 96
[2023-09-20 03:44] VITALS: BP 151/108; TEMP 97.9; O2SAT 94
[2023-09-20 08:24] LABS: BASO # 0.1 10^3/uL (0.0-0.2); BASO % 0.7 % (0.0-1.0); EOS # 0.1 10^3/uL (0.0-0.5); EOS % 1.2 % (0.0-3.0); HEMOGLOBIN 13.3 g/dl (13.5-17.5); LYMPH # 1.8 10^3/uL (1.5-5.0); LYMPH % 24.8 % (24.0-44.0); MEAN CORPUSCULAR HGB CONC 33.3 g/dl (32.0-36.5); MEAN CORPUSCULAR VOLUME 96.4 fl (80.0-96.0); MONO # 0.7 10^3/uL (0.0-0.8); MONO % 9.8 % (2.0-8.0); NEUTROPHILS # 4.6 10^3/uL (1.5-8.5); NEUTROPHILS % 63.2 % (36.0-66.0); PLATELET COUNT, AUTOMATED 222 10^3/uL (150-450); RED BLOOD COUNT 4.15 10^6/uL (4.30-6.10); WHITE BLOOD COUNT 7.3 10^3/uL (4.0-10.0)
[2023-09-20 08:51] LABS: ALBUMIN 3.3 G/DL (3.2-5.2); ALKALINE PHOSPHATASE 116 U/L (46-116); ALT/SGPT 54 U/L (7.0-40); AST/SGOT 40 U/L (<34); BILIRUBIN,TOTAL 0.3 MG/DL (0.3-1.2); BLOOD UREA NITROGEN < 5 MG/DL (9-23); CALCIUM LEVEL 9.2 MG/DL (8.5-10.1); CARBON DIOXIDE LEVEL 26 MMOL/L (20-31); CHLORIDE LEVEL 106 MMOL/L (98-107); CREATININE FOR GFR 0.38 MG/DL (0.70-1.30); GLOMERULAR FILTRATION RATE > 60.0 (>60); GLUCOSE, FASTING 115 MG/DL (60-100); PHOSPHORUS LEVEL 2.7 MG/DL (2.5-4.9); POTASSIUM SERUM 4.2 MMOL/L (3.5-5.1); SODIUM LEVEL 137 MMOL/L (136-145); TOTAL PROTEIN 6.4 G/DL (5.7-8.2)
[2023-09-20 09:09] VITALS: BP 145/100
[2023-09-20 12:00] VITALS: BP 151/93; TEMP 97.7; O2SAT 96
[2023-09-20 12:54] LABS: MAGNESIUM LEVEL 1.9 MG/DL (1.8-2.4)
== END 2023-09-20 13:46 | disposition home or self-care (01) | DRG 177 ==
LOC: EDBD 11:53 → M ED 11:53 → M ED INP 21:26 → M MSPAV 23:58 → M ICU 09-14 00:12 → M MSPAV 09-18 15:10
PROVIDERS: ADMIT Internal Medicine; ATTEND Hospitalist
PROC: 0D20XUZ Change Feeding Device in Upper Intestinal Tract, External Approach (ICD-10-PCS; principal; 2023-09-18 10:55)
DX: J69.0 Pneumonitis due to inhalation of food and vomit (principal); G80.0 Spastic quadriplegic cerebral palsy; K94.23 Gastrostomy malfunction; I47.10 Supraventricular tachycardia, unspecified; I16.0 Hypertensive urgency; I10 Essential (primary) hypertension; K21.9 Gastro-esophageal reflux disease without esophagitis; E87.6 Hypokalemia; G40.909 Epilepsy, unspecified, not intractable, without status epilepticus; Z79.2 Long term (current) use of antibiotics; Z79.899 Other long term (current) drug therapy; Z88.0 Allergy status to penicillin; Z88.1 Allergy status to other antibiotic agents; Z91.040 Latex allergy status; Z86.16 Personal history of COVID-19

== ENCOUNTER 2023-10-11 02:37 | Emergency (ER) | payer MEDICARE, MEDICAID ==
[~2023-10-11] VITALS: Ht 119.4 cm; Wt 31.8 kg
[~2023-10-11 02:37] MED LIST changes: +CEFD250S26 JT; +JEVILIQ12 GT; +PROL60SO SC; +TRIPOIN9 TOP
[2023-10-11 08:50] VITALS: BP 145/81; TEMP 99.5; O2SAT 98
== END 2023-10-11 08:56 | disposition home or self-care (01) ==
LOC: M ED 02:37
DX: R39.12 Poor urinary stream (principal); I10 Essential (primary) hypertension; G40.909 Epilepsy, unspecified, not intractable, without status epilepticus; K21.9 Gastro-esophageal reflux disease without esophagitis; G80.9 Cerebral palsy, unspecified; Z79.2 Long term (current) use of antibiotics; Z79.1 Long term (current) use of non-steroidal anti-inflammatories (NSAID); Z79.899 Other long term (current) drug therapy

== ENCOUNTER → 2024-01-27 | Outpatient (REF) | payer MEDICARE, MEDICAID ==
[~2024-01-27] MED LIST changes: -LACT10SO3 GT; +LACT10SO94 GT; +NYST1POW3 TOP; -NYST1POW9 TOP
== END ==
LOC: M LAB REF 16:20
PROVIDERS: ATTEND Nurse Practitioner Family
DX: R05.9 Cough, unspecified (principal); Z20.828 Contact with and (suspected) exposure to other viral communicable diseases

== ENCOUNTER → 2024-02-02 | Outpatient (CLI) | payer MEDICARE, MEDICAID | LOC: M RAD 08:55 | PROVIDERS: ATTEND Nurse Practitioner Family | DX: Z87.442 Personal history of urinary calculi (principal) ==

== ENCOUNTER 2024-04-18 11:33 | Observation (INO) | payer MEDICARE, MEDICAID ==
[~2024-04-18] VITALS: Ht 116.8 cm; Wt 31.8 kg
[2024-04-18] MEDS ORDERED: HOME MED LIST COMPLETE! XX SCH (12:50)
[2024-04-18] MEDS ORDERED: ISOVUE-300 61% 100ML VIAL As Ordered ONE (14:08)
[2024-04-18 16:08] LABS: BASO % 0.3 % (0.0-1.0); EOS % 0.1 % (0.0-3.0); HEMATOCRIT 46.6 % (42.0-52.0); HEMOGLOBIN 16.1 g/dl (13.5-17.5); LYMPH # 2.7 10^3/uL (1.5-5.0); LYMPH % 26.8 % (24.0-44.0); MEAN CORPUSCULAR HEMOGLOBIN 32.4 pg (27.0-33.0); MEAN CORPUSCULAR HGB CONC 34.5 g/dl (32.0-36.5); MEAN CORPUSCULAR VOLUME 93.8 fl (80.0-96.0); MONO # 0.6 10^3/uL (0.0-0.8); MONO % 5.8 % (2.0-8.0); NEUTROPHILS # 6.7 10^3/uL (1.5-8.5); NEUTROPHILS % 66.8 % (36.0-66.0); PLATELET COUNT, AUTOMATED 177 10^3/uL (150-450); RED BLOOD COUNT 4.97 10^6/uL (4.30-6.10); WHITE BLOOD COUNT 10.1 10^3/uL (4.0-10.0)
[2024-04-18 16:18] LABS: BLOOD UREA NITROGEN 8 MG/DL (9-23); CALCIUM LEVEL 11.1 MG/DL (8.5-10.1); CARBON DIOXIDE LEVEL 34 MMOL/L (20-31); CHLORIDE LEVEL 99 MMOL/L (98-107); CREATININE FOR GFR 0.48 MG/DL (0.70-1.30); GLOMERULAR FILTRATION RATE > 60.0 (>60); GLUCOSE, FASTING 82 MG/DL (60-100); POTASSIUM SERUM 3.6 MMOL/L (3.5-5.1); SODIUM LEVEL 143 MMOL/L (136-145)
[2024-04-18] MEDS: NS (Normal Saline) 0.9% 1,000 ML IV SCH (16:20)
[2024-04-18] MEDS: D5W/0.9% SODIUM CHLORIDE 1,000 ML IV SCH (16:59)
[2024-04-18] MEDS: diphenhydrAMINE 50MG/ML VIAL IV SCH (21:17)
[2024-04-18] MEDS ORDERED: METOPROLOL 5 MG/5 ML VIAL As Ordered ONE (22:14)
[2024-04-18 22:26] VITALS: BP 174/124
[2024-04-18] MEDS: METOPROLOL 5 MG/5 ML VIAL IV STA (22:26)
[2024-04-18] MEDS: ACETAMINOPHEN 650MG SUPP PR PRN (22:43)
[2024-04-18 23:01] LABS: BASO % 0.4 % (0.0-1.0); EOS % 0.1 % (0.0-3.0); HEMATOCRIT 46.2 % (42.0-52.0); HEMOGLOBIN 15.8 g/dl (13.5-17.5); LYMPH # 2.9 10^3/uL (1.5-5.0); LYMPH % 25.8 % (24.0-44.0); MEAN CORPUSCULAR HEMOGLOBIN 32.4 pg (27.0-33.0); MEAN CORPUSCULAR HGB CONC 34.2 g/dl (32.0-36.5); MEAN CORPUSCULAR VOLUME 94.7 fl (80.0-96.0); MONO # 0.7 10^3/uL (0.0-0.8); MONO % 6.4 % (2.0-8.0); NEUTROPHILS # 7.6 10^3/uL (1.5-8.5); NEUTROPHILS % 67.1 % (36.0-66.0); PLATELET COUNT, AUTOMATED 205 10^3/uL (150-450); RED BLOOD COUNT 4.88 10^6/uL (4.30-6.10); WHITE BLOOD COUNT 11.3 10^3/uL (4.0-10.0)
[2024-04-18 23:07] LABS: ERYTHROCYTE SEDIMENTATION RATE 29 mm/hr (0-15)
[2024-04-18] MEDS: PHENobarbital 65MG/ML 1ML VIAL IV SCH (23:16)
[2024-04-18] MEDS: METOPROLOL 5 MG/5 ML VIAL IV SCH (23:20)
[2024-04-18 23:24] LABS: C REACTIVE PROTEIN QUANTITATIV 1.98 MG/DL (<1.0)
[2024-04-18 23:36] LABS: PROCALCITONIN 0.06 ng/ml
[2024-04-18 23:44] LABS: ALBUMIN 4.3 G/DL (3.2-5.2); ALKALINE PHOSPHATASE 125 U/L (40-129); ALT/SGPT 48 U/L (7.0-40); AST/SGOT 28 U/L (<34); BILIRUBIN,DIRECT 0.2 MG/DL (<0.4); BILIRUBIN,TOTAL 0.5 MG/DL (0.3-1.2); BLOOD UREA NITROGEN 11 MG/DL (9-23); CALCIUM LEVEL 10.3 MG/DL (8.5-10.1); CARBON DIOXIDE LEVEL 22 MMOL/L (20-31); CHLORIDE LEVEL 103 MMOL/L (98-107); CREATININE FOR GFR 0.63 MG/DL (0.70-1.30); GLOMERULAR FILTRATION RATE > 60.0 (>60); GLUCOSE, FASTING 74 MG/DL (60-100); POTASSIUM SERUM 4.7 MMOL/L (3.5-5.1); SODIUM LEVEL 145 MMOL/L (136-145); TOTAL PROTEIN 8.5 G/DL (5.7-8.2)
[2024-04-19] MEDS: SODIUM CHLORIDE 0.9% 1000 ML IV SCH (01:41)
[2024-04-19] MEDS: D5W/0.9% SODIUM CHLORIDE 1,000 ML IV SCH (02:04)
[2024-04-19 04:57] LABS: BASO % 0.3 % (0.0-1.0); EOS % 0.1 % (0.0-3.0); HEMATOCRIT 39.9 % (42.0-52.0); LYMPH # 2.3 10^3/uL (1.5-5.0); LYMPH % 23.3 % (24.0-44.0); MEAN CORPUSCULAR HEMOGLOBIN 32.2 pg (27.0-33.0); MEAN CORPUSCULAR HGB CONC 33.6 g/dl (32.0-36.5); MEAN CORPUSCULAR VOLUME 95.9 fl (80.0-96.0); MONO % 9.9 % (2.0-8.0); NEUTROPHILS # 6.4 10^3/uL (1.5-8.5); NEUTROPHILS % 66.1 % (36.0-66.0); PLATELET COUNT, AUTOMATED 157 10^3/uL (150-450); RED BLOOD COUNT 4.16 10^6/uL (4.30-6.10); WHITE BLOOD COUNT 9.7 10^3/uL (4.0-10.0)
[2024-04-19 05:01] LABS: HEMOGLOBIN 13.4 g/dl (13.5-17.5)
[2024-04-19 05:08] LABS: ALBUMIN 3.5 G/DL (3.2-5.2); ALKALINE PHOSPHATASE 95 U/L (40-129); ALT/SGPT 40 U/L (7.0-40); AST/SGOT 36 U/L (<34); BILIRUBIN,TOTAL 0.5 MG/DL (0.3-1.2); BLOOD UREA NITROGEN 9 MG/DL (9-23); CARBON DIOXIDE LEVEL 25 MMOL/L (20-31); CHLORIDE LEVEL 110 MMOL/L (98-107); CREATININE FOR GFR 0.51 MG/DL (0.70-1.30); GLOMERULAR FILTRATION RATE > 60.0 (>60); GLUCOSE, FASTING 92 MG/DL (60-100); POTASSIUM SERUM 3.5 MMOL/L (3.5-5.1); PTH INTACT 25.2 PG/ML (18.5-88.0); SODIUM LEVEL 146 MMOL/L (136-145); TOTAL PROTEIN 6.8 G/DL (5.7-8.2)
[2024-04-19 11:25] VITALS: TEMP 97.9
[2024-04-19] MEDS ORDERED: LIDOCAINE 1% MDV 20ML VIAL SC ONE (11:25)
[2024-04-19] MEDS ORDERED: LIDOCAINE 2% JELLY 6ML SYRINGE As Ordered ONE (11:27)
[2024-04-19] MEDS ORDERED: LIDOCAINE 1% MDV 20ML VIAL As Ordered ONE (11:27)
[2024-04-19] MEDS: LIDOCAINE 2% JELLY 6ML SYRINGE TOP ONE (12:20)
[2024-04-19] MEDS: ISOVUE-300 61% 100ML VIAL IV ONE (12:20)
[2024-04-19 15:04] VITALS: BP 127/78; O2SAT 100
== END 2024-04-19 18:06 | disposition home or self-care (01) ==
LOC: EDBD 11:33 → M ED 11:51 → M ED INP 11:52
PROVIDERS: ADMIT Internal Medicine Nephrology; ATTEND Internal Medicine Nephrology
DX: K94.23 Gastrostomy malfunction (principal); E86.0 Dehydration; E83.52 Hypercalcemia; E87.29 Other acidosis; G80.0 Spastic quadriplegic cerebral palsy; Q02 Microcephaly; G40.909 Epilepsy, unspecified, not intractable, without status epilepticus; I10 Essential (primary) hypertension; E87.6 Hypokalemia; Z91.040 Latex allergy status; Z88.0 Allergy status to penicillin; K21.9 Gastro-esophageal reflux disease without esophagitis; N20.0 Calculus of kidney; Z79.899 Other long term (current) drug therapy
CPT/HCPCS: 36415; 49452; 71045; 74018; 80048; 80053; 80076; 83605; 83735; 83970; 84145; 85025; 85652; 86140; 87040; 87486; 87581; 87633; 87798; 93005; 96374; 96375; 96376; 99285; G0378; J1200; J2560; Q9967

== ENCOUNTER → 2024-05-05 | Outpatient (CLI) | payer MEDICARE, MEDICAID ==
[2024-05-05 14:40] LABS: ALKALINE PHOSPHATASE 92 U/L (40-129); ALT/SGPT 57 U/L (7.0-40); AST/SGOT 54 U/L (<34); BILIRUBIN,TOTAL 0.3 MG/DL (0.3-1.2); BLOOD UREA NITROGEN 7 MG/DL (9-23); CALCIUM LEVEL 9.5 MG/DL (8.5-10.1); CARBON DIOXIDE LEVEL 29 MMOL/L (20-31); CHLORIDE LEVEL 98 MMOL/L (98-107); CREATININE FOR GFR 0.37 MG/DL (0.70-1.30); GLOMERULAR FILTRATION RATE > 60.0 (>60); GLUCOSE, FASTING 72 MG/DL (60-100); POTASSIUM SERUM 4.8 MMOL/L (3.5-5.1); PTH INTACT 22.5 PG/ML (18.5-88.0); SODIUM LEVEL 138 MMOL/L (136-145); TOTAL 25(OH) VITAMIN D 39.4 NG/ML (20.0-100.0); TOTAL PROTEIN 7.8 G/DL (5.7-8.2)
== END ==
LOC: M PLALAB 09:41
PROVIDERS: ATTEND Nurse Practitioner Family
DX: N39.0 Urinary tract infection, site not specified (principal); E67.3 Hypervitaminosis D

== ENCOUNTER → 2024-05-28 | Outpatient (CLI) | payer MEDICARE ==
[~2024-05-28] MED LIST changes: +ACET-910 GT; +DENO60SY2 SC; +LEVO1TAB40 PO; -PROL60SO SC
== END ==
LOC: M WHC 10:22
PROVIDERS: ATTEND Nurse Practitioner Family
DX: M85.88 Other specified disorders of bone density and structure, other site (principal); M85.851 Other specified disorders of bone density and structure, right thigh; M85.852 Other specified disorders of bone density and structure, left thigh

== ENCOUNTER 2024-06-05 16:56 | Inpatient (IN) | payer MEDICARE ==
[~2024-06-05] VITALS: Ht 119.4 cm; Wt 29.4 kg
[2024-06-05] MEDS ORDERED: ACETAMINOPHEN 325MG/10.15ML UDC GT ONE (17:15)
[2024-06-05] MEDS: ACETAMINOPHEN *IV* 500 MG in IV 1 EA IV ONE (17:33)
[2024-06-05] MEDS: NS (Normal Saline) 0.9% 1,000 ML IV SCH (17:37)
[2024-06-05 17:39] LABS: BASO % 0.2 % (0.0-1.0); EOS % 0.3 % (0.0-3.0); HEMATOCRIT 39.7 % (42.0-52.0); HEMOGLOBIN 13.8 g/dl (13.5-17.5); LYMPH # 2.4 10^3/uL (1.5-5.0); LYMPH % 26.6 % (24.0-44.0); MEAN CORPUSCULAR HEMOGLOBIN 32.4 pg (27.0-33.0); MEAN CORPUSCULAR HGB CONC 34.8 g/dl (32.0-36.5); MEAN CORPUSCULAR VOLUME 93.2 fl (80.0-96.0); MONO # 0.8 10^3/uL (0.0-0.8); MONO % 8.4 % (2.0-8.0); NEUTROPHILS # 5.9 10^3/uL (1.5-8.5); NEUTROPHILS % 64.3 % (36.0-66.0); PLATELET COUNT, AUTOMATED 152 10^3/uL (150-450); RED BLOOD COUNT 4.26 10^6/uL (4.30-6.10); WHITE BLOOD COUNT 9.1 10^3/uL (4.0-10.0)
[2024-06-05 18:07] LABS: THYROXINE (T4) 11.1 UG/DL (4.5-10.9)
[2024-06-05 18:08] LABS: THYROID STIMULATING HORMONE 1.579 uIU/ML (0.55-4.78)
[2024-06-05 18:12] LABS: PROCALCITONIN 0.05 ng/ml
[2024-06-05 18:15] LABS: ALKALINE PHOSPHATASE 118 U/L (40-129); ALT/SGPT 52 U/L (7.0-40); AST/SGOT 57 U/L (<34); BILIRUBIN,DIRECT 0.1 MG/DL (<0.4); BILIRUBIN,TOTAL 0.3 MG/DL (0.3-1.2); BLOOD UREA NITROGEN 11 MG/DL (9-23); CALCIUM LEVEL 9.4 MG/DL (8.5-10.1); CARBON DIOXIDE LEVEL 27 MMOL/L (20-31); CHLORIDE LEVEL 103 MMOL/L (98-107); CREATININE FOR GFR 0.39 MG/DL (0.70-1.30); GLOMERULAR FILTRATION RATE > 60.0 (>60); GLUCOSE, FASTING 85 MG/DL (60-100); POTASSIUM SERUM 4.3 MMOL/L (3.5-5.1); SODIUM LEVEL 142 MMOL/L (136-145); TOTAL PROTEIN 7.9 G/DL (5.7-8.2)
[2024-06-05] MEDS: IPRATROPIUM 0.5MG/ALBUTEROL 2.5MG INH SOL UD 3ML NEB ONE (21:46)
[2024-06-05] MEDS: IBUPROFEN 100MG 5ML SUSP UDC DYE FREE GT ONE (21:46)
[2024-06-05] MEDS ORDERED: IPRA0.00 NEB (21:57)
[2024-06-05] MEDS: ACETAMINOPHEN 325MG/10.15ML UDC GT ONE (23:46)
[2024-06-06] VITALS (21 sets, daily range): BP systolic 133–178; BP diastolic 81–93; TEMP 97.7–98.4; O2SAT 95–99
[2024-06-06] MEDS ORDERED: LEVALBUTEROL 1.25 MG 0.5ML CONCENTRATE NEB INH PRN (00:15)
[2024-06-06] MEDS: FLEET OIL RETENTION ENEMA PR ONE (01:20)
[2024-06-06] MEDS: METOPROLOL 5 MG/5 ML VIAL IV ONE (01:22)
[2024-06-06] MEDS: BISACODYL 10MG SUPP PR SCH (01:54)
[2024-06-06] MEDS: methylPREDNISolone 125MG 2ML VIAL IV SCH (01:54)
[2024-06-06 02:12] LABS: VENOUS BASE EXCESS 3.7 (-2.0-2.0); VENOUS HCO3 27.9 MMOL/L (23.0-27.0); VENOUS O2 SATURATION 98.7 % (60.0-80.0); VENOUS PARTIAL PRESSURE CO2 40.5 mmHg (38.0-50.0); VENOUS PH 7.456 UNITS (7.330-7.430); VENOUS STANDARD HCO3 27.8 MMOL/L; VENOUS TOTAL CO2 29.1 MMOL/L (24.0-28.0)
[2024-06-06 02:33] LABS: D-DIMER QUANT 0.41 ug/mL (<0.5); INR 0.98; PROTHROMBIN TIME 13.3 SECONDS (12.5-14.5)
[2024-06-06] MEDS ORDERED: IBUPROFEN 100MG 5ML SUSP UDC DYE FREE GT PRN (03:00)
[2024-06-06] MEDS ORDERED: HOME MED LIST COMPLETE! XX SCH (05:55)
[2024-06-06] MEDS: PANTOPRAZOLE 40MG VIAL IV SCH (09:46)
[2024-06-06] MEDS: methylPREDNISolone 40MG 1ML VIAL IV SCH (09:47)
[2024-06-06] MEDS: HEPARIN SOD (PORCINE) 5000UNITS/ML 1ML VIAL/SYRINGE SC SCH (09:48)
[2024-06-06] MEDS ORDERED: ISOVUE-370 76% 100ML VIAL As Ordered ONE (10:09)
[2024-06-06] MEDS: amLODIPine 5 MG TAB GT SCH (10:48)
[2024-06-06] MEDS: METOPROLOL TART 12.5 MG PER 1/2 TAB PEG SCH (10:49)
[2024-06-06] MEDS: MIRALAX *UNIT DOSE* 17GM PACKET GT SCH (10:49)
[2024-06-06] MEDS: LACTULOSE 20GM/30ML SYRUP UDC GT SCH (10:51)
[2024-06-06] MEDS: DOCUSATE SOD LIQ 100MG/10ML UDC GT SCH (12:28)
[2024-06-06] MEDS: SIMETHICONE 40MG/0.6ML DROPS 30ML GT SCH (12:29)
[2024-06-06] MEDS: FAMOTIDINE 20 MG TAB GT SCH (21:24)
[2024-06-06] MEDS: MOM 30ML SUSPENSION UDC GT SCH (21:24)
[2024-06-06] MEDS: diphenhydrAMINE 12.5MG/5ML ELIXIR UDC GT SCH (21:24)
[2024-06-07] VITALS (16 sets, daily range): BP systolic 140–148; BP diastolic 76–98; TEMP 97.8–102.5; O2SAT 92–98
[2024-06-07 06:16] LABS: HEMATOCRIT 38.3 % (42.0-52.0); HEMOGLOBIN 13.1 g/dl (13.5-17.5); MEAN CORPUSCULAR HEMOGLOBIN 32.3 pg (27.0-33.0); MEAN CORPUSCULAR HGB CONC 34.2 g/dl (32.0-36.5); MEAN CORPUSCULAR VOLUME 94.3 fl (80.0-96.0); PLATELET COUNT, AUTOMATED 162 10^3/uL (150-450); RED BLOOD COUNT 4.06 10^6/uL (4.30-6.10); WHITE BLOOD COUNT 8.4 10^3/uL (4.0-10.0)
[2024-06-07 06:39] LABS: ALBUMIN 3.8 G/DL (3.2-5.2); ALKALINE PHOSPHATASE 109 U/L (40-129); ALT/SGPT 34 U/L (7.0-40); AST/SGOT 31 U/L (<34); BILIRUBIN,TOTAL 0.3 MG/DL (0.3-1.2); BLOOD UREA NITROGEN 23 MG/DL (9-23); CALCIUM LEVEL 9.5 MG/DL (8.5-10.1); CARBON DIOXIDE LEVEL 28 MMOL/L (20-31); CHLORIDE LEVEL 104 MMOL/L (98-107); CREATININE FOR GFR 0.49 MG/DL (0.70-1.30); GLOMERULAR FILTRATION RATE > 60.0 (>60); GLUCOSE, FASTING 112 MG/DL (60-100); MAGNESIUM LEVEL 3.3 MG/DL (1.8-2.4); POTASSIUM SERUM 3.7 MMOL/L (3.5-5.1); SODIUM LEVEL 143 MMOL/L (136-145); TOTAL PROTEIN 7.5 G/DL (5.7-8.2)
[2024-06-07] MEDS ORDERED: predniSONE 20 MG TAB PO SCH (09:00)
[2024-06-07] MEDS ORDERED: IPRATROPIUM 0.5MG/ALBUTEROL 2.5MG INH SOL UD 3ML NEB PRN (09:10)
[2024-06-07] MEDS: IPRATROPIUM 0.5MG/ALBUTEROL 2.5MG INH SOL UD 3ML NEB SCH ×2 (10:30→11:43)
[2024-06-07] MEDS: methylPREDNISolone 40MG 1ML VIAL IV SCH (12:41)
[2024-06-07] MEDS: LevoFLOXacin 500 MG TABLET PO SCH (16:58)
[2024-06-07] MEDS: DOCUSATE SOD LIQ 100MG/10ML UDC GT SCH (18:45)
[2024-06-07] MEDS: ACETAMINOPHEN *IV* 1,000 MG in IV 1 EA IV STA (23:56)
[2024-06-08] VITALS (17 sets, daily range): BP systolic 119–150; BP diastolic 77–98; TEMP 97.2–99.4; O2SAT 92–99
[2024-06-08 01:05] LABS: BASO % 0.1 % (0.0-1.0); HEMATOCRIT 44.6 % (42.0-52.0); LYMPH % 8.2 % (24.0-44.0); MEAN CORPUSCULAR HEMOGLOBIN 32.1 pg (27.0-33.0); MEAN CORPUSCULAR HGB CONC 33.6 g/dl (32.0-36.5); MEAN CORPUSCULAR VOLUME 95.5 fl (80.0-96.0); MONO # 0.5 10^3/uL (0.0-0.8); MONO % 2.2 % (2.0-8.0); NEUTROPHILS # 21.4 10^3/uL (1.5-8.5); PLATELET COUNT, AUTOMATED 244 10^3/uL (150-450); RED BLOOD COUNT 4.67 10^6/uL (4.30-6.10); WHITE BLOOD COUNT 24.1 10^3/uL (4.0-10.0)
[2024-06-08 01:27] LABS: C REACTIVE PROTEIN QUANTITATIV 4.85 MG/DL (<1.0)
[2024-06-08 01:34] LABS: PROCALCITONIN 0.09 ng/ml
[2024-06-08 01:43] LABS: BLOOD UREA NITROGEN 31 MG/DL (9-23); CALCIUM LEVEL 11.2 MG/DL (8.5-10.1); CARBON DIOXIDE LEVEL 17 MMOL/L (20-31); CHLORIDE LEVEL 105 MMOL/L (98-107); CREATININE FOR GFR 0.72 MG/DL (0.70-1.30); GLOMERULAR FILTRATION RATE > 60.0 (>60); GLUCOSE, FASTING 76 MG/DL (60-100); POTASSIUM SERUM 4.7 MMOL/L (3.5-5.1); SODIUM LEVEL 147 MMOL/L (136-145)
[2024-06-08] MEDS ORDERED: LevoFLOXacin 750 MG TABLET PO SCH (06:00)
[2024-06-08] MEDS: ACETAMINOPHEN 325MG/10.15ML UDC PO PRN (20:34)
[2024-06-09] VITALS (18 sets, daily range): BP systolic 120–145; BP diastolic 76–91; TEMP 97.2–99.6; O2SAT 90–97
[2024-06-09] MEDS ORDERED: ONDANSETRON 4MG 2ML VIAL IV PRN (11:50)
[2024-06-09 13:19] LABS: MEAN CORPUSCULAR HEMOGLOBIN 32.8 pg (27.0-33.0); MEAN CORPUSCULAR HGB CONC 34.2 g/dl (32.0-36.5); PLATELET COUNT, AUTOMATED 148 10^3/uL (150-450); RED BLOOD COUNT 3.96 10^6/uL (4.30-6.10); WHITE BLOOD COUNT 9.1 10^3/uL (4.0-10.0)
[2024-06-09 14:01] LABS: ALBUMIN 3.7 G/DL (3.2-5.2); ALKALINE PHOSPHATASE 84 U/L (40-129); ALT/SGPT 28 U/L (7.0-40); AST/SGOT 32 U/L (<34); BILIRUBIN,TOTAL 0.4 MG/DL (0.3-1.2); BLOOD UREA NITROGEN 25 MG/DL (9-23); CALCIUM LEVEL 9.4 MG/DL (8.5-10.1); CARBON DIOXIDE LEVEL 29 MMOL/L (20-31); CHLORIDE LEVEL 102 MMOL/L (98-107); CREATININE FOR GFR 0.47 MG/DL (0.70-1.30); GLOMERULAR FILTRATION RATE > 90.0 (>60); GLUCOSE, FASTING 118 MG/DL (60-100); MAGNESIUM LEVEL 2.1 MG/DL (1.8-2.4); PHOSPHORUS LEVEL 2.3 MG/DL (2.5-4.9); POTASSIUM SERUM 3.4 MMOL/L (3.5-5.1); SODIUM LEVEL 144 MMOL/L (136-145); TOTAL PROTEIN 7.1 G/DL (5.7-8.2)
[2024-06-09 14:07] LABS: ATYPICAL LYMPH 1 % (0-5); LYMPHOCYTES 29 % (16-44); MONOCYTES 4 % (0-5); NEUTROPHILS 66 % (28-66); PLATELET ESTIMATE NORMAL (NORMAL)
[2024-06-10] VITALS (8 sets, daily range): BP systolic 116–144; BP diastolic 68–100; TEMP 97.1–98.4; O2SAT 95–97
[2024-06-10 06:19] LABS: HEMATOCRIT 37.4 % (42.0-52.0); HEMOGLOBIN 12.5 g/dl (13.5-17.5); LYMPH # 3.2 10^3/uL (1.5-5.0); LYMPH % 35.4 % (24.0-44.0); MEAN CORPUSCULAR HEMOGLOBIN 32.1 pg (27.0-33.0); MEAN CORPUSCULAR HGB CONC 33.4 g/dl (32.0-36.5); MEAN CORPUSCULAR VOLUME 95.9 fl (80.0-96.0); MONO # 0.8 10^3/uL (0.0-0.8); NEUTROPHILS # 5.1 10^3/uL (1.5-8.5); NEUTROPHILS % 55.3 % (36.0-66.0); PLATELET COUNT, AUTOMATED 164 10^3/uL (150-450); WHITE BLOOD COUNT 9.1 10^3/uL (4.0-10.0)
[2024-06-10 06:29] LABS: ALBUMIN 3.5 G/DL (3.2-5.2); ALKALINE PHOSPHATASE 80 U/L (40-129); ALT/SGPT 35 U/L (7.0-40); AST/SGOT 31 U/L (<34); BILIRUBIN,TOTAL 0.2 MG/DL (0.3-1.2); BLOOD UREA NITROGEN 22 MG/DL (9-23); CALCIUM LEVEL 9.4 MG/DL (8.5-10.1); CARBON DIOXIDE LEVEL 31 MMOL/L (20-31); CHLORIDE LEVEL 101 MMOL/L (98-107); GLOMERULAR FILTRATION RATE > 90.0 (>60); GLUCOSE, FASTING 97 MG/DL (60-100); POTASSIUM SERUM 3.2 MMOL/L (3.5-5.1); SODIUM LEVEL 144 MMOL/L (136-145); TOTAL PROTEIN 6.8 G/DL (5.7-8.2)
[2024-06-10] MEDS: POTASSIUM CHLORIDE 10% LIQ 20MEQ/15ML UDC PO ONE (10:03)
[2024-06-10] MEDS ORDERED: METO1TAB87 PEG (12:38)
== END 2024-06-10 14:10 | disposition home or self-care (01) | DRG 177 ==
LOC: EDBD 16:56 → M ED 16:56 → M ED INP 23:56 → M PCU 06-06 03:23
PROVIDERS: ADMIT Student in an Organized Health Care Education/Training Program; ATTEND Student in an Organized Health Care Education/Training Program
DX: J69.0 Pneumonitis due to inhalation of food and vomit (principal); G80.0 Spastic quadriplegic cerebral palsy; J96.01 Acute respiratory failure with hypoxia; K56.7 Ileus, unspecified; E87.20 Acidosis, unspecified; J20.6 Acute bronchitis due to rhinovirus; I10 Essential (primary) hypertension; K21.9 Gastro-esophageal reflux disease without esophagitis; G40.909 Epilepsy, unspecified, not intractable, without status epilepticus; E83.51 Hypocalcemia; Z93.1 Gastrostomy status; Z79.899 Other long term (current) drug therapy; Z88.0 Allergy status to penicillin; Z91.040 Latex allergy status; E83.52 Hypercalcemia

== ENCOUNTER 2024-07-11 14:47 | Emergency (ER) | payer MEDICARE, MEDICAID, OTHER ==
[~2024-07-11 14:47] MED LIST changes: +IPRA0.00 NEB; +METO1TAB87 PEG
[2024-07-11 14:58] VITALS: TEMP 101.2
[2024-07-11 15:53] LABS: BASO % 0.1 % (0.0-1.0); EOS % 0.1 % (0.0-3.0); HEMATOCRIT 37.6 % (42.0-52.0); HEMOGLOBIN 12.4 g/dl (13.5-17.5); LYMPH # 0.9 10^3/uL (1.5-5.0); LYMPH % 12.1 % (24.0-44.0); MEAN CORPUSCULAR VOLUME 96.9 fl (80.0-96.0); MONO # 0.6 10^3/uL (0.0-0.8); MONO % 7.8 % (2.0-8.0); NEUTROPHILS # 5.9 10^3/uL (1.5-8.5); NEUTROPHILS % 79.6 % (36.0-66.0); PLATELET COUNT, AUTOMATED 138 10^3/uL (150-450); RED BLOOD COUNT 3.88 10^6/uL (4.30-6.10); WHITE BLOOD COUNT 7.5 10^3/uL (4.0-10.0)
[2024-07-11 15:55] LABS: VENOUS BASE EXCESS 0.3 (-2.0-2.0); VENOUS HCO3 25.4 MMOL/L (23.0-27.0); VENOUS PARTIAL PRESSURE CO2 42.8 mmHg (38.0-50.0); VENOUS PARTIAL PRESSURE O2 59.5 mmHg (30.0-50.0); VENOUS PH 7.391 UNITS (7.330-7.430); VENOUS STANDARD HCO3 24.6 MMOL/L; VENOUS TOTAL CO2 26.7 MMOL/L (24.0-28.0)
[2024-07-11 16:25] LABS: ALBUMIN 3.9 G/DL (3.2-5.2); ALKALINE PHOSPHATASE 101 U/L (40-129); ALT/SGPT 55 U/L (7.0-40); AST/SGOT 42 U/L (<34); BILIRUBIN,DIRECT < 0.1 MG/DL (<0.4); BILIRUBIN,TOTAL 0.2 MG/DL (0.3-1.2); BLOOD UREA NITROGEN 6 MG/DL (9-23); CALCIUM LEVEL 9.4 MG/DL (8.5-10.1); CARBON DIOXIDE LEVEL 29 MMOL/L (20-31); CHLORIDE LEVEL 99 MMOL/L (98-107); CREATININE FOR GFR 0.41 MG/DL (0.70-1.30); GLOMERULAR FILTRATION RATE > 90.0 (>60); GLUCOSE, FASTING 92 MG/DL (60-100); POTASSIUM SERUM 3.6 MMOL/L (3.5-5.1); SODIUM LEVEL 138 MMOL/L (136-145); TOTAL PROTEIN 7.3 G/DL (5.7-8.2)
[2024-07-11 16:37] LABS: PROCALCITONIN 0.09 ng/ml
[2024-07-11 17:15] LABS: APPEARANCE, URINE HAZY (CLEAR); BACTERIA, URINE AUTO NEGATIVE (NEGATIVE); BILIRUBIN, URINE AUTO NEGATIVE (NEGATIVE); BLOOD, URINE BLOOD NEGATIVE (NEGATIVE); COLOR, URINE YELLOW (YELLOW); GLUCOSE, URINE (UA) AUTO NEGATIVE (NEGATIVE); KETONE, URINE AUTO NEGATIVE (NEGATIVE); LEUKOCYTE ESTERASE, URINE AUTO NEGATIVE (NEGATIVE); MUCUS, URINE SMALL (NEGATIVE); NITRITE, URINE AUTO NEGATIVE (NEGATIVE); PROTEIN, URINE AUTO NEGATIVE (NEGATIVE); RBC, URINE AUTO 0 /HPF (0-3); SPECIFIC GRAVITY URINE AUTO 1.014 (1.002-1.035); SQUAMOUS EPITHELIAL CELL UR AU 0 /HPF (0-6); UROBILINOGEN, URINE AUTO 0.2 mg/dL (0.0-2.0); WBC, URINE AUTO 2 /HPF (0-3)
[2024-07-11] MEDS: ACETAMINOPHEN 160MG/5ML SUSP UDC DYE-FREE PO ONE (17:58)
[2024-07-11 18:30] VITALS: BP 129/78; O2SAT 93
== END 2024-07-11 18:57 | disposition home or self-care (01) ==
LOC: EDBD 14:47 → M ED 14:47
DX: J06.9 Acute upper respiratory infection, unspecified (principal); B97.81 Human metapneumovirus as the cause of diseases classified elsewhere; Z88.0 Allergy status to penicillin; Z88.1 Allergy status to other antibiotic agents; Z91.040 Latex allergy status; Z79.899 Other long term (current) drug therapy; Z79.1 Long term (current) use of non-steroidal anti-inflammatories (NSAID)

== ENCOUNTER → 2024-09-27 | Outpatient (REF) | payer MEDICARE ==
[2024-09-27 13:16] LABS: APPEARANCE, URINE HAZY (CLEAR); BACTERIA, URINE AUTO 1+ (NEGATIVE); BILIRUBIN, URINE AUTO NEGATIVE (NEGATIVE); BLOOD, URINE BLOOD NEGATIVE (NEGATIVE); GLUCOSE, URINE (UA) AUTO NEGATIVE (NEGATIVE); KETONE, URINE AUTO NEGATIVE (NEGATIVE); LEUKOCYTE ESTERASE, URINE AUTO NEGATIVE (NEGATIVE); MUCUS, URINE SMALL (NEGATIVE); NITRITE, URINE AUTO NEGATIVE (NEGATIVE); PROTEIN, URINE AUTO NEGATIVE (NEGATIVE); RBC, URINE AUTO 0 /HPF (0-3); SPECIFIC GRAVITY URINE AUTO 1.008 (1.002-1.035); SQUAMOUS EPITHELIAL CELL UR AU 0 /HPF (0-6); UROBILINOGEN, URINE AUTO 0.2 mg/dL (0.0-2.0); WBC, URINE AUTO 2 /HPF (0-3)
== END ==
LOC: M SMT 12:53
PROVIDERS: ATTEND Nurse Practitioner Family
DX: Z87.440 Personal history of urinary (tract) infections (principal)

== ENCOUNTER → 2024-10-26 | Outpatient (CLI) | payer MEDICARE, MEDICAID ==
[~2024-10-26] MED LIST changes: +[UNRECOGNIZED DRUG - CODE] MT; -[UNRECOGNIZED DRUG - CODE] MT
== END ==
LOC: M RAD 08:53
PROVIDERS: ATTEND Nurse Practitioner Family
DX: N20.0 Calculus of kidney (principal)